=== PATIENT | female | born 1935 | race Caucasian/White ===

== ENCOUNTER 2017-04-20 20:45 | Observation (INO) | payer OTHER ==
[~2017-04-20] VITALS: Ht 157.5 cm; Wt 56.0 kg
[~2017-04-20 20:45] MED LIST: ASPI81TA28 PO; BACL1TAB PO; CALC-20 PO; CITA20TA4 PO; CITA20TA9 PO; CLON1TAB3 PO; DILT180C PO; LEVO125T4 PO; LISI5TAB PO; LVNIS30 SQ; MULTTAB58 PO; SIMV20TA5 PO; TRAZ50TA35 PO
[2017-04-20] MEDS ORDERED: SODIUM CHLORIDE 0.9% 1000ML 1,000 ML IV STA (21:29)
--- NOTE | 2017-04-20 21:29 | EMERGENCY ROOM VISIT NOTE ---
History Report prepared by Giuseppeibvicky: Makayla Lawson Under the Supervision of: Dr. Waylon Dominguez D.O. First contact with patient: 21:16 Chief Complaint: FALL Stated Complaint: FELL History of Present Illness The patient is a 81 year old female who presents to the Emergency Room with complaints of an episode of a fall that occurred just prior to arrival. The patient is unsure of what happened but knows that she feel to the floor. The patient denies hitting her head or loosing consciousness but did not remember what side she fell onto. She denies tripping over anything. The patient went to [facility] and they sent her to the ED. The patient uses a cane to walk and she lives alone. Pt denies headache, change in vision, fevers, cough, chest pain, shortness of breath, nausea, vomiting, diarrhea, pain with urination, and melena. Patient has no other complaints at this time. She does wear to 3 L nasal cannula chronically. Source of History: patient Onset: jsut prior to arrival Timing: other (episode) Associated Symptoms: No LOC Note: Pt denies headache, change in vision, fevers, cough, chest pain, shortness of breath, nausea, vomiting, diarrhea, pain with urination, and melena. Review of Systems See HPI for pertinent positives & negatives. A total of 10 systems reviewed and were otherwise negative. Past Medical & Surgical Medical Problems: (1) COPD (chronic obstructive pulmonary disease) (2) Neck pain, chronic (3) Torticollis Surgical Problems: (1) S/P Botox injection Family History no pertinent family history stated Social History Smoking Status: Former Smoker Marital Status: Housing Status: lives alone Occupation Status: retired Current/Historical Medications Scheduled Aspirin (Aspirin Ec), 81 MG PO DAILY Atorvastatin (Lipitor), 10 MG PO DAILY Baclofen (Lioresal), 10 MG PO HS Citalopram Hydrobromide (Citalopram Hydrobromide), 1 TAB PO DAILY Citalopram Hydrobromide (Celexa), 20 MG PO DAILY Clonazepam (Klonopin), 1 MG PO HS Diltiazem Hcl Coated Beads (Diltiazem Hcl Er), 1 CAP PO DAILY Fluticasone Furoate-Vilanterol (Breo Ellipta), 1 PUFF INH DAILY Furosemide (Lasix), 40 MG PO DAILY Levothyroxine Sodium (Levothyroxine Sodium), 1 TAB PO DAILY Lisinopril (Prinivil), 5 MG PO DAILY Trazodone Hcl (Trazodone), 25 MG PO DAILY Allergies Coded Allergies: Iodine (Verified Allergy, Mild, 07/08/15) Physical Exam Vital Signs Date Time Temp Pulse Resp B/P (MAP) Pulse Ox O2 Delivery O2 Flow Rate FiO2 04/20/17 23:58 81 28 134/52 94 Nasal Cannula 3.5 04/20/17 22:52 77 22 109/56 97 Nasal Cannula 3.5 04/20/17 22:34 79 04/20/17 21:52 96 Nasal Cannula 3.5 04/20/17 21:03 36.5 95 28 115/56 89 Nasal Cannula Physical Exam GENERAL: Sitting, chronically ill appearing, no acute distress, on nasal canula HEAD: normal cephalic, atraumatic EYE EXAM: normal conjunctiva, PERRL and EOM's grossly intact OROPHARYNX: no exudate, no erythema, lips, buccal mucosa, and tongue normal and mucous membranes are dry NOSE: no septal hematoma EARS: TMs clear b/l NECK: supple, no nuchal rigidity, no adenopathy, non-tender CHEST: stable to compression anteriorly and posteriorly LUNGS: clear to auscultation. Normal chest wall mechanics HEART: systolic ejection murmur, S1 normal and S2 normal ABDOMEN: abdomen soft, non-tender, normo-active bowel sounds, no masses, no rebound or guarding. PELVIS: stable to compression anteriorly and posteriorly BACK: Back is symmetrical on inspection and there is no deformity, no midline tenderness, no CVA tenderness. SKIN: tear on right elbow, large bruise/hematoma to right anterior surface of the humerus UPPER EXTREMITIES: full active and passive range of motion of all joints without tenderness to palpation with exception of right humerus which has diffuse bruising LOWER EXTREMITIES: full active and passive range of motion of all joints without tenderness to palpation NEURO EXAM: Normal sensorium, cranial nerves II-XII grossly intact, normal speech, no gross weakness of legs. GCS: 15. Medical Decision & Procedures ER Provider Diagnostic Interpretation: Radiology results as stated below per my review and the radiologist's interpretation: RIGHT HUMERUS 2 VIEWS FINDINGS: AP and lateral views of the right humerus are obtained. No prior studies are available for comparison at the time of dictation. The skeletal structures are osteopenic there is an impacted fracture of the left humeral neck which extends through the humeral head. Mild overlying soft tissue edema is noted. The distal humerus is intact. The shoulder and elbow joints are grossly maintained. The imaged right lung parenchyma appears clear. IMPRESSION: There is a nondistracted impacted fracture of the right humeral head and neck. Electronically signed by: Juliano Walls M.D. CT SCAN OF THE BRAIN WITHOUT IV CONTRAST FINDINGS: Brain parenchyma: There are age-related involutional changes noting moderate patchy subcortical and periventricular microangiopathic change. There is no hemorrhage, mass effect, or evidence of acute territorial ischemia by CT criteria. Amaya-white matter is preserved. No extra-axial fluid collection is seen. Ventricles, sulci, cisterns: Prominent secondary to involutional change. Intracranial vasculature: There is atherosclerotic calcification of the cavernous carotid and vertebral arteries. Calvarium: The skeletal structures are osteopenic. No depressed calvarial fractures seen. Sinuses and mastoids: A retention cyst is noted in the right maxillary antrum. The remaining The visualized paranasal sinuses are clear. The mastoid air cells are well pneumatized. Orbits: The bony orbits are grossly intact. There are bilateral ocular lens implants. IMPRESSION: Senescent changes as above with no hemorrhage, mass effect, or evidence of acute territorial ischemia by CT criteria. Electronically signed by: Juliano Walls M.D. SINGLE VIEW CHEST FINDINGS: An AP, portable, upright chest radiograph is compared to study dated 07/10/2015. The examination is degraded by portable technique and patient rotation. The heart is mildly enlarged and there is atherosclerotic calcification of the thoracic aorta. The pulmonary vasculature is noncongested. Chronic interstitial thickening similar to previous. No airspace consolidation, large pleural effusion, or pneumothorax is seen. The skeletal structures are osteopenic. There is an impacted fracture of the right humeral neck. IMPRESSION: 1. Cardiomegaly with no acute cardiopulmonary abnormality. 2. There is an impacted fracture of the right humeral neck. Electronically signed by: Juliano Walls M.D. CT SCAN OF THE CERVICAL SPINE FINDINGS: Skeletal structures: The skeletal structures are osteopenic. There is no evidence of fracture or subluxation involving the cervical spine. Vertebral body height is maintained. There is minimal anterolisthesis at C3-C4 and C4-C5. Alignment is otherwise preserved. Anterior osteophytes are seen throughout. There is hyperkyphosis of the cervical spine. The odontoid process and lateral masses are intact. The atlantoaxial articulation is preserved noting advanced productive degenerative change. The spinous processes appear intact. There is moderate multilevel cervical spondylosis. Uncovertebral and facet arthropathy contribute to neural foraminal narrowing at several levels. Intervertebral discs: Mild to moderate degenerative disc space narrowing is seen at C4-C5, C5-C6, and C6-C7. Central canal: Grossly patent. Soft tissues: The prevertebral and paraspinous soft tissues are within normal limits. Thyroid gland is markedly atrophic. Calvarium: The visualized calvarium at the skull base appears intact. Brain parenchyma: Partially visualized brain parenchyma the skull base is within normal limits noting age-related involutional change. Sinuses and mastoids: The visualized paranasal sinuses are clear. The mastoid air cells are well pneumatized. Lung apices: Emphysematous change and scarring is noted at the lung apices. IMPRESSION: 1. There is no evidence of fracture or subluxation involving the cervical spine. 2. Osteopenia, spondylotic change, and cervical hyperkyphosis as above. Electronically signed by: Juliano Walls M.D. Laboratory Results 04/20/17 21:58 Red Blood Count 3.33, Mean Corpuscular Volume 98.8, Mean Corpuscular Hemoglobin 30.9, Mean Corpuscular Hemoglobin Concent 31.3, Mean Platelet Volume 10.1, Neutrophils (%) (Auto) 88.6, Lymphocytes (%) (Auto) 5.4, Monocytes (%) (Auto) 5.5, Eosinophils (%) (Auto) 0.0, Basophils (%) (Auto) 0.1, Neutrophils # (Auto) 19.03, Lymphocytes # (Auto) 1.16, Monocytes # (Auto) 1.19, Eosinophils # (Auto) 0.01, Basophils # (Auto) 0.03 04/20/17 22:30 Test 04/20/17 21:54 04/20/17 21:58 04/20/17 22:30 04/20/17 22:40 Bedside Glucose 131 mg/dl (70-90) White Blood Count 21.50 K/uL (4.8-10.8) Red Blood Count 3.33 M/uL (4.2-5.4) Hemoglobin 10.3 g/dL (12.0-16.0) Hematocrit 32.9 % (37-47) Mean Corpuscular Volume 98.8 fL (80-100) Mean Corpuscular Hemoglobin 30.9 pg (25-34) Mean Corpuscular Hemoglobin Concent 31.3 g/dl (32-36) Platelet Count 439 K/uL (130-400) Mean Platelet Volume 10.1 fL (7.4-10.4) Neutrophils (%) (Auto) 88.6 % Lymphocytes (%) (Auto) 5.4 % Monocytes (%) (Auto) 5.5 % Eosinophils (%) (Auto) 0.0 % Basophils (%) (Auto) 0.1 % Neutrophils # (Auto) 19.03 K/uL (1.4-6.5) Lymphocytes # (Auto) 1.16 K/uL (1.2-3.4) Monocytes # (Auto) 1.19 K/uL (0.11-0.59) Eosinophils # (Auto) 0.01 K/uL (0-0.5) Basophils # (Auto) 0.03 K/uL (0-0.2) RDW Standard Deviation 48.5 fL (36.4-46.3) RDW Coefficient of Variation 13.5 % (11.5-14.5) Immature Granulocyte % (Auto) 0.4 % Immature Granulocyte # (Auto) 0.08 K/uL (0.00-0.02) Activated Partial Thromboplast Time 25.7 SECONDS (21.0-31.0) Partial Thromboplastin Ratio 1.0 Anion Gap 4.0 mmol/L (3-11) Est Creatinine Clear Calc Drug Dose 26.4 ml/min Estimated GFR () 44.2 Estimated GFR (Non- 38.2 BUN/Creatinine Ratio 18.4 (10-20) Calcium Level 8.5 mg/dl (8.5-10.1) Total Bilirubin 0.4 mg/dl (0.2-1) Direct Bilirubin 0.1 mg/dl (0-0.2) Aspartate Amino Transf (AST/SGOT) 21 U/L (15-37) Alanine Aminotransferase (ALT/SGPT) 18 U/L (12-78) Alkaline Phosphatase 79 U/L (45-117) Troponin I 0.022 ng/ml (0-0.045) Total Protein 7.2 gm/dl (6.4-8.2) Albumin 3.6 gm/dl (3.4-5.0) Urine Color YELLOW Urine Appearance CLEAR (CLEAR) Urine pH 5.0 (4.5-7.5) Urine Specific Jackson 1.016 (1.000-1.030) Urine Protein NEG (NEG) Urine Glucose (UA) NEG (NEG) Urine Ketones NEG (NEG) Urine Occult Blood NEG (NEG) Urine Nitrite NEG (NEG) Urine Bilirubin NEG (NEG) Urine Urobilinogen NEG (NEG) Urine Leukocyte Esterase MODERATE (NEG) Urine WBC (Auto) 5-10 /hpf (0-5) Urine RBC (Auto) 0-4 /hpf (0-4) Urine Hyaline Casts (Auto) 5-10 /lpf (0-5) Urine Epithelial Cells (Auto) >30 /lpf (0-5) Urine Bacteria (Auto) 4+ (NEG) Urine Renal Epithelial Cells 0-5 /lpf (0-5) Laboratory results per my review. Medications Administered Medications (Trade) Dose Ordered Sig/Nishant Route Start Time Stop Time Status Last Admin Dose Admin Sodium Chloride 1,000 ml @ 999 mls/hr Q1H1M STAT IV 04/20/17 21:29 04/20/17 22:29 DC 04/20/17 22:15 999 MLS/HR Methylprednisolone Sodium Succinate (Solu-Medrol IV) 125 mg NOW STAT IV 04/20/17 23:22 04/20/17 23:24 DC 04/20/17 23:30 125 MG ECG Indication: other (fall) Rhythm: sinus rhythm Findings: PVC, other (poor baseline) Comparison ECG Date: 07/11/15 Change: difficult to compare appears to have no acute changes ED Course ED COURSE: Vital signs were reviewed and showed hypertensive The patients medical record was reviewed The above diagnostic studies were performed and reviewed. ED treatments and interventions as stated above. 2120: The patient was evaluated in room A12A. A complete history and physical examination was performed. 0:I rechecked on the patient she has no allergies to IV contrast. I reviewed previous CT scan in 2014 and she has taken solu-medrol 2322: Solu-Medrol IV 125 mg IV 7: The patient just got back from her scans, she has no complaints. 244: I reviewed the patient's case with Dr. Maryanne ROD. He will evaluate the patient for further management. 2452: Upon reevaluation, the patient is resting.I discussed my findings with the patient and she understands and agrees with the treatment plan. Based on the patients age, coexisting illnesses, exam and lab findings the decision to treat as an inpatient was made. The patient remained stable while under my care. The patient will be evaluated for further management. Medical Decision Differential diagnoses include major intracranial, cervical, spinal, thoracic, abdominal, pelvic and neurologic injury. Fracture, contusion, sprain, strain, laceration, abrasions included as well. Patient is an 81-year-old female who presents the ER following a fall at home which she cannot describe. Upon presentation she is found to be severely hypoxic on her portable O2. She was placed on 4 L nasal cannula and has been having no trouble since then. X-ray show a right proximal febrile head fracture. EKG showed poor baseline but was unremarkable. She is a leukocytosis of 24,000 any urine which was straight cathed but contaminated. Question whether this is truly UTI versus leukocytosis from the fracture. CT PE was performed because of the earlier hypoxia. I reviewed the images and do not see any PEs. Official report was pending. She has been feeling very weak and family notes that she lives home alone and would be more help if she were to go home. I do not feels reasonable to discharge her at this time. She was given a dose of Rocephin. Pain was controlled while in the ER. She is admitted to internal medicine for further workup of her UTI/leukocytosis and right humeral head fracture which is likely nonoperable. Medication Reconcilliation Current Medication List: was personally reviewed by me Blood Pressure Screening Patient's blood pressure: Elevated blood pressure Blood pressure disposition: Elevated BP felt to be situational Consults Time Called: 2439 Consulting Physician: Dr. Maryanne ROD Returned Call: [phone] I reviewed the patient's case with Dr. Khan. He will evaluate the patient for further management. Impression Primary Impression: Fall Additional Impressions: Humeral head fracture UTI (urinary tract infection) Weakness Scribe Attestation The scribe's documentation has been prepared under my direction and personally reviewed by me in its entirety. I confirm that the note above accurately reflects all work, treatment, procedures, and medical decision making performed by me. Departure Information Dispostion Being Evaluated By Hospitalist Referrals Davian Brooke M.D. (PCP) Forms HOME CARE DOCUMENTATION FORM, IMPORTANT VISIT INFORMATION Patient Instructions My [facility] Health Problem Qualifiers Primary Impression: Fall Encounter type: initial encounter Qualified Codes: W19.XXXA - Unspecified fall, initial encounter Additional Impressions: Humeral head fracture Encounter type: initial encounter Fracture type: closed Laterality: right Qualified Codes: S42.291A - Other displaced fracture of upper end of right humerus, initial encounter for closed fracture UTI (urinary tract infection) Urinary tract infection type: acute cystitis Hematuria presence: with hematuria Qualified Codes: N30.01 - Acute cystitis with hematuria
--- NOTE | 2017-04-20 22:04 | DIAGNOSTIC IMAGING REPORT ---
RIGHT HUMERUS 2 VIEWS CLINICAL HISTORY: Right arm injury. FINDINGS: AP and lateral views of the right humerus are obtained. No prior studies are available for comparison at the time of dictation. The skeletal structures are osteopenic there is an impacted fracture of the left humeral neck which extends through the humeral head. Mild overlying soft tissue edema is noted. The distal humerus is intact. The shoulder and elbow joints are grossly maintained. The imaged right lung parenchyma appears clear. IMPRESSION: There is a nondistracted impacted fracture of the right humeral head and neck. Electronically signed by: Juliano Walls M.D. 04/20/2017 10:02 PM Dictated Date/Time: 04/20/2017 10:01 PM
--- NOTE | 2017-04-20 22:05 | DIAGNOSTIC IMAGING REPORT ---
SINGLE VIEW CHEST CLINICAL HISTORY: Change in mental status. Weakness. FINDINGS: An AP, portable, upright chest radiograph is compared to study dated 07/10/2015. The examination is degraded by portable technique and patient rotation. The heart is mildly enlarged and there is atherosclerotic calcification of the thoracic aorta. The pulmonary vasculature is noncongested. Chronic interstitial thickening similar to previous. No airspace consolidation, large pleural effusion, or pneumothorax is seen. The skeletal structures are osteopenic. There is an impacted fracture of the right humeral neck. IMPRESSION: 1. Cardiomegaly with no acute cardiopulmonary abnormality. 2. There is an impacted fracture of the right humeral neck. Electronically signed by: Juliano Walls M.D. 04/20/2017 10:03 PM Dictated Date/Time: 04/20/2017 10:02 PM
[2017-04-20 22:11] LABS: BASO % 0.1 %; BASO ABS # 0.03 K/uL (0-0.2); COMPLETE YES; HEMATOCRIT 32.9 % (37-47); IG% 0.4 %; LYMPH % 5.4 %; LYMPH ABS # 1.16 K/uL (1.2-3.4); MEAN CELL VOLUME 98.8 fL (80-100); MEAN CORPUSCULAR HEMOGLOBIN 30.9 pg (25-34); MEAN CORPUSCULAR HGB CONC 31.3 g/dl (32-36); MEAN PLATELET VOLUME 10.1 fL (7.4-10.4); MONO % 5.5 %; NEUT % 88.6 %; PLATELET COUNT 439 K/uL (130-400); RED BLOOD COUNT 3.33 M/uL (4.2-5.4)
--- NOTE | 2017-04-20 22:26 | DIAGNOSTIC IMAGING REPORT ---
CT SCAN OF THE BRAIN WITHOUT IV CONTRAST CLINICAL HISTORY: Fall. COMPARISON STUDY: No priors. TECHNIQUE: Unenhanced axial CT scan of the brain is performed from the vertex to the skull base. The examination is degraded by suboptimal positioning within the CT gantry. CT DOSE: Reported separately under the concurrently performed CT scan of the cervical spine. FINDINGS: Brain parenchyma: There are age-related involutional changes noting moderate patchy subcortical and periventricular microangiopathic change. There is no hemorrhage, mass effect, or evidence of acute territorial ischemia by CT criteria. Amaya-white matter is preserved. No extra-axial fluid collection is seen. Ventricles, sulci, cisterns: Prominent secondary to involutional change. Intracranial vasculature: There is atherosclerotic calcification of the cavernous carotid and vertebral arteries. Calvarium: The skeletal structures are osteopenic. No depressed calvarial fractures seen. Sinuses and mastoids: A retention cyst is noted in the right maxillary antrum. The remaining The visualized paranasal sinuses are clear. The mastoid air cells are well pneumatized. Orbits: The bony orbits are grossly intact. There are bilateral ocular lens implants. IMPRESSION: Senescent changes as above with no hemorrhage, mass effect, or evidence of acute territorial ischemia by CT criteria. Electronically signed by: Juliano Walls M.D. 04/20/2017 10:24 PM Dictated Date/Time: 04/20/2017 10:22 PM
[2017-04-20] MEDS ORDERED: FRS/40 PO (22:33)
[2017-04-20] MEDS ORDERED: ATOR10TA88 PO (22:33)
[2017-04-20] MEDS ORDERED: FLUT1INH INH (22:33)
--- NOTE | 2017-04-20 22:33 | DIAGNOSTIC IMAGING REPORT ---
CT SCAN OF THE CERVICAL SPINE CLINICAL HISTORY: Fall. COMPARISON STUDY: MRI of the cervical spine dated 10/03/2006. TECHNIQUE: CT scan of the cervical spine is performed from the skull base to the upper thoracic spine. Images are reviewed in the axial, sagittal, and coronal planes. IV contrast was not administered for this examination. A dose lowering technique was utilized adhering to the principles of ALARA. The examination is significantly degraded by suboptimal positioning due to cervical hyperkyphosis. CT DOSE: 2393.56 mGy.cm FINDINGS: Skeletal structures: The skeletal structures are osteopenic. There is no evidence of fracture or subluxation involving the cervical spine. Vertebral body height is maintained. There is minimal anterolisthesis at C3-C4 and C4-C5. Alignment is otherwise preserved. Anterior osteophytes are seen throughout. There is hyperkyphosis of the cervical spine. The odontoid process and lateral masses are intact. The atlantoaxial articulation is preserved noting advanced productive degenerative change. The spinous processes appear intact. There is moderate multilevel cervical spondylosis. Uncovertebral and facet arthropathy contribute to neural foraminal narrowing at several levels. Intervertebral discs: Mild to moderate degenerative disc space narrowing is seen at C4-C5, C5-C6, and C6-C7. Central canal: Grossly patent. Soft tissues: The prevertebral and paraspinous soft tissues are within normal limits. Thyroid gland is markedly atrophic. Calvarium: The visualized calvarium at the skull base appears intact. Brain parenchyma: Partially visualized brain parenchyma the skull base is within normal limits noting age-related involutional change. Sinuses and mastoids: The visualized paranasal sinuses are clear. The mastoid air cells are well pneumatized. Lung apices: Emphysematous change and scarring is noted at the lung apices. IMPRESSION: 1. There is no evidence of fracture or subluxation involving the cervical spine. 2. Osteopenia, spondylotic change, and cervical hyperkyphosis as above. Electronically signed by: Juliano Walls M.D. 04/20/2017 10:32 PM Dictated Date/Time: 04/20/2017 10:21 PM
[2017-04-20 23:06] LABS: BUN/CREATININE RATIO 18.4 (10-20); CALCIUM 8.5 mg/dl (8.5-10.1); CREATININE 1.3 mg/dl (0.60-1.20); POTASSIUM 4.3 mmol/L (3.5-5.1)
[2017-04-20 23:07] LABS: URINE APPEARANCE CLEAR (CLEAR); URINE BILIRUBIN NEG (NEG); URINE COLOR YELLOW; URINE EPITHELIAL CELL AUTO >30 /lpf (0-5); URINE NITRITE NEG (NEG); URINE SPECIFIC GRAVITY 1.016 (1.000-1.030); UROBILINOGEN NEG (NEG); ZZURINE CULT IF INDIC CATH YES
[2017-04-20 23:12] LABS: MANUAL MICROSCOPIC REQUIRED? NO; REVIEW REQ? YES
[2017-04-20] MEDS ORDERED: METHYLPREDNISOLONE 125 MG VIAL IV STA (23:22)
[2017-04-20] MEDS ORDERED: OPTIRAY 320 IV PRN (23:30)
[2017-04-21] VITALS (10 sets, daily range): BP systolic 110–146; BP diastolic 54–80; PULSE 74–87; TEMP 36.5–37.1; O2SAT 85–96; Ht 157.5 cm; Wt 56.0 kg
[2017-04-21] MEDS ORDERED: CEFTRIAXONE SOD INJ 1 GM ADDVIAL IV STA (00:39)
[2017-04-21] MEDS ORDERED: TRAMADOL HCL 50 MG TAB PO PRN (01:30)
[2017-04-21] MEDS ORDERED: ACETAMINOPHEN 325 MG TAB PO PRN (01:30)
[2017-04-21] MEDS ORDERED: POLYETHYLENE (MIRALAX) 17 GM PACK PO PRN (01:30)
[2017-04-21] MEDS ORDERED: ALUMINUM/MAGNESIUM/SIMETH (MAALOX MAX) 30 ML UDC PO PRN (01:30)
[2017-04-21] MEDS ORDERED: ONDANSETRON INJ 2 MG/ML 2 ML VIAL IV PRN (01:30)
[2017-04-21] MEDS ORDERED: MAGNESIUM HYDROXIDE SUSP 30 ML UDC PO PRN (01:30)
[2017-04-21] MEDS ORDERED: SODIUM CHLORIDE 0.9% 1000ML 1,000 ML IV SCH (01:45)
--- NOTE | 2017-04-21 02:08 | History and Physical ---
History & Physical Date & Time of Service: Apr 21, 2017 at 01:20 Chief Complaint: FELL Primary Care Physician: Davian Brooke M.D. History of Present Illness Source: patient, family 81 y/o F Hx advanced COPD, CAD, HTN, HPL, hypothyroid, anemia. Pt suffered a mechanical fall leading to a R humeral fracture. She was transported to the ER where it was noted that her 02 saturation was as low as mid 50s. This improved with nebulizer treatments and 02. She had not in fact complained of SOB and her daughter states that her oxygen saturation can drop with any activity and sometimes may stay low until she remains sedentary with her oxygen for a period. She denies CP, a cough, N/V or dysuria. Due to her low saturation she was sent for a CTA in the ER which did not reveal any acute abnormalities. Initial labs are notable for leukocytosis and mild ELIAS. Her UA is +. She is having difficulty with mobility as she relies on a cane and is R handed. Past Medical/Surgical History 1) COPD - dependent on 4L 02 2) Spasmodic torticollis - chronic neck pain - treated with Botox 3) CAD - [place] 20 yrs prior leading to angioplasty 4) Hypothyroidism 5) HTN 6) HPL 7) Depression/anxiety 8) Chronic anemia - baseline Hb 10-11 Surgical history Angioplasty, Cholecystectomy, Lumpectomy, L hip repair, repair of L radial fracture Family History Noncontributory due to pt age Social History Pt maintains a degree of independence and can ambulate with a cane Smoking Status: Former Smoker Marital Status: Occupational Status: retired Multi-Drug Resistant Organisms History of MDRO: No Allergies Coded Allergies: Iodine (Verified Allergy, Mild, 07/08/15) Home Medications Scheduled Aspirin (Aspirin Ec), 81 MG PO DAILY Atorvastatin (Lipitor), 10 MG PO DAILY Baclofen (Lioresal), 10 MG PO HS Citalopram Hydrobromide (Citalopram Hydrobromide), 1 TAB PO DAILY Citalopram Hydrobromide (Celexa), 20 MG PO DAILY Clonazepam (Klonopin), 1 MG PO HS Diltiazem Hcl Coated Beads (Diltiazem Hcl Er), 1 CAP PO DAILY Fluticasone Furoate-Vilanterol (Breo Ellipta), 1 PUFF INH DAILY Furosemide (Lasix), 40 MG PO DAILY Levothyroxine Sodium (Levothyroxine Sodium), 1 TAB PO DAILY Lisinopril (Prinivil), 5 MG PO DAILY Trazodone Hcl (Trazodone), 25 MG PO DAILY Review of Systems Constitutional: No fever, No chills, No sweats Eyes: No worsening of vision ENT: No hearing loss Respiratory: + shortness of breath (chronic), No cough, No sputum, No wheezing Cardiovascular: No chest pain, No orthopnea, No PND Abdomen: No pain, No nausea, No vomiting Musculoskeletal: + joint pain (PAin at fracture site) Neurologic: + weakness, No memory loss, No paralysis Psychiatric: No depression symptoms Endocrine: No fatigue Hematologic / Lymphatic: No abnormal bleeding/bruising Integumentary: No rash Allergic / Immunologic: No environmental allergies Physical Exam Vital Signs Date Time Temp Pulse Resp B/P (MAP) Pulse Ox O2 Delivery O2 Flow Rate FiO2 04/20/17 23:58 81 28 134/52 94 Nasal Cannula 3.5 04/20/17 22:52 77 22 109/56 97 Nasal Cannula 3.5 04/20/17 22:34 79 04/20/17 21:52 96 Nasal Cannula 3.5 04/20/17 21:03 36.5 95 28 115/56 89 Nasal Cannula General Appearance: WD/WN, no apparent distress, + pertinent finding (Pleasant - pale-appearing elderly F - no distress) Head: normocephalic Eyes: normal inspection ENT: normal ENT inspection, pharynx normal Neck: supple, no JVD Respiratory/Chest: chest non-tender, + pertinent finding (Poor b/l air movement - no audible wheezing/crackles) Cardiovascular: regular rate, rhythm, no edema, no gallop, no JVD, normal peripheral pulses, + systolic murmur Abdomen/GI: normal bowel sounds, non tender, soft Back: normal inspection, no CVA tenderness Extremities/Musculoskelatal: + pertinent finding (Pain to palpation of R arm - no visible inflamation or dislocation) 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, no motor/sensory deficits, alert, normal mood/affect, normal reflexes, oriented x 3 Skin: normal color, warm/dry, no rash Diagnostics Laboratory Results Results Past 24 Hours Test 04/20/17 21:54 04/20/17 21:58 04/20/17 22:30 04/20/17 22:40 Range/Units Bedside Glucose 131 70-90 mg/dl White Blood Count 21.50 4.8-10.8 K/uL Red Blood Count 3.33 4.2-5.4 M/uL Hemoglobin 10.3 12.0-16.0 g/dL Hematocrit 32.9 37-47 % Mean Corpuscular Volume 98.8 80-100 fL Mean Corpuscular Hemoglobin 30.9 25-34 pg Mean Corpuscular Hemoglobin Concent 31.3 32-36 g/dl Platelet Count 439 130-400 K/uL Mean Platelet Volume 10.1 7.4-10.4 fL Neutrophils (%) (Auto) 88.6 % Lymphocytes (%) (Auto) 5.4 % Monocytes (%) (Auto) 5.5 % Eosinophils (%) (Auto) 0.0 % Basophils (%) (Auto) 0.1 % Neutrophils # (Auto) 19.03 1.4-6.5 K/uL Lymphocytes # (Auto) 1.16 1.2-3.4 K/uL Monocytes # (Auto) 1.19 0.11-0.59 K/uL Eosinophils # (Auto) 0.01 0-0.5 K/uL Basophils # (Auto) 0.03 0-0.2 K/uL RDW Standard Deviation 48.5 36.4-46.3 fL RDW Coefficient of Variation 13.5 11.5-14.5 % Immature Granulocyte % (Auto) 0.4 % Immature Granulocyte # (Auto) 0.08 0.00-0.02 K/uL Activated Partial Thromboplast Time 25.7 21.0-31.0 SECONDS Partial Thromboplastin Ratio 1.0 Sodium Level 140 136-145 mmol/L Potassium Level 4.3 3.5-5.1 mmol/L Chloride Level 98 98-107 mmol/L Carbon Dioxide Level 38 21-32 mmol/L Anion Gap 4.0 3-11 mmol/L Blood Urea Nitrogen 24 7-18 mg/dl Creatinine 1.30 0.60-1.20 mg/dl Est Creatinine Clear Calc Drug Dose 26.4 ml/min Estimated GFR () 44.2 Estimated GFR (Non- 38.2 BUN/Creatinine Ratio 18.4 -20 Random Glucose 124 70-99 mg/dl Calcium Level 8.5 8.5-10.1 mg/dl Total Bilirubin 0.4 0.2-1 mg/dl Direct Bilirubin 0.1 0-0.2 mg/dl Aspartate Amino Transf (AST/SGOT) 21 15-37 U/L Alanine Aminotransferase (ALT/SGPT) 18 12-78 U/L Alkaline Phosphatase 79 45-117 U/L Troponin I 0.022 0-0.045 ng/ml Total Protein 7.2 6.4-8.2 gm/dl Albumin 3.6 3.4-5.0 gm/dl Urine Color YELLOW Urine Appearance CLEAR CLEAR Urine pH 5.0 4.5-7.5 Urine Specific Sayre 1.016 1.000-1.030 Urine Protein NEG NEG Urine Glucose (UA) NEG NEG Urine Ketones NEG NEG Urine Occult Blood NEG NEG Urine Nitrite NEG NEG Urine Bilirubin NEG NEG Urine Urobilinogen NEG NEG Urine Leukocyte Esterase MODERATE NEG Urine WBC (Auto) 5-10 0-5 /hpf Urine RBC (Auto) 0-4 0-4 /hpf Urine Hyaline Casts (Auto) 5-10 0-5 /lpf Urine Epithelial Cells (Auto) >30 0-5 /lpf Urine Bacteria (Auto) 4+ NEG Urine Renal Epithelial Cells 0-5 0-5 /lpf Microbiology Results 04/20/17 Urine Culture, Received Pending Diagnostic Radiology CTA chest No PE/dissection Emphysema chronic thoracolumbar compression fractures - acute humeral head fracture EKG Sinus , PVCs - no acute ischemic changes Impression Assessment and Plan 81 y/o F Hx advanced COPD, CAD, HTN, HPL, hypothyroid, anemia. Pt suffered a mechanical fall leading to a R humeral fracture. She was transported to the ER where it was noted that her 02 saturation was as low as mid 50s. This improved with nebulizer treatments and 02. She had not in fact complained of SOB and her daughter states that her oxygen saturation can drop with any activity and sometimes may stay low until she remains sedentary with her oxygen for a period. She denies CP, a cough, N/V or dysuria. Due to her low saturation she was sent for a CTA in the ER which did not reveal any acute abnormalities. Initial labs are notable for leukocytosis and mild ELIAS. Her UA is +. She is having difficulty with mobility as she relies on a cane and is R handed. 1) Humeral fracture - this is not likely to require any intervention. She will be evaluated by PT, OT and orthopedics AM. She may need transfer to an acute rehab facility if she cannot function independently. 2) COPD - low saturation - pt is at baseline with 4L 02 - we will monitor her saturation - she denies any current respiratory discomfort - we will continue her scheduled inhalers 3) UTI - Placed on Ceftriaxone pending culture results 4) CAD - no evidence of ACS - cont ASA, statin 5) ELIAS - Lasix and Lisinopril held pending repeat BMP - provided with IVF 6) HTN - cont Diltiazem - restart Lisinopril if creat corrects 7) Hypothyroidism - cont Synthroid 8) Anemia - stable - trend Hb It is noted on review of records that the pt is very sensitive to narcotics and has needed Narcan following administration previously - we have placed her on Tramadol at present Full code - SCDs Total time for this admit including review of labs, meds, imaging, EKG - discussion with pt, daughter and ER attending - 38 min Level of Care Med/Surg Resuscitation Status FULL RESUSCITATION VTE Prophylaxis Given or contraindicated: SCD's
[2017-04-21] MEDS ORDERED: IV FLUIDS COMPLETED PRN (02:15)
[2017-04-21] MEDS ORDERED: LEVOTHYROXINE 125 MCG TAB PO SCH (06:00)
[2017-04-21 06:19] LABS: HEMATOCRIT 30.1 % (37-47); MEAN CELL VOLUME 98.7 fL (80-100); MEAN CORPUSCULAR HEMOGLOBIN 30.5 pg (25-34); MEAN CORPUSCULAR HGB CONC 30.9 g/dl (32-36); MEAN PLATELET VOLUME 9.9 fL (7.4-10.4); PLATELET COUNT 367 K/uL (130-400); RED BLOOD COUNT 3.05 M/uL (4.2-5.4); WHITE BLOOD COUNT 13.12 K/uL (4.8-10.8)
[2017-04-21 06:46] LABS: BUN/CREATININE RATIO 19.9 (10-20); CALCIUM 8.7 mg/dl (8.5-10.1); CREATININE 1.1 mg/dl (0.60-1.20); POTASSIUM 4.6 mmol/L (3.5-5.1)
--- NOTE | 2017-04-21 07:08 | DIAGNOSTIC IMAGING REPORT ---
CT ANGIOGRAPHY OF THE CHEST, PULMONARY EMBOLUS PROTOCOL CLINICAL HISTORY: Shortness of breath and hypoxia. COMPARISON STUDY: Chest CT July 11, 2015 and chest radiograph April 20, 2017. TECHNIQUE: The patient was premedicated for an IV dye allergy. Following IV administration of 92 mL of Optiray-320, helical axial images of the chest were obtained utilizing the pulmonary embolus protocol. Maximal intensity projections and sagittal and coronal reformats were viewed on an independent 3D workstation. IV contrast was administered without complication. A dose lowering technique was utilized adhering to the principles of ALARA. CT DOSE: 461.20 mGy.cm FINDINGS: No pulmonary emboli are identified. There is no evidence of thoracic aortic dissection. The heart is mildly enlarged. There is no pericardial effusion. There are no enlarged thoracic lymph nodes. Lungs are suboptimally assessed due to respiratory motion. Note is made of moderate emphysema. There is mild bronchial wall thickening and mild mucoid impaction within segmental bronchi of the lower lobes. There is no consolidation to suggest pneumonia. Linear opacities reflect atelectasis. No pneumothorax or pleural effusion is present. There is an acute impacted right humeral neck fracture. Old thoracolumbar spine fractures are noted. A 9 mm hyperdense lesion arising from the lower pole of the left kidney is partially imaged on this exam. A 2.4 cm apparent uncinate process water attenuation pancreatic lesion is partially imaged. There is no pancreatic ductal dilatation. There is borderline biliary ductal dilatation. IMPRESSION: 1. No pulmonary emboli identified. 2. No acute intrathoracic findings. 3. Acute impacted right humeral neck fracture. 4. Mild cardiomegaly. 5. Moderate emphysema. 6. Partially imaged apparent 2.4 cm uncinate process lesion within the pancreas. This likely reflects a cystic lesion such as an IPMN. Less likely, this could reflect a portion of the duodenum. A follow-up nonemergent pancreatic protocol CT could be obtained. 7. 9 mm partially visualized lesion arising from the lower pole of the left kidney which may reflect a hyperdense cyst. Electronically signed by: Adiel Rosas M.D. 04/21/2017 7:06 AM Dictated Date/Time: 04/21/2017 6:54 AM
[2017-04-21] MEDS ORDERED: ATORVASTATIN 10 MG TAB PO SCH (09:00)
[2017-04-21] MEDS ORDERED: FUROSEMIDE 40 MG TAB PO SCH (09:00)
[2017-04-21] MEDS ORDERED: DILTIAZEM HCL 180 MG CAPCR PO SCH (09:00)
[2017-04-21] MEDS ORDERED: LISINOPRIL 5 MG TAB PO SCH (09:00)
[2017-04-21] MEDS ORDERED: ASPIRIN 81 MG ECTAB PO SCH (09:00)
[2017-04-21] MEDS ORDERED: CITALOPRAM 20 MG TAB PO SCH ×2 (09:00)
--- NOTE | 2017-04-21 09:21 | Consultant Recommendations ---
Tilt Tray Driver Recommendations Date of Service Apr 21, 2017. Tilt Tray Driver Recommendations Sling /shoulder immobilizer right upper extremity at all times except may remove to shower and also do range of motion exercises for right elbow, wrist, and hand but must maintain right elbow at her side at all times. No weightbearing right upper extremity with cane or walker. Frequent ice to shoulder as needed for pain/discomfort. Follow-up in office with Dr Keating ~ 1 week for re-evaluation. Call [phone] for appt.
--- NOTE | 2017-04-21 09:57 | ORTHOPEDIC CONSULTATION REPORT ---
DATE OF CONSULTATION: 04/21/2017 HISTORY OF PRESENT ILLNESS: The patient is an 81-year-old female who presented to the Emergency Department after suffering a fall with complaints primarily of right shoulder pain. X-rays revealed a right proximal humerus fracture. At the time of the ER visit, the patient was found to have low O2 sats. She does use O2 chronically for COPD. She also had a chest CT, cervical spine CT and head CT to rule out other pathology. The studies were all negative. Due to her low O2 sats, the decision was made to admit the patient to the hospital. Orthopedics consult was asked for regarding her right shoulder fracture. OBJECTIVE: Currently, she is sitting bedside in her chair. She appears fairly comfortable. She has a shoulder immobilizer in place. Denies any other injuries as a result of fall or any head, neck, or back pain. Her fingers were mobile and neurovascularly intact. Her x-rays were reviewed and show an impacted, minimally displaced right proximal humerus fracture. ASSESSMENT: 81-year-old female with impacted, minimally displaced right proximal humerus fracture. PLAN: Treatment for this fracture is conservative in nature with a sling/shoulder immobilizer. The patient has been instructed to maintain her elbow at her side, but she can remove the sling periodically for elbow, wrist and hand motion. Again, we did not want her to attempt to lift the elbow away from the side. She states she lives alone at home and uses a walker in her right hand which she is not going to be able to do for a while. She states she has family very close to her and they are trying to figure out if they can get her some assistance. If not, the patient may require a short stay in a nursing facility. Otherwise, she should follow up with Dr. Keating in our office in approximately 1 week for x-ray and reevaluation.
[2017-04-21] MEDS ORDERED: ULT50X PO (13:03)
[2017-04-21] MEDS ORDERED: CPR250 PO (13:06)
--- NOTE | 2017-04-21 13:12 | Discharge Instructions ---
Discharge Instructions Date of Service Apr 21, 2017. Admission Reason for Admission: Humeral Head Fracture Discharge Discharge Diagnosis / Problem: humeral fracture Discharge Goals Goal(s): Diagnostic testing, Therapeutic intervention Activity Recommendations Activity Level: Up Ad Cecilia . Additional Information Patient informed of condition: Yes Advance Directives: Yes DNR: No Level of Care: Acute Rehab Communicable Disease: Yes Prognosis: Stable Oxygen at (LPM): 3-4 liters Flanagan Catheter: No Instructions / Follow-Up Instructions / Follow-Up Full code - SCDs Current Hospital Diet Patient's current hospital diet: AHA Diet (Heart Healthy) Discharge Diet Recommended Diet: Regular Diet Pending Studies Studies pending at discharge: yes List of pending studies: urine culture Medical Emergencies . Who to Call and When: Medical Emergencies: If at any time you feel your situation is an emergency, please call 911 immediately. . Non-Emergent Contact Non-Emergency issues call your: Primary Care Provider, Surgeon (orthopedics) Call Non-Emergent contact if: temperature is above 101, your pain is unusual for you . . "Provider Documentation" section prepared by Anton Finney. . Cocoa Powder Mixer Operator Recommendations Cocoa Powder Mixer Operator Recommendations: Sling /shoulder immobilizer right upper extremity at all times except may remove to shower and also do range of motion exercises for right elbow, wrist, and hand but must maintain right elbow at her side at all times. No weightbearing right upper extremity with cane or walker. Frequent ice to shoulder as needed for pain/discomfort. Follow-up in office with Dr Keating ~ 1 week for re-evaluation. Call [phone] for appt. Core Measure Problem Core Measures: None
--- NOTE | 2017-04-21 16:20 | Discharge Summary ---
Discharge Summary Date of Service Apr 21, 2017. Discharge Summary Admission Date: Apr 21, 2017 at 01:23 Discharge Date: Apr 21, 2017 Discharge Disposition: Rehab Principal Diagnosis: right humeral fracture, COPD, oxygen dependent at baseline Consultations: Dr Keating will have follow up in one week Medication Reconciliation New Medications: Ciprofloxacin (Ciprofloxacin HCl) 250 Mg Tab 250 MG PO BID, #10 DOSE Tramadol HCl (Tramadol HCl) 50 Mg Tab 50 MG PO Q4H PRN for Pain, #30 TAB Continued Medications: Aspirin (Aspirin Ec) 81 Mg Tab 81 MG PO DAILY Atorvastatin (Lipitor) 10 Mg Tab 10 MG PO DAILY, TAB Baclofen (Lioresal) 10 Mg Tab 10 MG PO HS, TAB Citalopram Hydrobromide (Citalopram Hydrobromide) 20 Mg Tab 1 TAB PO DAILY for 90 Days, #90 TAB 3 Refills Citalopram Hydrobromide (Celexa) 20 Mg Tab 20 MG PO DAILY, TAB Clonazepam (Klonopin) 1 Mg Tab 1 MG PO HS, TAB Diltiazem Hcl Coated Beads (Diltiazem Hcl Er) 180 Mg Cap 1 CAP PO DAILY for 90 Days, #90 CAP 3 Refills Fluticasone Furoate-Vilanterol (Breo Ellipta) 1 Inh Inh 1 PUFF INH DAILY Levothyroxine Sodium (Levothyroxine Sodium) 125 Mcg Tab 1 TAB PO DAILY for 90 Days, #90 TAB 3 Refills Lisinopril (Prinivil) 5 Mg Tab 5 MG PO DAILY, TAB Trazodone Hcl (Trazodone) 50 Mg Tab 25 MG PO DAILY, TAB Discontinued Medications: Furosemide (Lasix) 40 Mg Tab 40 MG PO DAILY, TAB Discharge Exam Review of Systems: Constitutional: No fever, No chills Respiratory: No cough, No sputum, No wheezing Neurologic: No memory loss, No paralysis, No weakness Physical Exam: General Appearance: WD/WN, + mild distress Neck: supple, no JVD Respiratory/Chest: + respiratory distress, + decreased breath sounds, + accessory muscle use, + wheezing Cardiovascular: regular rate, rhythm, no murmur Abdomen / GI: normal bowel sounds, non tender, soft Skin: normal color, warm/dry Hospital Course 81 y/o F with mechanical fall and R hunmeral fracture, acute on chronic hypoxic respiratory failure secondary to advanced COPD, Humeral fracture - PT, OT and orthopedics recommended immobilizer and follow up COPD -CT negative for PE, baseline with 4L 02 - has some exertional dyspnea, continue her scheduled inhalers UTI -POA, Ceftriaxone pending culture results at time of discharge will have on cipro 250 mg bid CAD/ HTN-stable ASA, diltiazem, statin ELIAS - Lasix held , restart lisinopril and follow volume status Hypothyroidism - clinically euthyroid on Synthroid Dr Anglin has noted on review of records that the pt is very sensitive to narcotics and has needed Narcan following administration previously Full code - SCDs Total Time Spent: Greater than 30 minutes This includes examination of the patient, discharge planning, medication reconciliation, and communication with other providers. Discharge Instructions Please refer to the electronic Patient Visit Report (Discharge Instructions) for additional information.
[2017-04-21] MEDS ORDERED: CLONAZEPAM 1 MG TAB PO SCH (21:00)
[2017-04-21] MEDS ORDERED: TRAZODONE HCL 50 MG TAB PO SCH (21:00)
[2017-04-21] MEDS ORDERED: BACLOFEN 10 MG TAB PO SCH (21:00)
[2017-04-22] MEDS ORDERED: CEFTRIAXONE SOD INJ 1 GM in DEXTROSE 5% ADD-VANTAGE 50ML 50 ML IV SCH (01:00)
[2017-05-06] MEDS ORDERED: CLON1TAB3 PO (11:09)
[2017-05-06] MEDS ORDERED: OXYC-609 PO (11:09)
[2017-05-06] MEDS ORDERED: PLMINS INH (11:09)
[2017-05-06] MEDS ORDERED: FRRG PO (11:09)
[2017-05-06] MEDS ORDERED: PRED10TA PO (11:09)
== END 2017-04-21 17:35 ==
LOC: C.EDB 20:46 → C.MSN 04-21 01:23 → ENRESERV 04-21 01:40
PROVIDERS: ADMIT Internal Medicine; ATTEND Internal Medicine
DX: S42.291A Other displaced fracture of upper end of right humerus, initial encounter for closed fracture (principal); W19.XXXA Unspecified fall, initial encounter; N39.0 Urinary tract infection, site not specified; J96.21 Acute and chronic respiratory failure with hypoxia; J44.9 Chronic obstructive pulmonary disease, unspecified; I25.10 Atherosclerotic heart disease of native coronary artery without angina pectoris; I25.2 Old myocardial infarction; I10 Essential (primary) hypertension; E78.5 Hyperlipidemia, unspecified; N17.9 Acute kidney failure, unspecified; E03.9 Hypothyroidism, unspecified; G24.3 Spasmodic torticollis; D64.9 Anemia, unspecified; F41.9 Anxiety disorder, unspecified; F32.9 Major depressive disorder, single episode, unspecified; Z99.81 Dependence on supplemental oxygen; Z87.891 Personal history of nicotine dependence; Z79.82 Long term (current) use of aspirin; Z79.899 Other long term (current) drug therapy

== ENCOUNTER 2017-04-24 15:52 | Inpatient (IN) | payer OTHER ==
[~2017-04-24] VITALS: Ht 157.5 cm; Wt 58.5 kg
[~2017-04-24 15:52] MED LIST changes: +ATOR10TA88 PO; -CALC-20 PO; +CPR250 PO; +FLUT1INH INH; -LVNIS30 SQ; -MULTTAB58 PO; -SIMV20TA5 PO; +ULT50X PO
[2017-04-24] MEDS ORDERED: OXYC-609 PO (16:21)
[2017-04-24] MEDS ORDERED: ACET-1256 PO (16:21)
[2017-04-24] MEDS ORDERED: CLC100X PO (16:21)
--- NOTE | 2017-04-24 16:48 | DIAGNOSTIC IMAGING REPORT ---
SINGLE VIEW CHEST CLINICAL HISTORY: Dyspnea. FINDINGS: 2 AP, portable, semierect chest radiographs are compared to chest x-ray and chest CT dated 04/20/2017. The examination is degraded by portable technique and patient rotation. The patient's head largely obscures the right apex. The heart is enlarged and there is atherosclerotic calcification of the thoracic aorta. The pulmonary vasculature is noncongested. Emphysema and chronic interstitial thickening are similar to previous. No airspace consolidation, large pleural effusion, or pneumothorax is seen. The skeletal structures are osteopenic. Impacted fracture is again seen involving the right humeral neck. IMPRESSION: Cardiomegaly and emphysema with no acute cardiopulmonary abnormality. Electronically signed by: Juliano Walls M.D. 04/24/2017 4:47 PM Dictated Date/Time: 04/24/2017 4:45 PM
[2017-04-24 16:58] LABS: ALT/SGPT 21 U/L (12-78); AST/SGOT 23 U/L (15-37); BLOOD UREA NITROGEN 55 mg/dl (7-18); BUN/CREATININE RATIO 23.8 (10-20); CALCIUM 8.9 mg/dl (8.5-10.1); CARBON DIOXIDE 34 mmol/L (21-32); CHLORIDE 100 mmol/L (98-107); GLUCOSE 110 mg/dl (70-99); POTASSIUM 4.5 mmol/L (3.5-5.1); SODIUM 137 mmol/L (136-145)
[2017-04-24 17:01] LABS: ALB/GLOB RATIO 0.9 (0.9-2); ALKALINE PHOSPHATASE 64 U/L (45-117)
[2017-04-24 17:12] LABS: BASO % 0.1 %; BASO ABS # 0.02 K/uL (0-0.2); COMPLETE YES; EOS % 0.4 %; IG% 0.3 %; LYMPH % 6.3 %; LYMPH ABS # 0.85 K/uL (1.2-3.4); MEAN CELL VOLUME 98.7 fL (80-100); MEAN CORPUSCULAR HEMOGLOBIN 30.6 pg (25-34); MEAN PLATELET VOLUME 10.1 fL (7.4-10.4); MONO % 7.9 %; PLATELET COUNT 407 K/uL (130-400); RED BLOOD COUNT 3.04 M/uL (4.2-5.4); WHITE BLOOD COUNT 13.54 K/uL (4.8-10.8)
[2017-04-24 17:18] LABS: INR 0.9 (0.9-1.1); PARTIAL THROMBOPLASTIN RATIO 0.9; PROTHROMBIN TIME (PATIENT) 9.9 SECONDS (9.0-12.0)
[2017-04-24] MEDS ORDERED: METHYLPREDNISOLONE IV 60 MG in SYRINGE 0 ML IV STA (17:32)
[2017-04-24] MEDS ORDERED: ALBUT/IPRATROP 3MG/0.5MG NEB 3 ML VIAL INH STA (17:32)
[2017-04-24] MEDS ORDERED: METHYLPREDNISOLONE 125 MG VIAL ONE (17:55)
[2017-04-24] MEDS ORDERED: MAGNESIUM HYDROXIDE SUSP 30 ML UDC PO PRN (19:00)
[2017-04-24] MEDS ORDERED: ONDANSETRON INJ 2 MG/ML 2 ML VIAL IV PRN (19:00)
[2017-04-24] MEDS ORDERED: POLYETHYLENE (MIRALAX) 17 GM PACK PO PRN (19:00)
[2017-04-24] MEDS ORDERED: ALUMINUM/MAGNESIUM/SIMETH (MAALOX MAX) 30 ML UDC PO PRN (19:00)
[2017-04-24] MEDS ORDERED: NITROGLYCERIN 0.4 MG SL PER TAB CHARGE SL PRN (19:00)
--- NOTE | 2017-04-24 19:05 | EMERGENCY ROOM VISIT NOTE ---
ED Visit Note First contact with patient: 16:38 Pt seen and examined at bedside. Pt holding sats on NRB, but states breathing only mildly improved. Discussed with her and family ddx of SOB, awaiting V/Q, also discussed worsening renal function. Vs stable here. All questions answered at bedside. I agree with and have discussed the PA's plan at this time.
[2017-04-24 20:30] VITALS: BP 122/52; PULSE 80; TEMP 36.7; O2SAT 97; Ht 157.5 cm; Wt 58.5 kg
[2017-04-24 21:19] LABS: URINE APPEARANCE CLEAR (CLEAR); URINE BILIRUBIN NEG (NEG); URINE COLOR YELLOW; URINE NITRITE NEG (NEG); URINE SPECIFIC GRAVITY 1.022 (1.000-1.030); UROBILINOGEN NEG (NEG); ZZURINE CULT IF INDIC CATH NO
[2017-04-24 21:21] LABS: MANUAL MICROSCOPIC REQUIRED? NO; REVIEW REQ? NO
[2017-04-24] MEDS: CIPROFLOXACIN 250 MG TAB PO SCH (22:10)
[2017-04-24] MEDS: BACLOFEN 10 MG TAB PO SCH (22:10)
[2017-04-24] MEDS: HEPARIN SOD 5000 UNIT/0.5 ML CARP SQ SCH (22:11)
[2017-04-24] MEDS: DOCUSATE SODIUM 100 MG CAP PO SCH (22:11)
[2017-04-24] MEDS: CLONAZEPAM 1 MG TAB PO SCH (22:11)
[2017-04-24 22:26] VITALS: PULSE 84; O2SAT 92
--- NOTE | 2017-04-24 22:30 | DIAGNOSTIC IMAGING REPORT ---
LUNG IMAGING VQ CLINICAL HISTORY: 81 years-old Female presenting with Dyspnea, requiring more o2. TECHNIQUE: Immediately following the inhalation of 31.9 mCi of technetium 99 M DTPA for the ventilation scan and the intravenous administration of 6 mCi of technetium 99 M MAA for the perfusion scan, anterior, oblique, lateral, and posterior views of the chest were obtained. Modified PIOPED II criteria were utilized for assessment. COMPARISON: CTA from 04/20/2017. FINDINGS: Heterogeneous ventilation consistent with known emphysema. This limits evaluation. Heterogeneity of perfusion also noted, most prominently in the lung apices. No convincing evidence of mismatched defects are identified on this examination. IMPRESSION: Nondiagnostic. The presence of emphysema significantly limits the diagnostic utility of this examination. Electronically signed by: Danish Redding M.D. 04/24/2017 10:29 PM Dictated Date/Time: 04/24/2017 10:25 PM
[2017-04-24 22:34] LABS: ALLEN TEST POS (POS); ARTERIAL BLOOD GAS BASE EXCESS 5.6 mEq/L (-9-1.8); ARTERIAL BLOOD GAS HCO3 34 mmol/L (19-24); ARTERIAL BLOOD GAS PO2 41 mm/Hg (80-95); ARTERIAL BLOOD GAS pH 7.27 (7.35-7.45); O2 ADMINISTRATION 6L
--- NOTE | 2017-04-24 22:41 | History and Physical ---
History & Physical Date of Service Apr 24, 2017. History & Physical admit #[id number]
[2017-04-24 23:14] VITALS: BP 107/53; PULSE 78; TEMP 36.8; O2SAT 92
[2017-04-24 23:19] LABS: ISTAT ALLEN TEST Pass; ISTAT ARTERIAL BLOOD GAS HCO3 35 meq/L (19-24); ISTAT ARTERIAL BLOOD GAS PCO2 75 mmHg (35-46); ISTAT ARTERIAL BLOOD GAS PO2 104 mmHg (80-95); ISTAT ARTERIAL BLOOD GAS pH 7.27 (7.35-7.45); ISTAT CARBON DIOXIDE 37 mEq/l (24-31); ISTAT SITE L Radial
[2017-04-25] VITALS (9 sets, daily range): BP systolic 112–127; BP diastolic 54–68; PULSE 50–106; TEMP 36.4–37.1; O2SAT 93–99
--- NOTE | 2017-04-25 00:08 | HISTORY & PHYSICAL EXAMINATION ---
DATE OF ADMISSION: 04/24/2017 CHIEF COMPLAINT: Shortness of breath. HISTORY OF PRESENT ILLNESS: History is exceedingly limited as the patient is somewhat delirious. The family was not present at [facility] and it seems like mostly she was found to be hypoxic, so she is not really able to give much of a history. She is able to communicate. She does not remember being at [facility] earlier today. Whenever asking about what happened, she mostly relates the HPI about her fall and arm fracture. She was at [facility], rehabing from the fallen arm fracture and apparently earlier today was found to be fairly hypoxic in the order of about 70-75% on her baseline oxygen and she was transferred here for further evaluation, stabilization and management. Here, she was also found to have acute renal failure. She denies any chest pain. She does seem to vaguely admit to shortness of breath, maybe that is feeling better than before. Denies fevers, chills, or sweats. Denies any abdominal pain, nausea, vomiting, diarrhea, but does not really remember well. REVIEW OF SYSTEMS: Basically entirely negative but also exceedingly unreliable. PAST MEDICAL HISTORY: Because of the patient's state, mostly having to be gleaned from prior charts, showed COPD, dependent on 4 liters of O2, coronary artery disease with MD about 20 years ago, hypothyroidism, hypertension, hyperlipidemia, depression, anxiety, chronic anemia with baseline hemoglobin of about 10-11, prior spasmodic torticollis treated with Botox. PAST SURGICAL HISTORY: Includes heart catheterization with angioplasty, cholecystectomy, lumpectomy, left hip repair and repair of left radial fracture. SOCIAL HISTORY: She has been at [facility] after her arm fracture. She is a former smoker. She apparently generally does live independent. ALLERGIES: INCLUDE IODINE. FAMILY HISTORY: None of note. MEDICATIONS: Cipro 250 b.i.d., tramadol 50 mg q. 4 hours p.r.n. pain, aspirin 81 mg daily, Lipitor 10 mg daily, baclofen 10 mg at bedtime, Celexa 20 mg daily, Klonopin 1 mg at bedtime, diltiazem 180 1 cap daily, Breo 1 puff daily, Synthroid 125 mcg daily, lisinopril 5 mg daily, trazodone 25 mg daily, I believe at bedtime and she recently had her Lasix held because of the slightly elevated creatinine at discharge. During her last hospital course, she had a mechanical fall and right humeral fracture as well as a degree of acute on chronic respiratory failure secondary to her advanced COPD. Orthopedics had recommended immobilizer and followup as well as ongoing PT and OT for the humeral fracture. For the COPD, she was having a degree of exertional dyspnea. She was treated with inhalers, had a CT of the chest that was negative for PE. She had a urinary tract infection that is being treated with the Cipro and with her ELIAS, with her creatinine being up around 1.3 with a baseline of probably about 0.8, her Lasix was temporarily held, her lisinopril was restarted and then whenever appropriate, her Lasix was to be resumed. PHYSICAL EXAMINATION: VITAL SIGNS: Her initial vitals showed a temp 37.2, pulse 66, respiratory rate 24, blood pressure 101/34, 100% on a nonrebreather, but she was 74% on her nasal cannula. GENERAL: She is awake, alert. She tries to interact, is pleasant and appropriate with conversation but definitely seems confused. She does remember being at [facility], it is not clear if she even quite knows where she is. She does appear to be in a moderate degree of respiratory distress. HEENT: Normocephalic, atraumatic. Mucous membranes are moist. CARDIOVASCULAR: Distant without rubs, murmurs, or gallops. LUNGS: Show bibasilar rales. Somewhat diminished bibasilar, surprisingly relatively good air entry to the mid and upper lung hernandez. No rhonchi, no wheezes. Good effort. ABDOMEN: Soft, nondistended, nontender, no masses or organomegaly. EXTREMITIES: Without cyanosis or clubbing. She has about 1+ bilateral edema, left worse than right. The patient has a hard time remembering if this is around her baseline. Her daughter thinks it probably is. No erythema. No cords. SKIN: Shows no rashes, no pallor or icterus. NEUROLOGIC: Shows cranial nerves II-XII to be grossly intact. Gross motor and sensory are intact. MENTAL STATE: Shows her to be confused and delirious type pattern with poor recent and remote recall, but normal mood and affect. MUSCULOSKELETAL: Yields no gross lesions. Chest x-ray reviewed by myself as well as radiology shows cardiomegaly and emphysema without any acute cardiopulmonary abnormality, maybe a hint towards CHF, but really probably not. LABS AND DIAGNOSTICS: Her EKG shows sinus rhythm without much of any significant change from the prior and no concerning ischemic changes. CBC shows a white count of 13.54, hemoglobin 9.3, platelets 407. Complete metabolic panel with sodium 137, potassium 4.5, chloride 100, CO2 34, BUN 55, creatinine 2.3, calcium 8.9, glucose 110. Lactate of 0.7, total bilirubin 0.5 with an AST of 23, ALT 21, alk phos 64, troponin of less than 0.03, total protein 7, albumin 3.3. PT of 9.9 and PTT of 24.5. ASSESSMENT AND PLAN: 1. Acute hypoxic respiratory failure superimposed on chronic hypoxic respiratory failure. It is a little bit difficult to discern the etiology. When removed from actually looking at her, the fact that she recently was here and had a degree of acute renal insufficiency that led to withholding her Lasix coming back suddenly hypoxic with questionably worse edema and the renal failure, certainly a poor forward flow, congestive heart failure state seems to be the most likely. She does have faint basilar rales but certainly does not examine as severe with congestive heart failure as one would expect for the severity of her hypoxia. It is quite possible that her chronic respiratory failure is making her look much sicker with a mild degree of congestive heart failure than she normally would or simply that her poor air entry from her chronic congestive heart failure is masking the severity of her congestive heart failure symptoms, although one would expect her chest x-ray to still look worse than it does. At this point in time however, acute on chronic congestive heart failure is certainly the working diagnosis, see below. Other differential diagnoses would include pulmonary embolism. Because of her renal failure, V/Q scan has been ordered by the ER and will be done at 8:00 tonight. More of a chronic obstructive pulmonary disease type mechanism and for that, I have ordered a blood gas, although she is not wheezing and seems to be moving air better than I would think. In this respect, I discussed with the patient and her family the working diagnosis, but also the need to continue to reevaluate and revise and they expressed understanding and appreciation of this approach and we will follow with serial exams. I have already discussed the case with nighttime coverage and will be seeing the patient several times before the end of the night myself as well. 2. Acute on chronic congestive heart failure. This appears to be the most likely mechanism, it is unclear what her baseline congestive heart failure is other than that she takes Lasix and appears to have a congestive heart failure history. She does not show EKG changes concerning for ischemia. She does not have an elevated troponin. We will check an echocardiogram and follow from there. Because of her low end blood pressures, it is currently not safe to really utilize a loop diuretic. We will try to manage congestive heart failure with BiPAP. If that is not helping, if we need to augment with diuretics, we will need to utilize a Lasix drip and follow. However, at this point in time I am reticent to do that, given that BiPAP will likely manage her respiratory failure and get her more stable without risking harm, whereas at this point in time while there is a degree of diagnostic uncertainty over diuresis, may worsen her renal failure if with hindsight it was not congestive heart failure related. 3. Severe chronic respiratory failure with chronic obstructive pulmonary disease. Continue treatment at this point in time with DuoNeb q.i.d. and q. 2 hours p.r.n. shortness of breath or wheeze. Because she is not wheezing, I do not see the need to continue steroids as initiated in the ER because it does not really appear clear that it is a chronic obstructive pulmonary disease exacerbation. At this point in time, I do not see the benefit in covering a different antibiotic coverage, although she is already on Cipro for her urinary tract infection which would likely cover lung pathogens well. Certainly whenever she is discharged, one would consider having her on an anticholinergic as part of her maintenance inhaler regimen. 4. Recent urinary tract infection, finish up her Cipro. 5. Acute renal failure. This appears most likely related to her respiratory failure and certainly a congestive heart failure exacerbation would explain both. Awaiting a urinalysis, awaiting improvement or lack thereof with treatment for her congestive heart failure. Certainly if it fails to improve, we will need to work up further including renal ultrasound, urine electrolytes and possibly nephrology consult. 6. Hypothyroidism. Continue her Synthroid. 7. Deep venous thrombosis prophylaxis. Heparin subQ. 8. Disposition. [facility] as well as with ongoing serial exams and close followup.
[2017-04-25 01:04] LABS: ARTERIAL BLOOD GAS BASE EXCESS 6.5 mEq/L (-9-1.8); ARTERIAL BLOOD GAS HCO3 33 mmol/L (19-24); ARTERIAL BLOOD GAS PO2 62 mm/Hg (80-95); ARTERIAL BLOOD GAS pH 7.35 (7.35-7.45)
[2017-04-25 01:05] LABS: ALLEN TEST POS (POS); O2 ADMINISTRATION 6L
--- NOTE | 2017-04-25 02:26 | EMERGENCY ROOM VISIT NOTE ---
History First contact with patient: 16:38 Chief Complaint: SHORTNESS OF BREATH Stated Complaint: ACUTE RENAL FAILURE, HYPOXIA Nursing Triage Summary: Patient arrived to [facility] via ALS from [facility]. Patient fell on Friday and was seen here in the ED. After being admitted to the hospital for pain control and a right humeral head fracture, the patient was discharged to [facility] for physical therapy. Per EMS "The patient finished therapy today and developed shortness of breath. She is always on 3L of oxygen via nasal cannula. Staff found her to be 74% on that 3L. We placed her on a non-rebreather at 10L and she was 98% on that." Patient denies any new pain. +1 nonpitting edema noted to patient's BLE. This is increased per family. Patient has a history of COPD. History of Present Illness The patient is a 81 year old female who presents to the Emergency Room via ALS with complaints of "shortness of breath". The patient comes to us today from [facility]. She is the receiving rehabilitation following a fracture of her arm. The patient notes that the nephew days ago she developed shortness of breath, and at home requires oxygen, however today well [facility] she was found to become hypoxic even with oxygen supplementation. This new shortness of breath prompted ambulance here to the hospital. The exact value was noted to be 71-74% on 3 L of oxygen. The patient denies any chest pain. She does have a history of COPD. Review of Systems A complete 10-point Review of Systems was discussed with the patient, with pertinent positives and negatives listed in the History of Present Illness. All remaining Review of Systems questions can be considered negative unless otherwise specified. Past Medical/Surgical History Medical Problems: (1) Acute renal failure (2) COPD (chronic obstructive pulmonary disease) (3) Hypoxia (4) Neck pain, chronic (5) Torticollis Surgical Problems: (1) S/P Botox injection Family History No pertinent. Social History Smoking Status: Former Smoker Marital Status: Housing Status: lives alone Occupation Status: retired Current/Historical Medications Scheduled Aspirin (Aspirin Ec), 81 MG PO DAILY Atorvastatin (Lipitor), 10 MG PO DAILY Baclofen (Lioresal), 10 MG PO HS Ciprofloxacin (Ciprofloxacin HCl), 250 MG PO BID Citalopram Hydrobromide (Celexa), 20 MG PO DAILY Clonazepam (Klonopin), 1 MG PO HS Diltiazem Hcl Coated Beads (Diltiazem Hcl Er), 1 CAP PO DAILY Docusate Sodium (Docusate Sodium), 100 MG PO BID Fluticasone Furoate-Vilanterol (Breo Ellipta), 1 PUFF INH DAILY Levothyroxine Sodium (Levothyroxine Sodium), 1 TAB PO DAILY Lisinopril (Prinivil), 5 MG PO DAILY Trazodone Hcl (Trazodone), 25 MG PO DAILY Scheduled PRN Acetaminophen (Tylenol), 500 MG PO Q4 PRN for Pain Oxycodone HCl (Oxycodone HCl), 5 MG PO Q4 PRN for Pain Tramadol HCl (Tramadol HCl), 50 MG PO Q4H PRN for Pain Physical Exam Vital Signs Date Time Temp Pulse Resp B/P (MAP) Pulse Ox O2 Delivery O2 Flow Rate FiO2 04/24/17 18:06 70 18 103/42 97 Nebulizer 8.0 04/24/17 16:21 71 04/24/17 15:55 100 Non-Rebreather 10.0 04/24/17 15:55 74 Nasal Cannula 3.0 04/24/17 15:55 100 Non-Rebreather 10.0 04/24/17 15:55 37.2 66 24 101/34 74 Nasal Cannula 3.0 Pain Rating (0-10): 2.0 Physical Exam VITAL SIGNS - Vital signs and nursing notes were reviewed. Stable. GENERAL -31-year-old female appearing her stated age who is in no acute distress but does have on a nonrebreather and does appear to be leaning forward , and tired. Communicates well with provider and answers questions appropriately. SKIN - Without rashes. No petechial rashes. HEAD - NC/AT. EYES - PERRL with EOMI bilaterally. Sclera anicteric. EARS - No deformities of external structures noted on gross examination bilaterally. NOSE - Midline and without cyanosis. No epistaxis or purulent drainage noted. MOUTH/OROPHARYNX - Without perioral cyanosis. Buccal mucosa pink and moist and without leukoplakia. Airways patent. LUNGS - Chest wall symmetric without accessory muscle use, intercostals retractions, or central cyanosis. Normal vesicular breath sounds CTA B/L. No wheezes, rales, or rhonchi appreciated. CARDIAC - RRR with S1/S2. No murmur, rubs, or gallops appreciated. NEUROLOGIC - Cranial nerves II through XII grossly intact. Medical Decision & Procedures ER Provider Diagnostic Interpretation: SINGLE VIEW CHEST CLINICAL HISTORY: Dyspnea. FINDINGS: 2 AP, portable, semierect chest radiographs are compared to chest x-ray and chest CT dated 04/20/2017. The examination is degraded by portable technique and patient rotation. The patient's head largely obscures the right apex. The heart is enlarged and there is atherosclerotic calcification of the thoracic aorta. The pulmonary vasculature is noncongested. Emphysema and chronic interstitial thickening are similar to previous. No airspace consolidation, large pleural effusion, or pneumothorax is seen. The skeletal structures are osteopenic. Impacted fracture is again seen involving the right humeral neck. IMPRESSION: Cardiomegaly and emphysema with no acute cardiopulmonary abnormality. Electronically signed by: Juliano Walls M.D. 04/24/2017 4:47 PM Dictated Date/Time: 04/24/2017 4:45 PM Laboratory Results 04/24/17 16:17 Red Blood Count 3.04, Mean Corpuscular Volume 98.7, Mean Corpuscular Hemoglobin 30.6, Mean Corpuscular Hemoglobin Concent 31.0, Mean Platelet Volume 10.1, Neutrophils (%) (Auto) 85.0, Lymphocytes (%) (Auto) 6.3, Monocytes (%) (Auto) 7.9, Eosinophils (%) (Auto) 0.4, Basophils (%) (Auto) 0.1, Neutrophils # (Auto) 11.50, Lymphocytes # (Auto) 0.85, Monocytes # (Auto) 1.07, Eosinophils # (Auto) 0.06, Basophils # (Auto) 0.02 04/24/17 16:24 Test 04/24/17 16:17 04/24/17 16:24 04/24/17 16:28 04/24/17 17:37 White Blood Count 13.54 K/uL (4.8-10.8) Red Blood Count 3.04 M/uL (4.2-5.4) Hemoglobin 9.3 g/dL (12.0-16.0) Hematocrit 30.0 % (37-47) Mean Corpuscular Volume 98.7 fL (80-100) Mean Corpuscular Hemoglobin 30.6 pg (25-34) Mean Corpuscular Hemoglobin Concent 31.0 g/dl (32-36) Platelet Count 407 K/uL (130-400) Mean Platelet Volume 10.1 fL (7.4-10.4) Neutrophils (%) (Auto) 85.0 % Lymphocytes (%) (Auto) 6.3 % Monocytes (%) (Auto) 7.9 % Eosinophils (%) (Auto) 0.4 % Basophils (%) (Auto) 0.1 % Neutrophils # (Auto) 11.50 K/uL (1.4-6.5) Lymphocytes # (Auto) 0.85 K/uL (1.2-3.4) Monocytes # (Auto) 1.07 K/uL (0.11-0.59) Eosinophils # (Auto) 0.06 K/uL (0-0.5) Basophils # (Auto) 0.02 K/uL (0-0.2) RDW Standard Deviation 50.0 fL (36.4-46.3) RDW Coefficient of Variation 14.0 % (11.5-14.5) Immature Granulocyte % (Auto) 0.3 % Immature Granulocyte # (Auto) 0.04 K/uL (0.00-0.02) Prothrombin Time 9.9 SECONDS (9.0-12.0) Prothromb Time International Ratio 0.9 (0.9-1.1) Activated Partial Thromboplast Time 24.5 SECONDS (21.0-31.0) Partial Thromboplastin Ratio 0.9 Anion Gap 3.0 mmol/L (3-11) Estimated GFR () 22.2 Estimated GFR (Non- 19.2 BUN/Creatinine Ratio 23.8 (10-20) Calcium Level 8.9 mg/dl (8.5-10.1) Total Bilirubin 0.5 mg/dl (0.2-1) Aspartate Amino Transf (AST/SGOT) 23 U/L (15-37) Alanine Aminotransferase (ALT/SGPT) 21 U/L (12-78) Alkaline Phosphatase 64 U/L (45-117) Total Protein 7.0 gm/dl (6.4-8.2) Albumin 3.3 gm/dl (3.4-5.0) Globulin 3.7 gm/dl (2.5-4.0) Albumin/Globulin Ratio 0.9 (0.9-2) Bedside Troponin I < 0.030 ng/ml (0-0.045) Lactic Acid Level 0.7 mmol/L (0.4-2.0) Medications Administered Medications (Trade) Dose Ordered Sig/Nishant Route Start Time Stop Time Status Last Admin Dose Admin Albuterol/ Ipratropium (Duoneb) 3 ml NOW STAT INH 04/24/17 17:32 04/24/17 17:34 DC 04/24/17 18:02 3 ML Methylprednisolone Sodium Succinate (Solu-Medrol IV) 125 mg STK-MED ONCE .ROUTE 04/24/17 17:55 04/24/17 17:56 DC 04/24/17 18:03 60 MG Medical Decision Patient was seen and evaluated as above. After obtaining a thorough history and physical examination IV access was initiated, and the above workup was performed. Patient presents to us today with worsening dyspnea at her rehabilitation facility. Bedside EKG reveals normal sinus rhythm. No evidence of ectopy or ischemic change. No evidence of active ST [facility]. There is leukocytosis of 13.54. Hemoglobin is low at 9.3. Coags unremarkable. Carbon dioxide 34, BUN high at 55, creatinine high at 2.3. Troponin negative. Lactic acid negative. Chest x-ray no significant change compared to previous. Urine trace leukocyte, and some epithelial cells. Decided to obtain a VQ scan as the patient has an elevated creatinine which has nearly doubled compared to previous , I do not want to harm the kidneys further. VQ scan is pending. Patient recently had a chest CTA which revealed no pulmonary emboli. The VQ scan I do believe should be initiated to help preserve the kidneys from the CTA, but to see if there is any new pulmonary emboli potentially causing the patient's shortness of breath that she recently had a fracture. I do believe that further evaluation and management in the inpatient setting is warranted. The patient is doing well on the nonrebreather does not appear to be working as hard with this. Please refer to further documentation regarding her stay. She was given a DuoNeb, as well as steroids for her breathing. In evaluation treatment this patient following differential diagnoses were entertained: OK, PE, pneumonia, respiratory failure, acute kidney injury, among others. Case was discussed with the attending physician who also personally evaluated the patient. Impression Primary Impression: Acute renal failure Additional Impression: Hypoxia Departure Information Dispostion Admitted as an inpatient Condition FAIR Referrals Davian Brooke M.D. (PCP) Forms HOME CARE DOCUMENTATION FORM, IMPORTANT VISIT INFORMATION Patient Instructions [facility] Problem Qualifiers
[2017-04-25] MEDS: LEVOTHYROXINE 125 MCG TAB PO SCH (06:12)
[2017-04-25] MEDS: HEPARIN SOD 5000 UNIT/0.5 ML CARP SQ SCH ×3 (06:13→22:07)
[2017-04-25] MEDS: ALBUT/IPRATROP 3MG/0.5MG NEB 3 ML VIAL INH SCH ×4 (07:02→19:13)
[2017-04-25 07:25] LABS: HEMATOCRIT 26.7 % (37-47); IG% 0.4 %; LYMPH % 6.2 %; LYMPH ABS # 0.48 K/uL (1.2-3.4); MEAN CELL VOLUME 97.4 fL (80-100); MEAN CORPUSCULAR HEMOGLOBIN 30.3 pg (25-34); MEAN CORPUSCULAR HGB CONC 31.1 g/dl (32-36); MEAN PLATELET VOLUME 10.1 fL (7.4-10.4); MONO % 1.2 %; NEUT % 92.2 %; PLATELET COUNT 400 K/uL (130-400); RED BLOOD COUNT 2.74 M/uL (4.2-5.4); WHITE BLOOD COUNT 7.74 K/uL (4.8-10.8)
[2017-04-25 07:47] LABS: BUN/CREATININE RATIO 30.4 (10-20); CALCIUM 9.1 mg/dl (8.5-10.1); CREATININE 1.6 mg/dl (0.60-1.20); POTASSIUM 4.9 mmol/L (3.5-5.1)
[2017-04-25 08:10] LABS: COMPLETE YES
[2017-04-25] MEDS: ASPIRIN 81 MG ECTAB PO SCH (08:22)
[2017-04-25] MEDS: ATORVASTATIN 10 MG TAB PO SCH (08:22)
[2017-04-25] MEDS: CITALOPRAM 20 MG TAB PO SCH (08:22)
[2017-04-25] MEDS: CIPROFLOXACIN 250 MG TAB PO SCH ×2 (08:22→20:03)
[2017-04-25] MEDS: DOCUSATE SODIUM 100 MG CAP PO SCH ×2 (08:28→21:00)
[2017-04-25] MEDS ORDERED: TRAZODONE HCL 50 MG TAB PO SCH (09:00)
--- NOTE | 2017-04-25 09:08 | Clinical Documentation Query ---
QUERY 1 OF [address] RUBY, In your clinical opinion is this patient being managed for: ( ) Chronic kidney disease, stage 3 ( ) Chronic kidney disease, stage 2-3 ( ) Not Agree ( ) Other explanation of clinical findings (Please Explain) ( ) Unable to determine (Please Define) ( ) Need to Discuss The medical record reflects the following clinical findings, treatment, and risk factors. Clinical Indicators:Review of limited GFR history showed recent range of 19.2-46.7 however pt has had ELIAS. Historical range of 57.3-86.6 over in Jul and Aug 2015 Treatment: monitor PRP's Risk Factors: age, CAD, COPD, HTN QUERY 2 OF 3 In your clinical opinion is this patient being managed for: ( ) Acute diastolic CHF ( ) Acute systolic CHF ( ) Acute combined systolic and diastolic CHF ( ) Not Agree ( ) Other explanation of clinical findings (Please Explain) ( ) Unable to determine (Please Define) ( ) Need to Discuss The medical record reflects the following clinical findings, treatment, and risk factors. Clinical Indicators: 81 yo female presenting with dyspnea. H/P indicates acute on chronic congestive heart failure likely mechanism of dyspnea. Noted to have bibasilar rales Treatment: BIPAP, tele monitoring, I/O, daily wts, ECHO results pending. Risk Factors: age, CAD, Hx UT, HTN, COPD QUERY 3 OF 3 In your clinical opinion is this patient being managed for: ( ) Metabolic encephalopathy in the setting of acute renal failure ( ) Not Agree ( ) Other explanation of clinical findings (Please Explain) ( ) Unable to determine (Please Define) ( ) Need to Discuss The medical record reflects the following clinical findings, treatment, and risk factors. Clinical Indicators: H/P describes pt as being somewhat delirious and confused. BUN 55, Cr 2.3, initially O2 sat 74% on 3L. ABG's 7.27/74/41/34 Treatment: BIPAP, PRP monitoring, ABG's Risk Factors: hypoxia, acute renal failure Please clarify and document your clinical opinion in the progress notes and discharge summary. Terms such as "probable", "suspected", "likely", "questionable", "possible", or "still to be ruled out" are acceptable. IF IN AGREEMENT, YOU MUST DOCUMENT ABOVE DIAGNOSTIC STATEMENT IN DAILY PROGRESS NOTES AND DISCHARGE SUMMARY. This document is not part of the patient's record. Thank You, Leelee Ponce, RN [phone]
--- NOTE | 2017-04-25 11:11 | Progress Note ---
Progress Note Date of Service Apr 25, 2017. Progress Note Revisited multiple times last night 04/24. each time appearing more comfortable. rales somewhat more prominent on follow up exams, still no wheeze. mentation appearing to improve. ABG was difficult to obtain was not yet back when i last saw her. VQ was as expected. d/w night coverage again anticipate improvement on bipap
--- NOTE | 2017-04-25 16:40 | ECHOCARDIOGRAM REPORT ---
*NOTICE TO RECEIVING CONSTITUTION PARTY AGENCY This information is strictly Confidential and protected under [place] law. [place] law prohibits you from making any further disclosure of this information unless further disclosure is expressly permitted by the written consent of the person to whom it pertains or is authorized by law. A general authorization for the release of medical or other information is not sufficient for this purpose. Hospital accepts no responsibility if the information is made available to any other person, INCLUDING THE PATIENT. Interpretation Summary * Name: GENEVIEVE CALIX Study Date: 04/25/2017 07:36 AM BP: 114/62 mmHg * Patient Location: C.2T\S\S238\S\2 HR: 86 * : 1935 (M/d/yyyy) Gender: Female Height: 62 in * Age: 81 yrs Ethnicity: [place] Weight: 122 lb * Ordering Physician: Waylon Serrano * Referring Physician: Self, Referred * Performed By: Hannah Mac RCS * * Reason For Study: CHF * BSA: 1.5 m2 * -- Conclusions -- * 1. Normal LV size and wall thickness. * 2. Hyperdynamic LV. LVEF >70%. No regional wall motion abnormalities. * 3. Normal RV size and function. * 4. No significant valvular pathology. * 5. No prior studies for comparison. Procedure Details * Left Ventricle The left ventricle is grossly normal size. There is normal left ventricular wall thickness. Ejection Fraction = >70 %. No regional wall motion abnormalities noted. * Right Ventricle The right ventricle is grossly normal size. The right ventricular systolic function is normal as assessed by tricuspid annular plane systolic excursion (TAPSE) (normal >1.5 cm). * Atria The left atrial size is normal. Right atrial size is normal. No ASD detected; PFO is not assessed. * Mitral Valve There is mild mitral annular calcification. The mitral valve leaflets appear thickened, but open well. There is no mitral valve stenosis. There is trace mitral regurgitation. * Tricuspid Valve Significant tricuspid regurgitation is absent. * Aortic Valve Aortic valve sclerosis mild, without significant aortic valvular stenosis. No hemodynamically significant valvular aortic stenosis. There is no significant aortic regurgitation. * Pulmonic Valve The pulmonic valve is not well visualized. * Great Vessels The aortic root and proximal ascending aorta are normal sized. * Pericardium/Pleural There is no pericardial effusion. * Great Vessels Normal inferior vena cava size and collapsability with sniff indicates a normal right atrial pressure of 3 mmHg * * MMode 2D Measurements and Calculations * IVSd 0.82 cm * * LVIDd 4.3 cm * LVIDs 2.3 cm * LVPWd 0.80 cm * * IVS/LVPW 1.0 * FS 46.3 % * EDV(Teich) 81.9 ml * ESV(Teich) 18.0 ml * EF(Teich) 78.0 % * * EDV(cubed) 78.1 ml * ESV(cubed) 12.1 ml * EF(cubed) 84.5 % * * LV mass(C)d 106.3 grams * LV mass(C)dI 68.6 grams/m\S\2 * * SV(Teich) 63.9 ml * SI(Teich) 41.2 ml/m\S\2 * SV(cubed) 66.0 ml * SI(cubed) 42.6 ml/m\S\2 * * Ao root diam 2.9 cm * Ao root area 6.4 cm\S\2 * * LVOT diam 2.0 cm * LVOT area 3.3 cm\S\2 * * LVAd ap4 26.3 cm\S\2 * LVLd ap4 8.2 cm * EDV(MOD-sp4) 72.0 ml * EDV(sp4-el) 71.6 ml * LVAs ap4 10.8 cm\S\2 * LVLs ap4 5.6 cm * ESV(MOD-sp4) 20.6 ml * ESV(sp4-el) 17.5 ml * EF(MOD-sp4) 71.4 % * EF(sp4-el) 75.6 % * * LVAd ap2 27.0 cm\S\2 * LVLd ap2 7.5 cm * EDV(MOD-sp2) 82.1 ml * EDV(sp2-el) 82.0 ml * LVAs ap2 9.2 cm\S\2 * LVLs ap2 6.0 cm * ESV(MOD-sp2) 13.5 ml * ESV(sp2-el) 12.1 ml * EF(MOD-sp2) 83.6 % * EF(sp2-el) 85.2 % * * LVLd %diff -8.40 % * EDV(MOD-bp) 78.5 ml * LVLs %diff 5.1 % * ESV(MOD-bp) 17.1 ml * EF(MOD-bp) 78.3 % * * SV(MOD-sp4) 51.4 ml * SI(MOD-sp4) 33.2 ml/m\S\2 * * SV(MOD-sp2) 68.6 ml * SI(MOD-sp2) 44.3 ml/m\S\2 * * SV(MOD-bp) 61.4 ml * SI(MOD-bp) 39.7 ml/m\S\2 * * SV(sp4-el) 54.2 ml * SI(sp4-el) 35.0 ml/m\S\2 * * SV(sp2-el) 69.9 ml * SI(sp2-el) 45.1 ml/m\S\2 * * * Doppler Measurements and Calculations * Ao V2 max 155.4 cm/sec * Ao max PG 9.7 mmHg * Ao max PG (full) 3.8 mmHg * PAKO(V,A) 2.5 cm\S\2 * PAKO(V,D) 2.5 cm\S\2 * * LV V1 max PG 5.9 mmHg * * LV V1 max 121.1 cm/sec * * *
[2017-04-25] MEDS: TRAMADOL HCL 50 MG TAB PO PRN (20:03)
[2017-04-25] MEDS: BACLOFEN 10 MG TAB PO SCH (22:00)
[2017-04-25] MEDS: TRAZODONE HCL 50 MG TAB PO SCH (22:00)
[2017-04-25] MEDS: CLONAZEPAM 1 MG TAB PO SCH (22:02)
[2017-04-26] VITALS (11 sets, daily range): BP systolic 111–129; BP diastolic 62–70; PULSE 56–120; TEMP 36.4–36.9; O2SAT 93–100
--- NOTE | 2017-04-26 04:01 | Hospitalist Progress Note ---
Hospitalist Progress Note Date of Service Apr 25, 2017. Subjective Pt evaluation today including: conversation w/ patient decreased shortness of breath Objective Vital Signs Date Time Temp Pulse Resp B/P (MAP) Pulse Ox O2 Delivery O2 Flow Rate FiO2 04/25/17 08:00 Nasal Cannula 6.0 04/25/17 07:37 36.9 93 20 123/68 (86) 99 Nasal Cannula 5.0 04/25/17 07:02 84 14 99 Nasal Cannula 5.0 04/25/17 04:00 BiPAP 6.0 04/25/17 03:20 36.4 86 26 114/62 (79) 93 BiPAP 6.0 04/24/17 23:59 BiPAP 6.0 04/24/17 23:14 36.8 78 22 107/53 (71) 92 BiPAP 6.0 04/24/17 22:26 84 92 6.0 04/24/17 20:30 36.7 80 24 122/52 97 Non-Rebreather 8.0 04/24/17 19:22 73 22 95/32 99 Non-Rebreather 8.0 04/24/17 18:06 70 18 103/42 97 Nebulizer 8.0 04/24/17 16:21 71 04/24/17 15:55 100 Non-Rebreather 10.0 04/24/17 15:55 74 Nasal Cannula 3.0 04/24/17 15:55 100 Non-Rebreather 10.0 04/24/17 15:55 37.2 66 24 101/34 74 Nasal Cannula 3.0 Physical Exam General Appearance: no apparent distress ENT: hearing grossly normal Neck: trachea midline Respiratory/Chest: lungs clear Cardiovascular: regular rate, rhythm Abdomen: normal bowel sounds Extremities: non-tender Laboratory Results Last 24 Hours Test 04/24/17 16:17 04/24/17 16:24 04/24/17 16:28 04/24/17 17:37 White Blood Count 13.54 K/uL Red Blood Count 3.04 M/uL Hemoglobin 9.3 g/dL Hematocrit 30.0 % Mean Corpuscular Volume 98.7 fL Mean Corpuscular Hemoglobin 30.6 pg Mean Corpuscular Hemoglobin Concent 31.0 g/dl Platelet Count 407 K/uL Mean Platelet Volume 10.1 fL Neutrophils (%) (Auto) 85.0 % Lymphocytes (%) (Auto) 6.3 % Monocytes (%) (Auto) 7.9 % Eosinophils (%) (Auto) 0.4 % Basophils (%) (Auto) 0.1 % Neutrophils # (Auto) 11.50 K/uL Lymphocytes # (Auto) 0.85 K/uL Monocytes # (Auto) 1.07 K/uL Eosinophils # (Auto) 0.06 K/uL Basophils # (Auto) 0.02 K/uL RDW Standard Deviation 50.0 fL RDW Coefficient of Variation 14.0 % Immature Granulocyte % (Auto) 0.3 % Immature Granulocyte # (Auto) 0.04 K/uL Prothrombin Time 9.9 SECONDS Prothromb Time International Ratio 0.9 Activated Partial Thromboplast Time 24.5 SECONDS Partial Thromboplastin Ratio 0.9 Sodium Level 137 mmol/L Potassium Level 4.5 mmol/L Chloride Level 100 mmol/L Carbon Dioxide Level 34 mmol/L Anion Gap 3.0 mmol/L Blood Urea Nitrogen 55 mg/dl Creatinine 2.30 mg/dl Estimated GFR () 22.2 Estimated GFR (Non- 19.2 BUN/Creatinine Ratio 23.8 Random Glucose 110 mg/dl Calcium Level 8.9 mg/dl Total Bilirubin 0.5 mg/dl Aspartate Amino Transf (AST/SGOT) 23 U/L Alanine Aminotransferase (ALT/SGPT) 21 U/L Alkaline Phosphatase 64 U/L Total Protein 7.0 gm/dl Albumin 3.3 gm/dl Globulin 3.7 gm/dl Albumin/Globulin Ratio 0.9 Bedside Troponin I < 0.030 ng/ml Lactic Acid Level 0.7 mmol/L Test 04/24/17 21:00 04/24/17 22:17 04/24/17 23:07 04/25/17 00:34 Urine Color YELLOW Urine Appearance CLEAR Urine pH 5.0 Urine Specific [place] 1.022 Urine Protein NEG Urine Glucose (UA) NEG Urine Ketones NEG Urine Occult Blood NEG Urine Nitrite NEG Urine Bilirubin NEG Urine Urobilinogen NEG Urine Leukocyte Esterase TRACE Urine WBC (Auto) 1-5 /hpf Urine RBC (Auto) 0-4 /hpf Urine Hyaline Casts (Auto) 5-10 /lpf Urine Epithelial Cells (Auto) 10-20 /lpf Urine Bacteria (Auto) NEG Arterial Blood pH 7.27 7.35 Arterial Blood Partial Pressure CO2 74 mmHg 61 mmHg Arterial Blood Partial Pressure O2 41 mm/Hg 62 mm/Hg Arterial Blood HCO3 34 mmol/L 33 mmol/L Arterial Blood Oxygen Saturation 72.0 % 88.0 % Arterial Blood Base Excess 5.6 mEq/L 6.5 mEq/L Arterial Blood Gas Delivery 6L 6L Yuri Test POS Pass POS Blood Gas Sample Site L Radial Bedside Blood Gas pH (LAB) 7.27 Bedside Blood Gas pCO2 (LAB) 75 mmHg Bedside Blood Gas pO2 (LAB) 104 mmHg Bedside Blood Gas HCO3 (LAB) 35 meq/L Bedside Blood Gas Total CO2 37 mEq/l Bedside Blood Gas Base Excess (LAB) 7.0 meq/L Bedside Blood Gas O2 Saturation 97.0 % Test 04/25/17 06:48 White Blood Count 7.74 K/uL Red Blood Count 2.74 M/uL Hemoglobin 8.3 g/dL Hematocrit 26.7 % Mean Corpuscular Volume 97.4 fL Mean Corpuscular Hemoglobin 30.3 pg Mean Corpuscular Hemoglobin Concent 31.1 g/dl Platelet Count 400 K/uL Mean Platelet Volume 10.1 fL Neutrophils (%) (Auto) 92.2 % Lymphocytes (%) (Auto) 6.2 % Monocytes (%) (Auto) 1.2 % Eosinophils (%) (Auto) 0.0 % Basophils (%) (Auto) 0.0 % Neutrophils # (Auto) 7.14 K/uL Lymphocytes # (Auto) 0.48 K/uL Monocytes # (Auto) 0.09 K/uL Eosinophils # (Auto) 0.00 K/uL Basophils # (Auto) 0.00 K/uL RDW Standard Deviation 49.5 fL RDW Coefficient of Variation 14.0 % Immature Granulocyte % (Auto) 0.4 % Immature Granulocyte # (Auto) 0.03 K/uL Red Blood Cell Morphology Unremarkable Sodium Level 141 mmol/L Potassium Level 4.9 mmol/L Chloride Level 102 mmol/L Carbon Dioxide Level 36 mmol/L Anion Gap 3.0 mmol/L Blood Urea Nitrogen 49 mg/dl Creatinine 1.60 mg/dl Est Creatinine Clear Calc Drug Dose 21.4 ml/min Estimated GFR () 34.4 Estimated GFR (Non- 29.7 BUN/Creatinine Ratio 30.4 Random Glucose 146 mg/dl Calcium Level 9.1 mg/dl Assessment and Plan 1. Acute hypoxic respiratory failure superimposed on chronic hypoxic respiratory failure. Improved clinically. 2. CHF adjusting medications may need loop diuretics 3. Severe chronic respiratory failure with chronic obstructive pulmonary disease. Continue treatment at this point in time with DuoNeb q.i.d. and q. 2 hours p.r.n. shortness of breath or wheeze. 4. Recent urinary tract infection, finish up her Cipro. 5. Acute renal failure. This appears most likely related to her respiratory failure and certainly a congestive heart failure exacerbation would explain both. Awaiting a urinalysis, awaiting improvement or lack thereof with treatment for her congestive heart failure. Certainly if it fails to improve, we will need to work up further including renal ultrasound, urine electrolytes and possibly nephrology consult. 6. Hypothyroidism. Continue her Synthroid. 7. Deep venous thrombosis prophylaxis. Heparin subQ. Continued [facility] stay due to: multiple IV medications needed
[2017-04-26] MEDS: HEPARIN SOD 5000 UNIT/0.5 ML CARP SQ SCH ×3 (06:19→22:10)
[2017-04-26] MEDS: LEVOTHYROXINE 125 MCG TAB PO SCH (06:20)
[2017-04-26 07:00] LABS: HEMATOCRIT 26.1 % (37-47); MEAN CORPUSCULAR HEMOGLOBIN 30.5 pg (25-34); MEAN CORPUSCULAR HGB CONC 31.4 g/dl (32-36); MEAN PLATELET VOLUME 9.9 fL (7.4-10.4); PLATELET COUNT 397 K/uL (130-400); RED BLOOD COUNT 2.69 M/uL (4.2-5.4); WHITE BLOOD COUNT 12.65 K/uL (4.8-10.8)
[2017-04-26] MEDS: ALBUT/IPRATROP 3MG/0.5MG NEB 3 ML VIAL INH SCH ×4 (07:16→19:41)
[2017-04-26 07:41] LABS: BUN/CREATININE RATIO 34.7 (10-20); CALCIUM 8.5 mg/dl (8.5-10.1); CREATININE 1.1 mg/dl (0.60-1.20); POTASSIUM 4.5 mmol/L (3.5-5.1)
[2017-04-26] MEDS: CIPROFLOXACIN 250 MG TAB PO SCH (08:05)
[2017-04-26] MEDS: CITALOPRAM 20 MG TAB PO SCH (08:05)
[2017-04-26] MEDS: ATORVASTATIN 10 MG TAB PO SCH (08:05)
[2017-04-26] MEDS: ASPIRIN 81 MG ECTAB PO SCH (08:05)
[2017-04-26] MEDS: DOCUSATE SODIUM 100 MG CAP PO SCH ×2 (08:06→20:25)
[2017-04-26] MEDS: TRAMADOL HCL 50 MG TAB PO PRN (17:13)
[2017-04-26] MEDS: CLONAZEPAM 1 MG TAB PO SCH (20:25)
[2017-04-26] MEDS: TRAZODONE HCL 50 MG TAB PO SCH (20:26)
[2017-04-26] MEDS: BACLOFEN 10 MG TAB PO SCH (20:26)
[2017-04-27] VITALS (9 sets, daily range): BP systolic 112–136; BP diastolic 60–75; PULSE 53–94; TEMP 36.4–36.8; O2SAT 93–100
--- NOTE | 2017-04-27 00:20 | Hospitalist Progress Note ---
Hospitalist Progress Note Date of Service Apr 26, 2017. Subjective Pt evaluation today including: conversation w/ patient Patient feeling better Objective Vital Signs Date Time Temp Pulse Resp B/P (MAP) Pulse Ox O2 Delivery O2 Flow Rate FiO2 04/26/17 00:01 36.9 90 20 118/66 (83) 97 Nasal Cannula 4.0 04/26/17 00:01 Nasal Cannula 3.0 04/25/17 20:48 Nasal Cannula 3.0 04/25/17 19:51 36.8 106 20 127/54 (78) 94 Nasal Cannula 2.0 04/25/17 19:13 50 16 97 Nasal Cannula 3.0 04/25/17 16:01 Nasal Cannula 3.0 04/25/17 15:37 93 16 98 Nasal Cannula 3.0 04/25/17 15:21 37.1 94 20 122/67 (85) 97 Nasal Cannula 3.0 04/25/17 12:00 Nasal Cannula 6.0 04/25/17 11:53 36.9 81 19 112/66 (81) 96 Nasal Cannula 3.0 04/25/17 11:28 82 16 94 Nasal Cannula 3.0 04/25/17 08:00 Nasal Cannula 6.0 04/25/17 07:37 36.9 93 20 123/68 (86) 99 Nasal Cannula 5.0 04/25/17 07:02 84 14 99 Nasal Cannula 5.0 Laboratory Results Last 24 Hours Test 04/25/17 06:48 White Blood Count 7.74 K/uL Red Blood Count 2.74 M/uL Hemoglobin 8.3 g/dL Hematocrit 26.7 % Mean Corpuscular Volume 97.4 fL Mean Corpuscular Hemoglobin 30.3 pg Mean Corpuscular Hemoglobin Concent 31.1 g/dl Platelet Count 400 K/uL Mean Platelet Volume 10.1 fL Neutrophils (%) (Auto) 92.2 % Lymphocytes (%) (Auto) 6.2 % Monocytes (%) (Auto) 1.2 % Eosinophils (%) (Auto) 0.0 % Basophils (%) (Auto) 0.0 % Neutrophils # (Auto) 7.14 K/uL Lymphocytes # (Auto) 0.48 K/uL Monocytes # (Auto) 0.09 K/uL Eosinophils # (Auto) 0.00 K/uL Basophils # (Auto) 0.00 K/uL RDW Standard Deviation 49.5 fL RDW Coefficient of Variation 14.0 % Immature Granulocyte % (Auto) 0.4 % Immature Granulocyte # (Auto) 0.03 K/uL Red Blood Cell Morphology Unremarkable Sodium Level 141 mmol/L Potassium Level 4.9 mmol/L Chloride Level 102 mmol/L Carbon Dioxide Level 36 mmol/L Anion Gap 3.0 mmol/L Blood Urea Nitrogen 49 mg/dl Creatinine 1.60 mg/dl Est Creatinine Clear Calc Drug Dose 21.4 ml/min Estimated GFR () 34.4 Estimated GFR (Non- 29.7 BUN/Creatinine Ratio 30.4 Random Glucose 146 mg/dl Calcium Level 9.1 mg/dl Assessment and Plan 1. Acute hypoxic respiratory failure superimposed on chronic hypoxic respiratory failure. Improved clinically. 2. CHF adjusting medications may need loop diuretics 3. Severe chronic respiratory failure with chronic obstructive pulmonary disease. Continue treatment at this point in time with DuoNeb q.i.d. and q. 2 hours p.r.n. shortness of breath or wheeze. 4. Recent urinary tract infection, finish up her Cipro. 5. Acute renal failure. This appears most likely related to her respiratory failure and certainly a congestive heart failure exacerbation would explain both. Awaiting a urinalysis, awaiting improvement or lack thereof with treatment for her congestive heart failure. Certainly if it fails to improve, we will need to work up further including renal ultrasound, urine electrolytes and possibly nephrology consult. 6. Hypothyroidism. Continue her Synthroid. 7. Deep venous thrombosis prophylaxis. Heparin subQ. Discharge planning: senior living facility
[2017-04-27] MEDS: LEVOTHYROXINE 125 MCG TAB PO SCH (06:02)
[2017-04-27] MEDS: HEPARIN SOD 5000 UNIT/0.5 ML CARP SQ SCH ×3 (06:02→20:28)
[2017-04-27 06:32] LABS: BASO % 0.1 %; BASO ABS # 0.01 K/uL (0-0.2); EOS % 3.8 %; HEMATOCRIT 28.5 % (37-47); IG% 0.5 %; LYMPH % 15.3 %; LYMPH ABS # 1.82 K/uL (1.2-3.4); MEAN CORPUSCULAR HEMOGLOBIN 29.5 pg (25-34); MEAN CORPUSCULAR HGB CONC 29.5 g/dl (32-36); MEAN PLATELET VOLUME 9.8 fL (7.4-10.4); MONO % 12.3 %; PLATELET COUNT 441 K/uL (130-400); RED BLOOD COUNT 2.85 M/uL (4.2-5.4); WHITE BLOOD COUNT 11.91 K/uL (4.8-10.8)
[2017-04-27] MEDS: ALBUT/IPRATROP 3MG/0.5MG NEB 3 ML VIAL INH SCH ×4 (06:56→19:21)
[2017-04-27 07:02] LABS: COMPLETE YES
[2017-04-27 07:11] LABS: CALCIUM 8.5 mg/dl (8.5-10.1); CREATININE 0.88 mg/dl (0.60-1.20); POTASSIUM 4.7 mmol/L (3.5-5.1)
[2017-04-27] MEDS: CITALOPRAM 20 MG TAB PO SCH (08:18)
[2017-04-27] MEDS: ASPIRIN 81 MG ECTAB PO SCH (08:19)
[2017-04-27] MEDS: DOCUSATE SODIUM 100 MG CAP PO SCH ×2 (08:19→20:30)
[2017-04-27] MEDS: ATORVASTATIN 10 MG TAB PO SCH (08:19)
--- NOTE | 2017-04-27 20:03 | Hospitalist Progress Note ---
Hospitalist Progress Note Date of Service Apr 27, 2017. Subjective Pt evaluation today including: conversation w/ patient patient with no complaints Objective Vital Signs Date Time Temp Pulse Resp B/P (MAP) Pulse Ox O2 Delivery O2 Flow Rate FiO2 04/26/17 23:25 36.4 83 16 123/69 (87) 100 Nasal Cannula 3.0 04/26/17 20:00 Nasal Cannula 3.0 04/26/17 19:43 84 16 93 Nasal Cannula 3.0 04/26/17 19:23 36.6 18 126/68 (87) 96 Nasal Cannula 3.0 04/26/17 16:40 Nasal Cannula 3.0 04/26/17 15:52 36.8 88 22 115/70 (85) 97 Nasal Cannula 3.0 04/26/17 15:24 100 16 99 Nasal Cannula 3.0 04/26/17 12:04 36.4 83 18 111/63 (79) 99 Nasal Cannula 3.0 04/26/17 12:00 Nasal Cannula 3.0 04/26/17 11:19 98 16 99 Nasal Cannula 3.0 04/26/17 08:00 Nasal Cannula 3.0 04/26/17 07:56 36.7 120 17 129/65 (86) 95 Nasal Cannula 3.0 04/26/17 07:16 72 16 97 Nasal Cannula 3.0 04/26/17 04:00 Nasal Cannula 3.0 04/26/17 02:46 36.5 56 22 115/62 (79) 100 Nasal Cannula 3.0 Physical Exam General Appearance: no apparent distress ENT: hearing grossly normal Neck: trachea midline Respiratory/Chest: lungs clear, normal breath sounds Cardiovascular: regular rate, rhythm Abdomen: normal bowel sounds Extremities: non-tender Laboratory Results Last 24 Hours Test 04/26/17 06:19 White Blood Count 12.65 K/uL Red Blood Count 2.69 M/uL Hemoglobin 8.2 g/dL Hematocrit 26.1 % Mean Corpuscular Volume 97.0 fL Mean Corpuscular Hemoglobin 30.5 pg Mean Corpuscular Hemoglobin Concent 31.4 g/dl RDW Standard Deviation 50.6 fL RDW Coefficient of Variation 14.4 % Platelet Count 397 K/uL Mean Platelet Volume 9.9 fL Sodium Level 144 mmol/L Potassium Level 4.5 mmol/L Chloride Level 105 mmol/L Carbon Dioxide Level 37 mmol/L Anion Gap 2.0 mmol/L Blood Urea Nitrogen 38 mg/dl Creatinine 1.10 mg/dl Est Creatinine Clear Calc Drug Dose 31.2 ml/min Estimated GFR () 54.1 Estimated GFR (Non- 46.7 BUN/Creatinine Ratio 34.7 Random Glucose 86 mg/dl Calcium Level 8.5 mg/dl Assessment and Plan 1. Acute hypoxic respiratory failure superimposed on chronic hypoxic respiratory failure. Improved clinically. 2. CHF adjusting medications may need loop diuretics 3. Severe chronic respiratory failure with chronic obstructive pulmonary disease. Continue treatment at this point in time with DuoNeb q.i.d. and q. 2 hours p.r.n. shortness of breath or wheeze. 4. Recent urinary tract infection, finish up her Cipro. 5. Acute renal failure. Resolved 6. Hypothyroidism. Continue her Synthroid. 7. Deep venous thrombosis prophylaxis. Heparin subQ.
[2017-04-27] MEDS: CLONAZEPAM 1 MG TAB PO SCH (20:30)
[2017-04-27] MEDS: BACLOFEN 10 MG TAB PO SCH (20:30)
[2017-04-27] MEDS: TRAZODONE HCL 50 MG TAB PO SCH (20:31)
[2017-04-27] MEDS: OXYCODONE HCL IR 5 MG TAB (IMMEDIATE RELEASE) PO PRN (20:43)
[2017-04-28] VITALS (15 sets, daily range): BP systolic 110–133; BP diastolic 52–69; PULSE 63–100; TEMP 36.7–37.1; O2SAT 91–96
[2017-04-28] MEDS: TRAMADOL HCL 50 MG TAB PO PRN (00:40)
[2017-04-28] MEDS: OXYCODONE HCL IR 5 MG TAB (IMMEDIATE RELEASE) PO PRN (00:40)
[2017-04-28] MEDS: LEVOTHYROXINE 125 MCG TAB PO SCH (06:11)
[2017-04-28] MEDS: HEPARIN SOD 5000 UNIT/0.5 ML CARP SQ SCH ×3 (06:12→22:13)
[2017-04-28] MEDS: ALBUT/IPRATROP 3MG/0.5MG NEB 3 ML VIAL INH SCH ×4 (07:31→20:13)
[2017-04-28] MEDS: CITALOPRAM 20 MG TAB PO SCH (08:53)
[2017-04-28] MEDS: DOCUSATE SODIUM 100 MG CAP PO SCH ×2 (09:06→21:00)
[2017-04-28] MEDS: ASPIRIN 81 MG ECTAB PO SCH (09:07)
[2017-04-28] MEDS: ATORVASTATIN 10 MG TAB PO SCH (09:07)
--- NOTE | 2017-04-28 20:45 | Progress Note ---
Subjective Date of Service: Apr 28, 2017. Subjective Pt evaluation today including: conversation w/ patient, conversation w/ family , physical exam, chart review, lab review, review of studies, review of inpatient medication list Review of Systems Constitutional: No see HPI, No fever, No chills, No sweats, No weight loss, No weakness, No fatigue, No problem reported Eyes: No see HPI, No worsening of vision, No eye pain, No redness, No discharge , No diplopia, No problem reported ENT: No see HPI, No hearing loss, No unusual epistaxis, No nasal symptoms, No sore throat, No tinnitus, No dental problems, No trouble swallowing, No problem reported Respiratory: + shortness of breath, No see HPI, No cough, No sputum, No wheezing, No dyspnea on exertion, No dyspnea at rest, No hemoptysis, No problem reported Cardiac: No see HPI, No chest pain, No orthopnea, No PND, No edema, No claudication, No palpitations, No problem reported Abdomen: No see HPI, No pain, No nausea, No vomiting, No diarrhea, No constipation, No GI bleeding, No problem reported Musculoskeletal: No see HPI, No joint pain, No muscle pain, No swelling, No calf pain, No problem reported Female : No see HPI, No dysuria, No urinary frequency, No hematuria, No incontinence, No abnormal vaginal bleeding, No vaginal discharge, No problem reported Neurologic: No see HPI, No memory loss, No paralysis, No weakness, No numbness/ tingling, No vertigo, No balance problems, No problem reported Psychiatric: No see HPI, No depression symptoms, No anhedonism, No anxiety, No insomnia, No substance abuse, No problem reported Heme: No see HPI, No abnormal bleeding/bruising, No clotting problems, No swollen lymph nodes, No night sweats, No problem reported Endo: No see HPI, No fatigue, No excessive thirst, No excessive urination, No problem reported Skin: No see HPI, No rash, No itch, No new/changing skin lesions, No color change, No bleeding, No problem reported Objective Vital Signs Date Time Temp Pulse Resp B/P (MAP) Pulse Ox O2 Delivery O2 Flow Rate FiO2 04/28/17 20:14 84 14 94 Nasal Cannula 3.0 04/28/17 19:10 36.8 85 23 112/59 (76) 95 Nasal Cannula 3.0 04/28/17 16:00 96 Nasal Cannula 3.0 04/28/17 15:42 36.8 96 18 133/52 (79) 93 Nasal Cannula 3.0 04/28/17 15:23 87 14 93 Nasal Cannula 3.0 04/28/17 12:23 36.8 63 19 113/69 (84) 96 Nasal Cannula 3.0 04/28/17 12:00 95 Nasal Cannula 3.0 04/28/17 11:16 76 14 94 Nasal Cannula 3.0 04/28/17 08:00 92 Nasal Cannula 3.0 04/28/17 07:49 37.0 85 18 127/64 (85) 91 Nasal Cannula 3.0 04/28/17 07:31 100 14 91 Nasal Cannula 3.0 04/28/17 04:15 36.8 85 18 110/68 (82) 95 Nasal Cannula 04/28/17 04:00 Nasal Cannula 3.0 04/28/17 00:11 36.7 85 16 128/57 (80) 94 Nasal Cannula 3.0 04/28/17 00:01 Nasal Cannula 3.0 Physical Exam General Appearance: WD/WN, + mild distress Eyes: normal inspection, PERRL ENT: normal ENT inspection, hearing grossly normal Neck: supple Respiratory/Chest: chest non-tender, + respiratory distress, + decreased breath sounds, + crackles Cardiovascular: regular rate, rhythm, no edema, no gallop, no JVD, no murmur Abdomen: normal bowel sounds, non tender, soft, no organomegaly Extremities: normal range of motion, non-tender, normal inspection, no pedal edema Neurologic/Psychiatric: solutions market consultant II-XII nml as tested, no motor/sensory deficits, alert, normal mood/affect, oriented x 3 Skin: normal color, warm/dry, no rash Assessment and Plan Acute hypoxic / hypercapnic respiratory failure , unclear etiology but likely COPD exacerbation unlikely PE, negative CTA on 04/20 patient is retainer , keep O2 sat 91-93 % not more chronic Diastolic CHF , not in exacerbation, EF 70% on 04/25 chronic respiratory failure with COPD exacerbation, Continue bronchodilators Recent urinary tract infection, finish up her Cipro. Acute renal failure. multifactorial, contrast and diuresis Hypothyroidism. Continue her Synthroid. Finding on CTA 04/20 2.4 cm uncinate process lesion within the pancreas. 9 mm partially visualized lesion lower pole of the left kidney which may reflect a hyperdense cyst. if renal function is good, will consider MRI with contrast to evaluate these lesions Deep venous thrombosis prophylaxis. Heparin subQ. Continued [facility] stay due to: multiple IV medications needed [facility]charge planning[facility]
[2017-04-28] MEDS: BACLOFEN 10 MG TAB PO SCH (22:11)
[2017-04-28] MEDS: TRAZODONE HCL 50 MG TAB PO SCH (22:11)
[2017-04-28] MEDS: CLONAZEPAM 1 MG TAB PO SCH (22:14)
[2017-04-29] VITALS (8 sets, daily range): BP systolic 114–144; BP diastolic 68–74; PULSE 81–109; TEMP 36.5–36.9; O2SAT 91–100
[2017-04-29] MEDS: LEVOTHYROXINE 125 MCG TAB PO SCH ×2 (06:18→22:54)
[2017-04-29] MEDS: HEPARIN SOD 5000 UNIT/0.5 ML CARP SQ SCH ×3 (06:18→22:55)
[2017-04-29 06:37] LABS: BASO % 0.1 %; BASO ABS # 0.02 K/uL (0-0.2); EOS % 3.2 %; HEMATOCRIT 29.4 % (37-47); IG% 0.9 %; LYMPH % 14.7 %; LYMPH ABS # 2.23 K/uL (1.2-3.4); MEAN CELL VOLUME 99.3 fL (80-100); MEAN CORPUSCULAR HEMOGLOBIN 30.1 pg (25-34); MEAN CORPUSCULAR HGB CONC 30.3 g/dl (32-36); MEAN PLATELET VOLUME 9.8 fL (7.4-10.4); MONO % 10.1 %; PLATELET COUNT 552 K/uL (130-400); RED BLOOD COUNT 2.96 M/uL (4.2-5.4); WHITE BLOOD COUNT 15.18 K/uL (4.8-10.8)
[2017-04-29 07:04] LABS: BUN/CREATININE RATIO 17.5 (10-20); CALCIUM 9.1 mg/dl (8.5-10.1); MAGNESIUM 2.1 mg/dl (1.8-2.4); POTASSIUM 4.4 mmol/L (3.5-5.1)
[2017-04-29 07:07] LABS: ALB/GLOB RATIO 0.8 (0.9-2); PHOSPHORUS 3.1 mg/dl (2.5-4.9)
[2017-04-29] MEDS: ALBUT/IPRATROP 3MG/0.5MG NEB 3 ML VIAL INH SCH ×4 (07:18→19:00)
[2017-04-29 07:22] LABS: COMPLETE YES
[2017-04-29] MEDS: ATORVASTATIN 10 MG TAB PO SCH (07:53)
[2017-04-29] MEDS: ASPIRIN 81 MG ECTAB PO SCH (07:53)
[2017-04-29] MEDS: DOCUSATE SODIUM 100 MG CAP PO SCH ×2 (07:53→22:54)
[2017-04-29] MEDS: CITALOPRAM 20 MG TAB PO SCH ×2 (07:54→22:54)
--- NOTE | 2017-04-29 08:37 | DIAGNOSTIC IMAGING REPORT ---
RIGHT SHOULDER MIN 2 VIEWS ROUTINE CLINICAL HISTORY: 81 years-old Female presenting with recheck fx alignment Right. TECHNIQUE: Frontal and transscapular Y views of the right shoulder were obtained. COMPARISON: None. FINDINGS: Fracture of the surgical neck of the right humerus with anteromedial displacement of the distal fracture fragment and valgus angulation. Underlying osteopenia may be present. The humeral head remains congruent with the glenoid. Visualized portion of the thorax demonstrates atherosclerosis of aortic arch. IMPRESSION: Fracture of the surgical neck of the right humerus with anteromedial displacement and valgus angulation of the distal fracture fragment. Humeral head remains congruent with the glenoid. Electronically signed by: Danish Redding M.D. 04/29/2017 8:36 AM Dictated Date/Time: 04/29/2017 8:34 AM
[2017-04-29] MEDS: ACETAMINOPHEN 325 MG TAB PO PRN ×2 (11:01→20:22)
[2017-04-29] MEDS ORDERED: LORAZEPAM 2 MG/ML 1 ML VIAL IV STA (11:13)
--- NOTE | 2017-04-29 13:33 | DIAGNOSTIC IMAGING REPORT ---
CHEST ONE VIEW PORTABLE CLINICAL HISTORY: Shortness of breath. Hypoxia. COMPARISON STUDY: Chest CT April 20, 2017 and chest radiograph April 24, 2017. FINDINGS: There is no pneumothorax. A small left pleural effusion has increased since prior exam. Left basilar opacity has increased. There is no evidence of pulmonary edema. Cardiomediastinal silhouette is stable. A right humeral neck fracture is again noted. IMPRESSION: 1. Small left pleural effusion which has slightly increased in size since prior exam. Mild increase in associated left basilar opacity which could reflect atelectasis or consolidation. 2. No radiographic evidence of pulmonary edema. Electronically signed by: Adiel Rosas M.D. 04/29/2017 1:31 PM Dictated Date/Time: 04/29/2017 1:19 PM
--- NOTE | 2017-04-29 13:54 | DIAGNOSTIC IMAGING REPORT ---
CT OF THE RIGHT SHOULDER WITHOUT CONTRAST CLINICAL HISTORY: R/O Splitting of Humeral Head. COMPARISON STUDY: Right shoulder radiographs performed earlier today. FINDINGS: Alignment of the right acromioclavicular and glenohumeral joints is anatomic. There is a markedly displaced, markedly comminuted right humeral neck and head fracture which is impacted. The humeral shaft is displaced 2.6 cm medially with respect to the humeral head. Numerous bone fragments are noted with minimal callus formation. A few tiny intra-articular bone fragments may be present. No additional fractures are identified on this examination. No split fracture is identified. IMPRESSION: 1. Markedly displaced, markedly comminuted impacted right humeral neck and head fracture. No humeral head split fracture. Minimal callus formation with numerous associated bone fragments. A few possible tiny intra-articular bone fragments. 2. Anatomic alignment of the right acromioclavicular and glenohumeral joints. Electronically signed by: Adiel Rosas M.D. 04/29/2017 1:53 PM Dictated Date/Time: 04/29/2017 1:37 PM
--- NOTE | 2017-04-29 14:03 | DIAGNOSTIC IMAGING REPORT ---
RIGHT VENOUS DOPPLER UPR EXT UNIL CLINICAL HISTORY: 81 years-old Female presenting with r/o DVT Right. TECHNIQUE: Real-time grayscale and color and spectral Doppler ultrasound imaging of the veins of the right upper extremity was performed. Compression and augmentation were also utilized. COMPARISON: None. FINDINGS: Right: Subclavian vein: Patent. Internal jugular vein: Patent. Axillary vein: Patent. Brachial vein: Patent. Cephalic vein: Patent. Basilic vein: Patent. Radial vein: Patent. Ulnar vein: Patent. Other: Thickening of subcutaneous tissue consistent with swelling. IMPRESSION: No evidence of deep venous thrombosis. Electronically signed by: Danish Redding M.D. 04/29/2017 2:02 PM Dictated Date/Time: 04/29/2017 2:00 PM
--- NOTE | 2017-04-29 18:01 | Progress Note ---
Subjective Date of Service: Apr 29, 2017. Subjective Pt evaluation today including: conversation w/ patient, conversation w/ family , physical exam, chart review, lab review, review of studies, review of inpatient medication list Review of Systems Constitutional: No see HPI, No fever, No chills, No sweats, No weight loss, No weakness, No fatigue, No problem reported Eyes: No see HPI, No worsening of vision, No eye pain, No redness, No discharge , No diplopia, No problem reported ENT: No see HPI, No hearing loss, No unusual epistaxis, No nasal symptoms, No sore throat, No tinnitus, No dental problems, No trouble swallowing, No problem reported Respiratory: + shortness of breath, + dyspnea on exertion, + dyspnea at rest, No see HPI, No cough, No sputum, No wheezing, No hemoptysis, No problem reported Cardiac: No see HPI, No chest pain, No orthopnea, No PND, No edema, No claudication, No palpitations, No problem reported Abdomen: No see HPI, No pain, No nausea, No vomiting, No diarrhea, No constipation, No GI bleeding, No problem reported Musculoskeletal: No see HPI, No joint pain, No muscle pain, No swelling, No calf pain, No problem reported Neurologic: No see HPI, No memory loss, No paralysis, No weakness, No numbness/ tingling, No vertigo, No balance problems, No problem reported Psychiatric: No see HPI, No depression symptoms, No anhedonism, No anxiety, No insomnia, No substance abuse, No problem reported Heme: No see HPI, No abnormal bleeding/bruising, No clotting problems, No swollen lymph nodes, No night sweats, No problem reported Endo: No see HPI, No fatigue, No excessive thirst, No excessive urination, No problem reported Skin: No see HPI, No rash, No itch, No new/changing skin lesions, No color change, No bleeding, No problem reported Objective Vital Signs Date Time Temp Pulse Resp B/P (MAP) Pulse Ox O2 Delivery O2 Flow Rate FiO2 04/29/17 16:02 36.9 109 18 144/74 (97) 93 Oxymask 3.5 04/29/17 16:00 Nasal Cannula 3.0 04/29/17 15:19 86 15 94 Nasal Cannula 3.0 04/29/17 12:00 Nasal Cannula 3.0 04/29/17 11:20 86 15 92 Nasal Cannula 3.0 04/29/17 10:55 36.7 89 18 115/71 (86) 91 3.0 04/29/17 08:00 Nasal Cannula 3.0 04/29/17 07:18 81 16 97 Nasal Cannula 3.0 04/29/17 04:21 36.8 88 18 114/68 (83) 94 Nasal Cannula 4.0 04/29/17 04:00 Nasal Cannula 4.0 04/29/17 00:00 Nasal Cannula 4.0 04/28/17 23:48 37.1 94 18 124/69 (87) 96 Nasal Cannula 4.0 04/28/17 20:48 96 Nasal Cannula 3.0 04/28/17 20:14 84 14 94 Nasal Cannula 3.0 04/28/17 19:10 36.8 85 23 112/59 (76) 95 Nasal Cannula 3.0 Physical Exam General Appearance: WD/WN, + mild distress Eyes: normal inspection, EOMI ENT: normal ENT inspection, hearing grossly normal, TMs normal Neck: supple Respiratory/Chest: chest non-tender, + decreased breath sounds, + crackles, + rales, + rhonchi Cardiovascular: regular rate, rhythm, no edema, no gallop, no JVD, no murmur Abdomen: normal bowel sounds, non tender, soft, no pulsatile mass Extremities: normal range of motion, non-tender, normal inspection, no pedal edema Neurologic/Psychiatric: fisher troll line II-XII nml as tested, no motor/sensory deficits, alert, normal mood/affect, oriented x 3 Skin: normal color, warm/dry, no rash Laboratory Results Last 24 Hours Test 04/28/17 20:37 04/29/17 06:02 D-Dimer 2940 ug/L FEU White Blood Count 15.18 K/uL Red Blood Count 2.96 M/uL Hemoglobin 8.9 g/dL Hematocrit 29.4 % Mean Corpuscular Volume 99.3 fL Mean Corpuscular Hemoglobin 30.1 pg Mean Corpuscular Hemoglobin Concent 30.3 g/dl Platelet Count 552 K/uL Mean Platelet Volume 9.8 fL Neutrophils (%) (Auto) 71.0 % Lymphocytes (%) (Auto) 14.7 % Monocytes (%) (Auto) 10.1 % Eosinophils (%) (Auto) 3.2 % Basophils (%) (Auto) 0.1 % Neutrophils # (Auto) 10.79 K/uL Lymphocytes # (Auto) 2.23 K/uL Monocytes # (Auto) 1.53 K/uL Eosinophils # (Auto) 0.48 K/uL Basophils # (Auto) 0.02 K/uL RDW Standard Deviation 51.8 fL RDW Coefficient of Variation 14.4 % Immature Granulocyte % (Auto) 0.9 % Immature Granulocyte # (Auto) 0.13 K/uL Red Blood Cell Morphology Unremarkable Sodium Level 141 mmol/L Potassium Level 4.4 mmol/L Chloride Level 101 mmol/L Carbon Dioxide Level 40 mmol/L Anion Gap 0.0 mmol/L Blood Urea Nitrogen 17 mg/dl Creatinine 1.00 mg/dl Est Creatinine Clear Calc Drug Dose 34.3 ml/min Estimated GFR () 60.8 Estimated GFR (Non- 52.4 BUN/Creatinine Ratio 17.5 Random Glucose 81 mg/dl Calcium Level 9.1 mg/dl Phosphorus Level 3.1 mg/dl Magnesium Level 2.1 mg/dl Total Bilirubin 0.6 mg/dl Aspartate Amino Transf (AST/SGOT) 15 U/L Alanine Aminotransferase (ALT/SGPT) 15 U/L Alkaline Phosphatase 63 U/L Total Protein 6.3 gm/dl Albumin 2.7 gm/dl Globulin 3.6 gm/dl Albumin/Globulin Ratio 0.8 Assessment and Plan Acute hypoxic / hypercapnic respiratory failure , unclear etiology but likely COPD exacerbation unlikely PE, negative CTA on 04/20 patient is retainer , keep O2 sat 91-93 % not more 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 Acute renal failure. multifactorial, contrast and diuresis, currently resolved Hypothyroidism. Continue her Synthroid. Finding on CTA 04/20 2.4 cm uncinate process lesion within the pancreas. 9 mm partially visualized lesion lower pole of the left kidney which may reflect a hyperdense cyst. 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 Heparin subQ. Continued [facility] stay due to: multiple IV medications needed Discharge planning: group home facility
--- NOTE | 2017-04-29 18:27 | Orthopedic Consultation ---
Orthopedic Consultation Date of Consultation: Apr 29, 2017. Attending Physician: Ivan Gonzales MD Reason for Consultation: Right proximal humerus fracture History of Present Illness 81 yo female who had sustained an impacted Right proximal humerus fracture on the . She was discharged to [facility] behavioral health services. She subsequently developed respiratory failure and hypoxemia. Chest x-ray demonstrated the proximal humerus fracture and a new shoulder x-rays obtained. This shows increased displacement. She complains of pain right shoulder. She denies neurologic symptoms. Social History Smoking Status: Former Smoker Marital Status: Housing Status: lives alone Occupation Status: retired Allergies Coded Allergies: Iodinated Diagnostic Agents (Verified Allergy, Unknown, RASH, 04/25/17) Home Medications Scheduled Aspirin (Aspirin Ec), 81 MG PO DAILY Atorvastatin (Lipitor), 10 MG PO DAILY Baclofen (Lioresal), 10 MG PO HS Ciprofloxacin (Ciprofloxacin HCl), 250 MG PO BID Citalopram Hydrobromide (Celexa), 20 MG PO DAILY Clonazepam (Klonopin), 1 MG PO HS Diltiazem Hcl Coated Beads (Diltiazem Hcl Er), 1 CAP PO DAILY Docusate Sodium (Docusate Sodium), 100 MG PO BID Fluticasone Furoate-Vilanterol (Breo Ellipta), 1 PUFF INH DAILY Levothyroxine Sodium (Levothyroxine Sodium), 1 TAB PO DAILY Lisinopril (Prinivil), 5 MG PO DAILY Trazodone Hcl (Trazodone), 25 MG PO DAILY Scheduled PRN Acetaminophen (Tylenol), 500 MG PO Q4 PRN for Pain Oxycodone HCl (Oxycodone HCl), 5 MG PO Q4 PRN for Pain Tramadol HCl (Tramadol HCl), 50 MG PO Q4H PRN for Pain Current Inpatient Medications Current Inpatient Medications Medications (Trade) Dose Ordered Sig/Nishant Route Start Time Stop Time Status Last Admin Dose Admin Heparin Sodium (Porcine) (Heparin Sq 5000 Unit/0.5ml) 5,000 unit Q8 SQ 04/24/17 22:00 05/24/17 21:59 04/29/17 14:21 5,000 UNIT Acetaminophen (Tylenol Tab) 650 mg Q4H PRN PO 04/24/17 19:00 05/24/17 18:59 04/29/17 11:01 650 MG Al Hydrox/Mg Hydrox/Simethicone (Maalox Max Susp) 15 ml Q4H PRN PO 04/24/17 19:00 05/24/17 18:59 Magnesium Hydroxide (Milk Of Magnesia Susp) 30 ml Q12H PRN PO 04/24/17 19:00 05/24/17 18:59 Ondansetron HCl (Zofran Inj) 4 mg Q6H PRN IV 04/24/17 19:00 05/24/17 18:59 Nitroglycerin (Nitrostat Tab) 0.4 mg UD PRN SL 04/24/17 19:00 05/24/17 18:59 Polyethylene (Miralax Powder Packet) 17 gm DAILY PRN PO 04/24/17 19:00 05/24/17 18:59 Aspirin (Ecotrin Tab) 81 mg DAILY PO 04/25/17 09:00 05/25/17 08:59 04/29/17 07:53 81 MG Atorvastatin Calcium (Lipitor Tab) 10 mg DAILY PO 04/25/17 09:00 05/25/17 08:59 04/29/17 07:53 10 MG Baclofen (Lioresal Tab) 10 mg HS PO 04/24/17 21:00 05/24/17 20:59 04/28/17 22:11 10 MG Citalopram Hydrobromide (celeXA TAB) 20 mg DAILY PO 04/25/17 09:00 05/25/17 08:59 04/29/17 07:54 20 MG Clonazepam (Klonopin Tab) 1 mg HS PO 04/24/17 21:00 05/24/17 20:59 04/28/17 22:14 1 MG Docusate Sodium (coLACE CAP) 100 mg BID PO 04/24/17 21:00 05/24/17 20:59 04/29/17 07:53 100 MG Levothyroxine Sodium (Synthroid Tab) 125 mcg DAILYBB PO 04/25/17 06:00 05/25/17 06:59 04/29/17 06:18 125 MCG Oxycodone HCl (Roxicodone Immediate Rel Tab) 5 mg Q4H PRN PO 04/24/17 20:15 05/08/17 20:14 04/28/17 00:40 5 MG Tramadol HCl (Ultram Tab) 50 mg Q4H PRN PO 04/24/17 19:00 05/24/17 18:59 04/28/17 00:40 50 MG Miscellaneous Information (Order Awaiting Action) 1 ea QS N/A 04/25/17 00:00 05/25/17 00:00 Albuterol/ Ipratropium (Duoneb) 3 ml QIDR INH 04/25/17 08:00 05/25/17 07:59 04/29/17 15:19 3 ML Trazodone HCl (Desyrel Tab) 25 mg HS PO 04/25/17 21:00 05/25/17 08:59 04/28/17 22:11 25 MG Physical Exam Date Time Temp Pulse Resp B/P (MAP) Pulse Ox O2 Delivery O2 Flow Rate FiO2 04/29/17 16:02 36.9 109 18 144/74 (97) 93 Oxymask 3.5 04/29/17 16:00 Nasal Cannula 3.0 04/29/17 15:19 86 15 94 Nasal Cannula 3.0 04/29/17 12:00 Nasal Cannula 3.0 04/29/17 11:20 86 15 92 Nasal Cannula 3.0 04/29/17 10:55 36.7 89 18 115/71 (86) 91 3.0 04/29/17 08:00 Nasal Cannula 3.0 04/29/17 07:18 81 16 97 Nasal Cannula 3.0 04/29/17 04:21 36.8 88 18 114/68 (83) 94 Nasal Cannula 4.0 04/29/17 04:00 Nasal Cannula 4.0 04/29/17 00:00 Nasal Cannula 4.0 04/28/17 23:48 37.1 94 18 124/69 (87) 96 Nasal Cannula 4.0 04/28/17 20:48 96 Nasal Cannula 3.0 04/28/17 20:14 84 14 94 Nasal Cannula 3.0 04/28/17 19:10 36.8 85 23 112/59 (76) 95 Nasal Cannula 3.0 General Appearance: WD/WN Head: normocephalic Eyes: normal inspection Respiratory/Chest: + pertinent finding (on nasal cannula O2) Cardiovascular: no edema Extremities/Musculoskelatal: + pertinent finding (right upper extremity demonstrates swelling and ecchymoses. Tender to palpation over the proximal humerus. Skin is intact. Distally neurologically intact.) Laboratory Results Last 24 Hours Test 04/28/17 20:37 04/29/17 06:02 D-Dimer 2940 ug/L FEU White Blood Count 15.18 K/uL Red Blood Count 2.96 M/uL Hemoglobin 8.9 g/dL Hematocrit 29.4 % Mean Corpuscular Volume 99.3 fL Mean Corpuscular Hemoglobin 30.1 pg Mean Corpuscular Hemoglobin Concent 30.3 g/dl Platelet Count 552 K/uL Mean Platelet Volume 9.8 fL Neutrophils (%) (Auto) 71.0 % Lymphocytes (%) (Auto) 14.7 % Monocytes (%) (Auto) 10.1 % Eosinophils (%) (Auto) 3.2 % Basophils (%) (Auto) 0.1 % Neutrophils # (Auto) 10.79 K/uL Lymphocytes # (Auto) 2.23 K/uL Monocytes # (Auto) 1.53 K/uL Eosinophils # (Auto) 0.48 K/uL Basophils # (Auto) 0.02 K/uL RDW Standard Deviation 51.8 fL RDW Coefficient of Variation 14.4 % Immature Granulocyte % (Auto) 0.9 % Immature Granulocyte # (Auto) 0.13 K/uL Red Blood Cell Morphology Unremarkable Sodium Level 141 mmol/L Potassium Level 4.4 mmol/L Chloride Level 101 mmol/L Carbon Dioxide Level 40 mmol/L Anion Gap 0.0 mmol/L Blood Urea Nitrogen 17 mg/dl Creatinine 1.00 mg/dl Est Creatinine Clear Calc Drug Dose 34.3 ml/min Estimated GFR () 60.8 Estimated GFR (Non- 52.4 BUN/Creatinine Ratio 17.5 Random Glucose 81 mg/dl Calcium Level 9.1 mg/dl Phosphorus Level 3.1 mg/dl Magnesium Level 2.1 mg/dl Total Bilirubin 0.6 mg/dl Aspartate Amino Transf (AST/SGOT) 15 U/L Alanine Aminotransferase (ALT/SGPT) 15 U/L Alkaline Phosphatase 63 U/L Total Protein 6.3 gm/dl Albumin 2.7 gm/dl Globulin 3.6 gm/dl Albumin/Globulin Ratio 0.8 Assessment & Plan Displaced right proximal humerus fracture New x-rays the shoulder demonstrates significant increase in displacement of the proximal humerus fracture. Her initial x-rays and straighten them simply impacted the humeral head is displaced off of the diaphysis. We obtained a CT scan which demonstrates significant comminution of the lateral cortex and humeral head and minimal bone within the residual humeral head and this essentially a cortical shell. I don't think she would do well with plate fixation as I think the screws would pull out of the bone of the humeral head. My recommendation would be a reverse total shoulder arthroplasty. Risks benefits alternatives to this procedure discussed with patient and her daughter and they wish to proceed. I'll tentatively plan for surgery on the right shoulder on morning pending medical clearance in satisfactory condition of her lungs.
[2017-04-29] MEDS: CLONAZEPAM 1 MG TAB PO SCH (22:54)
[2017-04-29] MEDS: BACLOFEN 10 MG TAB PO SCH (22:54)
[2017-04-29] MEDS: TRAZODONE HCL 50 MG TAB PO SCH (22:56)
[2017-04-30] VITALS (10 sets, daily range): BP systolic 104–148; BP diastolic 51–82; PULSE 72–99; TEMP 36.7–37.4; O2SAT 93–99
[2017-04-30] MEDS: HEPARIN SOD 5000 UNIT/0.5 ML CARP SQ SCH ×3 (04:48→20:42)
[2017-04-30 07:05] LABS: BASO % 0.1 %; BASO ABS # 0.02 K/uL (0-0.2); EOS % 2.6 %; HEMATOCRIT 28.5 % (37-47); IG% 1.4 %; LYMPH % 12.1 %; LYMPH ABS # 1.86 K/uL (1.2-3.4); MEAN CELL VOLUME 97.3 fL (80-100); MEAN CORPUSCULAR HEMOGLOBIN 30.4 pg (25-34); MEAN CORPUSCULAR HGB CONC 31.2 g/dl (32-36); MEAN PLATELET VOLUME 9.7 fL (7.4-10.4); NEUT % 74.8 %; PLATELET COUNT 518 K/uL (130-400); RED BLOOD COUNT 2.93 M/uL (4.2-5.4); WHITE BLOOD COUNT 15.34 K/uL (4.8-10.8)
[2017-04-30] MEDS: ALBUT/IPRATROP 3MG/0.5MG NEB 3 ML VIAL INH SCH ×4 (07:09→19:38)
[2017-04-30 07:34] LABS: BUN/CREATININE RATIO 15.6 (10-20); CALCIUM 8.7 mg/dl (8.5-10.1); CREATININE 0.97 mg/dl (0.60-1.20); MAGNESIUM 2.1 mg/dl (1.8-2.4); POTASSIUM 4.2 mmol/L (3.5-5.1)
[2017-04-30 07:37] LABS: ALB/GLOB RATIO 0.7 (0.9-2); PHOSPHORUS 2.8 mg/dl (2.5-4.9)
[2017-04-30 07:40] LABS: COMPLETE YES; HYPERSEGMENTED POLYS 1+; VACUOLIZATION 1+
[2017-04-30] MEDS: ASPIRIN 81 MG ECTAB PO SCH (07:58)
[2017-04-30] MEDS: ATORVASTATIN 10 MG TAB PO SCH (07:58)
[2017-04-30] MEDS: TRAMADOL HCL 50 MG TAB PO PRN (08:01)
[2017-04-30] MEDS: DOCUSATE SODIUM 100 MG CAP PO SCH ×2 (08:01→20:43)
--- NOTE | 2017-04-30 14:40 | Progress Note ---
Subjective Date of Service: Apr 30, 2017. Subjective Pt evaluation today including: conversation w/ patient, physical exam, chart review, lab review, review of studies, review of inpatient medication list Review of Systems Constitutional: No see HPI, No fever, No chills, No sweats, No weight loss, No weakness, No fatigue, No problem reported Eyes: No see HPI, No worsening of vision, No eye pain, No redness, No discharge , No diplopia, No problem reported ENT: No see HPI, No hearing loss, No unusual epistaxis, No nasal symptoms, No sore throat, No tinnitus, No dental problems, No trouble swallowing, No problem reported Respiratory: + shortness of breath, + dyspnea on exertion, + dyspnea at rest, No see HPI, No cough, No sputum, No wheezing, No hemoptysis, No problem reported Cardiac: No see HPI, No chest pain, No orthopnea, No PND, No edema, No claudication, No palpitations, No problem reported Abdomen: No see HPI, No pain, No nausea, No vomiting, No diarrhea, No constipation, No GI bleeding, No problem reported Musculoskeletal: No see HPI, No joint pain, No muscle pain, No swelling, No calf pain, No problem reported Female : No see HPI, No dysuria, No urinary frequency, No hematuria, No incontinence, No abnormal vaginal bleeding, No vaginal discharge, No problem reported Neurologic: No see HPI, No memory loss, No paralysis, No weakness, No numbness/ tingling, No vertigo, No balance problems, No problem reported Psychiatric: No see HPI, No depression symptoms, No anhedonism, No anxiety, No insomnia, No substance abuse, No problem reported Heme: No see HPI, No abnormal bleeding/bruising, No clotting problems, No swollen lymph nodes, No night sweats, No problem reported Endo: No see HPI, No fatigue, No excessive thirst, No excessive urination, No problem reported Skin: No see HPI, No rash, No itch, No new/changing skin lesions, No color change, No bleeding, No problem reported Objective Vital Signs Date Time Temp Pulse Resp B/P (MAP) Pulse Ox O2 Delivery O2 Flow Rate FiO2 04/30/17 12:00 Nasal Cannula 3.0 04/30/17 11:05 72 16 98 Nasal Cannula 3.0 04/30/17 10:53 36.7 82 16 104/57 (73) 96 Nasal Cannula 3.0 04/30/17 08:00 Nasal Cannula 3.0 04/30/17 07:13 36.9 85 22 148/76 (100) 96 Nasal Cannula 4.0 04/30/17 07:10 85 16 99 Nasal Cannula 4.0 04/30/17 04:34 37.0 99 18 125/82 (96) 99 Nasal Cannula 4.0 04/30/17 04:00 Nasal Cannula 3.0 04/30/17 00:08 36.9 90 16 113/70 (84) 99 Nasal Cannula 4.0 04/30/17 00:00 Nasal Cannula 3.0 04/29/17 20:00 Nasal Cannula 3.0 04/29/17 19:38 36.5 93 20 119/68 (85) 96 Nasal Cannula 3.0 04/29/17 19:01 92 16 100 Nasal Cannula 3.5 04/29/17 16:02 36.9 109 18 144/74 (97) 93 Oxymask 3.5 04/29/17 16:00 Nasal Cannula 3.0 04/29/17 15:19 86 15 94 Nasal Cannula 3.0 Physical Exam General Appearance: WD/WN, no apparent distress Eyes: normal inspection, EOMI ENT: normal ENT inspection, hearing grossly normal Neck: supple Respiratory/Chest: chest non-tender, + decreased breath sounds, + crackles Cardiovascular: regular rate, rhythm, no edema, no gallop, no JVD, no murmur Abdomen: normal bowel sounds, non tender, soft, no organomegaly Extremities: normal range of motion, non-tender, normal inspection, no pedal edema Neurologic/Psychiatric: plate mounter II-XII nml as tested, no motor/sensory deficits, alert, normal mood/affect, oriented x 3 Skin: normal color, warm/dry, no rash Laboratory Results Last 24 Hours Test 04/30/17 06:31 White Blood Count 15.34 K/uL Red Blood Count 2.93 M/uL Hemoglobin 8.9 g/dL Hematocrit 28.5 % Mean Corpuscular Volume 97.3 fL Mean Corpuscular Hemoglobin 30.4 pg Mean Corpuscular Hemoglobin Concent 31.2 g/dl Platelet Count 518 K/uL Mean Platelet Volume 9.7 fL Neutrophils (%) (Auto) 74.8 % Lymphocytes (%) (Auto) 12.1 % Monocytes (%) (Auto) 9.0 % Eosinophils (%) (Auto) 2.6 % Basophils (%) (Auto) 0.1 % Neutrophils # (Auto) 11.46 K/uL Lymphocytes # (Auto) 1.86 K/uL Monocytes # (Auto) 1.38 K/uL Eosinophils # (Auto) 0.40 K/uL Basophils # (Auto) 0.02 K/uL RDW Standard Deviation 50.3 fL RDW Coefficient of Variation 14.2 % Immature Granulocyte % (Auto) 1.4 % Immature Granulocyte # (Auto) 0.22 K/uL Hypersegmented Polys 1+ Toxic Vacuolation 1+ Red Blood Cell Morphology Unremarkable Sodium Level 140 mmol/L Potassium Level 4.2 mmol/L Chloride Level 101 mmol/L Carbon Dioxide Level 37 mmol/L Anion Gap 2.0 mmol/L Blood Urea Nitrogen 15 mg/dl Creatinine 0.97 mg/dl Est Creatinine Clear Calc Drug Dose 35.4 ml/min Estimated GFR () 63.0 Estimated GFR (Non- 54.4 BUN/Creatinine Ratio 15.6 Random Glucose 79 mg/dl Calcium Level 8.7 mg/dl Phosphorus Level 2.8 mg/dl Magnesium Level 2.1 mg/dl Total Bilirubin 0.6 mg/dl Aspartate Amino Transf (AST/SGOT) 19 U/L Alanine Aminotransferase (ALT/SGPT) 17 U/L Alkaline Phosphatase 67 U/L Total Protein 6.0 gm/dl Albumin 2.5 gm/dl Globulin 3.5 gm/dl Albumin/Globulin Ratio 0.7 Assessment and Plan Acute hypoxic / hypercapnic respiratory failure , unclear etiology but likely COPD exacerbation unlikely PE, negative CTA on 04/20 patient is retainer , keep O2 sat 91-93 % not more 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 Flanagan Right humerus commuted fracture, orthopedic would like to take care for total shoulder arthroplasty tomorrow, will need pulmonary clearance Recent urinary tract infection, status post Cipro. Acute renal failure. multifactorial, contrast and diuresis, currently resolved Hypothyroidism. Continue her Synthroid. Finding on CTA 04/20 2.4 cm uncinate process lesion within the pancreas. 9 mm partially visualized lesion lower pole of the left kidney which may reflect a hyperdense cyst. 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 Heparin subQ. Continued [facility] stay due to: multiple IV medications needed Discharge planning: group home facility
[2017-04-30] MEDS: METHYLPREDNISOLONE IV 40 MG in SYRINGE 0 ML IV SCH ×2 (15:42→20:44)
--- NOTE | 2017-04-30 15:55 | Orthopedic Progress Note ---
Orthopedic Progress Note Date of Service Apr 30, 2017. Subjective Additional Notes: Pt sitting up in bed. Awake, alert. Comfortable at present. Objective Forearm with swelling. Shoulder with some swelling. Moving fingers well. Date Time Temp Pulse Resp B/P (MAP) Pulse Ox O2 Delivery O2 Flow Rate FiO2 04/30/17 15:12 82 16 93 Nasal Cannula 3.0 04/30/17 12:00 Nasal Cannula 3.0 04/30/17 11:05 72 16 98 Nasal Cannula 3.0 04/30/17 10:53 36.7 82 16 104/57 (73) 96 Nasal Cannula 3.0 04/30/17 08:00 Nasal Cannula 3.0 04/30/17 07:13 36.9 85 22 148/76 (100) 96 Nasal Cannula 4.0 04/30/17 07:10 85 16 99 Nasal Cannula 4.0 04/30/17 04:34 37.0 99 18 125/82 (96) 99 Nasal Cannula 4.0 04/30/17 04:00 Nasal Cannula 3.0 04/30/17 00:08 36.9 90 16 113/70 (84) 99 Nasal Cannula 4.0 04/30/17 00:00 Nasal Cannula 3.0 04/29/17 20:00 Nasal Cannula 3.0 04/29/17 19:38 36.5 93 20 119/68 (85) 96 Nasal Cannula 3.0 04/29/17 19:01 92 16 100 Nasal Cannula 3.5 04/29/17 16:02 36.9 109 18 144/74 (97) 93 Oxymask 3.5 04/29/17 16:00 Nasal Cannula 3.0 Laboratory Results 24 Hours: Test 04/30/17 06:31 White Blood Count 15.34 K/uL Red Blood Count 2.93 M/uL Hemoglobin 8.9 g/dL Hematocrit 28.5 % Mean Corpuscular Volume 97.3 fL Mean Corpuscular Hemoglobin 30.4 pg Mean Corpuscular Hemoglobin Concent 31.2 g/dl Platelet Count 518 K/uL Mean Platelet Volume 9.7 fL Neutrophils (%) (Auto) 74.8 % Lymphocytes (%) (Auto) 12.1 % Monocytes (%) (Auto) 9.0 % Eosinophils (%) (Auto) 2.6 % Basophils (%) (Auto) 0.1 % Neutrophils # (Auto) 11.46 K/uL Lymphocytes # (Auto) 1.86 K/uL Monocytes # (Auto) 1.38 K/uL Eosinophils # (Auto) 0.40 K/uL Basophils # (Auto) 0.02 K/uL Assessment & Plan Assessment: Right Proximal Humerus Fx Plan: Planning for Reverse TSA with Dr Owen. Slated for tomorrow morning. Pulmonology Consult placed. To OR pending their input.
[2017-04-30 16:25] LABS: ARTERIAL BLOOD GAS BASE EXCESS 10.5 mEq/L (-9-1.8); ARTERIAL BLOOD GAS HCO3 37 mmol/L (19-24); ARTERIAL BLOOD GAS PO2 74 mm/Hg (80-95); ARTERIAL BLOOD GAS pH 7.37 (7.35-7.45)
[2017-04-30 16:27] LABS: ALLEN TEST POS (POS)
[2017-04-30 16:31] LABS: O2 ADMINISTRATION 3L
--- NOTE | 2017-04-30 17:30 | Anesthesiology Progress Note ---
Anesthesia Progress Note Date of Service Apr 30, 2017. Progress Notes This is an 81 y/o w female s/p fall w/resultant fx to right humerus neck ,now presenting for a right reverse TSA when medically optimized.PMHx is sig. 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 s/ p TX,s/p PTCS w/stent at [facility] according to son.Also, GERD,Hypothyroidism,ARF on admission(now resolved),anemia (H/H 8.9/28.5) and CKD.Discussed anesthesia w/pt and son,all questions answered, informed consent obtained. ASA 4
--- NOTE | 2017-04-30 17:34 | Pulmonary Consultation ---
History General Date of Service: Apr 30, 2017. Stated Complaint: Acute Renal Failure, Hypoxia HPI The patient is a 81 year old female who presents to [facility] with complaints of Acute Renal Failure, Hypoxia. The patient's primary care provider is Davian Brooke M.D.. Ms. Price is a 81-year-old female with past medical history of COPD (FEV1 unknown dependent on 4 L O2 nasal cannula) who was admitted on 04/24/2017 after she was noted to be profoundly hypoxic to an SaO2 of 70-75% at [facility]. She is status post a recent mechanical fall with status post right shoulder fracture and undergoing rehabilitation therapy. She was transferred to the ER for further evaluation. Patient denies any fever, chills , chest pain or cough. She denies any orthopnea but states that her exercise tolerance is limited due to dyspnea. She does not see a adult care provider as an outpatient and cannot recall having a full PFT examination. She is currently using Breo Ellipta 1 puff daily from a respiratory standpoint. Her initial vitals in the ER showed hematocrit 37.2, pulse is 66 respiratory rate of 24 blood pressure of 101/34, 100% on nonrebreather saturating 74% on nasal cannula. CBC showed white blood count of 13.54, hemoglobin 9.3, platelets of 407. CMP showed a sodium 137, potassium 4.5 chloride of 100, CO2 34, BUN 55 and creatinine 2.3. Lactate was 0.7, albumin 3.3 ,troponin less than 0.03, and d-dimer 2940. ABG 7.27/74/41/34/72% 6L from admission. She had a VQ scan done to rule out a pulmonary embolism but due to emphysematous changes and was nondiagnostic. Repeat ABG on 04/25/2017 7.35/61/62/33/88% on 6L. She was admitted for acute on chronic hypoxic respiratory failure, acute renal failure and UTI. Her medications include Tylenol 650 mg by mouth every 4 hours when necessary, DuoNeb every 4 hours, and is aspirin 81 mg daily, atorvastatin 10 mg by mouth daily, baclofen 10 mg by mouth at bedtime, Pulmicort inhaler twice a day, Celexa 20 mg by mouth daily, clonazepam 1 mg by mouth at bedtime, Darvocet 100 mg by mouth twice a day, heparin subcutaneous 5000 units every 8 hours, Synthroid 125 g by mouth daily, milk of magnesia 30 mg every 12 hours when necessary, tramadol 50 mg every 4 when necessary, trazodone 25 mg by mouth at bedtime, oxycodone immediate release every 4 hours when necessary. Vital signs the last 24 hours showed MAXIMUM TEMPERATURE of 37, blood pressure 104/57 to 148/76, pulse 72-99, respiratory rate 16-20 saturating 93-99% on 3-4 L nasal cannula. She is currently 3.6 L negative balance since admission. Laboratory data significant for white blood cell count of 15, hemoglobin 8.9, platelet count of 518, and CO2 37. BUN today is 15 and creatinine 0.97. Albumin is 2. Patient has been evaluated by orthopedic surgery for possible reverse total shoulder arthroplasty. Pulmonary consulted assess perioperative respiratory risk and management. Historian: patient, other (chart review) Complaint Status: improved Review of Systems Constitutional: reports: as stated in HPI Eyes: reports: as stated in HPI ENT: reports: as stated in HPI Cardiovascular: reports: as stated in HPI Respiratory: reports: as stated in HPI Gastrointestinal: reports: as stated in HPI Genitourinary - Female: reports: as stated in HPI Musculoskeletal: reports: as stated in HPI Integumentary: reports: as stated in HPI Neurologic: reports: as stated in HPI Psychiatric: reports: as stated in HPI Endocrine: as stated in HPI Hematologic / Lymphatic: as stated in HPI Allergic / Immunologic: as stated in HPI All Other Symptoms All Other Systems: Reviewed and Negative Past Medical History Past Medical History: COPD (FEV1 unknown dependent on 4 L nasal cannula) Coronary artery disease Myocardial infarction Hypothyroidism Hypertension Hyperlipidemia Depression Anxiety Chronic anemia (baseline hemoglobin between 10-11) Spasmodic torticollis Past Surgical History: Lumpectomy Left hip arthroplasty Left radial fracture repair Heart catheterization with angioplasty Cholecystectomy Family History Noncontributory Social History Currently lives at home but since recent admission and now is at [facility]. She is a former smoker. Denies any alcohol or illicit drug use. Living independently prior to fall. Hx Tobacco Use In Past Year?: No Smoking Status: Former Smoker Marital status: Occupational Status: retired History of MDRO History of MDRO: No Allergies Coded Allergies: Iodinated Diagnostic Agents (Verified Allergy, Unknown, RASH, 05/01/17) Current Medications Reported Home Medications Medications Dose Route/Sig Max Daily Dose Days Date Category Oxycodone HCl 5 Mg Tab 5 Mg PO Q4 PRN 04/24/17 Reported Tylenol (Acetaminophen) 500 Mg Tab 500 Mg PO Q4 PRN 04/24/17 Reported Docusate Sodium 100 Mg Cap 100 Mg PO BID 04/24/17 Reported Ciprofloxacin HCl (Ciprofloxacin) 250 Mg Tab 250 Mg PO BID 04/21/17 Rx Tramadol HCl 50 Mg Tab 50 Mg PO Q4H PRN 04/21/17 Rx Breo Ellipta (Fluticasone Furoate-Vilanterol) 1 Inh Inh 1 Puff INH DAILY 04/20/17 Reported Lipitor (Atorvastatin Calcium) 10 Mg Tab 10 Mg PO DAILY 04/20/17 Reported Trazodone (Trazodone HCl) 50 Mg Tab 25 Mg PO DAILY 07/08/15 Reported Lioresal (Baclofen) 10 Mg Tab 10 Mg PO HS 07/08/15 Reported Klonopin (Clonazepam) 1 Mg Tab 1 Mg PO HS 07/08/15 Reported Aspirin Ec (Aspirin) 81 Mg Tab 81 Mg PO DAILY 07/08/15 Reported Prinivil (Lisinopril) 5 Mg Tab 5 Mg PO DAILY 07/08/15 Reported Diltiazem Hcl Er (Diltiazem Hcl Coated Beads) 180 Mg Cap 1 Cap PO DAILY 90 07/08/15 Reported Celexa (Citalopram Hydrobromide) 20 Mg Tab 20 Mg PO DAILY 07/08/15 Reported Levothyroxine Sodium 125 Mcg Tab 1 Tab PO DAILY 90 07/08/15 Reported Physical Physical Exam Vital Signs: Date Time Temp Pulse Resp B/P (MAP) Pulse Ox O2 Delivery O2 Flow Rate FiO2 04/30/17 15:12 82 16 93 Nasal Cannula 3.0 04/30/17 15:08 36.8 91 22 118/69 (85) 93 Nasal Cannula 3.0 04/30/17 12:00 Nasal Cannula 3.0 04/30/17 11:05 72 16 98 Nasal Cannula 3.0 04/30/17 10:53 36.7 82 16 104/57 (73) 96 Nasal Cannula 3.0 04/30/17 08:00 Nasal Cannula 3.0 04/30/17 07:13 36.9 85 22 148/76 (100) 96 Nasal Cannula 4.0 04/30/17 07:10 85 16 99 Nasal Cannula 4.0 04/30/17 04:34 37.0 99 18 125/82 (96) 99 Nasal Cannula 4.0 04/30/17 04:00 Nasal Cannula 3.0 04/30/17 00:08 36.9 90 16 113/70 (84) 99 Nasal Cannula 4.0 04/30/17 00:00 Nasal Cannula 3.0 04/29/17 20:00 Nasal Cannula 3.0 04/29/17 19:38 36.5 93 20 119/68 (85) 96 Nasal Cannula 3.0 04/29/17 19:01 92 16 100 Nasal Cannula 3.5 General Appearance: WD/WN, NO APPARENT DISTRESS, uncomfortable Head: NORMOCEPHALIC, ATRAUMATIC Eyes: PERRLA, NO DISCHARGE, EOMI, SCLERAE NORMAL, CONJUNCTIVAE NORMAL, FUNDUSCOPIC EXAM NORMAL ENT: NORMAL NASAL EXAM Neck: NORMAL RANGE OF MOTION, NO TENDERNESS, TRACHEA MIDLINE, NO STRIDOR, SUPPLE, NO THYROMEGALY Respiratory: other (diminished breath sounds bilaterally, no wheezing, no crackles) Cardiovasular: REGULAR RATE/RHYTHM, NORMAL S1S2 Abdomen: NON TENDER, NORMAL BOWEL SOUNDS Back: NORMAL INSPECTION Upper Extremities: abnormal exam (right upper extremity shows erythema with ecchymoses and limited range of motion) Lower Extremities: edema Edema: RUE (3+) Pulses: dorsalis pedis (R) (1+), dorsalis pedis (L) (2+) Neuro: ALERT, ORIENTED x 3, NORMAL SENSATION, NORMAL SPEECH Psychiatric: NO SUICIDAL IDEATION, CONTRACTS FOR SAFETY, flat affect Diagnostics Labs Results Past 24 Hours Test 04/30/17 06:31 04/30/17 15:44 Range/Units White Blood Count 15.34 4.8-10.8 K/uL Red Blood Count 2.93 4.2-5.4 M/uL Hemoglobin 8.9 12.0-16.0 g/dL Hematocrit 28.5 37-47 % Mean Corpuscular Volume 97.3 80-100 fL Mean Corpuscular Hemoglobin 30.4 25-34 pg Mean Corpuscular Hemoglobin Concent 31.2 32-36 g/dl Platelet Count 518 130-400 K/uL Mean Platelet Volume 9.7 7.4-10.4 fL Neutrophils (%) (Auto) 74.8 % Lymphocytes (%) (Auto) 12.1 % Monocytes (%) (Auto) 9.0 % Eosinophils (%) (Auto) 2.6 % Basophils (%) (Auto) 0.1 % Neutrophils # (Auto) 11.46 1.4-6.5 K/uL Lymphocytes # (Auto) 1.86 1.2-3.4 K/uL Monocytes # (Auto) 1.38 0.11-0.59 K/uL Eosinophils # (Auto) 0.40 0-0.5 K/uL Basophils # (Auto) 0.02 0-0.2 K/uL RDW Standard Deviation 50.3 36.4-46.3 fL RDW Coefficient of Variation 14.2 11.5-14.5 % Immature Granulocyte % (Auto) 1.4 % Immature Granulocyte # (Auto) 0.22 0.00-0.02 K/uL Hypersegmented Polys 1+ Toxic Vacuolation 1+ Red Blood Cell Morphology Unremarkable Sodium Level 140 136-145 mmol/L Potassium Level 4.2 3.5-5.1 mmol/L Chloride Level 101 98-107 mmol/L Carbon Dioxide Level 37 21-32 mmol/L Anion Gap 2.0 3-11 mmol/L Blood Urea Nitrogen 15 7-18 mg/dl Creatinine 0.97 0.60-1.20 mg/dl Est Creatinine Clear Calc Drug Dose 35.4 ml/min Estimated GFR () 63.0 Estimated GFR (Non- 54.4 BUN/Creatinine Ratio 15.6 10-20 Random Glucose 79 70-99 mg/dl Calcium Level 8.7 8.5-10.1 mg/dl Phosphorus Level 2.8 2.5-4.9 mg/dl Magnesium Level 2.1 1.8-2.4 mg/dl Total Bilirubin 0.6 0.2-1 mg/dl Aspartate Amino Transf (AST/SGOT) 19 15-37 U/L Alanine Aminotransferase (ALT/SGPT) 17 12-78 U/L Alkaline Phosphatase 67 45-117 U/L Total Protein 6.0 6.4-8.2 gm/dl Albumin 2.5 3.4-5.0 gm/dl Globulin 3.5 2.5-4.0 gm/dl Albumin/Globulin Ratio 0.7 0.9-2 Diagnostic Rad[address] Right shoulder CT 04/29/2017 IMPRESSION: 1. Markedly displaced, markedly comminuted impacted right humeral neck and head fracture. No humeral head split fracture. Minimal callus formation with numerous associated bone fragments. A few possible tiny intra-articular bone fragments. 2. Anatomic alignment of the right acromioclavicular and glenohumeral joints. Chest x-ray 04/29/2017 FINDINGS: There is no pneumothorax. A small left pleural effusion has increased since prior exam. Left basilar opacity has increased. There is no evidence of pulmonary edema. Cardiomediastinal silhouette is stable. A right humeral neck fracture is again noted. IMPRESSION: 1. Small left pleural effusion which has slightly increased in size since prior exam. Mild increase in associated left basilar opacity which could reflect atelectasis or consolidation. 2. No radiographic evidence of pulmonary edema. Chest x-ray 04/24/2017 FINDINGS: 2 AP, portable, semierect chest radiographs are compared to chest x-ray and chest CT dated 04/20/2017. The examination is degraded by portable technique and patient rotation. The patient's head largely obscures the right apex. The heart is enlarged and there is atherosclerotic calcification of the thoracic aorta. The pulmonary vasculature is noncongested. Emphysema and chronic interstitial thickening are similar to previous. No airspace consolidation, large pleural effusion, or pneumothorax is seen. The skeletal structures are osteopenic. Impacted fracture is again seen involving the right humeral neck. IMPRESSION: Cardiomegaly and emphysema with no acute cardiopulmonary abnormality. TTE 04/25/2017 -- Conclusions -- * 1. Normal LV size and wall thickness. * 2. Hyperdynamic LV. LVEF >70%. No regional wall motion abnormalities. * 3. Normal RV size and function. * 4. No significant valvular pathology. * 5. No prior studies for comparison. EKG EKG from 04/24/2017 normal sinus rhythm at 81 bpm Impression Assessment and Plan Acute on chronic hypoxic hypercapnic respiratory insufficiency COPD on LTOT Chronic anemia Right humeral fracture Patient has acute on chronic respiratory insufficiency. Most likely secondary to COPD (FEV1 unknown). She is oxygen dependent and appears to have poor functional status, despite good EF of 70% and normal RV function. Patient appears to be back at baseline with O2 sats ranging between 93-99% on 4 L nasal cannula. Orthopedic Surgery has scheduled for right femoral fracture. She does not appear to be in a COPD exacerbation. I would consider her to be at least an ASA class IV. She is a moderate risk for a low-risk procedure. I have ordered an ABG to assess her baseline level of hypoxia and hypercarbia which is much improved since admission. PH is 7.37 she's longer acidotic, PCO2 65, PO2 74 bicarbonate 34 and saturating 92% on 3 L nasal cannula. Continue with oxygen supplementation to maintain SaO2 btw 88-92% I would continue IV corticosteroids in the perioperative period Continue with inhaled corticosteroids and bronchodilators Try to keep in negative balance in balance Continue with incentive spirometry Post extubation she will be a good candidate for placement on BiPAP in the perioperative period I appreciate the consult. Please call me if you've any further questions or concerns.
[2017-04-30] MEDS: BUDESONIDE 0.5 MG/2 ML VIAL (PULMICORT) INH SCH (19:38)
[2017-04-30] MEDS: BACLOFEN 10 MG TAB PO SCH (20:42)
[2017-04-30] MEDS: TRAZODONE HCL 50 MG TAB PO SCH (20:43)
[2017-04-30] MEDS: CLONAZEPAM 1 MG TAB PO SCH (20:44)
[2017-05-01] VITALS (17 sets, daily range): BP systolic 110–148; BP diastolic 53–75; PULSE 60–86; TEMP 36.3–37.1; O2SAT 94–100
[2017-05-01] MEDS: LEVOTHYROXINE 125 MCG TAB PO SCH (05:33)
[2017-05-01] MEDS: METHYLPREDNISOLONE IV 40 MG in SYRINGE 0 ML IV SCH ×2 (05:34→13:40)
[2017-05-01] MEDS: HEPARIN SOD 5000 UNIT/0.5 ML CARP SQ SCH ×2 (05:34→13:43)
[2017-05-01] MEDS ORDERED: CEFAZOLIN SOD 1000MG/55 ML D5W IV ONE (06:00)
[2017-05-01] MEDS ORDERED: ROPIVACAINE 0.5% 5 MG/ML 30 ML VIAL ONE (06:25)
[2017-05-01] MEDS ORDERED: CLONIDINE HCL 100 MCG/ML SYRINGE ONE (06:26)
[2017-05-01] MEDS ORDERED: BUPIVACAINE 0.25% 30 ML VIAL ONE (06:26)
[2017-05-01] MEDS ORDERED: EpINEphrine INJ 1MG/ML AMP 1 MG/ML AMP ONE (06:26)
[2017-05-01] MEDS ORDERED: THROMBIN FOR SOLN 20000 UNIT KIT ONE (06:52)
[2017-05-01] MEDS ORDERED: POVIDONE-IODINE OP SOLN 30 ML BTL ONE (06:53)
[2017-05-01] MEDS ORDERED: BACITRACIN 50000 UNIT VIAL ONE (06:53)
[2017-05-01] MEDS ORDERED: VANCOMYCIN HCL 1000MG/20ML VIAL ONE (06:53)
[2017-05-01 07:01] LABS: BASO % 0.1 %; BASO ABS # 0.01 K/uL (0-0.2); HEMATOCRIT 26.7 % (37-47); IG% 1.2 %; LYMPH ABS # 0.86 K/uL (1.2-3.4); MEAN CELL VOLUME 98.9 fL (80-100); MEAN CORPUSCULAR HEMOGLOBIN 32.2 pg (25-34); MEAN CORPUSCULAR HGB CONC 32.6 g/dl (32-36); MEAN PLATELET VOLUME 9.6 fL (7.4-10.4); MONO % 1.6 %; NEUT % 91.1 %; PLATELET COUNT 505 K/uL (130-400); WHITE BLOOD COUNT 14.27 K/uL (4.8-10.8)
[2017-05-01] MEDS ORDERED: LIDOCAINE HCL 2% 2 ML VIAL (20MG/ML) ONE (07:04)
[2017-05-01] MEDS ORDERED: DEXAMETHASONE SOD INJ 4 MG/ML VIAL ONE (07:04)
[2017-05-01] MEDS ORDERED: MIDAZOLAM HCL 1 MG/ML 2ML VIAL ONE (07:04)
[2017-05-01] MEDS ORDERED: SUCCINYLCHOLINE CHLORIDE 20 MG/ML 10 ML VIAL IV ONE (07:04)
[2017-05-01] MEDS ORDERED: PHENYLEPHRINE HCL INJ 10 MG/ML VIAL ONE (07:04)
[2017-05-01] MEDS ORDERED: ROCURONIUM BROMIDE 10 MG/ML 5 ML VIAL IV ONE (07:04)
[2017-05-01] MEDS ORDERED: NEOSTIGMINE METHYLSULFATE 5 MG/5 ML SYR ONE (07:04)
[2017-05-01] MEDS ORDERED: PROPOFOL IV EMULSION 10 MG/ML 20 ML VIAL IV ONE (07:04)
[2017-05-01] MEDS ORDERED: GLYCOPYRROLATE INJ 0.2 MG/ML VIAL ONE (07:04)
[2017-05-01] MEDS ORDERED: EpHEDrine SULFATE INJ 50 MG/ML AMP ONE (07:04)
[2017-05-01] MEDS ORDERED: ONDANSETRON INJ 2 MG/ML 2 ML VIAL ONE (07:04)
[2017-05-01] MEDS ORDERED: FENTANYL CITRATE INJ 50 MCG/1 ML 2 ML VIAL ONE ×3 (07:04→10:09)
[2017-05-01 07:08] LABS: PROTHROMBIN TIME (PATIENT) 10.7 SECONDS (9.0-12.0)
[2017-05-01] MEDS: ALBUT/IPRATROP 3MG/0.5MG NEB 3 ML VIAL INH SCH ×4 (07:09→19:13)
[2017-05-01] MEDS: BUDESONIDE 0.5 MG/2 ML VIAL (PULMICORT) INH SCH ×2 (07:09→19:13)
[2017-05-01] MEDS ORDERED: ALBUT/IPRATROP 3MG/0.5MG NEB 3 ML VIAL INH STA (07:26)
[2017-05-01 07:32] LABS: ALB/GLOB RATIO 0.7 (0.9-2); BUN/CREATININE RATIO 22.1 (10-20); CALCIUM 8.8 mg/dl (8.5-10.1); CREATININE 0.99 mg/dl (0.60-1.20); MAGNESIUM 2.3 mg/dl (1.8-2.4); PHOSPHORUS 3.5 mg/dl (2.5-4.9); POTASSIUM 5.2 mmol/L (3.5-5.1)
[2017-05-01 07:36] LABS: COMPLETE YES; HYPERSEGMENTED POLYS 1+
[2017-05-01] MEDS ORDERED: ONDANSETRON INJ 2 MG/ML 2 ML VIAL IV PRN (08:00)
[2017-05-01] MEDS ORDERED: NALOXONE HCL 0.4 MG/1 ML VIAL/CARP IV PRN (08:00)
[2017-05-01] MEDS ORDERED: FENTANYL CITRATE INJ 50 MCG/1 ML 2 ML VIAL IV PRN (08:00)
[2017-05-01] MEDS ORDERED: FLUMAZENIL 0.1 MG/1 ML 10 ML VIAL IV PRN (08:00)
[2017-05-01] MEDS ORDERED: MEPERIDINE HCL 25 MG/ML CARP IV PRN (08:00)
[2017-05-01] MEDS ORDERED: LABETALOL HCL IV 5 MG/ML 20ML IV PRN (08:00)
[2017-05-01] MEDS ORDERED: ATROPINE SULFATE 0.1 MG/ML 5ML SYR IV PRN (08:00)
[2017-05-01] MEDS ORDERED: HYDROmorphone INJ 2 MG/ML SYR/VIAL IV PRN (08:00)
[2017-05-01] MEDS ORDERED: EpHEDrine SULFATE INJ 50 MG/ML AMP IV PRN (08:00)
[2017-05-01] MEDS ORDERED: PHENYLEPHRINE 100MCG/ML 5ML SYR IV PRN (08:00)
--- NOTE | 2017-05-01 08:03 | History & Physical Bridge Note ---
H&P Re-Evaluation Bridge Note: I have examined the patient, reviewed the History & Physical and in the interval since the performance of the History & Physical I have noted the following changes of clinical significance: No changes noted
[2017-05-01] MEDS ORDERED: ROPIVACAINE 5MG/ML 30 ML 150 MG, BUPIVACAINE/EPINEPHR 0.5% MPF 30 ML, KETOROLAC TROMETH... INFIL SCH ×7 (08:30)
[2017-05-01] MEDS: DOCUSATE SODIUM 100 MG CAP PO SCH (09:00)
[2017-05-01] MEDS ORDERED: LARYING-O-JET KIT (LTA) ONE ×2 (09:55)
[2017-05-01] MEDS ORDERED: MoRPHine SULFATE 2 MG/ML CARP IV PRN (10:45)
[2017-05-01] MEDS ORDERED: MAGNESIUM HYDROXIDE SUSP 30 ML UDC PO PRN (10:45)
[2017-05-01] MEDS ORDERED: ALUMINUM/MAGNESIUM SUSP 30 ML UDC PO PRN (10:45)
--- NOTE | 2017-05-01 10:56 | [facility] Operative Report ---
Operative Report Operative Date May 01, 2017. Pre-Operative Diagnosis Displaced right proximal humerus fracture Post-Operative Diagnosis Same as preoperative diagnosis, excess long head biceps tendon tear Procedure(s) Performed Right Total Shoulder Arthroplasty Reverse, Bicep Tenodesis Surgeon Dr. Danish Owen Manager Project Management Surgeon(s) Roger Chowdhury PA-C Estimated Blood Loss 100 mL Findings As above Specimens Permanent specimens A: Right humeral head Drains one Hemovac Anesthesia Gen. Complication(s) None Disposition Recovery Room / PACU Indications 81-year-old female who had previously sustained a impacted proximal humerus fracture. Subsequent follow-up x-rays and showed significant displacement to the proximal humerus fragment. CT scan demonstrated that it was severely comminuted with a minimal shell of bone around humeral head and not amenable to fracture fixation. As this is her dominant arm she wished proceed with a right reverse total shoulder arthroplasty. Description of Procedure Risks, benefits and alternatives to surgery including, but not limited to, infection DVT, pain, stiffness, need for revision surgery, failure to relieve all symptoms, damage to blood vessels, damage to nerves, risk of anesthesia were discussed with the patient and they wished to proceed. The patient was identified. Laterality was confirmed and marked. The patient received a preoperative antibiotic as well as an interscalene block. They were transferred to the operating room and placed in the supine position and induced into general endotracheal anesthesia per the anesthesia staff. The patient was then safely transferred to a slight beachchair position. The patient was secured in the Tenet positioner. All pressure points were well padded. The shoulder was prepped and draped in the usual sterile manner with ChloraPrep. The arm was secured in the Spider fernandez. I made a longitudinal incision just lateral to the coracoid, sharply incising through the skin and utilizing Bovie electrocautery to achieve hemostasis. I identified the cephalic vein and mobilized it laterally with the deltoid. I mobilize the pectoralis and mobilize this medially releasing a small portion of the upper border of the pec tendon to improve visualization. I then identified and mobilized the conjoined tendon. I identified the long head of the biceps tendon. [The long head of the biceps tendon had significant tendinosis and tearing proximally. I performed an in situ biceps tenodesis with interrupted #2 FiberWire suture.] I then released the subscapularis. I tagged the subscapularis with interrupted #2 ultra braid suture. There was minimal bone attached the subscapularis. There was also minimal bone attached to the supraspinatus and infraspinatus. She had evidence of prior rotator cuff tearing. The fractured humeral head was removed. I also then tagged the supraspinatus and infraspinatus with interrupted #2 ultra braid suture. I then sequentially reamed and sequentially broached up to a size 11. I then placed the trial humeral stem into the shoulder. I placed retractors around the glenoid and then excised the residual biceps tendon stump and glenoid labrum. I elevated the soft tissues and the inferior aspect of the glenoid to improve exposure and released tissues circumferentially. I then positioned and drilled for the central post for the glenoid plate. The glenoid plate was bone grafted with bone taken from the humeral head. I impacted the definitive glenoid plate into position and then placed a total of 4 compression screws that were then locked into position with locking caps. I then placed the size [38] glenosphere onto the plate and secured it with a locking screw. Given the amount of bone loss and lack of bone in the metaphyseal region we had minimal rotational stability with a standard anatomic stem. I therefore elected to cement in a cemented fracture stem. I prepared the canal in the usual manner and placed a distal cement restrictor. I then cemented a 10.5 mm fracture stem using the version guide. Once the cement had set we trialed. There was good fit with a plus [0) humeral tray and a plus [0] humeral liner. The definitive components used were [employer] Equinox: Humeral cemented fracture stem: 10.5 Standard glenoid plate Glenosphere: [38] Humeral tray:+ [0] Humeral polyethylene liner: + [0] I thoroughly irrigated the wound. Deep tissues were anesthetized with an orthomix solution. I then locked my definitive humeral tray into position with a torque limiting screw. I then impacted the definitive humeral polyethylene liner into position. I then reduced the shoulder. There was good range of motion and good stability after the reduction. I then tied the sutures into the rotator cuff into the fins of the fracture stem to reduce the rotator cuff down to the prosthesis. Repeated this process for the subscapularis and then place an interrupted #2 ultra braid suture to repair the rotator interval. The wound was again thoroughly irrigated and a Betadine soak was performed. A deep drain was placed. The deltopectoral interval was closed with interrupted # 1 Ethibond suture. The subcutaneous tissue was closed with interrupted 2-0 Vicryl suture. The skin was closed with trevon. A sterile dressing was applied. A sling was placed. All needle and sponge counts were correct at the end of the procedure. The patient was transferred to the PACU in stable condition without apparent complication. The PA-C was necessary for assistance with procedure for assistance in positioning, prepping, draping, retraction and closure. I attest to the content of the Intraoperative Record and any orders documented therein. Any exceptions are noted below.
--- NOTE | 2017-05-01 12:58 | Anesthesiology Progress Note ---
Anesthesia Post Op Note Date & Time May 01, 2017 at 12:55 Vital Signs Pain Intensity: 3 Vital Signs Past 12 Hours Date Time Temp Pulse Resp B/P (MAP) Pulse Ox O2 Delivery O2 Flow Rate FiO2 05/01/17 12:35 36.4 85 22 120/51 93 Nasal Cannula 4 05/01/17 12:25 85 36 137/55 98 Oxymask 6 Arterial Line 05/01/17 12:15 87 28 152/71 93 Oxymask 6 05/01/17 12:05 93 25 134/65 99 Oxymask 10 Arterial Line 05/01/17 11:55 91 30 138/60 98 Oxymask 10 165/73 05/01/17 11:46 36.6 88 23 138/85 95 Oxymask 10 153/77 05/01/17 07:27 79 16 97 Nasal Cannula 3.0 05/01/17 04:41 37.1 60 16 110/55 (73) 100 05/01/17 04:22 Nasal Cannula 3.0 Notes Mental Status: alert / awake / arousable, participated in evaluation Pt Amnestic to Procedure: Yes Nausea / Vomiting: adequately controlled Pain: adequately controlled Airway Patency, RR, SpO2: stable & adequate BP & HR: stable & adequate Hydration State: stable & adequate Anesthetic Complications: no major complications apparent The patient did well considering her pulmonary status. She was given a Duoneb preoperatively and transfused one unit PRBC upon arrival to the OR. She did not have a regional block due to concern about possible diaphragm paralysis. She tolerate the procedure well and was extubated in the OR to oxygen by face mask. She had BiPap on standby in the PACU, but did not require it. She was weened to nasal cannula and will go back to telemetry. I spoke to Dr. Patel who is following the patient on the floor.
[2017-05-01] MEDS: CITALOPRAM 20 MG TAB PO SCH (13:40)
[2017-05-01] MEDS: ATORVASTATIN 10 MG TAB PO SCH (13:40)
[2017-05-01] MEDS: D5W AND 1/2NSS + 20MEQ KCL 1,000 ML IV SCH (13:40)
[2017-05-01] MEDS: ASPIRIN 81 MG ECTAB PO SCH (13:40)
[2017-05-01] MEDS: FERROUS GLUCONATE 324 MG TAB PO SCH ×2 (14:18→17:19)
[2017-05-01] MEDS: CEFAZOLIN IV 1,000 MG in DEXTROSE 5% 50ML 50 ML IV SCH (17:19)
[2017-05-01] MEDS: ACETAMINOPHEN 500 MG TAB PO SCH (17:19)
--- NOTE | 2017-05-01 19:32 | Progress Note ---
Subjective Date of Service: May 01, 2017. Subjective Pt evaluation today including: conversation w/ patient, conversation w/ family , physical exam, chart review, lab review, conversation w/ reporting process consultant, review of inpatient medication list Review of Systems Constitutional: No see HPI, No fever, No chills, No sweats, No weight loss, No weakness, No fatigue, No problem reported Eyes: No see HPI, No worsening of vision, No eye pain, No redness, No discharge , No diplopia, No problem reported ENT: No see HPI, No hearing loss, No unusual epistaxis, No nasal symptoms, No sore throat, No tinnitus, No dental problems, No trouble swallowing, No problem reported Respiratory: No see HPI, No cough, No sputum, No wheezing, No shortness of breath, No dyspnea on exertion, No dyspnea at rest, No hemoptysis, No problem reported Cardiac: No see HPI, No chest pain, No orthopnea, No PND, No edema, No claudication, No palpitations, No problem reported Abdomen: No see HPI, No pain, No nausea, No vomiting, No diarrhea, No constipation, No GI bleeding, No problem reported Musculoskeletal: No see HPI, No joint pain, No muscle pain, No swelling, No calf pain, No problem reported Neurologic: No see HPI, No memory loss, No paralysis, No weakness, No numbness/ tingling, No vertigo, No balance problems, No problem reported Heme: No see HPI, No abnormal bleeding/bruising, No clotting problems, No swollen lymph nodes, No night sweats, No problem reported Endo: No see HPI, No fatigue, No excessive thirst, No excessive urination, No problem reported Skin: No see HPI, No rash, No itch, No new/changing skin lesions, No color change, No bleeding, No problem reported Objective Vital Signs Date Time Temp Pulse Resp B/P (MAP) Pulse Ox O2 Delivery O2 Flow Rate FiO2 05/01/17 19:13 85 20 100 Mask 6.0 05/01/17 18:58 36.3 80 16 119/62 (81) 94 BiPAP 05/01/17 16:00 36.5 72 20 112/68 (83) 98 BiPAP 60 05/01/17 16:00 98 Oxymask 6.0 05/01/17 15:26 76 100 60 05/01/17 15:25 76 20 100 BiPAP/CPAP 60 05/01/17 15:04 84 100 60 05/01/17 15:00 72 16 127/59 (81) 96 BiPAP 05/01/17 14:00 36.5 73 16 113/68 (83) 96 Oxymask 5.0 05/01/17 13:45 36.5 67 16 115/53 (73) 96 Oxymask 5.0 05/01/17 13:30 36.5 63 16 115/55 (75) 96 Oxymask 5.0 05/01/17 13:15 36.5 18 134/74 (94) 96 Oxymask 6.0 05/01/17 13:00 36.3 81 18 148/70 (96) 95 Oxymask 6.0 05/01/17 12:35 36.4 85 22 120/51 93 Nasal Cannula 4 05/01/17 12:25 85 36 137/55 98 Oxymask 6 Arterial Line 05/01/17 12:15 87 28 152/71 93 Oxymask 6 05/01/17 12:05 93 25 134/65 99 Oxymask 10 Arterial Line 05/01/17 12:00 98 Oxymask 6.0 05/01/17 11:55 91 30 138/60 98 Oxymask 10 165/73 05/01/17 11:46 36.6 88 23 138/85 95 Oxymask 10 153/77 05/01/17 07:27 79 16 97 Nasal Cannula 3.0 05/01/17 04:41 37.1 60 16 110/55 (73) 100 05/01/17 04:22 Nasal Cannula 3.0 05/01/17 00:36 36.7 86 16 123/75 (91) 100 Nasal Cannula 3.0 05/01/17 00:35 Nasal Cannula 3.0 04/30/17 20:00 Nasal Cannula 3.0 04/30/17 19:38 85 16 93 Nasal Cannula 3.0 04/30/17 19:35 37.4 92 22 107/51 (69) 94 Nasal Cannula 3.0 Physical Exam General Appearance: WD/WN, no apparent distress Eyes: normal inspection, EOMI ENT: normal ENT inspection, hearing grossly normal Neck: supple Respiratory/Chest: chest non-tender, no accessory muscle use, + decreased breath sounds Cardiovascular: regular rate, rhythm, no edema, no gallop, no JVD, no murmur Abdomen: normal bowel sounds, non tender, soft, no organomegaly Extremities: + pertinent finding (right shoulder is in splint) Neurologic/Psychiatric: biotechnologist II-XII nml as tested, no motor/sensory deficits, alert, normal mood/affect, oriented x 3 Skin: normal color, warm/dry, no rash Laboratory Results Last 24 Hours Test 05/01/17 06:37 White Blood Count 14.27 K/uL Red Blood Count 2.70 M/uL Hemoglobin 8.7 g/dL Hematocrit 26.7 % Mean Corpuscular Volume 98.9 fL Mean Corpuscular Hemoglobin 32.2 pg Mean Corpuscular Hemoglobin Concent 32.6 g/dl Platelet Count 505 K/uL Mean Platelet Volume 9.6 fL Neutrophils (%) (Auto) 91.1 % Lymphocytes (%) (Auto) 6.0 % Monocytes (%) (Auto) 1.6 % Eosinophils (%) (Auto) 0.0 % Basophils (%) (Auto) 0.1 % Neutrophils # (Auto) 13.00 K/uL Lymphocytes # (Auto) 0.86 K/uL Monocytes # (Auto) 0.23 K/uL Eosinophils # (Auto) 0.00 K/uL Basophils # (Auto) 0.01 K/uL RDW Standard Deviation 51.9 fL RDW Coefficient of Variation 14.5 % Immature Granulocyte % (Auto) 1.2 % Immature Granulocyte # (Auto) 0.17 K/uL Hypersegmented Polys 1+ Prothrombin Time 10.7 SECONDS Prothromb Time International Ratio 1.0 Sodium Level 141 mmol/L Potassium Level 5.2 mmol/L Chloride Level 101 mmol/L Carbon Dioxide Level 37 mmol/L Anion Gap 3.0 mmol/L Blood Urea Nitrogen 22 mg/dl Creatinine 0.99 mg/dl Est Creatinine Clear Calc Drug Dose 34.7 ml/min Estimated GFR () 61.5 Estimated GFR (Non- 53.1 BUN/Creatinine Ratio 22.1 Random Glucose 129 mg/dl Calcium Level 8.8 mg/dl Phosphorus Level 3.5 mg/dl Magnesium Level 2.3 mg/dl Total Bilirubin 0.4 mg/dl Aspartate Amino Transf (AST/SGOT) 18 U/L Alanine Aminotransferase (ALT/SGPT) 16 U/L Alkaline Phosphatase 67 U/L Total Protein 6.0 gm/dl Albumin 2.5 gm/dl Globulin 3.5 gm/dl Albumin/Globulin Ratio 0.7 Assessment and Plan Acute hypoxic / hypercapnic respiratory failure , unclear etiology but likely COPD exacerbation unlikely PE, negative CTA on 04/20 patient is retainer , keep O2 sat 91-93 % not more Consult reeling machine operator appreciated Continue bronchodilators and steroids. Right humerus commuted fracture, status post Right Total Shoulder Arthroplasty Reverse, Bicep Tenodesis that went successful chronic Diastolic CHF , not in exacerbation, EF 70% on 04/25, normal right ventricle size decreasing the probability of pulmonary hypertension chronic respiratory failure with COPD exacerbation, Continue bronchodilators, will add steroids inh and iv until seen by Dr. Flanagan Recent urinary tract infection, status post Cipro. Acute renal failure. multifactorial, contrast and diuresis, currently resolved Hypothyroidism. Continue her Synthroid. Finding on CTA 04/20 2.4 cm uncinate process lesion within the pancreas. 9 mm partially visualized lesion lower pole of the left kidney which may reflect a hyperdense cyst. 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 Heparin subQ. Continued [facility] stay due to: multiple IV medications needed Discharge planning: residential facility
[2017-05-01] MEDS ORDERED: LORAZEPAM 2 MG/ML 1 ML VIAL IV SCH (22:00)
[2017-05-02] VITALS (19 sets, daily range): BP systolic 102–133; BP diastolic 47–67; PULSE 69–111; TEMP 36.5–37.1; O2SAT 85–99
[2017-05-02] MEDS: CLONAZEPAM 1 MG TAB PO SCH ×2 (00:59→22:09)
[2017-05-02] MEDS: METHYLPREDNISOLONE IV 40 MG in SYRINGE 0 ML IV SCH ×4 (01:03→22:09)
[2017-05-02] MEDS: CEFAZOLIN IV 1,000 MG in DEXTROSE 5% 50ML 50 ML IV SCH (01:03)
[2017-05-02] MEDS: D5W AND 1/2NSS + 20MEQ KCL 1,000 ML IV SCH ×2 (01:03→12:41)
[2017-05-02] MEDS: TRAZODONE HCL 50 MG TAB PO SCH ×2 (01:04→22:30)
[2017-05-02] MEDS: BACLOFEN 10 MG TAB PO SCH ×2 (01:04→22:09)
[2017-05-02] MEDS: ACETAMINOPHEN 500 MG TAB PO SCH ×3 (01:05→19:01)
[2017-05-02] MEDS: HEPARIN SOD 5000 UNIT/0.5 ML CARP SQ SCH ×4 (01:06→22:13)
[2017-05-02] MEDS: DOCUSATE SODIUM 100 MG CAP PO SCH ×3 (01:08→22:30)
[2017-05-02] MEDS ORDERED: GADAVIST IV PRN (01:45)
[2017-05-02] MEDS: OXYCODONE HCL IR 5 MG TAB (IMMEDIATE RELEASE) PO PRN ×2 (02:34→09:05)
[2017-05-02 06:06] LABS: BASO % 0.1 %; BASO ABS # 0.01 K/uL (0-0.2); EOS % 0.1 %; HEMATOCRIT 27.8 % (37-47); IG% 0.7 %; LYMPH % 4.1 %; LYMPH ABS # 0.79 K/uL (1.2-3.4); MEAN CELL VOLUME 97.9 fL (80-100); MEAN CORPUSCULAR HEMOGLOBIN 31.3 pg (25-34); MEAN PLATELET VOLUME 9.5 fL (7.4-10.4); MONO % 4.1 %; NEUT % 90.9 %; PLATELET COUNT 431 K/uL (130-400); RED BLOOD COUNT 2.84 M/uL (4.2-5.4); WHITE BLOOD COUNT 19.23 K/uL (4.8-10.8)
[2017-05-02] MEDS: LEVOTHYROXINE 125 MCG TAB PO SCH (06:31)
[2017-05-02 06:44] LABS: BUN/CREATININE RATIO 23.2 (10-20); CALCIUM 7.8 mg/dl (8.5-10.1); CREATININE 1.3 mg/dl (0.60-1.20); MAGNESIUM 2.1 mg/dl (1.8-2.4); POTASSIUM 5.5 mmol/L (3.5-5.1)
[2017-05-02 06:47] LABS: ALB/GLOB RATIO 0.7 (0.9-2)
[2017-05-02] MEDS: ALBUT/IPRATROP 3MG/0.5MG NEB 3 ML VIAL INH SCH ×4 (06:56→19:45)
--- NOTE | 2017-05-02 07:05 | DIAGNOSTIC IMAGING REPORT ---
MRI ABDOMEN COMBO CLINICAL HISTORY: uncinate process lesion /pancreas. L kidney lesion TECHNIQUE: Imaging was performed prior to and following IV contrast injection. COMPARISON STUDY: Chest CT dated 04/20/2017 FINDINGS: The study is significantly limited from a technical standpoint. The patient was imaged in the axial and coronal planes, before and after the administration of 5.5 cc of intravenous Gadavist. There are bilateral renal cysts. No solid renal masses are visualized. The 9 mm lower pole left renal lesion, is felt to represent a proteinaceous cyst. No suspicious hepatic or splenic masses are visualized. There is no evidence of abdominal aortic dilatation. There is no significant biliary ductal dilatation. There is a 3 cm cystic lesion within the pancreatic head/uncinate process. There is no ductal dilatation within the body or tail the pancreas. No enhancement of this cystic lesion is visualized. This likely represents a large side branch IPMN. IMPRESSION: 1. Moderately limited study from a technical standpoint 2. The previously described 9 mm lower pole left renal lesion is felt to represent a proteinaceous cyst. Additional renal cysts are visualized 3. The pancreatic head mass, represents a 3 cm cystic lesion without definitive enhancement. This likely represents a side branch IPMN. 6-12 month follow-up is recommended. Electronically signed by: Ron Barba M.D. 05/02/2017 7:04 AM Dictated Date/Time: 05/02/2017 6:51 AM
--- NOTE | 2017-05-02 07:17 | Orthopedic Progress Note ---
Orthopedic Progress Note Date of Service May 02, 2017. Subjective Post OP Day: 1 Reports: feeling well, pain controlled w PO medications, Denies: complaints, chest pain, SOB, nausea / vomiting, light headedness, calf pain Objective calves soft nontender, N/V intact, capillary refill less than 2 sec., dressing C /D/I, A&O x3, toes mobile, hemovac drainage (65/17cc) Date Time Temp Pulse Resp B/P (MAP) Pulse Ox O2 Delivery O2 Flow Rate FiO2 05/02/17 06:58 76 20 97 Nasal Cannula 4.0 05/02/17 04:40 37.1 82 16 105/48 (67) 99 05/02/17 04:00 99 Oxymask 5.0 05/02/17 02:34 99 Oxymask 5.0 05/02/17 02:15 85 Nasal Cannula 4.0 05/02/17 01:00 96 Nasal Cannula 4.0 05/02/17 01:00 36.9 105 20 113/62 (79) 96 Nasal Cannula 4.0 05/01/17 20:00 97 Nasal Cannula 4.0 05/01/17 19:13 85 20 100 Mask 6.0 05/01/17 18:58 36.3 80 16 119/62 (81) 94 BiPAP 05/01/17 16:00 36.5 72 20 112/68 (83) 98 BiPAP 60 05/01/17 16:00 98 Oxymask 6.0 05/01/17 15:26 76 100 60 05/01/17 15:25 76 20 100 BiPAP/CPAP 60 05/01/17 15:04 84 100 60 05/01/17 15:00 72 16 127/59 (81) 96 BiPAP 05/01/17 14:00 36.5 73 16 113/68 (83) 96 Oxymask 5.0 05/01/17 13:45 36.5 67 16 115/53 (73) 96 Oxymask 5.0 05/01/17 13:30 36.5 63 16 115/55 (75) 96 Oxymask 5.0 05/01/17 13:15 36.5 18 134/74 (94) 96 Oxymask 6.0 05/01/17 13:00 36.3 81 18 148/70 (96) 95 Oxymask 6.0 05/01/17 12:35 36.4 85 22 120/51 93 Nasal Cannula 4 05/01/17 12:25 85 36 137/55 98 Oxymask 6 Arterial Line 05/01/17 12:15 87 28 152/71 93 Oxymask 6 05/01/17 12:05 93 25 134/65 99 Oxymask 10 Arterial Line 05/01/17 12:00 98 Oxymask 6.0 05/01/17 11:55 91 30 138/60 98 Oxymask 10 165/73 05/01/17 11:46 36.6 88 23 138/85 95 Oxymask 10 153/77 05/01/17 07:27 79 16 97 Nasal Cannula 3.0 Laboratory Results 24 Hours: Test 05/02/17 05:43 White Blood Count 19.23 K/uL Red Blood Count 2.84 M/uL Hemoglobin 8.9 g/dL Hematocrit 27.8 % Mean Corpuscular Volume 97.9 fL Mean Corpuscular Hemoglobin 31.3 pg Mean Corpuscular Hemoglobin Concent 32.0 g/dl Platelet Count 431 K/uL Mean Platelet Volume 9.5 fL Neutrophils (%) (Auto) 90.9 % Lymphocytes (%) (Auto) 4.1 % Monocytes (%) (Auto) 4.1 % Eosinophils (%) (Auto) 0.1 % Basophils (%) (Auto) 0.1 % Neutrophils # (Auto) 17.50 K/uL Lymphocytes # (Auto) 0.79 K/uL Monocytes # (Auto) 0.78 K/uL Eosinophils # (Auto) 0.01 K/uL Basophils # (Auto) 0.01 K/uL Assessment & Plan Assessment: POD#1 S/P Right Reverse TSA Plan: Discharge - uncertain PT/OT - keep arm in the sling, only moving wrist and elbow Per Medicine: Finding on CTA 04/20 2.4 cm uncinate process lesion within the pancreas. 9 mm partially visualized lesion lower pole of the left kidney which may reflect a hyperdense cyst. MRI ordered to evaluate theses. Inhouse Planning Pain Management: Oxy IR DVT Prophylaxis: TEDs, SCDs, ASA, Heparin Drip Discharge Planning Discharge Planning: uncertain
[2017-05-02 08:09] LABS: COMPLETE YES
--- NOTE | 2017-05-02 08:46 | Anesthesiology Progress Note ---
Anesthesia Post Op Note Date & Time May 02, 2017 at 08:46 Vital Signs Vital Signs Past 12 Hours Date Time Temp Pulse Resp B/P (MAP) Pulse Ox O2 Delivery O2 Flow Rate FiO2 05/02/17 07:33 36.5 69 19 104/62 (76) 98 Mask 4.0 05/02/17 06:58 76 20 97 Nasal Cannula 4.0 05/02/17 04:40 37.1 82 16 105/48 (67) 99 05/02/17 04:00 99 Oxymask 5.0 05/02/17 02:34 99 Oxymask 5.0 05/02/17 02:15 85 Nasal Cannula 4.0 05/02/17 01:00 96 Nasal Cannula 4.0 05/02/17 01:00 36.9 105 20 113/62 (79) 96 Nasal Cannula 4.0 Notes Mental Status: alert / awake / arousable, participated in evaluation Pt Amnestic to Procedure: Yes Nausea / Vomiting: adequately controlled Pain: adequately controlled Airway Patency, RR, SpO2: stable & adequate BP & HR: stable & adequate Hydration State: stable & adequate Anesthetic Complications: no major complications apparent
[2017-05-02] MEDS: BUDESONIDE 0.5 MG/2 ML VIAL (PULMICORT) INH SCH ×2 (09:06→19:46)
[2017-05-02] MEDS: ATORVASTATIN 10 MG TAB PO SCH (09:33)
[2017-05-02] MEDS: MULTIVITAMIN TAB PO SCH (09:33)
[2017-05-02] MEDS: ASPIRIN 81 MG ECTAB PO SCH (09:33)
[2017-05-02] MEDS: CITALOPRAM 20 MG TAB PO SCH (09:34)
[2017-05-02] MEDS: PANTOprazole SOD 40 MG TAB PO SCH (09:34)
[2017-05-02] MEDS: FERROUS GLUCONATE 324 MG TAB PO SCH ×3 (09:40→19:00)
--- NOTE | 2017-05-02 11:37 | Consultant Recommendations ---
Petroleum Products Sales Representative Recommendations Date of Service May 02, 2017. Petroleum Products Sales Representative Recommendations ACTIVITY RECOMMENDATIONS: SELF CARE INSTRUCTIONS AFTER TOTAL SHOULDER ARTHROPLASTY REVERSE A. You may do daily exercises as taught in physical therapy while in hospital. No lifting with the operative arm. B. You are to wear your sling/immobilizer at all times EXCEPT when performing your daily exercises and for hygiene purposes. C. You may perform dry, daily dressing changes. Please keep your incision covered. You may shower 48 hours after surgery. Do not apply soap or any ointment/ lotions directly over incision. Do not soak incision in bath tub/swimming pool. D. You may use ice as needed to operative shoulder. SPECIAL CARE INSTRUCTIONS: VERY IMPORTANT TO READ AND REVIEW A. There are a few signs you need to watch for after you are home. Call [facility] at [phone] if you experience any of the followin. Increased severe shoulder pain. Some pain is expected especially when you exercise. 2. Increased swelling in you shoulder or arm; pain or swelling in either upper extremity. 3. Any fluid drainage from the incision. 4. Shortness of breath or chest pain. B. Please call [facility] at [phone] if you have any questions or concerns about your operation or recovery. C. Call your physician if: 1. Temperature is greater than 101 degrees (F). 2. Pain is not relieved by prescribed pain medications. 3. Increase drainage or redness from incision. 4. Unanswered questions or concerns. FOLLOW UP VISIT: Please call [facility] at [phone] to schedule a follow up appointment with Dr. Owen or his PA in 12-14 days from your surgery date.
--- NOTE | 2017-05-02 16:43 | DIAGNOSTIC IMAGING REPORT ---
CHEST ONE VIEW PORTABLE HISTORY: 81 years-old Female sob desaturation COMPARISON: Portable chest radiograph 04/29/2017 TECHNIQUE: Portable upright AP view of the chest FINDINGS: Cardiac silhouette is mildly enlarged. There is atherosclerosis of the aorta. There is no pneumothorax. Small left pleural effusion persists with probable bibasilar atelectasis. There is mild pulmonary vascular congestion. Bones are mildly demineralized. Right shoulder reverse arthroplasty has been conducted in the interval with right axillary skin trevon seen. IMPRESSION: 1. Persistent small left pleural effusion with probable bibasilar atelectasis. 2. Mild pulmonary vascular congestion. 3. Reverse right shoulder arthroplasty noted. The above report was generated using voice recognition software. It may contain grammatical, syntax or spelling errors. Electronically signed by: Stu Chang M.D. 05/02/2017 4:42 PM Dictated Date/Time: 05/02/2017 4:38 PM
[2017-05-02] MEDS ORDERED: SODIUM CHLORIDE 0.9% 1000ML 1,000 ML IV SCH (19:00)
--- NOTE | 2017-05-02 19:05 | Progress Note ---
Subjective Date of Service: May 02, 2017. Subjective Pt evaluation today including: conversation w/ patient, conversation w/ family , physical exam, chart review, lab review Review of Systems Constitutional: No see HPI, No fever, No chills, No sweats, No weight loss, No weakness, No fatigue, No problem reported Eyes: No see HPI, No worsening of vision, No eye pain, No redness, No discharge , No diplopia, No problem reported ENT: No see HPI, No hearing loss, No unusual epistaxis, No nasal symptoms, No sore throat, No tinnitus, No dental problems, No trouble swallowing, No problem reported Respiratory: + shortness of breath, + dyspnea on exertion, + dyspnea at rest, No see HPI, No cough, No sputum, No wheezing, No hemoptysis, No problem reported Cardiac: No see HPI, No chest pain, No orthopnea, No PND, No edema, No claudication, No palpitations, No problem reported Abdomen: No see HPI, No pain, No nausea, No vomiting, No diarrhea, No constipation, No GI bleeding, No problem reported Musculoskeletal: No see HPI, No joint pain, No muscle pain, No swelling, No calf pain, No problem reported Female : No see HPI, No dysuria, No urinary frequency, No hematuria, No incontinence, No abnormal vaginal bleeding, No vaginal discharge, No problem reported Neurologic: No see HPI, No memory loss, No paralysis, No weakness, No numbness/ tingling, No vertigo, No balance problems, No problem reported Psychiatric: No see HPI, No depression symptoms, No anhedonism, No anxiety, No insomnia, No substance abuse, No problem reported Heme: No see HPI, No abnormal bleeding/bruising, No clotting problems, No swollen lymph nodes, No night sweats, No problem reported Endo: No see HPI, No fatigue, No excessive thirst, No excessive urination, No problem reported Skin: No see HPI, No rash, No itch, No new/changing skin lesions, No color change, No bleeding, No problem reported Objective Vital Signs Date Time Temp Pulse Resp B/P (MAP) Pulse Ox O2 Delivery O2 Flow Rate FiO2 05/02/17 16:10 96 Nasal Cannula 4.0 05/02/17 15:49 36.6 90 20 125/67 (86) 96 Nasal Cannula 4.0 05/02/17 15:41 78 18 91 Nasal Cannula 4.0 05/02/17 12:30 96 Nasal Cannula 4.0 05/02/17 12:07 36.7 74 20 102/63 (76) 97 Nasal Cannula 4.0 05/02/17 11:09 77 18 99 Nasal Cannula 4.0 05/02/17 08:00 98 Nasal Cannula 4.0 05/02/17 07:33 36.5 69 19 104/62 (76) 98 Mask 4.0 05/02/17 06:58 76 20 97 Nasal Cannula 4.0 05/02/17 04:40 37.1 82 16 105/48 (67) 99 05/02/17 04:00 99 Oxymask 5.0 05/02/17 02:34 99 Oxymask 5.0 05/02/17 02:15 85 Nasal Cannula 4.0 05/02/17 01:00 96 Nasal Cannula 4.0 05/02/17 01:00 36.9 105 20 113/62 (79) 96 Nasal Cannula 4.0 05/01/17 20:00 97 Nasal Cannula 4.0 05/01/17 19:13 85 20 100 Mask 6.0 Physical Exam General Appearance: WD/WN, + mild distress Eyes: normal inspection, EOMI ENT: normal ENT inspection, hearing grossly normal Neck: supple Respiratory/Chest: chest non-tender, + decreased breath sounds, + crackles Cardiovascular: regular rate, rhythm, no edema, no gallop, no JVD, no murmur Abdomen: normal bowel sounds, non tender, soft, no organomegaly Extremities: normal range of motion, non-tender, normal inspection, no pedal edema Neurologic/Psychiatric: candy butcher II-XII nml as tested, no motor/sensory deficits, alert, normal mood/affect, oriented x 3 Skin: normal color, warm/dry, no rash Laboratory Results Last 24 Hours Test 05/02/17 05:43 White Blood Count 19.23 K/uL Red Blood Count 2.84 M/uL Hemoglobin 8.9 g/dL Hematocrit 27.8 % Mean Corpuscular Volume 97.9 fL Mean Corpuscular Hemoglobin 31.3 pg Mean Corpuscular Hemoglobin Concent 32.0 g/dl Platelet Count 431 K/uL Mean Platelet Volume 9.5 fL Neutrophils (%) (Auto) 90.9 % Lymphocytes (%) (Auto) 4.1 % Monocytes (%) (Auto) 4.1 % Eosinophils (%) (Auto) 0.1 % Basophils (%) (Auto) 0.1 % Neutrophils # (Auto) 17.50 K/uL Lymphocytes # (Auto) 0.79 K/uL Monocytes # (Auto) 0.78 K/uL Eosinophils # (Auto) 0.01 K/uL Basophils # (Auto) 0.01 K/uL RDW Standard Deviation 52.2 fL RDW Coefficient of Variation 14.6 % Immature Granulocyte % (Auto) 0.7 % Immature Granulocyte # (Auto) 0.14 K/uL Red Blood Cell Morphology Unremarkable Sodium Level 139 mmol/L Potassium Level 5.5 mmol/L Chloride Level 103 mmol/L Carbon Dioxide Level 34 mmol/L Anion Gap 2.0 mmol/L Blood Urea Nitrogen 30 mg/dl Creatinine 1.30 mg/dl Est Creatinine Clear Calc Drug Dose 26.4 ml/min Estimated GFR () 44.2 Estimated GFR (Non- 38.2 BUN/Creatinine Ratio 23.2 Random Glucose 152 mg/dl Calcium Level 7.8 mg/dl Magnesium Level 2.1 mg/dl Total Bilirubin 0.3 mg/dl Aspartate Amino Transf (AST/SGOT) 29 U/L Alanine Aminotransferase (ALT/SGPT) 19 U/L Alkaline Phosphatase 63 U/L Total Protein 5.4 gm/dl Albumin 2.3 gm/dl Globulin 3.1 gm/dl Albumin/Globulin Ratio 0.7 Assessment and Plan Acute hypoxic / hypercapnic respiratory failure , unclear etiology but likely COPD exacerbation unlikely PE, negative CTA on 04/20 patient is retainer , keep O2 sat 91-93 % not more Consult personal banking assistant appreciated Continue bronchodilators and steroids. Right humerus commuted fracture, status post Right Total Shoulder Arthroplasty Reverse, Bicep Tenodesis that went successful chronic Diastolic CHF , not in exacerbation, EF 70% on 04/25, normal right ventricle size decreasing the probability of pulmonary hypertension chronic respiratory failure with COPD exacerbation, Continue bronchodilators, will add steroids inh and iv until seen by Dr. Flanagan Recent urinary tract infection, status post Cipro. Acute renal failure. multifactorial, contrast and diuresis, currently resolved Hypothyroidism. Continue her Synthroid. Finding on CTA 04/20 2.4 cm uncinate process lesion within the pancreas. 9 mm partially visualized lesion lower pole of the left kidney which may reflect a hyperdense cyst. MRI with contrast showed previously mentioned lesions most likely cysts, recommended follow-up within 6-12 months Acute kidney injury on chronic kidney disease Most likely secondary to dehydration postoperatively Creatinine jumped from 1.9-1.3. Continue gentle hydration Switch IV fluids to normal saline without potassium because potassium was borderline elevated Deep venous thrombosis prophylaxis. Heparin subQ. Continued [facility] stay due to: multiple IV medications needed Discharge planning: snf facility
[2017-05-03] VITALS (15 sets, daily range): BP systolic 127–176; BP diastolic 67–91; PULSE 78–111; TEMP 36.8–37.1; O2SAT 90–98
[2017-05-03] MEDS: ACETAMINOPHEN 500 MG TAB PO SCH ×3 (01:11→16:57)
[2017-05-03] MEDS: OXYCODONE HCL IR 5 MG TAB (IMMEDIATE RELEASE) PO PRN ×2 (01:11→20:44)
[2017-05-03] MEDS: LEVOTHYROXINE 125 MCG TAB PO SCH (05:51)
[2017-05-03] MEDS: METHYLPREDNISOLONE IV 40 MG in SYRINGE 0 ML IV SCH (05:51)
[2017-05-03] MEDS: HEPARIN SOD 5000 UNIT/0.5 ML CARP SQ SCH ×3 (05:54→20:27)
[2017-05-03 06:22] LABS: HEMATOCRIT 27.5 % (37-47); MEAN CELL VOLUME 98.6 fL (80-100); MEAN CORPUSCULAR HEMOGLOBIN 31.2 pg (25-34); MEAN CORPUSCULAR HGB CONC 31.6 g/dl (32-36); MEAN PLATELET VOLUME 9.8 fL (7.4-10.4); PLATELET COUNT 477 K/uL (130-400); RED BLOOD COUNT 2.79 M/uL (4.2-5.4)
[2017-05-03 06:49] LABS: BUN/CREATININE RATIO 27.5 (10-20); CALCIUM 7.7 mg/dl (8.5-10.1); CREATININE 1.1 mg/dl (0.60-1.20); POTASSIUM 5.7 mmol/L (3.5-5.1)
[2017-05-03] MEDS: ALBUT/IPRATROP 3MG/0.5MG NEB 3 ML VIAL INH SCH ×4 (07:19→18:52)
[2017-05-03] MEDS: BUDESONIDE 0.5 MG/2 ML VIAL (PULMICORT) INH SCH ×2 (07:19→18:53)
[2017-05-03] MEDS: PANTOprazole SOD 40 MG TAB PO SCH (08:14)
[2017-05-03] MEDS: CITALOPRAM 20 MG TAB PO SCH (08:14)
[2017-05-03] MEDS: FERROUS GLUCONATE 324 MG TAB PO SCH ×3 (08:15→16:57)
[2017-05-03] MEDS: MULTIVITAMIN TAB PO SCH (08:15)
[2017-05-03] MEDS: ASPIRIN 81 MG ECTAB PO SCH (08:15)
[2017-05-03] MEDS: ATORVASTATIN 10 MG TAB PO SCH (08:15)
--- NOTE | 2017-05-03 08:15 | Orthopedic Progress Note ---
Orthopedic Progress Note Date of Service May 03, 2017. Subjective Post OP Day: 2 Reports: feeling well, Denies: chest pain, SOB, nausea / vomiting, light headedness, calf pain Objective calves soft nontender, N/V intact, capillary refill less than 2 sec., incision C /D/I (SILVERLON) MODERATE ECCHYMOSIS AND EDEMA RUE. NO SKIN TEARS BUT SKIN QUALITY IS POOR. Date Time Temp Pulse Resp B/P (MAP) Pulse Ox O2 Delivery O2 Flow Rate FiO2 05/03/17 07:19 88 18 98 Nasal Cannula 4.0 05/03/17 04:00 37.1 90 20 127/68 (87) 98 Mask 3.0 05/03/17 04:00 98 Oxymask 3.0 05/02/17 23:59 96 Nasal Cannula 4.0 05/02/17 23:35 37.1 81 22 112/63 (79) 96 Nasal Cannula 4.0 Humidified Oxygen 05/02/17 20:00 92 Nasal Cannula 4.0 05/02/17 19:46 103 26 90 Nasal Cannula 4.0 05/02/17 19:30 37.0 111 22 133/47 (75) 90 Nasal Cannula 4.0 Humidified Oxygen 05/02/17 16:10 96 Nasal Cannula 4.0 05/02/17 15:49 36.6 90 20 125/67 (86) 96 Nasal Cannula 4.0 05/02/17 15:41 78 18 91 Nasal Cannula 4.0 05/02/17 12:30 96 Nasal Cannula 4.0 05/02/17 12:07 36.7 74 20 102/63 (76) 97 Nasal Cannula 4.0 05/02/17 11:09 77 18 99 Nasal Cannula 4.0 Laboratory Results 24 Hours: Test 05/03/17 05:43 Hematocrit 27.5 % Hemoglobin 8.7 g/dL Assessment & Plan Assessment: POD#1 S/P Right Reverse TSA Plan: Discharge - uncertain PT/OT - keep arm in the sling, only moving wrist and elbow Per Medicine: Finding on CTA 04/20 2.4 cm uncinate process lesion within the pancreas. 9 mm partially visualized lesion lower pole of the left kidney which may reflect a hyperdense cyst. MRI ordered to evaluate theses. Inhouse Planning Pain Management: Oxy IR DVT Prophylaxis: TEDs, SCDs, ASA, Heparin Drip Discharge Planning Discharge Planning: uncertain
[2017-05-03] MEDS: DOCUSATE SODIUM 100 MG CAP PO SCH ×2 (08:16→20:45)
[2017-05-03] MEDS ORDERED: SODIUM POLYST. SULF SUSP 15G/60ML PO STA (08:29)
[2017-05-03] MEDS ORDERED: ALBUTEROL 0.083% NEBU SOLN 3 ML VIAL INH STA (08:29)
--- NOTE | 2017-05-03 14:19 | Progress Note ---
Subjective Date of Service: May 03, 2017. Subjective Pt evaluation today including: conversation w/ patient, physical exam, chart review, review of studies, review of inpatient medication list Review of Systems Constitutional: No see HPI, No fever, No chills, No sweats, No weight loss, No weakness, No fatigue, No problem reported Eyes: No see HPI, No worsening of vision, No eye pain, No redness, No discharge , No diplopia, No problem reported ENT: No see HPI, No hearing loss, No unusual epistaxis, No nasal symptoms, No sore throat, No tinnitus, No dental problems, No trouble swallowing, No problem reported Respiratory: No see HPI, No cough, No sputum, No wheezing, No shortness of breath, No dyspnea on exertion, No dyspnea at rest, No hemoptysis, No problem reported Cardiac: No see HPI, No chest pain, No orthopnea, No PND, No edema, No claudication, No palpitations, No problem reported Abdomen: No see HPI, No pain, No nausea, No vomiting, No diarrhea, No constipation, No GI bleeding, No problem reported Musculoskeletal: No see HPI, No joint pain, No muscle pain, No swelling, No calf pain, No problem reported Neurologic: No see HPI, No memory loss, No paralysis, No weakness, No numbness/ tingling, No vertigo, No balance problems, No problem reported Psychiatric: No see HPI, No depression symptoms, No anhedonism, No anxiety, No insomnia, No substance abuse, No problem reported Heme: No see HPI, No abnormal bleeding/bruising, No clotting problems, No swollen lymph nodes, No night sweats, No problem reported Endo: No see HPI, No fatigue, No excessive thirst, No excessive urination, No problem reported Skin: No see HPI, No rash, No itch, No new/changing skin lesions, No color change, No bleeding, No problem reported Objective Vital Signs Date Time Temp Pulse Resp B/P (MAP) Pulse Ox O2 Delivery O2 Flow Rate FiO2 05/03/17 12:55 36.8 87 20 131/67 (88) 98 Nasal Cannula 3.0 05/03/17 12:00 98 Nasal Cannula 4.0 05/03/17 11:14 85 18 98 Nasal Cannula 3.0 05/03/17 08:47 36.9 93 22 131/73 (92) 98 Nasal Cannula 3.0 05/03/17 08:00 98 Nasal Cannula 4.0 05/03/17 07:19 88 18 98 Nasal Cannula 4.0 05/03/17 04:00 37.1 90 20 127/68 (87) 98 Mask 3.0 05/03/17 04:00 98 Oxymask 3.0 05/02/17 23:59 96 Nasal Cannula 4.0 05/02/17 23:35 37.1 81 22 112/63 (79) 96 Nasal Cannula 4.0 Humidified Oxygen 05/02/17 20:00 92 Nasal Cannula 4.0 05/02/17 19:46 103 26 90 Nasal Cannula 4.0 05/02/17 19:30 37.0 111 22 133/47 (75) 90 Nasal Cannula 4.0 Humidified Oxygen 05/02/17 16:10 96 Nasal Cannula 4.0 05/02/17 15:49 36.6 90 20 125/67 (86) 96 Nasal Cannula 4.0 05/02/17 15:41 78 18 91 Nasal Cannula 4.0 Physical Exam General Appearance: WD/WN, no apparent distress Eyes: normal inspection, EOMI ENT: normal ENT inspection, hearing grossly normal Neck: supple Respiratory/Chest: chest non-tender, no respiratory distress, no accessory muscle use, + decreased breath sounds, + crackles Cardiovascular: regular rate, rhythm, no edema, no gallop, no JVD, no murmur Abdomen: normal bowel sounds, non tender, soft, no organomegaly, no pulsatile mass Extremities: normal range of motion, non-tender 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, no motor/sensory deficits, alert, normal mood/affect, oriented x 3 Skin: normal color, warm/dry, no rash Laboratory Results Last 24 Hours Test 05/03/17 05:43 White Blood Count 20.10 K/uL Red Blood Count 2.79 M/uL Hemoglobin 8.7 g/dL Hematocrit 27.5 % Mean Corpuscular Volume 98.6 fL Mean Corpuscular Hemoglobin 31.2 pg Mean Corpuscular Hemoglobin Concent 31.6 g/dl RDW Standard Deviation 53.8 fL RDW Coefficient of Variation 15.0 % Platelet Count 477 K/uL Mean Platelet Volume 9.8 fL Sodium Level 140 mmol/L Potassium Level 5.7 mmol/L Chloride Level 105 mmol/L Carbon Dioxide Level 32 mmol/L Anion Gap 3.0 mmol/L Blood Urea Nitrogen 30 mg/dl Creatinine 1.10 mg/dl Est Creatinine Clear Calc Drug Dose 33.9 ml/min Estimated GFR () 54.1 Estimated GFR (Non- 46.7 BUN/Creatinine Ratio 27.5 Random Glucose 107 mg/dl Calcium Level 7.7 mg/dl Magnesium Level 2.0 mg/dl Assessment and Plan Acute hypoxic / hypercapnic respiratory failure , unclear etiology but likely COPD exacerbation unlikely PE, negative CTA on 04/20 patient is retainer , keep O2 sat 91-93 % not more 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 Right humerus commuted fracture, status post Right Total Shoulder Arthroplasty Reverse, Bicep Tenodesis that went successful chronic Diastolic CHF , not in exacerbation, EF 70% on 04/25, normal right ventricle size decreasing the probability of pulmonary hypertension chronic respiratory failure with COPD exacerbation, Continue bronchodilators, will add steroids inh and iv until seen by Dr. Flanagan Recent urinary tract infection, status post Cipro. Acute renal failure. multifactorial, contrast and diuresis, currently resolved Hypothyroidism. Continue her Synthroid. Finding on CTA 04/20 2.4 cm uncinate process lesion within the pancreas. 9 mm partially visualized lesion lower pole of the left kidney which may reflect a hyperdense cyst. MRI with contrast showed previously mentioned lesions most likely cysts, recommended follow-up within 6-12 months Acute kidney injury on chronic kidney disease Most likely secondary to dehydration postoperatively Creatinine jumped from 1.9-1.3. Continue gentle hydration Hyperkalemia with potassium of 5.7, likely from potassium-containing enough that the surgery status post 1 dose of Kayexalate and 1 solution of albuterol inhaler Deep venous thrombosis prophylaxis. Heparin subQ. Continued [facility] stay due to: multiple IV medications needed Discharge planning: snf facility
[2017-05-03 15:00] LABS: BUN/CREATININE RATIO 20.9 (10-20); CALCIUM 8.2 mg/dl (8.5-10.1); CREATININE 1.3 mg/dl (0.60-1.20); POTASSIUM 4.9 mmol/L (3.5-5.1)
[2017-05-03] MEDS: CLONAZEPAM 1 MG TAB PO SCH (20:23)
[2017-05-03] MEDS: TRAZODONE HCL 50 MG TAB PO SCH (20:24)
[2017-05-03] MEDS: BACLOFEN 10 MG TAB PO SCH (20:28)
[2017-05-04] VITALS (12 sets, daily range): BP systolic 125–172; BP diastolic 66–80; PULSE 74–108; TEMP 36.4–37; O2SAT 90–95
[2017-05-04] MEDS: ACETAMINOPHEN 500 MG TAB PO SCH ×3 (01:07→17:04)
[2017-05-04] MEDS: LEVOTHYROXINE 125 MCG TAB PO SCH (06:25)
[2017-05-04] MEDS: OXYCODONE HCL IR 5 MG TAB (IMMEDIATE RELEASE) PO PRN ×3 (06:26→23:22)
[2017-05-04] MEDS: HEPARIN SOD 5000 UNIT/0.5 ML CARP SQ SCH ×3 (06:28→21:26)
[2017-05-04] MEDS: ALBUT/IPRATROP 3MG/0.5MG NEB 3 ML VIAL INH SCH ×4 (07:09→20:19)
[2017-05-04] MEDS: BUDESONIDE 0.5 MG/2 ML VIAL (PULMICORT) INH SCH ×2 (07:10→20:19)
[2017-05-04 07:33] LABS: BUN/CREATININE RATIO 24.8 (10-20); CALCIUM 7.7 mg/dl (8.5-10.1); CREATININE 0.98 mg/dl (0.60-1.20); MAGNESIUM 2.3 mg/dl (1.8-2.4); POTASSIUM 4.5 mmol/L (3.5-5.1)
[2017-05-04] MEDS: CITALOPRAM 20 MG TAB PO SCH (08:45)
[2017-05-04] MEDS: FERROUS GLUCONATE 324 MG TAB PO SCH ×3 (08:45→17:04)
[2017-05-04] MEDS: ASPIRIN 81 MG ECTAB PO SCH (08:46)
[2017-05-04] MEDS: PANTOprazole SOD 40 MG TAB PO SCH (08:46)
[2017-05-04] MEDS: MULTIVITAMIN TAB PO SCH (08:46)
[2017-05-04] MEDS: ATORVASTATIN 10 MG TAB PO SCH (08:46)
[2017-05-04] MEDS: DOCUSATE SODIUM 100 MG CAP PO SCH ×2 (08:46→21:00)
[2017-05-04 08:57] LABS: HEMATOCRIT 25.8 % (37-47); MEAN PLATELET VOLUME 9.6 fL (7.4-10.4); PLATELET COUNT 459 K/uL (130-400); RED BLOOD COUNT 2.58 M/uL (4.2-5.4); WHITE BLOOD COUNT 19.28 K/uL (4.8-10.8)
--- NOTE | 2017-05-04 09:06 | Orthopedic Progress Note ---
Orthopedic Progress Note Date of Service May 04, 2017. Subjective Post OP Day: 3 Reports: feeling well, Denies: chest pain, SOB, nausea / vomiting, light headedness, calf pain Objective calves soft nontender, N/V intact, capillary refill less than 2 sec., incision C /D/I, A&O x3 SILVERLON DRESSING SATURATED AND DRAINING ONTO GOWN. REMOVED DRESSING. INCISION IS CDI. WILL APPLY NEW SILVERLON. MODERATE EDEMA AND ECCHYMOSIS TO THE RUE. SLING INTACT Date Time Temp Pulse Resp B/P (MAP) Pulse Ox O2 Delivery O2 Flow Rate FiO2 05/04/17 07:36 36.5 74 22 127/66 (86) 90 Nasal Cannula 5.0 05/04/17 07:09 75 20 92 Nasal Cannula 5.0 05/04/17 05:06 36.4 101 18 125/78 (94) 93 Nasal Cannula 5.0 05/04/17 04:00 95 Nasal Cannula 3.0 05/03/17 23:59 95 Nasal Cannula 3.0 05/03/17 23:50 36.8 96 18 129/75 (93) 94 Nasal Cannula 5.0 05/03/17 20:00 94 Nasal Cannula 3.0 05/03/17 19:12 36.8 107 22 159/91 (113) 95 Nasal Cannula 5.0 05/03/17 18:52 97 18 94 Nasal Cannula 5.0 05/03/17 16:04 36.8 111 20 176/74 (108) 90 Mask 11.0 05/03/17 16:00 98 Nasal Cannula 4.0 05/03/17 14:37 78 18 93 Nasal Cannula 4.0 05/03/17 12:55 36.8 87 20 131/67 (88) 98 Nasal Cannula 3.0 05/03/17 12:00 98 Nasal Cannula 4.0 05/03/17 11:14 85 18 98 Nasal Cannula 3.0 Laboratory Results 24 Hours: Test 05/04/17 05:48 White Blood Count 19.28 K/uL Red Blood Count 2.58 M/uL Hemoglobin 8.0 g/dL Hematocrit 25.8 % Mean Corpuscular Volume 100.0 fL Mean Corpuscular Hemoglobin 31.0 pg Mean Corpuscular Hemoglobin Concent 31.0 g/dl Platelet Count 459 K/uL Mean Platelet Volume 9.6 fL Assessment & Plan Assessment: POD#3 S/P Right Reverse TSA Plan: Discharge - uncertain PT/OT - keep arm in the sling, only moving wrist and elbow Per Medicine: Finding on CTA 04/20 2.4 cm uncinate process lesion within the pancreas. 9 mm partially visualized lesion lower pole of the left kidney which may reflect a hyperdense cyst. MRI ordered to evaluate theses. ORTHOPEDICALLY STABLE WILL APPLY NEW DRESSING TODAY FOLLOW UP IN 10-14 DAYS FOR STAPLE REMOVAL KEEP SLING INTACT. MAY DO WRIST, ELBOW ROM. Inhouse Planning Pain Management: Oxy IR DVT Prophylaxis: TEDs, SCDs, ASA, Heparin Drip Discharge Planning Discharge Planning: uncertain
--- NOTE | 2017-05-04 09:06 | Consultant Recommendations ---
[employer] Recommendations Date of Service May 04, 2017. [employer] Recommendations ACTIVITY RECOMMENDATIONS: SELF CARE INSTRUCTIONS AFTER TOTAL SHOULDER ARTHROPLASTY REVERSE A. You may do daily exercises as taught in physical therapy while in hospital. No lifting with the operative arm. B. You are to wear your sling/immobilizer at all times EXCEPT when performing your daily exercises and for hygiene purposes. C. You may perform dry, daily dressing changes. Please keep your incision covered. You may shower 48 hours after surgery. Do not apply soap or any ointment/ lotions directly over incision. Do not soak incision in bath tub/swimming pool. D. You may use ice as needed to operative shoulder. SPECIAL CARE INSTRUCTIONS: VERY IMPORTANT TO READ AND REVIEW A. There are a few signs you need to watch for after you are home. Call [facility] at [phone] if you experience any of the followin. Increased severe shoulder pain. Some pain is expected especially when you exercise. 2. Increased swelling in you shoulder or arm; pain or swelling in either upper extremity. 3. Any fluid drainage from the incision. 4. Shortness of breath or chest pain. B. Please call [facility] at [phone] if you have any questions or concerns about your operation or recovery. C. Call your physician if: 1. Temperature is greater than 101 degrees (F). 2. Pain is not relieved by prescribed pain medications. 3. Increase drainage or redness from incision. 4. Unanswered questions or concerns. FOLLOW UP VISIT: Please call [facility] at [phone] to schedule a follow up appointment with Dr. Owen or his PA in 12-14 days from your surgery date.
[2017-05-04] MEDS ORDERED: NURSING VERBAL MED ORDER ONE ×2 (09:15)
[2017-05-04 09:19] LABS: BASO % 0.1 %; BASO ABS # 0.01 K/uL (0-0.2); COMPLETE YES; EOS % 0.1 %; IG% 1.2 %; LYMPH % 7.4 %; LYMPH ABS # 1.42 K/uL (1.2-3.4); MONO % 8.6 %; NEUT % 82.6 %; OVALOCYTES 1+
--- NOTE | 2017-05-04 17:19 | Progress Note ---
Subjective Date of Service: May 04, 2017. Subjective Pt evaluation today including: conversation w/ patient, conversation w/ family , physical exam, chart review, lab review, review of inpatient medication list Review of Systems Constitutional: No see HPI, No fever, No chills, No sweats, No weight loss, No weakness, No fatigue, No problem reported Eyes: No see HPI, No worsening of vision, No eye pain, No redness, No discharge , No diplopia, No problem reported ENT: No see HPI, No hearing loss, No unusual epistaxis, No nasal symptoms, No sore throat, No tinnitus, No dental problems, No trouble swallowing, No problem reported Respiratory: + shortness of breath, + dyspnea on exertion, + dyspnea at rest, No see HPI, No cough, No sputum, No wheezing, No hemoptysis, No problem reported Cardiac: No see HPI, No chest pain, No orthopnea, No PND, No edema, No claudication, No palpitations, No problem reported Abdomen: No see HPI, No pain, No nausea, No vomiting, No diarrhea, No constipation, No GI bleeding, No problem reported Musculoskeletal: No see HPI, No joint pain, No muscle pain, No swelling, No calf pain, No problem reported Female : No see HPI, No dysuria, No urinary frequency, No hematuria, No incontinence, No abnormal vaginal bleeding, No vaginal discharge, No problem reported Neurologic: No see HPI, No memory loss, No paralysis, No weakness, No numbness/ tingling, No vertigo, No balance problems, No problem reported Psychiatric: No see HPI, No depression symptoms, No anhedonism, No anxiety, No insomnia, No substance abuse, No problem reported Heme: No see HPI, No abnormal bleeding/bruising, No clotting problems, No swollen lymph nodes, No night sweats, No problem reported Endo: No see HPI, No fatigue, No excessive thirst, No excessive urination, No problem reported Skin: No see HPI, No rash, No itch, No new/changing skin lesions, No color change, No bleeding, No problem reported Objective Vital Signs Date Time Temp Pulse Resp B/P (MAP) Pulse Ox O2 Delivery O2 Flow Rate FiO2 05/04/17 16:13 36.8 95 20 156/68 (97) 94 Mask 5.0 05/04/17 16:00 Oxymask 4.0 05/04/17 14:35 92 18 91 Nasal Cannula 5.0 05/04/17 12:00 95 Nasal Cannula 3.0 05/04/17 12:00 Nasal Cannula 3.0 05/04/17 11:49 36.4 75 26 155/76 (102) 90 Room Air 5.0 05/04/17 11:12 86 18 92 Nasal Cannula 3.0 05/04/17 08:00 Nasal Cannula 5.0 05/04/17 07:36 36.5 74 22 127/66 (86) 90 Nasal Cannula 5.0 05/04/17 07:09 75 20 92 Nasal Cannula 5.0 05/04/17 05:06 36.4 101 18 125/78 (94) 93 Nasal Cannula 5.0 05/04/17 04:00 95 Nasal Cannula 3.0 05/03/17 23:59 95 Nasal Cannula 3.0 05/03/17 23:50 36.8 96 18 129/75 (93) 94 Nasal Cannula 5.0 05/03/17 20:00 94 Nasal Cannula 3.0 05/03/17 19:12 36.8 107 22 159/91 (113) 95 Nasal Cannula 5.0 05/03/17 18:52 97 18 94 Nasal Cannula 5.0 Physical Exam General Appearance: WD/WN, no apparent distress Eyes: normal inspection, EOMI ENT: normal ENT inspection, hearing grossly normal Neck: supple Respiratory/Chest: chest non-tender, lungs clear, normal breath sounds, no respiratory distress Cardiovascular: regular rate, rhythm, no edema, no gallop, no JVD, no murmur Abdomen: normal bowel sounds, non tender, soft, no organomegaly Extremities: normal range of motion, non-tender, normal inspection, no pedal edema 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, no motor/sensory deficits, alert, normal mood/affect, oriented x 3 Skin: normal color, warm/dry, no rash Laboratory Results Last 24 Hours Test 05/04/17 05:48 White Blood Count 19.28 K/uL Red Blood Count 2.58 M/uL Hemoglobin 8.0 g/dL Hematocrit 25.8 % Mean Corpuscular Volume 100.0 fL Mean Corpuscular Hemoglobin 31.0 pg Mean Corpuscular Hemoglobin Concent 31.0 g/dl Platelet Count 459 K/uL Mean Platelet Volume 9.6 fL Neutrophils (%) (Auto) 82.6 % Lymphocytes (%) (Auto) 7.4 % Monocytes (%) (Auto) 8.6 % Eosinophils (%) (Auto) 0.1 % Basophils (%) (Auto) 0.1 % Neutrophils # (Auto) 15.95 K/uL Lymphocytes # (Auto) 1.42 K/uL Monocytes # (Auto) 1.65 K/uL Eosinophils # (Auto) 0.02 K/uL Basophils # (Auto) 0.01 K/uL RDW Standard Deviation 56.5 fL RDW Coefficient of Variation 15.6 % Immature Granulocyte % (Auto) 1.2 % Immature Granulocyte # (Auto) 0.23 K/uL Nucleated RBC Absolute Count (auto) 0.00 K/uL Nucleated Red Blood Cells % 0.0 % Ovalocytes 1+ Sodium Level 143 mmol/L Potassium Level 4.5 mmol/L Chloride Level 107 mmol/L Carbon Dioxide Level 34 mmol/L Anion Gap 2.0 mmol/L Blood Urea Nitrogen 24 mg/dl Creatinine 0.98 mg/dl Est Creatinine Clear Calc Drug Dose 38.1 ml/min Estimated GFR () 62.3 Estimated GFR (Non- 53.7 BUN/Creatinine Ratio 24.8 Random Glucose 87 mg/dl Calcium Level 7.7 mg/dl Magnesium Level 2.3 mg/dl Assessment and Plan 81 years old female who had a fall and fractured right shoulder presented with shortness of breath and acute on chronic respiratory failure with hypoxia. 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 Currently tapering down prednisone oral Right humerus commuted fracture, status post Right Total Shoulder Arthroplasty Reverse, Bicep Tenodesis that went successful chronic Diastolic CHF , not in exacerbation, EF 70% on 04/25, normal right ventricle size decreasing the probability of pulmonary hypertension chronic respiratory failure with COPD exacerbation, Continue bronchodilators, will add steroids inh and iv until seen by Dr. Flanagan Recent urinary tract infection, status post Cipro. Acute renal failure. multifactorial, contrast and diuresis, currently resolved Hypothyroidism. Continue her Synthroid. Finding on CTA 04/20 2.4 cm uncinate process lesion within the pancreas. 9 mm partially visualized lesion lower pole of the left kidney which may reflect a hyperdense cyst. MRI with contrast showed previously mentioned lesions most likely cysts, recommended follow-up within 6-12 months Acute kidney injury on chronic kidney disease Most likely secondary to dehydration postoperatively Creatinine jumped from 1.9-1.3. Continue gentle hydration Hyperkalemia with potassium of 5.7, likely from potassium-containing enough that the surgery status post 1 dose of Kayexalate and 1 solution of albuterol inhaler Deep venous thrombosis prophylaxis. Heparin subQ. Patient is currently full code Continued [facility] stay due to: multiple IV medications needed Discharge planning: shelter facility
[2017-05-04] MEDS: CLONAZEPAM 1 MG TAB PO SCH (21:25)
[2017-05-04] MEDS: TRAZODONE HCL 50 MG TAB PO SCH (21:25)
[2017-05-04] MEDS: BACLOFEN 10 MG TAB PO SCH (21:26)
[2017-05-05] VITALS (9 sets, daily range): BP systolic 111–150; BP diastolic 71–80; PULSE 88–109; TEMP 36.6–37; O2SAT 88–96
[2017-05-05] MEDS: ACETAMINOPHEN 500 MG TAB PO SCH ×3 (01:49→18:00)
[2017-05-05] MEDS: LEVOTHYROXINE 125 MCG TAB PO SCH (05:22)
[2017-05-05] MEDS: HEPARIN SOD 5000 UNIT/0.5 ML CARP SQ SCH ×3 (05:25→22:05)
[2017-05-05 06:59] LABS: BASO % 0.1 %; BASO ABS # 0.02 K/uL (0-0.2); EOS % 0.6 %; HEMATOCRIT 27.8 % (37-47); LYMPH % 12.8 %; LYMPH ABS # 2.55 K/uL (1.2-3.4); MEAN CELL VOLUME 98.2 fL (80-100); MEAN CORPUSCULAR HEMOGLOBIN 31.4 pg (25-34); MEAN PLATELET VOLUME 9.5 fL (7.4-10.4); NEUT % 76.5 %; PLATELET COUNT 522 K/uL (130-400); RED BLOOD COUNT 2.83 M/uL (4.2-5.4); WHITE BLOOD COUNT 19.97 K/uL (4.8-10.8)
[2017-05-05] MEDS: ALBUT/IPRATROP 3MG/0.5MG NEB 3 ML VIAL INH SCH ×4 (07:07→19:24)
[2017-05-05] MEDS: BUDESONIDE 0.5 MG/2 ML VIAL (PULMICORT) INH SCH ×2 (07:08→19:25)
[2017-05-05 07:33] LABS: BUN/CREATININE RATIO 22.2 (10-20); CALCIUM 8.1 mg/dl (8.5-10.1); CREATININE 0.98 mg/dl (0.60-1.20); MAGNESIUM 2.3 mg/dl (1.8-2.4)
[2017-05-05 07:36] LABS: ALB/GLOB RATIO 0.7 (0.9-2)
[2017-05-05] MEDS: CITALOPRAM 20 MG TAB PO SCH (08:03)
[2017-05-05] MEDS: FERROUS GLUCONATE 324 MG TAB PO SCH ×3 (08:03→16:58)
[2017-05-05 08:04] LABS: COMPLETE YES
[2017-05-05] MEDS: ATORVASTATIN 10 MG TAB PO SCH (08:05)
[2017-05-05] MEDS: MULTIVITAMIN TAB PO SCH (08:05)
[2017-05-05] MEDS: DOCUSATE SODIUM 100 MG CAP PO SCH ×2 (08:05→22:02)
[2017-05-05] MEDS: ASPIRIN 81 MG ECTAB PO SCH (08:05)
[2017-05-05] MEDS: PANTOprazole SOD 40 MG TAB PO SCH (08:06)
[2017-05-05] MEDS: LORAZEPAM 2 MG/ML 1 ML VIAL IV PRN ×2 (12:18→20:42)
--- NOTE | 2017-05-05 15:18 | Progress Note ---
Subjective Date of Service: May 05, 2017. Subjective Pt evaluation today including: conversation w/ patient, conversation w/ family , physical exam, chart review, lab review, review of studies, review of inpatient medication list Pt resting comfortably in bed Reports anxiety of staying in hospital No worsening pain Review of Systems Constitutional: No fever, No sweats, No weight loss Eyes: No worsening of vision, No eye pain, No redness, No discharge Respiratory: + dyspnea on exertion, No cough, No sputum, No wheezing, No shortness of breath Cardiac: No chest pain, No orthopnea, No PND, No edema Abdomen: No pain, No nausea, No vomiting, No diarrhea, No constipation Musculoskeletal: No joint pain, No muscle pain, No swelling, No calf pain Female : No dysuria, No urinary frequency, No hematuria, No incontinence Neurologic: No memory loss, No paralysis, No weakness, No vertigo Psychiatric: + anxiety, No depression symptoms, No anhedonism, No insomnia Endo: No fatigue, No excessive thirst Skin: No rash, No itch Objective Vital Signs Date Time Temp Pulse Resp B/P (MAP) Pulse Ox O2 Delivery O2 Flow Rate FiO2 05/05/17 14:41 99 20 91 Nasal Cannula 3.0 05/05/17 12:13 37.0 98 24 111/80 (90) 94 Nasal Cannula 3.0 05/05/17 12:00 Nasal Cannula 4.0 05/05/17 11:27 92 20 96 Nasal Cannula 4.0 05/05/17 08:05 36.6 90 24 147/78 (101) 89 Nasal Cannula 5.0 05/05/17 08:00 Nasal Cannula 6.0 05/05/17 07:07 88 20 88 Nasal Cannula 5.0 05/05/17 04:00 Nasal Cannula 5.0 05/05/17 03:49 36.6 91 18 119/71 (87) 94 Nasal Cannula 5.0 05/05/17 00:01 Nasal Cannula 5.0 05/04/17 23:58 37.0 98 18 129/71 (90) 92 Nasal Cannula 5.0 05/04/17 20:00 Oxymask 05/04/17 19:36 36.9 108 22 172/80 (110) 91 Mask 5.0 05/04/17 19:20 102 20 91 Nasal Cannula 6.0 05/04/17 16:13 36.8 95 20 156/68 (97) 94 Mask 5.0 05/04/17 16:00 Oxymask 4.0 Physical Exam General Appearance: WD/WN, + mild distress Neck: supple, no adenopathy Respiratory/Chest: chest non-tender, lungs clear, no accessory muscle use, + decreased breath sounds Cardiovascular: no edema, no gallop, no JVD, no murmur, + tachycardia Abdomen: normal bowel sounds, non tender, soft, no organomegaly Extremities: normal range of motion, non-tender, normal inspection, no pedal edema Neurologic/Psychiatric: no motor/sensory deficits, alert, oriented x 3, + depressed affect Laboratory Results Last 24 Hours Test 05/05/17 06:35 White Blood Count 19.97 K/uL Red Blood Count 2.83 M/uL Hemoglobin 8.9 g/dL Hematocrit 27.8 % Mean Corpuscular Volume 98.2 fL Mean Corpuscular Hemoglobin 31.4 pg Mean Corpuscular Hemoglobin Concent 32.0 g/dl Platelet Count 522 K/uL Mean Platelet Volume 9.5 fL Neutrophils (%) (Auto) 76.5 % Lymphocytes (%) (Auto) 12.8 % Monocytes (%) (Auto) 8.0 % Eosinophils (%) (Auto) 0.6 % Basophils (%) (Auto) 0.1 % Neutrophils # (Auto) 15.30 K/uL Lymphocytes # (Auto) 2.55 K/uL Monocytes # (Auto) 1.60 K/uL Eosinophils # (Auto) 0.11 K/uL Basophils # (Auto) 0.02 K/uL RDW Standard Deviation 54.8 fL RDW Coefficient of Variation 15.3 % Immature Granulocyte % (Auto) 2.0 % Immature Granulocyte # (Auto) 0.39 K/uL Nucleated RBC Absolute Count (auto) 0.02 K/uL Nucleated Red Blood Cells % 0.1 % Red Blood Cell Morphology Unremarkable Sodium Level 142 mmol/L Potassium Level 4.0 mmol/L Chloride Level 106 mmol/L Carbon Dioxide Level 36 mmol/L Anion Gap 0.0 mmol/L Blood Urea Nitrogen 22 mg/dl Creatinine 0.98 mg/dl Est Creatinine Clear Calc Drug Dose 35.0 ml/min Estimated GFR () 62.3 Estimated GFR (Non- 53.7 BUN/Creatinine Ratio 22.2 Random Glucose 76 mg/dl Calcium Level 8.1 mg/dl Magnesium Level 2.3 mg/dl Total Bilirubin 0.5 mg/dl Aspartate Amino Transf (AST/SGOT) 23 U/L Alanine Aminotransferase (ALT/SGPT) 17 U/L Alkaline Phosphatase 76 U/L Total Protein 5.4 gm/dl Albumin 2.3 gm/dl Globulin 3.1 gm/dl Albumin/Globulin Ratio 0.7 Assessment and Plan 81 years old female who had a fall and fractured right shoulder presented with shortness of breath and acute on chronic respiratory failure with hypoxia. 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 Currently tapering down prednisone oral Uncontrolled anxiety Start on ativan 0.5 mg q 4hr PRN Right humerus commuted fracture, status post Right Total Shoulder Arthroplasty Reverse, Bicep Tenodesis that went successful Awaiting rehab at this time chronic Diastolic CHF , not in exacerbation, EF 70% on 04/25, normal right ventricle size decreasing the probability of pulmonary hypertension chronic respiratory failure with COPD exacerbation, Continue bronchodilators, will add steroids inh and iv until seen by Dr. Flanagan Recent urinary tract infection, status post Cipro. Acute renal failure. multifactorial, contrast and diuresis, currently resolved Hypothyroidism. Continue her Synthroid. Finding on CTA 04/20 2.4 cm uncinate process lesion within the pancreas. 9 mm partially visualized lesion lower pole of the left kidney which may reflect a hyperdense cyst. MRI with contrast showed previously mentioned lesions most likely cysts, recommended follow-up within 6-12 months Acute kidney injury on chronic kidney disease Most likely secondary to dehydration postoperatively Creatinine jumped from 1.9-1.3. Continue gentle hydration Hyperkalemia with potassium of 5.7, likely from potassium-containing enough that the surgery status post 1 dose of Kayexalate and 1 solution of albuterol inhaler Deep venous thrombosis prophylaxis. Heparin subQ. Patient is currently full code Continued [facility] stay due to: multiple IV medications needed Discharge planning: long-term facility
[2017-05-05] MEDS: TRAZODONE HCL 50 MG TAB PO SCH (22:03)
[2017-05-05] MEDS: CLONAZEPAM 1 MG TAB PO SCH (22:03)
[2017-05-05] MEDS: BACLOFEN 10 MG TAB PO SCH (22:03)
[2017-05-06] VITALS (9 sets, daily range): BP systolic 117–148; BP diastolic 64–79; PULSE 81–95; TEMP 36.6–36.9; O2SAT 92–97
[2017-05-06] MEDS: ACETAMINOPHEN 500 MG TAB PO SCH ×2 (02:00→10:43)
[2017-05-06] MEDS: OXYCODONE HCL IR 5 MG TAB (IMMEDIATE RELEASE) PO PRN (03:56)
[2017-05-06] MEDS: LEVOTHYROXINE 125 MCG TAB PO SCH (05:40)
[2017-05-06] MEDS: HEPARIN SOD 5000 UNIT/0.5 ML CARP SQ SCH (05:41)
[2017-05-06] MEDS: LORAZEPAM 2 MG/ML 1 ML VIAL IV PRN (06:06)
[2017-05-06 07:06] LABS: HEMATOCRIT 29.2 % (37-47); MEAN CORPUSCULAR HEMOGLOBIN 30.1 pg (25-34); MEAN CORPUSCULAR HGB CONC 30.1 g/dl (32-36); MEAN PLATELET VOLUME 9.9 fL (7.4-10.4); PLATELET COUNT 602 K/uL (130-400); RED BLOOD COUNT 2.92 M/uL (4.2-5.4); WHITE BLOOD COUNT 20.46 K/uL (4.8-10.8)
[2017-05-06] MEDS: BUDESONIDE 0.5 MG/2 ML VIAL (PULMICORT) INH SCH (07:17)
[2017-05-06] MEDS: ALBUT/IPRATROP 3MG/0.5MG NEB 3 ML VIAL INH SCH ×3 (07:19→15:27)
[2017-05-06] MEDS: DOCUSATE SODIUM 100 MG CAP PO SCH (08:02)
[2017-05-06] MEDS: ATORVASTATIN 10 MG TAB PO SCH (08:02)
[2017-05-06] MEDS: PANTOprazole SOD 40 MG TAB PO SCH (08:02)
[2017-05-06] MEDS: CITALOPRAM 20 MG TAB PO SCH (08:02)
[2017-05-06] MEDS: FERROUS GLUCONATE 324 MG TAB PO SCH ×2 (08:03→10:44)
[2017-05-06] MEDS: MULTIVITAMIN TAB PO SCH (08:03)
[2017-05-06] MEDS: ASPIRIN 81 MG ECTAB PO SCH (08:03)
[2017-05-06 08:18] LABS: BUN/CREATININE RATIO 21.1 (10-20); CALCIUM 8.4 mg/dl (8.5-10.1); CREATININE 0.83 mg/dl (0.60-1.20); POTASSIUM 3.8 mmol/L (3.5-5.1)
[2017-05-06] MEDS ORDERED: OXYC-609 PO (11:09)
[2017-05-06] MEDS ORDERED: CLON1TAB3 PO (11:09)
[2017-05-06] MEDS ORDERED: PLMINS INH (11:09)
[2017-05-06] MEDS ORDERED: FRRG PO (11:09)
[2017-05-06] MEDS ORDERED: PRED10TA PO (11:09)
--- NOTE | 2017-05-06 11:13 | Discharge Instructions ---
Discharge Instructions Date of Service May 06, 2017. Admission Reason for Admission: Acute Renal Failure, Hypoxia Discharge Discharge Diagnosis / Problem: Fall, humerus fracture, hypoxia Discharge Goals Goal(s): Decrease discomfort, Improve function, Increase independence, Improve disease control, Learn about illness, Diagnostic testing Activity Recommendations Activity Limitations: resume your previous activity Exercise/Sports Limitations: as tolerated . Instructions / Follow-Up Instructions / Follow-Up Patient to be discharged to [facility] Prescriptions provided for oxycodone, klonopin, please take as directed Please continue to finish off steroid taper, please take prednisone 10 mg tablet once a day for 3 more days Please utilize pulmicort with nebulizer as directed Please follow up with Dr Owen in 1-2 weeks for staple removal and follow up humerus fracture repair Current Hospital Diet Patient's current hospital diet: Regular Diet Discharge Diet Recommended Diet: Regular Diet Procedures Procedures Performed: Right Total Shoulder Arthroplasty Reverse, Bicep Tenodesis Pending Studies Studies pending at discharge: no Medical Emergencies . Who to Call and When: Medical Emergencies: If at any time you feel your situation is an emergency, please call 911 immediately. . Non-Emergent Contact Non-Emergency issues call your: Primary Care Provider Call Non-Emergent contact if: you have a fever, your pain is worsening . . "Provider Documentation" section prepared by Yong Redmond. . Solar Pool Heating Installer Recommendations Solar Pool Heating Installer Recommendations: ACTIVITY RECOMMENDATIONS: SELF CARE INSTRUCTIONS AFTER TOTAL SHOULDER ARTHROPLASTY REVERSE A. You may do daily exercises as taught in physical therapy while in hospital. No lifting with the operative arm. B. You are to wear your sling/immobilizer at all times EXCEPT when performing your daily exercises and for hygiene purposes. C. You may perform dry, daily dressing changes. Please keep your incision covered. You may shower 48 hours after surgery. Do not apply soap or any ointment/ lotions directly over incision. Do not soak incision in bath tub/swimming pool. D. You may use ice as needed to operative shoulder. SPECIAL CARE INSTRUCTIONS: VERY IMPORTANT TO READ AND REVIEW A. There are a few signs you need to watch for after you are home. Call [facility] at [phone] if you experience any of the followin. Increased severe shoulder pain. Some pain is expected especially when you exercise. 2. Increased swelling in you shoulder or arm; pain or swelling in either upper extremity. 3. Any fluid drainage from the incision. 4. Shortness of breath or chest pain. B. Please call [facility] at [phone] if you have any questions or concerns about your operation or recovery. C. Call your physician if: 1. Temperature is greater than 101 degrees (F). 2. Pain is not relieved by prescribed pain medications. 3. Increase drainage or redness from incision. 4. Unanswered questions or concerns. FOLLOW UP VISIT: Please call [facility] at [phone] to schedule a follow up appointment with Dr. Owen or his PA in 12-14 days from your surgery date. VTE Core Measure Inpt VTE Proph given/why not?: Unfractionated heparin SQ
--- NOTE | 2017-05-06 14:46 | Discharge Summary ---
Discharge Summary Date of Service May 06, 2017. Discharge Summary Admission Date: Apr 24, 2017 at 18:54 Discharge Date: May 06, 2017 Discharge Disposition: Rehab Principal Diagnosis: Fall, humerus fracture, hypoxia Consultations: Pulmonary Orthopedic surgery Medication Reconciliation New Medications: Prednisone Tab (Prednisone) 10 Mg Tab 10 MG PO DAILY for 3 Days, #3 TAB Budesonide (Inhalation) (Pulmicort Respules 0.5MG/2ML) 0.5 Mg/2 Ml Maria Isabel 0.5 MG INH BID, #60 UNITS Ferrous Gluconate (Ferrous Gluconate) 324 Mg Tab 324 MG PO TIDM, #90 TAB Continued Medications: Acetaminophen (Tylenol) 500 Mg Tab 500 MG PO Q4 PRN for Pain, TAB Aspirin (Aspirin Ec) 81 Mg Tab 81 MG PO DAILY Atorvastatin (Lipitor) 10 Mg Tab 10 MG PO DAILY, TAB Baclofen (Lioresal) 10 Mg Tab 10 MG PO HS, TAB Citalopram Hydrobromide (Celexa) 20 Mg Tab 20 MG PO DAILY, TAB Clonazepam (Klonopin) 1 Mg Tab 1 MG PO HS, #30 TAB (This prescription has been renewed) Diltiazem Hcl Coated Beads (Diltiazem Hcl Er) 180 Mg Cap 1 CAP PO DAILY for 90 Days, #90 CAP 3 Refills Docusate Sodium (Docusate Sodium) 100 Mg Cap 100 MG PO BID Fluticasone Furoate-Vilanterol (Breo Ellipta) 1 Inh Inh 1 PUFF INH DAILY Levothyroxine Sodium (Levothyroxine Sodium) 125 Mcg Tab 1 TAB PO DAILY for 90 Days, #90 TAB 3 Refills Lisinopril (Prinivil) 5 Mg Tab 5 MG PO DAILY, TAB Oxycodone HCl (Oxycodone HCl) 5 Mg Tab 5 MG PO Q4 PRN for Pain, #30 TABS (This prescription has been renewed) Trazodone Hcl (Trazodone) 50 Mg Tab 25 MG PO DAILY, TAB Discontinued Medications: Ciprofloxacin (Ciprofloxacin HCl) 250 Mg Tab 250 MG PO BID, #10 DOSE Tramadol HCl (Tramadol HCl) 50 Mg Tab 50 MG PO Q4H PRN for Pain, #30 TAB Discharge Exam Review of Systems: Constitutional: No fever, No chills, No sweats, No weakness Eyes: No worsening of vision, No eye pain, No redness, No discharge Respiratory: No cough, No sputum, No wheezing, No shortness of breath Cardiovascular: No chest pain, No orthopnea, No PND, No edema Abdomen: No pain, No nausea, No vomiting, No diarrhea Musculoskeletal: + joint pain, No muscle pain, No swelling, No calf pain Genitourinary - Female: No dysuria, No urinary frequency, No urinary urgency , No urinary incontinence Neurologic: No memory loss, No paralysis, No weakness, No numbness/tingling Psychiatric: No depression symptoms, No anhedonism, No anxiety, No insomnia Endocrine: No fatigue, No excessive thirst, No excessive urination Integumentary: No rash, No itch Physical Exam: General Appearance: WD/WN, no apparent distress Eyes: normal inspection, PERRL, EOMI, sclerae normal Neck: supple, no adenopathy, thyroid normal, no JVD Respiratory/Chest: chest non-tender, lungs clear, normal breath sounds, no respiratory distress Cardiovascular: regular rate, rhythm, no edema, no gallop, no JVD Abdomen / GI: normal bowel sounds, non tender, soft, no organomegaly Extremities: normal inspection, no calf tenderness, normal capillary refill , no pedal edema Neurologic/Psychiatric: no motor/sensory deficits, alert, normal mood/affect , oriented x 3 Skin: normal color, warm/dry, no rash Lymphatic: no adenopathy Hospital Course 81 years old female who had a fall and fractured right shoulder presented with shortness of breath and acute on chronic respiratory failure with hypoxia. 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, rec perioperative steroids Continue bronchodilators and steroids, complete pred taper on DC, 10 mg PO x 3 more days Cont pulmicort on DC as well Uncontrolled anxiety Start on ativan 0.5 mg q 4hr PRN Right humerus commuted fracture, status post Right Total Shoulder Arthroplasty Reverse, Bicep Tenodesis that went successful Script for oxycodone on DC F/U with orthopedics in 1-2 weeks for trevon removal chronic Diastolic CHF , not in exacerbation, EF 70% on 04/25, normal right ventricle size decreasing the probability of pulmonary hypertension chronic respiratory failure with COPD exacerbation, continue bronchodilators, at baseline O2 Recent urinary tract infection, status post Cipro. Acute kidney injury on chronic kidney disease, resolved Most likely secondary to dehydration postoperatively Continue gentle hydration Hypothyroidism. Continue her Synthroid. Deep venous thrombosis prophylaxis. Heparin subQ. Patient is currently full code Total Time Spent: Greater than 30 minutes This includes examination of the patient, discharge planning, medication reconciliation, and communication with other providers. Discharge Instructions Please refer to the electronic Patient Visit Report (Discharge Instructions) for additional information. Additional Copies To Davian Brooke M.D.
[2017-05-06] MEDS ORDERED: LORAZEPAM 0.5 MG TAB ONE (16:04)
[2017-05-06] MEDS ORDERED: NURSING VERBAL MED ORDER ONE (16:15)
[2017-05-06] MEDS ORDERED: LORAZEPAM 0.5 MG TAB PO ONE (16:15)
== END 2017-05-06 17:09 | DRG 981 ==
LOC: EDBD 15:52 → C.EDC 15:57 → C.2T 18:54 → ENRESERV 19:14
PROVIDERS: ADMIT Family Medicine; ATTEND Hospitalist
PROC: 0RRJ0JZ Replacement of Right Shoulder Joint with Synthetic Substitute, Open Approach (ICD-10-PCS; principal; 2017-05-01 07:45)
DX: I13.0 Hypertensive heart and chronic kidney disease with heart failure and stage 1 through stage 4 chronic kidney disease, or unspecified chronic kidney disease (principal); J96.21 Acute and chronic respiratory failure with hypoxia; N39.0 Urinary tract infection, site not specified; S42.301A Unspecified fracture of shaft of humerus, right arm, initial encounter for closed fracture; J44.9 Chronic obstructive pulmonary disease, unspecified; I25.10 Atherosclerotic heart disease of native coronary artery without angina pectoris; E03.9 Hypothyroidism, unspecified; E78.5 Hyperlipidemia, unspecified; F32.9 Major depressive disorder, single episode, unspecified; F41.9 Anxiety disorder, unspecified; D64.9 Anemia, unspecified; I50.9 Heart failure, unspecified; W19.XXXA Unspecified fall, initial encounter; I25.2 Old myocardial infarction; Z90.49 Acquired absence of other specified parts of digestive tract; Z79.899 Other long term (current) drug therapy; Z79.82 Long term (current) use of aspirin; Z87.891 Personal history of nicotine dependence; Z99.81 Dependence on supplemental oxygen

== ENCOUNTER → 2017-08-05 | Outpatient (CLI) | payer OTHER ==
[~2017-08-05] MED LIST changes: +ACET-1256 PO; +ATOR10TA82 PO; -ATOR10TA88 PO; -CITA20TA4 PO; +CLC100X PO; -CPR250 PO; +FRRG PO; -LEVO125T4 PO; +LEVO125T5 PO; +OXYC-609 PO; +PLMINS INH; -ULT50X PO
[2017-08-05 08:46] LABS: HEMATOCRIT 30.9 % (37-47); MEAN CELL VOLUME 103.3 fL (80-100); MEAN CORPUSCULAR HEMOGLOBIN 31.4 pg (25-34); MEAN CORPUSCULAR HGB CONC 30.4 g/dl (32-36); MEAN PLATELET VOLUME 9.8 fL (7.4-10.4); PLATELET COUNT 452 K/uL (130-400); RED BLOOD COUNT 2.99 M/uL (4.2-5.4)
[2017-08-05 08:53] LABS: BLOOD UREA NITROGEN 18 mg/dl (7-18); BUN/CREATININE RATIO 15.7 (10-20); CALCIUM 8.7 mg/dl (8.5-10.1); CARBON DIOXIDE 38 mmol/L (21-32); CHLORIDE 99 mmol/L (98-107); CREATININE 1.15 mg/dl (0.60-1.20); GLUCOSE 75 mg/dl (70-99); POTASSIUM 4.6 mmol/L (3.5-5.1); SODIUM 137 mmol/L (136-145)
== END | disposition home or self-care (01) ==
LOC: C.LABWYN 08:16
PROVIDERS: ATTEND Internal Medicine
DX: J44.9 Chronic obstructive pulmonary disease, unspecified (principal); E03.9 Hypothyroidism, unspecified; I10 Essential (primary) hypertension; I25.2 Old myocardial infarction; I50.9 Heart failure, unspecified; F32.9 Major depressive disorder, single episode, unspecified; D64.9 Anemia, unspecified; G24.3 Spasmodic torticollis; R26.9 Unspecified abnormalities of gait and mobility; M62.81 Muscle weakness (generalized)

== ENCOUNTER 2017-09-13 13:29 | Inpatient (IN) | payer OTHER ==
[~2017-09-13] VITALS: Ht 157.5 cm; Wt 54.5 kg
[2017-09-13] MEDS ORDERED: LEVAQUIN 750MG / 150ML D5W IV STA (13:32)
[2017-09-13] MEDS ORDERED: METHYLPREDNISOLONE 125 MG VIAL IV STA ×2 (13:32→13:39)
[2017-09-13] MEDS ORDERED: VANCOMYCIN 1GM/270ML NSS IV STA (13:32)
[2017-09-13] MEDS ORDERED: CEFEPIME IV 2,000 MG in DEXTROSE 5% 100ML 100 ML IV STA (13:34)
[2017-09-13] MEDS ORDERED: MAGNESIUM SULFATE 1GM / D5W 1 GM BAG IV STA (13:39)
--- NOTE | 2017-09-13 13:40 | EMERGENCY ROOM VISIT NOTE ---
History Report prepared by Cami: Olesya Arriola Under the Supervision of: Dr. Riley Blum M.D. 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 The patient currently resides at [facility]. The patient notes that she has a cough, congestion, and shortness of breath for a couple of days. The patient does not normally wears at home oxygen. Per EMS, the patient was at 62% oxygen saturation upon arrival. The patient was placed on CPAP. Per EMS, the patient has not received Solu-Medrol. HPI is limited secondary to respiratory distress. 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 Review of Systems ROS is limited secondary to respiratory distress. Past Medical & Surgical Medical Problems: (1) Acute renal failure (2) COPD (chronic obstructive pulmonary disease) (3) Hypoxia (4) Neck pain, chronic (5) SOB (shortness of breath) (6) Torticollis Surgical Problems: (1) S/P Botox injection Family History No pertinent family history Social History Smoking Status: Former Smoker Smokeless Tobacco Use: No Alcohol Use: none Drug Use: none Marital Status: Housing Status: assisted living Occupation Status: retired Current/Historical Medications Scheduled Aspirin (Aspirin Ec), 81 MG PO DAILY Atorvastatin (Lipitor), 10 MG PO DAILY Bisacodyl (Bisac-Evac), [address] UD Budesonide (Inhalation) (Pulmicort Respules 0.5MG/2ML), 0.5 MG INH BID Citalopram Hydrobromide (Celexa), 20 MG PO BID Diltiazem Hcl Coated Beads (Diltiazem Hcl Er), 1 CAP PO DAILY Docusate Sodium (Docusate Sodium), 100 MG PO BID Ferrous Sulfate (Ferrous Sulfate), 1 TAB PO DAILY Fluticasone Furoate-Vilanterol (Breo Ellipta), 1 PUFF INH DAILY Furosemide (Lasix), 1 TAB PO DAILY Levothyroxine Sodium (Levothyroxine Sodium), 1 TAB PO DAILY Lisinopril (Prinivil), 5 MG PO DAILY Magnesium Hydroxide (Milk Of Magnesia), 30 ML PO UD Potassium Chloride (Micro-K Ext Rel), 10 MEQ PO DAILY Prednisone (Prednisone), 10 MG PO DAILY Trazodone Hcl (Trazodone), 25 MG PO DAILY [[id number]], 1 TAB PO TID Scheduled PRN Acetaminophen Tab (Tylenol), 650 MG PO Q4H PRN for Pain Clonazepam (Klonopin), 1 MG PO BID PRN for Anxiety Dextromethorphan-Guaifenesin (Mucinex Dm), 1 TAB PO Q12 PRN for CONGESTION Loperamide Hcl (Imodium), 2 MG PO Q4H PRN for Diarrhea Oxycodone HCl (Oxycodone HCl), 5 MG PO Q4 PRN for Pain Senna/Docusate Sod (Senokot S), 1 TAB PO HS PRN for Constipation Allergies Coded Allergies: Iodinated Diagnostic Agents (Verified Allergy, Unknown, RASH, 09/13/17) Physical Exam Vital Signs Date Time Temp Pulse Resp B/P (MAP) Pulse Ox O2 Delivery O2 Flow Rate FiO2 09/13/17 13:55 94 BiPAP 40 09/13/17 13:55 38.2 90 34 129/54 96 CPAP 60 09/13/17 13:55 96 CPAP 60 09/13/17 13:45 93 31 95 BiPAP/CPAP 40 09/13/17 13:45 93 94 09/13/17 13:37 98 Physical Exam GENERAL: Patient is in acute distress. HEAD: Normocephalic atraumatic EYES: Ocular movements intact pupils equal and react to light OROPHARYNX mucous membranes are moist no exudates present no erythema or edema present NECK: Supple no nuchal rigidity CHEST: Good equal expansion LUNGS: Retractions on exam. Bilateral wheezing. On CPAP CARDIAC: HR is 30 bpm ABDOMEN: Soft nontender no guarding BACK: No CVA tenderness EXTREMITIES: No pain upon palpation normal muscle strength in all groups no clubbing cyanosis or edema NEURO: Patient is following commands and answering questions appropriately. Alert and oriented x3 Cranial Nerves 2-12 grossly intact Medical Decision & Procedures ER Provider Diagnostic Interpretation: Radiology results as stated below per my review and radiologist interpretation: CHEST ONE VIEW PORTABLE CLINICAL HISTORY: Sepsis dyspnea COMPARISON STUDY: 05/02/2017 FINDINGS: Improved aeration left base compared to the prior study. Minimal residual left retrocardiac atelectasis. Lungs otherwise are clear. Total right shoulder arthroplasty is noted. IMPRESSION: Minimal residual left retrocardiac atelectasis. Otherwise no acute process. The above report was generated using voice recognition software. It may contain grammatical, syntax or spelling errors. Electronically signed by: Jamari Lentz M.D. 09/13/2017 1:51 PM Dictated Date/Time: 09/13/2017 1:50 PM Laboratory Results Test 09/13/17 13:40 09/13/17 13:47 09/13/17 13:51 09/13/17 13:55 Prothrombin Time 9.8 SECONDS (9.0-12.0) Prothromb Time International Ratio 0.9 (0.9-1.1) Activated Partial Thromboplast Time 27.1 SECONDS (21.0-31.0) Partial Thromboplastin Ratio 1.0 Total Creatine Kinase 36 U/L (26-192) Creatine Kinase MB 1.0 ng/ml (0.5-3.6) Creatine Kinase MB Ratio 2.8 (0-3.0) Globulin 4.1 gm/dl (2.5-4.0) Albumin/Globulin Ratio 0.8 (0.9-2) Bedside Lactic Acid Venous 0.60 mmol/L (0.90-1.70) Bedside Hemoglobin 12.2 g/dl (12.0-16.0) Bedside Hematocrit 36 % (37-47) Bedside Sodium 135 mEq/L (135-144) Bedside Potassium 5.2 mEq/L (3.3-5.0) Bedside Chloride 96 mEq/L (101-112) Bedside Total CO2 34 mEq/l (24-31) Bedside Blood Urea Nitrogen 26 mg/dl (7-18) Bedside Creatinine 1.5 mg/dl (0.6-1.3) Bedside Glucose (other) 179 mg/dl (70-99) Bedside Ionized Calcium (Luciano) 1.17 mmol/l (1.12-1.32) Influenza Type A Antigen Neg for Influ A (NEG) Influenza Type B Antigen Neg for Influ B (NEG) Labs reviewed by ED physician. Medications Administered Medications (Trade) Dose Ordered Sig/Nishant Route Start Time Stop Time Status Last Admin Dose Admin Albuterol/ Ipratropium (Duoneb) 12 ml ONE ONCE INH 09/13/17 13:45 09/13/17 13:46 DC 09/13/17 13:45 12 ML Vancomycin HCl (Vancomycin 1gm/ 270ml Nss) 1 gm ONE STAT IV 09/13/17 13:32 09/13/17 13:35 DC 09/13/17 14:31 1 GM Levofloxacin (Levaquin / D5W) 750 mg ONE STAT IV 09/13/17 13:32 09/13/17 13:35 DC 09/13/17 14:31 750 MG Cefepime HCl 2000 mg/Dextrose 122 ml @ 200 mls/hr NOW STAT IV 09/13/17 13:34 09/13/17 14:10 DC 09/13/17 14:13 200 MLS/HR Methylprednisolone Sodium Succinate (Solu-Medrol IV) 125 mg NOW STAT IV 09/13/17 13:39 09/13/17 13:41 DC 09/13/17 13:39 125 MG Magnesium Sulfate (Magnesium Sulfate) 1 gm NOW STAT IV 09/13/17 13:39 09/13/17 13:41 DC 09/13/17 13:51 1 GM Sodium Chloride 1,000 ml @ 999 mls/hr Q1H1M STAT IV 09/13/17 13:53 09/13/17 14:53 DC 09/13/17 13:53 999 MLS/HR ECG Indication: SOB/dyspnea Rate (beats per minute): 97 Rhythm: sinus rhythm Findings: PAC, no acute ischemic change, other (Premature super ventricular complexes ) ED Course 1332: Past medical records reviewed. The patient was evaluated in room B1. A complete history and physical examination was performed. 1332: Ordered Solu-Medrol 60 mg IV, Levaquin 750 mg IV, and Vancomycin HCl 1 gm IV 1334: Ordered Cefepime HCl 122 ml @ 200 mls /hr IV 1339: Ordered Magnesium Sulfate 1 gm IV and Solu-Medrol 125 mg IV 1345: Ordered DuoNeb 12 ml INH 1353: Ordered Sodium Chloride 1,000 ml @ 999 mls/hr 1400: I spoke with vice president compliance. We discussed the patients case. The patient will be further evaluated. 1406: I spoke with Dr. Higuera, hospitalist. We discussed the patients case. The patient will be evaluated by the [facility] for further management. 1414: I reassessed the patient at this time. She is feeling better and resting comfortably. I discussed the results and treatment plan with the patient. I answered all pertaining questions that she had. She expressed understanding and verbalized agreement. The patient will be further evaluated. Medical Decision Prior records/ancillary studies reviewed. Triage Nursing notes reviewed. Additional history obtained from EMS. The patient's history was concerning for respiratory difficulties. Differential diagnosis: Etiologies such as infections, reactive airway disease, pneumonia, pneumothorax , COPD, CHF, cardiac ischemia, pulmonary embolism, musculoskeletal, gastrointestinal, as well as others were entertained. This is an 81-year-old female who presents emergency department complaining of hypoxia. The patient is in acute distress and was immediate placed on BiPAP upon arrival to the emergency department. Because the patient was breathing so heavily an ABG was obtained. The patient was given an hour-long breathing treatment given Solu-Medrol as well as magnesium. She was pancultured and started on antibiotics. She was frequently reassessed. I did discuss her case with the vice president compliance as well as the hospitalist service who agreed to admit the patient. Patient was in agreement with the treatment plan. Medication Reconcilliation Current Medication List: was personally reviewed by me Blood Pressure Screening Patient's blood pressure: Normal blood pressure Consults Time Called: 1406 Consulting Physician: Dr. Higuera, hospitalist I spoke with Dr. Higuera, hospitalist. We discussed the patients case. The patient will be evaluated by the [facility] for further management. Impression Primary Impression: Respiratory failure Additional Impressions: Hypoxia COPD exacerbation Critical Care I have personally spent greater than 30 minutes of critical care time in the direct management of this patient. This includes bedside care, interpretation of diagnostic studies, and testing, discussion with consultants, patient, and family members, and other required patient management activities. This 30 minutes is in excess of all separately billable procedures. Scribe Attestation The scribe's documentation has been prepared under my direction and personally reviewed by me in its entirety. I confirm that the note above accurately reflects all work, treatment, procedures, and medical decision making performed by me. Departure Information Dispostion Being Evaluated By Hospitalist Referrals [facility] DANNY FATIMA (PCP) Problem Qualifiers Primary Impression: Respiratory failure Chronicity: acute Respiratory failure complication: hypoxia Qualified Codes : J96.01 - Acute respiratory failure with hypoxia
[2017-09-13 13:45] VITALS: PULSE 93; O2SAT 94; O2SAT 95
[2017-09-13] MEDS ORDERED: ALBUT/IPRATROP 3MG/0.5MG NEB 3 ML VIAL INH ONE (13:45)
--- NOTE | 2017-09-13 13:52 | DIAGNOSTIC IMAGING REPORT ---
CHEST ONE VIEW PORTABLE CLINICAL HISTORY: Sepsis dyspnea COMPARISON STUDY: 05/02/2017 FINDINGS: Improved aeration left base compared to the prior study. Minimal residual left retrocardiac atelectasis. Lungs otherwise are clear. Total right shoulder arthroplasty is noted. IMPRESSION: Minimal residual left retrocardiac atelectasis. Otherwise no acute process. The above report was generated using voice recognition software. It may contain grammatical, syntax or spelling errors. Electronically signed by: Jamari Lentz M.D. 09/13/2017 1:51 PM Dictated Date/Time: 09/13/2017 1:50 PM
[2017-09-13] MEDS ORDERED: SODIUM CHLORIDE 0.9% 1000ML 1,000 ML IV STA (13:53)
[2017-09-13 14:04] LABS: BASO % 0.1 %; BASO ABS # 0.02 K/uL (0-0.2); HEMATOCRIT 37.1 % (37-47); HEMOGLOBIN 11.3 g/dL (12.0-16.0); LYMPH % 1.8 %; LYMPH ABS # 0.37 K/uL (1.2-3.4); MEAN CELL VOLUME 105.1 fL (80-100); MEAN CORPUSCULAR HGB CONC 30.5 g/dl (32-36); MEAN PLATELET VOLUME 9.3 fL (7.4-10.4); MONO % 3.3 %; MONO ABS # 0.67 K/uL (0.11-0.59); NEUT % 94.3 %; NEUT ABS # 19.38 K/uL (1.4-6.5); PLATELET COUNT 416 K/uL (130-400); RED CELL DISTRIBUTION WIDTH CV 14.9 % (11.5-14.5); WHITE BLOOD COUNT 20.54 K/uL (4.8-10.8)
[2017-09-13 14:09] LABS: ISTAT CREATININE 1.5 mg/dl (0.6-1.3); ISTAT IONIZED CALCIUM 1.17 mmol/l (1.12-1.32); ISTAT POTASSIUM 5.2 mEq/L (3.3-5.0)
[2017-09-13 14:11] LABS: ALBUMIN 3.2 gm/dl (3.4-5.0); CALCIUM 8.6 mg/dl (8.5-10.1); CREATININE 1.44 mg/dl (0.60-1.20); POTASSIUM 5.1 mmol/L (3.5-5.1)
[2017-09-13 14:13] LABS: INR 0.9 (0.9-1.1); PTT PATIENT 27.1 SECONDS (21.0-31.0)
[2017-09-13 14:16] LABS: TOTAL PROTEIN 7.3 gm/dl (6.4-8.2)
[2017-09-13] MEDS ORDERED: AMOX TR K CLV PO (14:32)
[2017-09-13] MEDS ORDERED: CLON1TAB3 PO (14:37)
[2017-09-13] MEDS ORDERED: FERR325T5 PO (14:39)
[2017-09-13] MEDS ORDERED: FURO20TA PO (14:42)
[2017-09-13] MEDS ORDERED: DEXT30TA7 PO (14:44)
[2017-09-13] MEDS ORDERED: POTA10CA28 PO (14:50)
[2017-09-13] MEDS ORDERED: ACET325T96 PO (14:50)
[2017-09-13] MEDS ORDERED: PRED10TA PO (14:50)
[2017-09-13] MEDS ORDERED: SENN-65 PO (14:50)
[2017-09-13] MEDS ORDERED: IMD/2 PO (14:50)
[2017-09-13] MEDS ORDERED: MOML PO (14:50)
[2017-09-13] MEDS ORDERED: BISA10SU7 PR (14:50)
[2017-09-13 14:54] LABS: INFLUENZA B ANTIGEN Neg for Influ B (NEG)
[2017-09-13] MEDS ORDERED: D5NSS + 20MEQ KCL 1,000 ML IV SCH (16:20)
[2017-09-13] MEDS ORDERED: ONDANSETRON INJ 2 MG/ML 2 ML VIAL IV PRN (16:30)
[2017-09-13] MEDS ORDERED: ICU PROTOCOL FOR HYPERGLYCEMIA PRN (16:30)
[2017-09-13] MEDS ORDERED: MAGNESIUM HYDROXIDE SUSP 30 ML UDC PO SCH (16:30)
[2017-09-13] MEDS ORDERED: DOCUSATE SODIUM/SENNA 50/8.6MG TAB PO PRN (16:30)
[2017-09-13] MEDS ORDERED: LOPERAMIDE HCL 2 MG CAP PO PRN (16:30)
[2017-09-13] MEDS ORDERED: OXYCODONE HCL IR 5 MG TAB (IMMEDIATE RELEASE) PO PRN (16:30)
[2017-09-13] MEDS ORDERED: ACETAMINOPHEN 325 MG TAB PO PRN ×2 (16:30)
[2017-09-13] MEDS ORDERED: MAGNESIUM HYDROXIDE SUSP 30 ML UDC PO PRN (16:30)
[2017-09-13] MEDS ORDERED: BISACODYL 10 MG SUPP PR SCH (16:30)
[2017-09-13 16:36] VITALS: BP 135/49; PULSE 78; TEMP 36.6; O2SAT 95; BMI 21.9
[2017-09-13 16:40] VITALS: PULSE 87; O2SAT 95
--- NOTE | 2017-09-13 16:40 | History and Physical ---
History & Physical Date & Time of Service: Sep 13, 2017 at 16:24 Chief Complaint: Respiratory Primary Care Physician: Rolando Amaral History of Present Illness Source: patient, family 81 y/o F c/o SOB. Pt has had worsening SOB for the last 3 days. She is on 4L O2 continuous and this was not helping her. She was started on mucinex and either augmentin or amoxicillin by her PCP on , but she had continued to have worsening SOB since that time. The antibiotic caused her nausea but no emesis or diarrhea. Due to this, her PO intake has been less. No chest pain. Pt denies fever, abd pain, LE pain or swelling. EMT was called to [facility] for SOB. She was found to have an O2 sat of 62 % on NC. She was brought to the ED on CPAP and switched to BIPAP on arrival. She is feeling overall improved but very fatigued and still with mild SOB. Pt has a form that states she is DNI, however on arrival to the ED, it has been reported to me that she told the ED physician that she would allow for intubation if this was needed. I did discuss this with pt to clarify, however she states she is now unsure if she would want intubation. She does want chest compressions. I informed pt that she could think about intubation and discuss with her family regarding this decision, however for now she would be marked as agreeable to intubation. She is to let staff know if she changes her mind at any time. Family is present and agrees to this. Past Medical/Surgical History Medical Problems: (1) COPD (chronic obstructive pulmonary disease) Status: Chronic (2) Neck pain, chronic Status: Chronic (3) Torticollis Status: Chronic Surgical Problems: (1) S/P Botox injection Status: Resolved COPD on 4L O2 continuous HTN CHF Torticollis, takes baclofen, trazodone, and klonopin for this, had botox injection on Friday09/10/17 Hypothyroid Iron deficiency Denies [place], however family states she had an angioplasty years ago Family History Family history was reviewed; no changes noted. Social History Smoking Status: Former Smoker (quit 10 years ago) Smokeless Tobacco Use: No Alcohol Use: none Drug Use: none Marital Status: Occupational Status: retired Multi-Drug Resistant Organisms History of MDRO: No Allergies Coded Allergies: Iodinated Diagnostic Agents (Verified Allergy, Unknown, RASH, 09/13/17) Home Medications Scheduled Aspirin (Aspirin Ec), 81 MG PO DAILY Atorvastatin (Lipitor), 10 MG PO DAILY Bisacodyl (Bisac-Evac), 10 SUPP IA UD Budesonide (Inhalation) (Pulmicort Respules 0.5MG/2ML), 0.5 MG INH BID Citalopram Hydrobromide (Celexa), 20 MG PO BID Diltiazem Hcl Coated Beads (Diltiazem Hcl Er), 1 CAP PO DAILY Docusate Sodium (Docusate Sodium), 100 MG PO BID Ferrous Sulfate (Ferrous Sulfate), 1 TAB PO DAILY Fluticasone Furoate-Vilanterol (Breo Ellipta), 1 PUFF INH DAILY Furosemide (Lasix), 1 TAB PO DAILY Levothyroxine Sodium (Levothyroxine Sodium), 1 TAB PO DAILY Lisinopril (Prinivil), 5 MG PO DAILY Magnesium Hydroxide (Milk Of Magnesia), 30 ML PO UD Potassium Chloride (Micro-K Ext Rel), 10 MEQ PO DAILY Prednisone (Prednisone), 10 MG PO DAILY Trazodone Hcl (Trazodone), 25 MG PO DAILY [Amox,Tr-K,[id number]], 1 TAB PO TID Scheduled PRN Acetaminophen Tab (Tylenol), 650 MG PO Q4H PRN for Pain Clonazepam (Klonopin), 1 MG PO BID PRN for Anxiety Dextromethorphan-Guaifenesin (Mucinex Dm), 1 TAB PO Q12 PRN for CONGESTION Loperamide Hcl (Imodium), 2 MG PO Q4H PRN for Diarrhea Oxycodone HCl (Oxycodone HCl), 5 MG PO Q4 PRN for Pain Senna/Docusate Sod (Senokot S), 1 TAB PO HS PRN for Constipation Review of Systems Pertinent positives and negatives reviewed in HPI--all others negative Physical Exam Vital Signs Date Time Temp Pulse Resp B/P (MAP) Pulse Ox O2 Delivery O2 Flow Rate FiO2 09/13/17 16:01 76 85/41 92 09/13/17 15:45 75 94/41 92 BiPAP 40 09/13/17 15:30 74 89/42 93 BiPAP 40 09/13/17 15:17 78 98/44 95 BiPAP 40 09/13/17 15:00 73 99/46 95 BiPAP 40 09/13/17 14:48 78 29 105/47 94 BiPAP 40 09/13/17 14:36 94 BiPAP 40 09/13/17 14:09 82 27 105/48 94 BiPAP 40 09/13/17 13:55 94 BiPAP 40 09/13/17 13:55 38.2 90 34 129/54 96 CPAP 60 09/13/17 13:55 96 CPAP 60 09/13/17 13:45 93 31 95 BiPAP/CPAP 40 09/13/17 13:45 93 94 09/13/17 13:37 98 General Appearance: + moderate distress (still with SOB), + thin Head: normocephalic, atraumatic Eyes: normal inspection, EOMI, sclerae normal Respiratory/Chest: + respiratory distress, + decreased breath sounds, + pertinent finding (neg for wheezing) Cardiovascular: regular rate, rhythm, no edema, normal peripheral pulses Abdomen/GI: non tender, soft Extremities/Musculoskelatal: no calf tenderness, no pedal edema Neurologic/Psych: alert, oriented x 3, + depressed affect Skin: normal color, warm/dry Diagnostics Laboratory Results Results Past 24 Hours Test 09/13/17 13:40 09/13/17 13:47 09/13/17 13:51 09/13/17 13:55 Range/Units White Blood Count 20.54 4.8-10.8 K/uL Red Blood Count 3.53 4.2-5.4 M/uL Hemoglobin 11.3 12.0-16.0 g/dL Hematocrit 37.1 37-47 % Mean Corpuscular Volume 105.1 80-100 fL Mean Corpuscular Hemoglobin 32.0 25-34 pg Mean Corpuscular Hemoglobin Concent 30.5 32-36 g/dl Platelet Count 416 130-400 K/uL Mean Platelet Volume 9.3 7.4-10.4 fL Neutrophils (%) (Auto) 94.3 % Lymphocytes (%) (Auto) 1.8 % Monocytes (%) (Auto) 3.3 % Eosinophils (%) (Auto) 0.0 % Basophils (%) (Auto) 0.1 % Neutrophils # (Auto) 19.38 1.4-6.5 K/uL Lymphocytes # (Auto) 0.37 1.2-3.4 K/uL Monocytes # (Auto) 0.67 0.11-0.59 K/uL Eosinophils # (Auto) 0.00 0-0.5 K/uL Basophils # (Auto) 0.02 0-0.2 K/uL RDW Standard Deviation 57.0 36.4-46.3 fL RDW Coefficient of Variation 14.9 11.5-14.5 % Immature Granulocyte % (Auto) 0.5 % Immature Granulocyte # (Auto) 0.10 0.00-0.02 K/uL Prothrombin Time 9.8 9.0-12.0 SECONDS Prothromb Time International Ratio 0.9 0.9-1.1 Activated Partial Thromboplast Time 27.1 21.0-31.0 SECONDS Partial Thromboplastin Ratio 1.0 Sodium Level 136 136-145 mmol/L Potassium Level 5.1 3.5-5.1 mmol/L Chloride Level 97 98-107 mmol/L Carbon Dioxide Level 34 21-32 mmol/L Anion Gap 5.0 12.0 16-25 mmol/L Blood Urea Nitrogen 27 7-18 mg/dl Creatinine 1.44 0.60-1.20 mg/dl Est Creatinine Clear Calc Drug Dose 23.8 ml/min Estimated GFR () 39.1 Estimated GFR (Non- 33.7 BUN/Creatinine Ratio 18.4 10-20 Random Glucose 172 70-99 mg/dl Calcium Level 8.6 8.5-10.1 mg/dl Total Bilirubin 0.4 0.2-1 mg/dl Aspartate Amino Transf (AST/SGOT) 17 15-37 U/L Alanine Aminotransferase (ALT/SGPT) 18 12-78 U/L Alkaline Phosphatase 75 45-117 U/L Total Creatine Kinase 36 26-192 U/L Creatine Kinase MB 1.0 0.5-3.6 ng/ml Creatine Kinase MB Ratio 2.8 0-3.0 Troponin I 0.041 0-0.045 ng/ml Total Protein 7.3 6.4-8.2 gm/dl Albumin 3.2 3.4-5.0 gm/dl Globulin 4.1 2.5-4.0 gm/dl Albumin/Globulin Ratio 0.8 0.9-2 Bedside Lactic Acid Venous 0.60 0.90-1.70 mmol/L Bedside Hemoglobin 12.2 12.0-16.0 g/dl Bedside Hematocrit 36 37-47 % Bedside Sodium 135 135-144 mEq/L Bedside Potassium 5.2 3.3-5.0 mEq/L Bedside Chloride 96 101-112 mEq/L Bedside Total CO2 34 24-31 mEq/l Bedside Blood Urea Nitrogen 26 7-18 mg/dl Bedside Creatinine 1.5 0.6-1.3 mg/dl Bedside Glucose (other) 179 70-99 mg/dl Bedside Ionized Calcium (Luciano) 1.17 1.12-1.32 mmol/l Influenza Type A Antigen Neg for Influ A NEG Influenza Type B Antigen Neg for Influ B NEG Test 09/13/17 13:56 09/13/17 14:25 Range/Units Bedside Blood Gas pH (LAB) 7.28 7.35-7.45 Bedside Blood Gas pCO2 (LAB) 77 35-46 mmHg Bedside Blood Gas pO2 (LAB) 95 80-95 mmHg Bedside Blood Gas HCO3 (LAB) 36 19-24 meq/L Bedside Blood Gas Total CO2 38 24-31 mEq/l Bedside Blood Gas Base Excess (LAB) 9.0 -9-1.8 meq/L Bedside Blood Gas O2 Saturation 96.0 90-95 % Urine Color YELLOW Urine Appearance CLEAR CLEAR Urine pH 5.0 4.5-7.5 Urine Specific [place] 1.016 1.000-1.030 Urine Protein TRACE NEG Urine Glucose (UA) NEG NEG Urine Ketones NEG NEG Urine Occult Blood NEG NEG Urine Nitrite NEG NEG Urine Bilirubin NEG NEG Urine Urobilinogen NEG NEG Urine Leukocyte Esterase NEG NEG Urine WBC (Auto) 1-5 0-5 /hpf Urine RBC (Auto) 0-4 0-4 /hpf Urine Hyaline Casts (Auto) 1-5 0-5 /lpf Urine Epithelial Cells (Auto) 10-20 0-5 /lpf Urine Bacteria (Auto) NEG NEG Urine Pathogenic Casts 1-5 GRANULAR CASTS 0 /lpf Urine Mucus PRESENT NONE PRSENT Microbiology Results 09/13/17 Blood Culture, Received Pending 09/13/17 Blood Culture, Received Pending Diagnostic Radiology CXR neg Impression Assessment and Plan 81 y/o F who was admitted to the ICU on 09/13 for COPD exacerba COPD exacerbation with acute on chronic respiratory failure and hypoxia: improving on BIPAP, however pt does appear fatigued Admission to ICU for closer monitoring CXR neg Xopenex, steroids 80mg TID Flu neg Will leave abx to the discretion of ICU physician IVF while on BIPAP Lactic acid WNL If no further improvement, t/c CT, however renal function will not allow for contrast and seems unlikely pt would tolerate lying flat at this time Pt has a form that states she is DNI, however on arrival to the ED, it has been reported to me that she told the ED physician that she would allow for intubation if this was needed. I did discuss this with pt to clarify, however she states she is now unsure if she would want intubation. She does want chest compressions. I informed pt that she could think about intubation and discuss with her family regarding this decision, however for now she would be marked as agreeable to intubation. She is to let staff know if she changes her mind at any time. Family is present and agrees to this. CHF: no acute exacerbation continue home meds Monitor while on IVF ARF: cr was 1.15 last month Monitor on IVF Likely related to recent poor PO intake HyperK: mild, monitor HTN: continue home meds Spasmodic torticollis: baclofen, klonopin, trazodone as at home Botox injection for this on 09/10/17 Hypothyroid: continue home meds Other: code status as above NPO while on BIPAP Heparin for DVT proph Level of Care Critical Care Resuscitation Status FULL RESUSCITATION VTE Prophylaxis VTE Risk Assessment Done? Y/N: Yes Risk Level: Low
[2017-09-13] MEDS: SODIUM CHLORIDE 0.9% 1000ML 1,000 ML IV SCH (18:00)
--- NOTE | 2017-09-13 18:56 | Critical Care Consultation ---
Critical Care Consultation Date of Consultation: Sep 13, 2017. Attending Physician: Safia Higuera DO Reason for Consultation: Respiratory failure History of Present Illness This is an 81 year old female with end-stage COPD, on 4 liters O2 and chronic Prednisone therapy, never intubated, came to ED c/o shortness of breath, having O2 sats in the 60s, appearing "blue". In ED she was placed on BIPAP with some improvement, but still dyspneic. For few days she has had a cough with mild greenish sputum production. Denies fever or chills. She was being treated with Mucinex and an antibiotics as outpatient She had a DNR order issued in the past, but at the present time it is rescinded , she is ok with aggressive care if needed. Past Medical/Surgical History COPD HTN Hypothyroidism Family History No pertinent family history Social History Smoking Status: Former Smoker (quit 10 years ago) Smokeless Tobacco Use: No Alcohol Use: none Drug Use: none Marital Status: Housing Status: assisted living Occupation Status: retired Allergies Coded Allergies: Iodinated Diagnostic Agents (Verified Allergy, Unknown, RASH, 09/13/17) Home Medications Scheduled Aspirin (Aspirin Ec), 81 MG PO DAILY Atorvastatin (Lipitor), 10 MG PO DAILY Bisacodyl (Bisac-Evac), 10 SUPP CO UD Budesonide (Inhalation) (Pulmicort Respules 0.5MG/2ML), 0.5 MG INH BID Citalopram Hydrobromide (Celexa), 20 MG PO BID Diltiazem Hcl Coated Beads (Diltiazem Hcl Er), 1 CAP PO DAILY Docusate Sodium (Docusate Sodium), 100 MG PO BID Ferrous Sulfate (Ferrous Sulfate), 1 TAB PO DAILY Fluticasone Furoate-Vilanterol (Breo Ellipta), 1 PUFF INH DAILY Furosemide (Lasix), 1 TAB PO DAILY Levothyroxine Sodium (Levothyroxine Sodium), 1 TAB PO DAILY Lisinopril (Prinivil), 5 MG PO DAILY Magnesium Hydroxide (Milk Of Magnesia), 30 ML PO UD Potassium Chloride (Micro-K Ext Rel), 10 MEQ PO DAILY Prednisone (Prednisone), 10 MG PO DAILY Trazodone Hcl (Trazodone), 25 MG PO DAILY [Amox,Tr-K,[id number]], 1 TAB PO TID Scheduled PRN Acetaminophen Tab (Tylenol), 650 MG PO Q4H PRN for Pain Clonazepam (Klonopin), 1 MG PO BID PRN for Anxiety Dextromethorphan-Guaifenesin (Mucinex Dm), 1 TAB PO Q12 PRN for CONGESTION Loperamide Hcl (Imodium), 2 MG PO Q4H PRN for Diarrhea Oxycodone HCl (Oxycodone HCl), 5 MG PO Q4 PRN for Pain Senna/Docusate Sod (Senokot S), 1 TAB PO HS PRN for Constipation Current Inpatient Medications Current Inpatient Medications Medications (Trade) Dose Ordered Sig/Nishant Route Start Time Stop Time Status Last Admin Dose Admin Potassium Chloride/Dextrose/ Sod Cl 1,000 ml @ 100 mls/hr Q10H IV 09/13/17 16:20 10/13/17 16:19 Acetaminophen (Tylenol Tab) 650 mg Q4H PRN PO 09/13/17 16:30 10/13/17 16:29 Magnesium Hydroxide (Milk Of Magnesia Susp) 30 ml Q12H PRN PO 09/13/17 16:30 10/13/17 16:29 UNV Ondansetron HCl (Zofran Inj) 4 mg Q6H PRN IV 09/13/17 16:30 10/13/17 16:29 Miscellaneous Information (Icu Protocol For Hyperglycemia) 1 ea PRN PRN N/A 09/13/17 16:30 09/15/17 16:29 UNV Levalbuterol (Xopenex 1.25MG/ 3ML Neb) 1.25 mg Q6R INH 09/13/17 21:00 10/13/17 20:59 UNV Methylprednisolone Sodium Succinate 80 mg/Syringe 1.28 ml @ 1.5 mls/min TID IV 09/13/17 21:00 10/13/17 20:59 Acetaminophen (Tylenol Tab) 650 mg Q4H PRN PO 09/13/17 16:30 10/13/17 16:29 UNV Aspirin (Ecotrin Tab) 81 mg DAILY PO 09/14/17 09:00 10/14/17 08:59 Atorvastatin Calcium (Lipitor Tab) 10 mg DAILY PO 09/14/17 09:00 10/14/17 08:59 Bisacodyl (Dulcolax Supp) 10 mg UD CO 09/13/17 16:30 10/13/17 16:29 UNV Budesonide (Pulmicort Respules 0.5MG/ 2ML Neb Soln) 0.5 mg BID INH 09/13/17 21:00 10/13/17 20:59 UNV Citalopram Hydrobromide (celeXA TAB) 20 mg BID PO 09/13/17 21:00 10/13/17 20:59 Clonazepam (Klonopin Tab) 1 mg BID PRN PO 09/13/17 16:30 10/13/17 16:29 Diltiazem HCl (Cardizem Cd Cap) 180 mg DAILY PO 09/14/17 09:00 10/14/17 08:59 Docusate Sodium (coLACE CAP) 100 mg BID PO 09/13/17 21:00 10/13/17 20:59 Ferrous Sulfate (Feosol Tab) 325 mg DAILY PO 09/14/17 09:00 10/14/17 08:59 Furosemide (Lasix Tab) 20 mg DAILY PO 09/14/17 09:00 10/14/17 08:59 Levothyroxine Sodium (Synthroid Tab) 125 mcg DAILYBB PO 09/14/17 06:00 10/14/17 05:59 Lisinopril (Zestril Tab) 5 mg DAILY PO 09/14/17 09:00 10/14/17 08:59 UNV Loperamide HCl (Imodium Cap) 2 mg Q4H PRN PO 09/13/17 16:30 10/13/17 16:29 UNV Magnesium Hydroxide (Milk Of Magnesia Susp) 30 ml UD PO 09/13/17 16:30 10/13/17 16:29 UNV Oxycodone HCl (Roxicodone Immediate Rel 5MG Home Pack) 5 homepack Q4 PRN PO 09/13/17 16:30 09/27/17 16:29 UNV Potassium Chloride (Klor-Con M10) 10 meq DAILY PO 09/14/17 09:00 10/14/17 08:59 Senna/Docusate Sodium (Senokot S Tab) 1 tab HS PRN PO 09/13/17 16:30 10/13/17 16:29 Trazodone HCl (Desyrel Tab) 25 mg DAILY PO 09/14/17 09:00 10/14/17 08:59 Non-Formulary Medication (Dextromethorphan-Guaifenesin (Mucinex Dm)) 1 tab Q12 PRN PO 09/13/17 16:30 10/13/17 16:29 UNV Non-Formulary Medication (Fluticasone Furoate-Vilanterol (Breo Ellipta)) 1 puff DAILY INH 09/14/17 09:00 10/14/17 08:59 UNV Non-Formulary Medication ([Amox,Tr-K,[id number]] ) 1 tab TID PO 09/13/17 21:00 10/13/17 20:59 UNV Heparin Sodium (Porcine) (Heparin Sq 5000 Unit/0.5ml) 5,000 unit Q8 SQ 09/13/17 22:00 10/13/17 21:59 UNV Review of Systems Per HPI, all other systems reviewed and negative Physical Exam Date Time Temp Pulse Resp B/P (MAP) Pulse Ox O2 Delivery O2 Flow Rate FiO2 09/13/17 16:40 87 95 100 09/13/17 16:36 36.6 78 29 135/49 95 BiPAP 40 09/13/17 16:01 76 85/41 92 09/13/17 16:00 BiPAP 40 09/13/17 15:45 75 94/41 92 BiPAP 40 09/13/17 15:30 74 89/42 93 BiPAP 40 09/13/17 15:17 78 98/44 95 BiPAP 40 09/13/17 15:00 73 99/46 95 BiPAP 40 09/13/17 14:48 78 29 105/47 94 BiPAP 40 09/13/17 14:36 94 BiPAP 40 09/13/17 14:09 82 27 105/48 94 BiPAP 40 09/13/17 13:55 94 BiPAP 40 09/13/17 13:55 38.2 90 34 129/54 96 CPAP 60 09/13/17 13:55 96 CPAP 60 09/13/17 13:45 93 31 95 BiPAP/CPAP 40 09/13/17 13:45 93 94 09/13/17 13:37 98 General: Elderly female, thin and frail, mild respiratory distress, wearing NIV full face mask HEENT: NC/AT CVS: S1S2 reg Lungs, clear to auscultation, diminished breath sounds b/l, prolonged expiratory phase Abd: Soft, non-distended Ext:no edema IMAGING ACCOUNT MANAGER: Mildly lethargic, no focal deficit Laboratory Results Last 24 Hours Test 09/13/17 13:40 09/13/17 13:47 09/13/17 13:51 09/13/17 13:55 White Blood Count 20.54 K/uL Red Blood Count 3.53 M/uL Hemoglobin 11.3 g/dL Hematocrit 37.1 % Mean Corpuscular Volume 105.1 fL Mean Corpuscular Hemoglobin 32.0 pg Mean Corpuscular Hemoglobin Concent 30.5 g/dl Platelet Count 416 K/uL Mean Platelet Volume 9.3 fL Neutrophils (%) (Auto) 94.3 % Lymphocytes (%) (Auto) 1.8 % Monocytes (%) (Auto) 3.3 % Eosinophils (%) (Auto) 0.0 % Basophils (%) (Auto) 0.1 % Neutrophils # (Auto) 19.38 K/uL Lymphocytes # (Auto) 0.37 K/uL Monocytes # (Auto) 0.67 K/uL Eosinophils # (Auto) 0.00 K/uL Basophils # (Auto) 0.02 K/uL RDW Standard Deviation 57.0 fL RDW Coefficient of Variation 14.9 % Immature Granulocyte % (Auto) 0.5 % Immature Granulocyte # (Auto) 0.10 K/uL Prothrombin Time 9.8 SECONDS Prothromb Time International Ratio 0.9 Activated Partial Thromboplast Time 27.1 SECONDS Partial Thromboplastin Ratio 1.0 Sodium Level 136 mmol/L Potassium Level 5.1 mmol/L Chloride Level 97 mmol/L Carbon Dioxide Level 34 mmol/L Anion Gap 5.0 mmol/L 12.0 mmol/L Blood Urea Nitrogen 27 mg/dl Creatinine 1.44 mg/dl Est Creatinine Clear Calc Drug Dose 23.8 ml/min Estimated GFR () 39.1 Estimated GFR (Non- 33.7 BUN/Creatinine Ratio 18.4 Random Glucose 172 mg/dl Calcium Level 8.6 mg/dl Total Bilirubin 0.4 mg/dl Aspartate Amino Transf (AST/SGOT) 17 U/L Alanine Aminotransferase (ALT/SGPT) 18 U/L Alkaline Phosphatase 75 U/L Total Creatine Kinase 36 U/L Creatine Kinase MB 1.0 ng/ml Creatine Kinase MB Ratio 2.8 Troponin I 0.041 ng/ml Total Protein 7.3 gm/dl Albumin 3.2 gm/dl Globulin 4.1 gm/dl Albumin/Globulin Ratio 0.8 Bedside Lactic Acid Venous 0.60 mmol/L Bedside Hemoglobin 12.2 g/dl Bedside Hematocrit 36 % Bedside Sodium 135 mEq/L Bedside Potassium 5.2 mEq/L Bedside Chloride 96 mEq/L Bedside Total CO2 34 mEq/l Bedside Blood Urea Nitrogen 26 mg/dl Bedside Creatinine 1.5 mg/dl Bedside Glucose (other) 179 mg/dl Bedside Ionized Calcium (Luciano) 1.17 mmol/l Influenza Type A Antigen Neg for Influ A Influenza Type B Antigen Neg for Influ B Test 09/13/17 13:56 09/13/17 14:25 Bedside Blood Gas pH (LAB) 7.28 Bedside Blood Gas pCO2 (LAB) 77 mmHg Bedside Blood Gas pO2 (LAB) 95 mmHg Bedside Blood Gas HCO3 (LAB) 36 meq/L Bedside Blood Gas Total CO2 38 mEq/l Bedside Blood Gas Base Excess (LAB) 9.0 meq/L Bedside Blood Gas O2 Saturation 96.0 % Urine Color YELLOW Urine Appearance CLEAR Urine pH 5.0 Urine Specific [place] 1.016 Urine Protein TRACE Urine Glucose (UA) NEG Urine Ketones NEG Urine Occult Blood NEG Urine Nitrite NEG Urine Bilirubin NEG Urine Urobilinogen NEG Urine Leukocyte Esterase NEG Urine WBC (Auto) 1-5 /hpf Urine RBC (Auto) 0-4 /hpf Urine Hyaline Casts (Auto) 1-5 /lpf Urine Epithelial Cells (Auto) 10-20 /lpf Urine Bacteria (Auto) NEG Urine Pathogenic Casts 1-5 GRANULAR CASTS /lpf Urine Mucus PRESENT Diagnostic Results CXR today: IMPRESSION: Minimal residual left retrocardiac atelectasis. Otherwise no acute process. Assessment & Plan Acute on chronic respiratory failure with hypercapnia COPD exacerbation HTN Hypothyroidism Plan:Started on iv steroids. Solumedrol 40 mg tid should be enough Round the clock Duoneb Empiric Abx, broad spectrum. On Vanco, Zosyn and Levaquin (also for dual antipseudomonal coverage) Keep patient on BIPAP. Repeat ABG tonight May need to be discharged on nocturnal bi-level NIV Appears dehydrated, hold diuretics, gentle hydration DVT prophylaxis: Heparin SC, SCDs Critical care time spent with the patient, family, reviewing the chart, discussing with consultants/ED greater than 30 minutes
[2017-09-13 20:03] VITALS: O2SAT 97
[2017-09-13] MEDS: ALBUT/IPRATROP 3MG/0.5MG NEB 3 ML VIAL INH SCH ×2 (20:28→23:58)
[2017-09-13] MEDS: BUDESONIDE 0.5 MG/2 ML VIAL (PULMICORT) INH SCH (20:28)
[2017-09-13 20:30] VITALS: PULSE 66; O2SAT 95; O2SAT 97
[2017-09-13] MEDS ORDERED: [UNRECOGNIZED DRUG - MIXTURE] PO SCH (21:00)
[2017-09-13] MEDS ORDERED: METHYLPREDNISOLONE IV 80 MG in SYRINGE 0 ML IV SCH (21:00)
[2017-09-13] MEDS ORDERED: LEVALBUTEROL 1.25MG/3ML NEB INH SCH (21:00)
[2017-09-13] MEDS: METHYLPREDNISOLONE IV 40 MG in SYRINGE 0 ML IV SCH (21:23)
[2017-09-13] MEDS: DOCUSATE SODIUM 100 MG CAP PO SCH (21:23)
[2017-09-13] MEDS: CITALOPRAM 20 MG TAB PO SCH (21:23)
[2017-09-13] MEDS: HEPARIN SOD 5000 UNIT/0.5 ML CARP SQ SCH (21:25)
[2017-09-13] MEDS ORDERED: PIPERACILL/TAZOBAC IV 3.375 GM in DEXTROSE 5% 100ML IV ONE (22:00)
[2017-09-13] MEDS ORDERED: PIPERACILL/TAZOBAC IV 3.375 GM in DEXTROSE 5% 100ML 100 ML IV SCH (22:00)
[2017-09-13 23:59] VITALS: PULSE 75; O2SAT 96
[2017-09-14] VITALS (17 sets, daily range): BP systolic 89–120; BP diastolic 39–56; PULSE 74–102; TEMP 37.5; O2SAT 90–99
[2017-09-14] MEDS: PIPERACILL/TAZOBAC IV 3.375 GM in DEXTROSE 5% 100ML IV SCH ×3 (04:00→21:02)
[2017-09-14] MEDS: LEVOTHYROXINE 125 MCG TAB PO SCH (06:04)
[2017-09-14] MEDS: HEPARIN SOD 5000 UNIT/0.5 ML CARP SQ SCH ×3 (06:05→21:25)
[2017-09-14] MEDS: ALBUT/IPRATROP 3MG/0.5MG NEB 3 ML VIAL INH SCH ×4 (07:22→20:00)
[2017-09-14] MEDS: BUDESONIDE 0.5 MG/2 ML VIAL (PULMICORT) INH SCH ×2 (07:23→20:00)
--- NOTE | 2017-09-14 07:50 | DIAGNOSTIC IMAGING REPORT ---
CHEST ONE VIEW PORTABLE HISTORY: Respiratory failure, bronchitis COMPARISON: Chest 09/13/2017. FINDINGS: No pneumothorax. Small left pleural effusion and left basilar densities are again noted. The heart is normal in size. No evidence for pulmonary edema. Right shoulder prosthesis. A few linear density at the right lung base. IMPRESSION: No change in the small left pleural effusion and left basilar airspace opacities. Electronically signed by: Pipe Hung M.D. 09/14/2017 7:49 AM Dictated Date/Time: 09/14/2017 7:48 AM
[2017-09-14] MEDS: DILTIAZEM HCL 180 MG CAPCR PO SCH (08:44)
[2017-09-14] MEDS: ASPIRIN 81 MG ECTAB PO SCH (08:50)
[2017-09-14] MEDS: CITALOPRAM 20 MG TAB PO SCH ×2 (08:50→21:24)
[2017-09-14] MEDS: METHYLPREDNISOLONE IV 40 MG in SYRINGE 0 ML IV SCH ×3 (08:50→21:23)
[2017-09-14] MEDS: DOCUSATE SODIUM 100 MG CAP PO SCH ×2 (08:50→21:24)
[2017-09-14] MEDS: ATORVASTATIN 10 MG TAB PO SCH (08:50)
[2017-09-14] MEDS: FERROUS SULFATE 325 MG TAB PO SCH (08:50)
[2017-09-14] MEDS: TRAZODONE HCL 50 MG TAB PO SCH (08:51)
[2017-09-14] MEDS ORDERED: FUROSEMIDE 20 MG TAB PO SCH (09:00)
[2017-09-14] MEDS ORDERED: NON-FORMULARY MEDICATION (Fluticasone Furoate-Vilanterol (Breo Ellipta) 1 PUFF) INH SCH (09:00)
[2017-09-14] MEDS ORDERED: LISINOPRIL 5 MG TAB PO SCH (09:00)
[2017-09-14] MEDS ORDERED: POTASSIUM CHLORIDE 10 MEQ TABCR PO SCH (09:00)
[2017-09-14] MEDS ORDERED: PIPERACILL/TAZOBAC CONSULT ACTIVE PRN (09:15)
[2017-09-14 09:16] LABS: BASO % 0.1 %; BASO ABS # 0.01 K/uL (0-0.2); HEMATOCRIT 31.3 % (37-47); HEMOGLOBIN 9.6 g/dL (12.0-16.0); IG# 0.07 K/uL (0.00-0.02); LYMPH % 3.2 %; MEAN CELL VOLUME 103.6 fL (80-100); MEAN CORPUSCULAR HEMOGLOBIN 31.8 pg (25-34); MEAN CORPUSCULAR HGB CONC 30.7 g/dl (32-36); MEAN PLATELET VOLUME 9.1 fL (7.4-10.4); MONO % 2.7 %; MONO ABS # 0.41 K/uL (0.11-0.59); NEUT % 93.5 %; NEUT ABS # 14.48 K/uL (1.4-6.5); PLATELET COUNT 333 K/uL (130-400); RED CELL DISTRIBUTION WIDTH CV 14.7 % (11.5-14.5); RED CELL DISTRIBUTION WIDTH SD 55.4 fL (36.4-46.3); WHITE BLOOD COUNT 15.47 K/uL (4.8-10.8)
[2017-09-14 09:50] LABS: ALBUMIN 2.5 gm/dl (3.4-5.0); CALCIUM 8.1 mg/dl (8.5-10.1); CREATININE 1.64 mg/dl (0.60-1.20); POTASSIUM 5.1 mmol/L (3.5-5.1)
[2017-09-14] MEDS ORDERED: LEVOFLOXACIN / D5W 500 MG in PREMIXED IN D5W 100 ML IV SCH (10:00)
[2017-09-14 10:04] LABS: PHOSPHORUS 3.2 mg/dl (2.5-4.9); TOTAL PROTEIN 5.9 gm/dl (6.4-8.2)
[2017-09-14] MEDS: SODIUM CHLORIDE 0.9% 1000ML 1,000 ML IV SCH (12:20)
[2017-09-14] MEDS ORDERED: LEVOFLOXACIN CONSULT ACTIVE PRN (14:15)
--- NOTE | 2017-09-14 16:54 | Critical Care Progress Note ---
Critical Care Progress Note Date of Service Sep 14, 2017. Attending Dr. Dhillon Subjective Weaned off BIPAP this AM. Doing better. 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 Solumedrol 40 mg tid should be enough Round the clock Duoneb Empiric Abx, broad spectrum. On Vanco, Zosyn and Levaquin (also for dual antipseudomonal coverage) Tolerating nasal cannula (using 4 liters at home) Appears dehydrated still, hold diuretics, gentle hydration DVT prophylaxis: Heparin SC, SCDs Critical care time spent with the patient, family, reviewing the chart, discussing with consultants/ED greater than 30 minutes Data Medications: Current Inpatient Medications Medications (Trade) Dose Ordered Sig/Nishant Route Start Time Stop Time Status Last Admin Dose Admin Acetaminophen (Tylenol Tab) 650 mg Q4H PRN PO 09/13/17 16:30 10/13/17 16:29 Magnesium Hydroxide (Milk Of Magnesia Susp) 30 ml Q12H PRN PO 09/13/17 16:30 10/13/17 16:29 Ondansetron HCl (Zofran Inj) 4 mg Q6H PRN IV 09/13/17 16:30 10/13/17 16:29 Miscellaneous Information (Icu Protocol For Hyperglycemia) 1 ea PRN PRN N/A 09/13/17 16:30 09/15/17 16:29 Aspirin (Ecotrin Tab) 81 mg DAILY PO 09/14/17 09:00 10/14/17 08:59 09/14/17 08:50 81 MG Atorvastatin Calcium (Lipitor Tab) 10 mg DAILY PO 09/14/17 09:00 10/14/17 08:59 09/14/17 08:50 10 MG Bisacodyl (Dulcolax Supp) 10 mg UD MT 09/13/17 16:30 10/13/17 16:29 Budesonide (Pulmicort Respules 0.5MG/ 2ML Neb Soln) 0.5 mg BIDR INH 09/13/17 20:00 10/13/17 19:59 09/13/17 20:28 0.5 MG Citalopram Hydrobromide (celeXA TAB) 20 mg BID PO 09/13/17 21:00 10/13/17 20:59 09/14/17 08:50 20 MG Clonazepam (Klonopin Tab) 1 mg BID PRN PO 09/13/17 16:30 10/13/17 16:29 Diltiazem HCl (Cardizem Cd Cap) 180 mg DAILY PO 09/14/17 09:00 10/14/17 08:59 Docusate Sodium (coLACE CAP) 100 mg BID PO 09/13/17 21:00 10/13/17 20:59 09/14/17 08:50 100 MG Ferrous Sulfate (Feosol Tab) 325 mg DAILY PO 09/14/17 09:00 10/14/17 08:59 09/14/17 08:50 325 MG Levothyroxine Sodium (Synthroid Tab) 125 mcg DAILYBB PO 09/14/17 06:00 10/14/17 05:59 09/14/17 06:04 125 MCG Lisinopril (Zestril Tab) 5 mg DAILY PO 09/14/17 09:00 10/14/17 08:59 Loperamide HCl (Imodium Cap) 2 mg Q4H PRN PO 09/13/17 16:30 10/13/17 16:29 Oxycodone HCl (Roxicodone Immediate Rel Tab) 5 mg Q4 PRN PO 09/13/17 16:30 09/27/17 16:29 Potassium Chloride (Klor-Con M10) 10 meq DAILY PO 09/14/17 09:00 10/14/17 08:59 Senna/Docusate Sodium (Senokot S Tab) 1 tab HS PRN PO 09/13/17 16:30 10/13/17 16:29 Trazodone HCl (Desyrel Tab) 25 mg DAILY PO 09/14/17 09:00 10/14/17 08:59 09/14/17 08:51 25 MG Miscellaneous Information (Order Awaiting Action) 1 ea Q12H PRN PO 09/14/17 00:00 10/14/17 00:00 Heparin Sodium (Porcine) (Heparin Sq 5000 Unit/0.5ml) 5,000 unit Q8 SQ 09/13/17 22:00 10/13/17 21:59 09/14/17 12:22 5,000 UNIT Sodium Chloride 1,000 ml @ 50 mls/hr Q20H IV 09/13/17 18:00 10/13/17 17:59 09/14/17 12:20 50 MLS/HR Methylprednisolone Sodium Succinate 40 mg/Syringe 0.64 ml @ 1.5 mls/min TID IV 09/13/17 21:00 10/13/17 20:59 09/14/17 12:21 1.5 MLS/MIN Miscellaneous Information (Order Awaiting Action) 1 ea QS N/A 09/14/17 00:00 10/14/17 00:00 Albuterol/ Ipratropium (Duoneb) 3 ml Q4R INH 09/13/17 20:00 10/13/17 19:59 09/14/17 14:40 3 ML Piperacillin Sod/ Tazobactam Sod 3.375 gm/Dextrose 115 ml @ 28.75 mls/ hr Q8H IV 09/14/17 04:00 09/20/17 03:59 09/14/17 12:19 28.75 MLS/HR Piperacillin Sod/ Tazobactam Sod (Consult) 1 ea UD PRN N/A 09/14/17 09:15 10/14/17 09:14 Levofloxacin 750 mg/Prmx 150 ml @ 100 mls/hr Q48H IV 09/16/17 08:00 09/23/17 07:59 Levofloxacin (Consult) 1 ea UD PRN N/A 09/14/17 14:15 10/14/17 14:14 I & O: 24-Hour Column 09/15/17 08:00 Intake Total 1050 ml Output Total 300 ml Balance 750 ml Vital Signs: Date Time Temp Pulse Resp B/P (MAP) Pulse Ox O2 Delivery O2 Flow Rate FiO2 09/14/17 16:00 Nasal Cannula 4.0 09/14/17 16:00 92 20 89/40 (56) 92 Nasal Cannula 4.0 09/14/17 14:40 87 28 93 Nasal Cannula 4.0 09/14/17 14:10 37.5 90 26 91/39 (56) 94 Nasal Cannula 4.0 09/14/17 12:00 Nasal Cannula 6.0 09/14/17 11:06 80 31 96 Nasal Cannula 6.0 09/14/17 08:00 BiPAP 50 09/14/17 07:26 75 99 50 09/14/17 05:49 74 40 97 BiPAP/CPAP 50 09/14/17 04:19 97 BiPAP 50 09/14/17 00:42 97 BiPAP 50 09/14/17 00:00 75 96 50 09/13/17 23:59 75 40 96 BiPAP/CPAP 50 09/13/17 20:30 66 97 50 09/13/17 20:30 66 40 95 BiPAP/CPAP 50 09/13/17 20:03 97 BiPAP 50 09/13/17 16:40 87 95 100 09/13/17 16:36 36.6 78 29 135/49 95 BiPAP 40 Laboratory Results: Last 24 Hours Test 09/13/17 20:28 09/13/17 23:53 09/14/17 00:12 09/14/17 00:16 Blood Gas Sample Site L Radial L Radial Bedside Blood Gas pH (LAB) 7.22 7.28 Bedside Blood Gas pCO2 (LAB) 73 mmHg 61 mmHg Bedside Blood Gas pO2 (LAB) 90 mmHg 88 mmHg Bedside Blood Gas HCO3 (LAB) 30 meq/L 29 meq/L Bedside Blood Gas Total CO2 32 mEq/l 31 mEq/l Bedside Blood Gas Base Excess (LAB) 2.0 meq/L 2.0 meq/L Bedside Blood Gas O2 Saturation 95.0 % 95.0 % Yuri Test Pass Pass Oxygen Delivery Device BIPAP BIPAP Bedside FiO2 50 % 50 % Blood Gas IPAP 12 16 Bedside Oxygen Rate (breaths/min) 41 Troponin I 0.023 ng/ml Bedside Glucose 154 mg/dl Test 09/14/17 09:04 09/14/17 09:07 09/14/17 12:14 White Blood Count 15.47 K/uL Red Blood Count 3.02 M/uL Hemoglobin 9.6 g/dL Hematocrit 31.3 % Mean Corpuscular Volume 103.6 fL Mean Corpuscular Hemoglobin 31.8 pg Mean Corpuscular Hemoglobin Concent 30.7 g/dl Platelet Count 333 K/uL Mean Platelet Volume 9.1 fL Neutrophils (%) (Auto) 93.5 % Lymphocytes (%) (Auto) 3.2 % Monocytes (%) (Auto) 2.7 % Eosinophils (%) (Auto) 0.0 % Basophils (%) (Auto) 0.1 % Neutrophils # (Auto) 14.48 K/uL Lymphocytes # (Auto) 0.50 K/uL Monocytes # (Auto) 0.41 K/uL Eosinophils # (Auto) 0.00 K/uL Basophils # (Auto) 0.01 K/uL RDW Standard Deviation 55.4 fL RDW Coefficient of Variation 14.7 % Immature Granulocyte % (Auto) 0.5 % Immature Granulocyte # (Auto) 0.07 K/uL Sodium Level 136 mmol/L Potassium Level 5.1 mmol/L Chloride Level 101 mmol/L Carbon Dioxide Level 30 mmol/L Anion Gap 5.0 mmol/L Blood Urea Nitrogen 33 mg/dl Creatinine 1.64 mg/dl Est Creatinine Clear Calc Drug Dose 20.9 ml/min Estimated GFR () 33.4 Estimated GFR (Non- 28.8 BUN/Creatinine Ratio 19.9 Random Glucose 132 mg/dl Calcium Level 8.1 mg/dl Phosphorus Level 3.2 mg/dl Magnesium Level 2.3 mg/dl Total Bilirubin 0.3 mg/dl Direct Bilirubin 0.1 mg/dl Aspartate Amino Transf (AST/SGOT) 16 U/L Alanine Aminotransferase (ALT/SGPT) 15 U/L Alkaline Phosphatase 54 U/L Troponin I < 0.015 ng/ml Total Protein 5.9 gm/dl Albumin 2.5 gm/dl Blood Gas Sample Site R Radial Bedside Blood Gas pH (LAB) 7.27 Bedside Blood Gas pCO2 (LAB) 61 mmHg Bedside Blood Gas pO2 (LAB) 87 mmHg Bedside Blood Gas HCO3 (LAB) 28 meq/L Bedside Blood Gas Total CO2 30 mEq/l Bedside Blood Gas Base Excess (LAB) 1.0 meq/L Bedside Blood Gas O2 Saturation 95.0 % Yuri Test Pass Oxygen Delivery Device Cannula Bedside Glucose 122 mg/dl
--- NOTE | 2017-09-14 19:38 | Progress Note ---
Subjective Date of Service: Sep 14, 2017. Subjective Pt evaluation today including: conversation w/ patient, physical exam, chart review, lab review, review of inpatient medication list feeling better weaned off bipap will go tback on at bedtime but doing better some sob w exertion but down to 6L at rest, feels like she is making progress nursing notes no new problems as well Problem List Medical Problems: (1) COPD exacerbation Status: Acute (2) Respiratory failure Status: Acute Review of Systems all other ROS otherwise negative except for as above Objective Vital Signs Date Time Temp Pulse Resp B/P (MAP) Pulse Ox O2 Delivery O2 Flow Rate FiO2 09/14/17 19:01 91 24 92/43 (59) 97 Nasal Cannula 6.0 09/14/17 16:00 Nasal Cannula 4.0 09/14/17 16:00 92 20 89/40 (56) 92 Nasal Cannula 4.0 09/14/17 14:40 87 28 93 Nasal Cannula 4.0 09/14/17 14:10 37.5 90 26 91/39 (56) 94 Nasal Cannula 4.0 09/14/17 12:00 Nasal Cannula 6.0 09/14/17 11:06 80 31 96 Nasal Cannula 6.0 09/14/17 08:00 BiPAP 50 09/14/17 07:26 75 99 50 09/14/17 05:49 74 40 97 BiPAP/CPAP 50 09/14/17 04:19 97 BiPAP 50 09/14/17 00:42 97 BiPAP 50 09/14/17 00:00 75 96 50 09/13/17 23:59 75 40 96 BiPAP/CPAP 50 09/13/17 20:30 66 97 50 09/13/17 20:30 66 40 95 BiPAP/CPAP 50 09/13/17 20:03 97 BiPAP 50 Physical Exam General Appearance: no apparent distress (fatigued) Eyes: EOMI Neck: trachea midline Respiratory/Chest: no respiratory distress, no accessory muscle use, + decreased breath sounds (no r/r/w but diminished air entry) Cardiovascular: regular rate, rhythm 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, alert Laboratory Results Last 24 Hours Test 09/13/17 20:28 09/13/17 23:53 09/14/17 00:12 09/14/17 00:16 Blood Gas Sample Site L Radial L Radial Bedside Blood Gas pH (LAB) 7.22 7.28 Bedside Blood Gas pCO2 (LAB) 73 mmHg 61 mmHg Bedside Blood Gas pO2 (LAB) 90 mmHg 88 mmHg Bedside Blood Gas HCO3 (LAB) 30 meq/L 29 meq/L Bedside Blood Gas Total CO2 32 mEq/l 31 mEq/l Bedside Blood Gas Base Excess (LAB) 2.0 meq/L 2.0 meq/L Bedside Blood Gas O2 Saturation 95.0 % 95.0 % Yuri Test Pass Pass Oxygen Delivery Device BIPAP BIPAP Bedside FiO2 50 % 50 % Blood Gas IPAP 12 16 Bedside Oxygen Rate (breaths/min) 41 Troponin I 0.023 ng/ml Bedside Glucose 154 mg/dl Test 09/14/17 09:04 09/14/17 09:07 09/14/17 12:14 White Blood Count 15.47 K/uL Red Blood Count 3.02 M/uL Hemoglobin 9.6 g/dL Hematocrit 31.3 % Mean Corpuscular Volume 103.6 fL Mean Corpuscular Hemoglobin 31.8 pg Mean Corpuscular Hemoglobin Concent 30.7 g/dl Platelet Count 333 K/uL Mean Platelet Volume 9.1 fL Neutrophils (%) (Auto) 93.5 % Lymphocytes (%) (Auto) 3.2 % Monocytes (%) (Auto) 2.7 % Eosinophils (%) (Auto) 0.0 % Basophils (%) (Auto) 0.1 % Neutrophils # (Auto) 14.48 K/uL Lymphocytes # (Auto) 0.50 K/uL Monocytes # (Auto) 0.41 K/uL Eosinophils # (Auto) 0.00 K/uL Basophils # (Auto) 0.01 K/uL RDW Standard Deviation 55.4 fL RDW Coefficient of Variation 14.7 % Immature Granulocyte % (Auto) 0.5 % Immature Granulocyte # (Auto) 0.07 K/uL Sodium Level 136 mmol/L Potassium Level 5.1 mmol/L Chloride Level 101 mmol/L Carbon Dioxide Level 30 mmol/L Anion Gap 5.0 mmol/L Blood Urea Nitrogen 33 mg/dl Creatinine 1.64 mg/dl Est Creatinine Clear Calc Drug Dose 20.9 ml/min Estimated GFR () 33.4 Estimated GFR (Non- 28.8 BUN/Creatinine Ratio 19.9 Random Glucose 132 mg/dl Calcium Level 8.1 mg/dl Phosphorus Level 3.2 mg/dl Magnesium Level 2.3 mg/dl Total Bilirubin 0.3 mg/dl Direct Bilirubin 0.1 mg/dl Aspartate Amino Transf (AST/SGOT) 16 U/L Alanine Aminotransferase (ALT/SGPT) 15 U/L Alkaline Phosphatase 54 U/L Troponin I < 0.015 ng/ml Total Protein 5.9 gm/dl Albumin 2.5 gm/dl Blood Gas Sample Site R Radial Bedside Blood Gas pH (LAB) 7.27 Bedside Blood Gas pCO2 (LAB) 61 mmHg Bedside Blood Gas pO2 (LAB) 87 mmHg Bedside Blood Gas HCO3 (LAB) 28 meq/L Bedside Blood Gas Total CO2 30 mEq/l Bedside Blood Gas Base Excess (LAB) 1.0 meq/L Bedside Blood Gas O2 Saturation 95.0 % Yuri Test Pass Oxygen Delivery Device Cannula Bedside Glucose 122 mg/dl Assessment and Plan COPD exacerbation with acute on chronic respiratory failure and hypoxia: i ongoing nebs, steroids ongoign antibiotic coverage O2, supportive care, Bipap prn and at HS chronic presumably diastolic CHF: no acute exacerbation continue home meds Monitor while on IVF ARF: cr was 1.15 last month Monitor on IVF Likely related to recent poor PO intake, not improvign w fluids but also not markedly worse - continue to follow hold ACEi HyperK: mild, monitor, hold K HTN: follow, hold lasix and lisinopril w Cr Spasmodic torticollis: baclofen, klonopin, 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
[2017-09-15] VITALS (36 sets, daily range): BP systolic 96–154; BP diastolic 43–68; PULSE 66–96; TEMP 36.5–37; O2SAT 88–99
[2017-09-15] MEDS: PIPERACILL/TAZOBAC IV 3.375 GM in DEXTROSE 5% 100ML IV SCH ×3 (04:00→19:26)
[2017-09-15] MEDS: ALBUT/IPRATROP 3MG/0.5MG NEB 3 ML VIAL INH SCH ×6 (04:00→20:12)
[2017-09-15 05:22] LABS: BASO % 0.1 %; BASO ABS # 0.01 K/uL (0-0.2); HEMATOCRIT 29.9 % (37-47); HEMOGLOBIN 9.5 g/dL (12.0-16.0); IG# 0.05 K/uL (0.00-0.02); LYMPH % 3.3 %; LYMPH ABS # 0.47 K/uL (1.2-3.4); MEAN CELL VOLUME 102.7 fL (80-100); MEAN CORPUSCULAR HEMOGLOBIN 32.6 pg (25-34); MEAN CORPUSCULAR HGB CONC 31.8 g/dl (32-36); MEAN PLATELET VOLUME 9.3 fL (7.4-10.4); MONO % 3.1 %; MONO ABS # 0.45 K/uL (0.11-0.59); NEUT % 93.2 %; NEUT ABS # 13.37 K/uL (1.4-6.5); PLATELET COUNT 332 K/uL (130-400); RED CELL DISTRIBUTION WIDTH SD 56.7 fL (36.4-46.3); WHITE BLOOD COUNT 14.35 K/uL (4.8-10.8)
[2017-09-15 05:55] LABS: ALBUMIN 2.3 gm/dl (3.4-5.0); ALT/SGPT 14 U/L (12-78); AST/SGOT 18 U/L (15-37); BLOOD UREA NITROGEN 30 mg/dl (7-18); CALCIUM 7.8 mg/dl (8.5-10.1); CARBON DIOXIDE 32 mmol/L (21-32); CREATININE 1.55 mg/dl (0.60-1.20); GLUCOSE 129 mg/dl (70-99); POTASSIUM 4.6 mmol/L (3.5-5.1); SODIUM 137 mmol/L (136-145)
[2017-09-15 05:58] LABS: ALKALINE PHOSPHATASE 47 U/L (45-117); PHOSPHORUS 2.9 mg/dl (2.5-4.9); TOTAL PROTEIN 5.4 gm/dl (6.4-8.2)
[2017-09-15] MEDS: LEVOTHYROXINE 125 MCG TAB PO SCH (06:29)
[2017-09-15] MEDS: HEPARIN SOD 5000 UNIT/0.5 ML CARP SQ SCH ×3 (06:29→21:03)
[2017-09-15] MEDS: BUDESONIDE 0.5 MG/2 ML VIAL (PULMICORT) INH SCH ×2 (07:05→20:12)
--- NOTE | 2017-09-15 07:14 | DIAGNOSTIC IMAGING REPORT ---
CHEST ONE VIEW PORTABLE CLINICAL HISTORY: ICU pt chest pain COMPARISON STUDY: 09/14/2017 FINDINGS: Unchanging consolidative change left lung base. Lungs otherwise appear clear. No evidence for significant cardiac enlargement. IMPRESSION: Unchanged parenchymal infiltrate/effusion left lung base. The above report was generated using voice recognition software. It may contain grammatical, syntax or spelling errors. Electronically signed by: Jamari Lentz M.D. 09/15/2017 7:12 AM Dictated Date/Time: 09/15/2017 7:10 AM
[2017-09-15] MEDS: CITALOPRAM 20 MG TAB PO SCH ×2 (08:36→21:01)
[2017-09-15] MEDS: FERROUS SULFATE 325 MG TAB PO SCH (08:36)
[2017-09-15] MEDS: DOCUSATE SODIUM 100 MG CAP PO SCH ×2 (08:36→21:01)
[2017-09-15] MEDS: DILTIAZEM HCL 180 MG CAPCR PO SCH (08:36)
[2017-09-15] MEDS: ATORVASTATIN 10 MG TAB PO SCH (08:37)
[2017-09-15] MEDS: ASPIRIN 81 MG ECTAB PO SCH (08:37)
[2017-09-15] MEDS: TRAZODONE HCL 50 MG TAB PO SCH (08:37)
[2017-09-15] MEDS: METHYLPREDNISOLONE IV 40 MG in SYRINGE 0 ML IV SCH ×3 (08:39→21:01)
[2017-09-15] MEDS: SODIUM CHLORIDE 0.9% 1000ML 1,000 ML IV SCH (08:47)
--- NOTE | 2017-09-15 10:02 | Progress Note ---
Subjective Date of Service: Sep 15, 2017. Subjective Pt evaluation today including: conversation w/ patient, physical exam, chart review, lab review, review of studies, conversation w/ actuarial consultant, review of inpatient medication list Per nursing report possible was at 69% with NC O2 4 L this morning, BiPAP was replaced, during the period respiratory rate was up to 25/m And I seeing her patient is off BiPAP for half hour, she is calm, smiling, pleasant, conversational, awake and alert and orientated, no acute distress, is on 4 L per min is of NC O2 now Problem List Medical Problems: (1) COPD exacerbation Status: Acute (2) Respiratory failure Status: Acute Review of Systems Constitutional: + weakness, + fatigue, No see HPI, No fever, No chills, No sweats, No weight loss, No problem reported Eyes: No see HPI, No worsening of vision, No eye pain, No redness, No discharge , No diplopia, No problem reported ENT: No see HPI, No hearing loss, No unusual epistaxis, No nasal symptoms, No sore throat, No tinnitus, No dental problems, No trouble swallowing, No problem reported Respiratory: + see HPI, + shortness of breath Cardiac: No see HPI, No chest pain, No orthopnea, No PND, No edema, No claudication, No palpitations, No problem reported Abdomen: No see HPI, No pain, No nausea, No vomiting, No diarrhea, No constipation, No GI bleeding, No problem reported Musculoskeletal: No see HPI, No joint pain, No muscle pain, No swelling, No calf pain, No problem reported Female : No see HPI, No dysuria, No urinary frequency, No hematuria, No incontinence, No abnormal vaginal bleeding, No vaginal discharge, No problem reported Neurologic: No see HPI, No memory loss, No paralysis, No weakness, No numbness/ tingling, No vertigo, No balance problems, No problem reported Psychiatric: No see HPI, No depression symptoms, No anhedonism, No anxiety, No insomnia, No substance abuse, No problem reported Heme: No see HPI, No abnormal bleeding/bruising, No clotting problems, No swollen lymph nodes, No night sweats, No problem reported Skin: No see HPI, No rash, No itch, No new/changing skin lesions, No color change, No bleeding, No problem reported Objective Vital Signs Date Time Temp Pulse Resp B/P (MAP) Pulse Ox O2 Delivery O2 Flow Rate FiO2 09/15/17 08:15 95 Nasal Cannula 4.0 09/15/17 08:01 36.5 90 25 106/52 (70) 98 BiPAP 50 09/15/17 08:00 81 24 98 09/15/17 07:05 91 22 94 Nasal Cannula 5.0 09/15/17 07:01 79 19 120/61 (80) 99 09/15/17 07:00 71 26 99 09/15/17 06:01 36.8 78 18 116/47 (70) 96 Nasal Cannula 5.0 09/15/17 05:00 72 20 110/68 (82) 97 Nasal Cannula 5.0 09/15/17 04:38 98 Nasal Cannula 5.0 09/15/17 04:00 36.8 76 23 100/49 (66) 95 Nasal Cannula 5.0 09/15/17 03:01 80 23 115/57 (76) 96 Nasal Cannula 5.0 09/15/17 02:01 36.8 83 18 108/53 (71) 97 Nasal Cannula 5.0 09/15/17 01:00 82 25 100/43 (62) 97 Nasal Cannula 5.0 09/15/17 00:30 90 Nasal Cannula 5.0 09/15/17 00:01 37.0 84 22 96/46 (63) 95 Nasal Cannula 5.0 09/14/17 23:07 89 22 111/56 (74) 95 Nasal Cannula 5.0 09/14/17 23:00 91 32 111/56 (74) 94 Nasal Cannula 5.0 09/14/17 22:00 80 32 108/49 (68) 95 Nasal Cannula 5.0 09/14/17 21:01 87 30 105/ (35) 93 Nasal Cannula 5.0 09/14/17 20:53 89 23 96 Nasal Cannula 6.0 09/14/17 20:03 90 Nasal Cannula 5.0 09/14/17 20:01 37.5 102 45 120/44 (69) 90 Nasal Cannula 5.0 09/14/17 19:01 91 24 92/43 (59) 97 Nasal Cannula 6.0 09/14/17 16:00 Nasal Cannula 4.0 09/14/17 16:00 92 20 89/40 (56) 92 Nasal Cannula 4.0 09/14/17 14:40 87 28 93 Nasal Cannula 4.0 09/14/17 14:10 37.5 90 26 91/39 (56) 94 Nasal Cannula 4.0 09/14/17 12:00 Nasal Cannula 6.0 09/14/17 11:06 80 31 96 Nasal Cannula 6.0 Physical Exam General Appearance: WD/WN, no apparent distress, + thin Eyes: normal inspection ENT: normal ENT inspection, hearing grossly normal Neck: supple, no adenopathy, thyroid normal Respiratory/Chest: chest non-tender, lungs clear, no respiratory distress, + decreased breath sounds, + pertinent finding (no wheezing) Cardiovascular: regular rate, rhythm, no edema, no gallop, no JVD, no murmur Abdomen: normal bowel sounds, non tender, soft, + pertinent finding (Flanagan catheter in place with clear yellow urine) Extremities: normal range of motion, non-tender, normal inspection, no pedal edema 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, no motor/sensory deficits, alert, normal mood/affect, + abnormal cerebellar tests Skin: normal color, warm/dry Laboratory Results Last 24 Hours Test 09/14/17 12:14 09/14/17 18:10 09/15/17 01:09 09/15/17 04:48 Bedside Glucose 122 mg/dl 195 mg/dl 86 mg/dl White Blood Count 14.35 K/uL Red Blood Count 2.91 M/uL Hemoglobin 9.5 g/dL Hematocrit 29.9 % Mean Corpuscular Volume 102.7 fL Mean Corpuscular Hemoglobin 32.6 pg Mean Corpuscular Hemoglobin Concent 31.8 g/dl Platelet Count 332 K/uL Mean Platelet Volume 9.3 fL Neutrophils (%) (Auto) 93.2 % Lymphocytes (%) (Auto) 3.3 % Monocytes (%) (Auto) 3.1 % Eosinophils (%) (Auto) 0.0 % Basophils (%) (Auto) 0.1 % Neutrophils # (Auto) 13.37 K/uL Lymphocytes # (Auto) 0.47 K/uL Monocytes # (Auto) 0.45 K/uL Eosinophils # (Auto) 0.00 K/uL Basophils # (Auto) 0.01 K/uL RDW Standard Deviation 56.7 fL RDW Coefficient of Variation 15.0 % Immature Granulocyte % (Auto) 0.3 % Immature Granulocyte # (Auto) 0.05 K/uL Sodium Level 137 mmol/L Potassium Level 4.6 mmol/L Chloride Level 102 mmol/L Carbon Dioxide Level 32 mmol/L Anion Gap 3.0 mmol/L Blood Urea Nitrogen 30 mg/dl Creatinine 1.55 mg/dl Est Creatinine Clear Calc Drug Dose 22.1 ml/min Estimated GFR () 35.8 Estimated GFR (Non- 30.9 BUN/Creatinine Ratio 19.2 Random Glucose 129 mg/dl Calcium Level 7.8 mg/dl Phosphorus Level 2.9 mg/dl Magnesium Level 2.3 mg/dl Total Bilirubin 0.2 mg/dl Direct Bilirubin < 0.1 mg/dl Aspartate Amino Transf (AST/SGOT) 18 U/L Alanine Aminotransferase (ALT/SGPT) 14 U/L Alkaline Phosphatase 47 U/L Total Protein 5.4 gm/dl Albumin 2.3 gm/dl Assessment and Plan 81-year-old admitted on 09/13/2017 because of COPD exacerbation with acute on chronic respiratory failure and hypoxia: Stable and improving ongoing nebs, steroids COPD exacerbation with acute on chronic respiratory failure and hypoxia: Stable and improving: However and this morning was having hypoxic episodes when of BiPAP machine, possible need BiPAP support alternatingly with nasal cannula oxygen until more stable Possible left basal pneumonia per x-ray support, ongoign antibiotic coverage with Levaquin and Zosyn, blood culture negative for now, nasal MRSA Swapp is negative, continue O2, supportive care, Bipap prn and at HS, continue IV Solu- Medrol, and nebulizer treatment chronic presumably diastolic CHF: no acute exacerbation, continue home meds, watch for the wart him ARF: Improving, cr was 1.15 last month, creatinine 1.5 from 1.6 yesterday, Monitor on IVF, continue hold ACEi, current blood pressure is acceptable History of hypertension, lisinopril is on hold for now, Spasmodic torticollis: baclofen, klonopin, 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 was ambulating with cane, wears 3-4L O2 continuous. Pt hopes to return to [facility] on discharge. PT OT evaluation and treatment is ordered, bilingual social worker is on the case, I heard a palliative care is talking to patient's family for possible personal care facility hospice care Continued [facility] stay due to: multiple IV medications needed Discharge planning: uncertain
--- NOTE | 2017-09-15 10:52 | Palliative Care Consultation ---
Consultation Date of Consultation: Sep 15, 2017. Requesting Physician: Dr. Smith Attending Physician: Dr. Monroe Reason for Consultation: Goals of care History of Present Illness This 81 year old female patient with PMH COPD, CHF, and others listed below, presented to the hospital with respiratory distress 2/2 COPD exacerbation and possible LLL pneumonia. She was requiring Bipap when she came in. She is now on nasal cannula and doing a little better. Goal of care and code status are unclear. Palliative care is consulted to help establish goals. I met with the patient in room 109. She is pleasant and denies any complaints of pain or SOB at this time. She is feeling much better. We discussed code status and goals of care. Patient states she wants to get back to [facility] if at all possible. She does not want to keep coming back to hospital when this happens. However, she is not prepared to make decisions on her own. She gave me permission to talk with her son Ayaan or her [id number] Cassie. I called Cassie, as Ayaan is working, and discussed the above. She and Ayaan would like to talk with patient when they are able to make it in and we will determine goals of care. See plan below. Past Medical/Surgical History Medical History: COPD Chronic neck pain Torticollis Htn CHF Hypothyroidism Iron deficiency Social History Smoking Status: Former Smoker (quit 10 years ago) History of Alcohol Use: No Drug Use: none Marital Status: Occupation Status: retired Review of Systems Constitutional: No fever, No chills ENT: No trouble swallowing Respiratory: + dyspnea on exertion, No cough, No sputum, No dyspnea at rest Cardiac: No chest pain, No edema Abdomen: No pain, No nausea, No vomiting Female : No problem reported Psychiatric: No anxiety Allergies Coded Allergies: Iodinated Diagnostic Agents (Verified Allergy, Unknown, RASH, 09/13/17) Medications Current Inpatient Medications Medications (Trade) Dose Ordered Sig/Nishant Route Start Time Stop Time Status Last Admin Dose Admin Acetaminophen (Tylenol Tab) 650 mg Q4H PRN PO 09/13/17 16:30 10/13/17 16:29 Magnesium Hydroxide (Milk Of Magnesia Susp) 30 ml Q12H PRN PO 09/13/17 16:30 10/13/17 16:29 Ondansetron HCl (Zofran Inj) 4 mg Q6H PRN IV 09/13/17 16:30 10/13/17 16:29 Miscellaneous Information (Icu Protocol For Hyperglycemia) 1 ea PRN PRN N/A 09/13/17 16:30 09/15/17 16:29 Aspirin (Ecotrin Tab) 81 mg DAILY PO 09/14/17 09:00 10/14/17 08:59 09/15/17 08:37 81 MG Atorvastatin Calcium (Lipitor Tab) 10 mg DAILY PO 09/14/17 09:00 10/14/17 08:59 09/15/17 08:37 10 MG Bisacodyl (Dulcolax Supp) 10 mg UD MO 09/13/17 16:30 10/13/17 16:29 Budesonide (Pulmicort Respules 0.5MG/ 2ML Neb Soln) 0.5 mg BIDR INH 09/13/17 20:00 10/13/17 19:59 09/15/17 07:05 0.5 MG Citalopram Hydrobromide (celeXA TAB) 20 mg BID PO 09/13/17 21:00 10/13/17 20:59 09/15/17 08:36 20 MG Clonazepam (Klonopin Tab) 1 mg BID PRN PO 09/13/17 16:30 10/13/17 16:29 Diltiazem HCl (Cardizem Cd Cap) 180 mg DAILY PO 09/14/17 09:00 10/14/17 08:59 09/15/17 08:36 180 MG Docusate Sodium (coLACE CAP) 100 mg BID PO 09/13/17 21:00 10/13/17 20:59 09/15/17 08:36 100 MG Ferrous Sulfate (Feosol Tab) 325 mg DAILY PO 09/14/17 09:00 10/14/17 08:59 09/15/17 08:36 325 MG Levothyroxine Sodium (Synthroid Tab) 125 mcg DAILYBB PO 09/14/17 06:00 10/14/17 05:59 09/15/17 06:29 125 MCG Loperamide HCl (Imodium Cap) 2 mg Q4H PRN PO 09/13/17 16:30 10/13/17 16:29 Oxycodone HCl (Roxicodone Immediate Rel Tab) 5 mg Q4 PRN PO 09/13/17 16:30 1/27/18 16:29 Senna/Docusate Sodium (Senokot S Tab) 1 tab HS PRN PO 09/13/17 16:30 10/13/17 16:29 Trazodone HCl (Desyrel Tab) 25 mg DAILY PO 09/14/17 09:00 10/14/17 08:59 09/15/17 08:37 25 MG Miscellaneous Information (Order Awaiting Action) 1 ea Q12H PRN PO 09/14/17 00:00 10/14/17 00:00 Heparin Sodium (Porcine) (Heparin Sq 5000 Unit/0.5ml) 5,000 unit Q8 SQ 09/13/17 22:00 10/13/17 21:59 09/15/17 06:29 5,000 UNIT Sodium Chloride 1,000 ml @ 50 mls/hr Q20H IV 09/13/17 18:00 10/13/17 17:59 09/15/17 08:47 50 MLS/HR Methylprednisolone Sodium Succinate 40 mg/Syringe 0.64 ml @ 1.5 mls/min TID IV 09/13/17 21:00 10/13/17 20:59 09/15/17 08:39 1.5 MLS/MIN Miscellaneous Information (Order Awaiting Action) 1 ea QS N/A 09/14/17 00:00 10/14/17 00:00 Albuterol/ Ipratropium (Duoneb) 3 ml Q4R INH 09/13/17 20:00 10/13/17 19:59 09/15/17 07:05 3 ML Piperacillin Sod/ Tazobactam Sod 3.375 gm/Dextrose 115 ml @ 28.75 mls/ hr Q8H IV 09/14/17 04:00 09/20/17 03:59 09/15/17 04:00 28.75 MLS/HR Piperacillin Sod/ Tazobactam Sod (Consult) 1 ea UD PRN N/A 09/14/17 09:15 10/14/17 09:14 Levofloxacin 750 mg/Prmx 150 ml @ 100 mls/hr Q48H IV 09/16/17 08:00 09/23/17 07:59 Levofloxacin (Consult) 1 ea UD PRN N/A 09/14/17 14:15 10/14/17 14:14 Physical Exam Date Time Temp Pulse Resp B/P (MAP) Pulse Ox O2 Delivery O2 Flow Rate FiO2 09/15/17 08:15 95 Nasal Cannula 4.0 09/15/17 08:01 36.5 90 25 106/52 (70) 98 BiPAP 50 09/15/17 08:00 81 24 98 09/15/17 07:05 91 22 94 Nasal Cannula 5.0 09/15/17 07:01 79 19 120/61 (80) 99 09/15/17 07:00 71 26 99 09/15/17 06:01 36.8 78 18 116/47 (70) 96 Nasal Cannula 5.0 09/15/17 05:00 72 20 110/68 (82) 97 Nasal Cannula 5.0 09/15/17 04:38 98 Nasal Cannula 5.0 09/15/17 04:00 36.8 76 23 100/49 (66) 95 Nasal Cannula 5.0 09/15/17 03:01 80 23 115/57 (76) 96 Nasal Cannula 5.0 09/15/17 02:01 36.8 83 18 108/53 (71) 97 Nasal Cannula 5.0 09/15/17 01:00 82 25 100/43 (62) 97 Nasal Cannula 5.0 09/15/17 00:30 90 Nasal Cannula 5.0 09/15/17 00:01 37.0 84 22 96/46 (63) 95 Nasal Cannula 5.0 09/14/17 23:07 89 22 111/56 (74) 95 Nasal Cannula 5.0 09/14/17 23:00 91 32 111/56 (74) 94 Nasal Cannula 5.0 09/14/17 22:00 80 32 108/49 (68) 95 Nasal Cannula 5.0 09/14/17 21:01 87 30 105/ (35) 93 Nasal Cannula 5.0 09/14/17 20:53 89 23 96 Nasal Cannula 6.0 09/14/17 20:03 90 Nasal Cannula 5.0 09/14/17 20:01 37.5 102 45 120/44 (69) 90 Nasal Cannula 5.0 09/14/17 19:01 91 24 92/43 (59) 97 Nasal Cannula 6.0 09/14/17 16:00 Nasal Cannula 4.0 09/14/17 16:00 92 20 89/40 (56) 92 Nasal Cannula 4.0 09/14/17 14:40 87 28 93 Nasal Cannula 4.0 09/14/17 14:10 37.5 90 26 91/39 (56) 94 Nasal Cannula 4.0 09/14/17 12:00 Nasal Cannula 6.0 09/14/17 11:06 80 31 96 Nasal Cannula 6.0 General Appearance: no apparent distress, + thin, + pertinent finding (frail) ENT: hearing grossly normal Neck: supple, no JVD Respiratory: no respiratory distress, no accessory muscle use, + decreased breath sounds (bilateral bases diminished), + pertinent finding (nasal cannula, was on bipap over night) Cardiovascular: regular rate, rhythm, no edema, + normal peripheral pulses Abdomen: normal bowel sounds, non tender, soft Neurologic/Psychiatric: alert, normal mood/affect, oriented x 3 Skin: normal color Laboratory Results Last 24 Hours Test 09/14/17 12:14 09/14/17 18:10 09/15/17 01:09 09/15/17 04:48 Bedside Glucose 122 mg/dl 195 mg/dl 86 mg/dl White Blood Count 14.35 K/uL Red Blood Count 2.91 M/uL Hemoglobin 9.5 g/dL Hematocrit 29.9 % Mean Corpuscular Volume 102.7 fL Mean Corpuscular Hemoglobin 32.6 pg Mean Corpuscular Hemoglobin Concent 31.8 g/dl Platelet Count 332 K/uL Mean Platelet Volume 9.3 fL Neutrophils (%) (Auto) 93.2 % Lymphocytes (%) (Auto) 3.3 % Monocytes (%) (Auto) 3.1 % Eosinophils (%) (Auto) 0.0 % Basophils (%) (Auto) 0.1 % Neutrophils # (Auto) 13.37 K/uL Lymphocytes # (Auto) 0.47 K/uL Monocytes # (Auto) 0.45 K/uL Eosinophils # (Auto) 0.00 K/uL Basophils # (Auto) 0.01 K/uL RDW Standard Deviation 56.7 fL RDW Coefficient of Variation 15.0 % Immature Granulocyte % (Auto) 0.3 % Immature Granulocyte # (Auto) 0.05 K/uL Sodium Level 137 mmol/L Potassium Level 4.6 mmol/L Chloride Level 102 mmol/L Carbon Dioxide Level 32 mmol/L Anion Gap 3.0 mmol/L Blood Urea Nitrogen 30 mg/dl Creatinine 1.55 mg/dl Est Creatinine Clear Calc Drug Dose 22.1 ml/min Estimated GFR () 35.8 Estimated GFR (Non- 30.9 BUN/Creatinine Ratio 19.2 Random Glucose 129 mg/dl Calcium Level 7.8 mg/dl Phosphorus Level 2.9 mg/dl Magnesium Level 2.3 mg/dl Total Bilirubin 0.2 mg/dl Direct Bilirubin < 0.1 mg/dl Aspartate Amino Transf (AST/SGOT) 18 U/L Alanine Aminotransferase (ALT/SGPT) 14 U/L Alkaline Phosphatase 47 U/L Total Protein 5.4 gm/dl Albumin 2.3 gm/dl Assessment & Plan Palliative Performance Scale: 40 % Problem list: SOB/HANEY COPD exacerbation Possible left basilar pneumonia on X-ray ARF- improving Hypoalbuminemia Goals of care (Z51.5) Palliative care recs: -Patient is currently a full code. However, in speaking with patient and her [id number] Cassie, patient may not actually want this to be done. Patient did not want to make this decision on her own, Cassie and patient's son Ayaan will discuss this further with patient when they are able to come in and talk with her. I will revisit this tomorrow. -Patient and family's goal would be for patient to get back to [facility]. [facility] would be accommodating to hospice if that is patient's wish. I discussed this with Cassie as well. Decision not made as of yet. -I'll see patient again tomorrow and further discuss goals of care. Thank you kindly for this consult. I will follow.
[2017-09-16] VITALS (18 sets, daily range): BP systolic 110–196; BP diastolic 56–80; PULSE 71–141; TEMP 36.4–37.1; O2SAT 74–98; Ht 157.5 cm; Wt 54.5 kg
[2017-09-16] MEDS: ALBUT/IPRATROP 3MG/0.5MG NEB 3 ML VIAL INH SCH ×7 (04:00→23:06)
[2017-09-16] MEDS: PIPERACILL/TAZOBAC IV 3.375 GM in DEXTROSE 5% 100ML IV SCH (04:03)
[2017-09-16 05:20] LABS: BASO % 0.1 %; BASO ABS # 0.01 K/uL (0-0.2); HEMOGLOBIN 9.8 g/dL (12.0-16.0); IG# 0.07 K/uL (0.00-0.02); LYMPH % 3.6 %; LYMPH ABS # 0.51 K/uL (1.2-3.4); MEAN CELL VOLUME 101.3 fL (80-100); MEAN CORPUSCULAR HGB CONC 31.6 g/dl (32-36); MEAN PLATELET VOLUME 9.5 fL (7.4-10.4); MONO % 2.7 %; MONO ABS # 0.39 K/uL (0.11-0.59); NEUT % 93.1 %; NEUT ABS # 13.23 K/uL (1.4-6.5); PLATELET COUNT 365 K/uL (130-400); RED CELL DISTRIBUTION WIDTH SD 55.2 fL (36.4-46.3); WHITE BLOOD COUNT 14.21 K/uL (4.8-10.8)
[2017-09-16 05:50] LABS: ALBUMIN 2.5 gm/dl (3.4-5.0); ALT/SGPT 20 U/L (12-78); AST/SGOT 18 U/L (15-37); BLOOD UREA NITROGEN 29 mg/dl (7-18); CALCIUM 7.9 mg/dl (8.5-10.1); CARBON DIOXIDE 31 mmol/L (21-32); CREATININE 1.36 mg/dl (0.60-1.20); GLUCOSE 135 mg/dl (70-99); POTASSIUM 4.4 mmol/L (3.5-5.1); SODIUM 137 mmol/L (136-145)
[2017-09-16 05:53] LABS: ALKALINE PHOSPHATASE 49 U/L (45-117); PHOSPHORUS 2.9 mg/dl (2.5-4.9); TOTAL PROTEIN 5.6 gm/dl (6.4-8.2)
[2017-09-16] MEDS: LEVOTHYROXINE 125 MCG TAB PO SCH (06:09)
[2017-09-16] MEDS: SODIUM CHLORIDE 0.9% 1000ML 1,000 ML IV SCH (06:09)
[2017-09-16] MEDS: HEPARIN SOD 5000 UNIT/0.5 ML CARP SQ SCH ×3 (06:10→21:13)
[2017-09-16] MEDS ORDERED: LEVOFLOXACIN 750MG / D5W IV SCH (08:00)
[2017-09-16] MEDS: BUDESONIDE 0.5 MG/2 ML VIAL (PULMICORT) INH SCH ×2 (08:00→19:06)
[2017-09-16] MEDS: ATORVASTATIN 10 MG TAB PO SCH (08:03)
[2017-09-16] MEDS: ASPIRIN 81 MG ECTAB PO SCH (08:03)
[2017-09-16] MEDS: CITALOPRAM 20 MG TAB PO SCH ×2 (08:03→21:12)
[2017-09-16] MEDS: DOCUSATE SODIUM 100 MG CAP PO SCH ×2 (08:03→21:12)
[2017-09-16] MEDS: FERROUS SULFATE 325 MG TAB PO SCH (08:03)
[2017-09-16] MEDS: TRAZODONE HCL 50 MG TAB PO SCH (08:04)
[2017-09-16] MEDS: METHYLPREDNISOLONE IV 40 MG in SYRINGE 0 ML IV SCH (08:04)
[2017-09-16] MEDS: DILTIAZEM HCL 180 MG CAPCR PO SCH (08:04)
--- NOTE | 2017-09-16 11:00 | Progress Note ---
Subjective Date of Service: Sep 16, 2017. Subjective Pt evaluation today including: conversation w/ patient, physical exam, chart review, lab review, review of studies Continue doing fairly okay, on nasal cannula oxygen, conversational, tolerate diet, has bowel movement, denied dysuria, no fever and chill Problem List Medical Problems: (1) COPD exacerbation Status: Acute (2) Respiratory failure Status: Acute Review of Systems Constitutional: No fever, No chills Eyes: No worsening of vision, No eye pain ENT: No unusual epistaxis Respiratory: + cough, + wheezing, + shortness of breath Cardiac: No chest pain, No orthopnea Abdomen: No pain, No nausea, No vomiting, No diarrhea, No constipation Musculoskeletal: No see HPI, No joint pain, No muscle pain, No swelling, No calf pain, No problem reported Female : No see HPI, No dysuria, No urinary frequency, No hematuria, No incontinence, No abnormal vaginal bleeding, No vaginal discharge, No problem reported Neurologic: No see HPI, No memory loss, No paralysis, No weakness, No numbness/ tingling, No vertigo, No balance problems, No problem reported Psychiatric: No see HPI, No depression symptoms, No anhedonism, No anxiety, No insomnia, No substance abuse, No problem reported Heme: No see HPI, No abnormal bleeding/bruising, No clotting problems, No swollen lymph nodes, No night sweats, No problem reported Endo: No see HPI, No fatigue, No excessive thirst, No excessive urination, No problem reported Skin: No see HPI, No rash, No itch, No new/changing skin lesions, No color change, No bleeding, No problem reported Objective Vital Signs Date Time Temp Pulse Resp B/P (MAP) Pulse Ox O2 Delivery O2 Flow Rate FiO2 09/16/17 08:36 78 22 97 Nasal Cannula 4.0 09/16/17 08:00 Nasal Cannula 4.0 09/16/17 08:00 36.9 91 24 148/70 (96) 93 Nasal Cannula 4.0 09/16/17 06:00 74 29 135/76 (95) 96 Nasal Cannula 4.0 09/16/17 04:00 96 Nasal Cannula 4.0 09/16/17 04:00 36.7 82 22 115/63 (80) 95 Nasal Cannula 4.0 09/16/17 02:00 78 24 112/56 (74) 94 Nasal Cannula 4.0 09/16/17 00:01 36.8 100 28 133/71 (91) 91 Nasal Cannula 4.0 09/15/17 23:59 91 Nasal Cannula 5.0 09/15/17 22:00 94 33 126/55 (78) 94 Nasal Cannula 4.0 09/15/17 20:12 84 22 97 Nasal Cannula 4.0 09/15/17 20:00 36.7 88 23 117/60 (79) 97 Nasal Cannula 4.0 09/15/17 20:00 97 Nasal Cannula 5.0 09/15/17 18:00 94 39 133/62 (85) 88 Nasal Cannula 5.0 09/15/17 17:00 96 40 154/63 (93) 90 Nasal Cannula 5.0 09/15/17 16:01 36.7 77 30 125/64 (84) 96 BiPAP 50 09/15/17 16:00 77 34 96 09/15/17 16:00 96 BiPAP 50 09/15/17 15:55 90 97 50 09/15/17 15:49 76 22 91 Nasal Cannula 4.0 09/15/17 15:00 85 40 135/58 (83) 92 09/15/17 14:01 66 28 113/49 (70) 94 09/15/17 14:00 81 30 94 09/15/17 13:01 83 27 126/50 (75) 92 09/15/17 13:00 73 39 93 09/15/17 12:00 74 28 119/63 (81) 93 18 11:20 96 Nasal Cannula 4.0 09/15/17 11:01 95 27 125/54 (77) 92 Nasal Cannula 4.0 09/15/17 11:00 87 30 93 Physical Exam General Appearance: WD/WN, no apparent distress, + thin, + pertinent finding ( frail) Eyes: normal inspection, PERRL ENT: normal ENT inspection, hearing grossly normal Neck: supple, no adenopathy Respiratory/Chest: chest non-tender, + decreased breath sounds, + wheezing ( sporetic) Cardiovascular: regular rate, rhythm, no edema, no gallop, no JVD, no murmur Abdomen: normal bowel sounds, non tender, soft, no organomegaly, no pulsatile mass Extremities: normal range of motion, non-tender, normal inspection, no pedal edema, no calf tenderness, normal capillary refill, pelvis stable Neurologic/Psychiatric: news librarian II-XII nml as tested, no motor/sensory deficits, alert, normal mood/affect, oriented x 3 Skin: normal color, warm/dry, no rash Laboratory Results Last 24 Hours Test 09/16/17 04:53 White Blood Count 14.21 K/uL Red Blood Count 3.06 M/uL Hemoglobin 9.8 g/dL Hematocrit 31.0 % Mean Corpuscular Volume 101.3 fL Mean Corpuscular Hemoglobin 32.0 pg Mean Corpuscular Hemoglobin Concent 31.6 g/dl Platelet Count 365 K/uL Mean Platelet Volume 9.5 fL Neutrophils (%) (Auto) 93.1 % Lymphocytes (%) (Auto) 3.6 % Monocytes (%) (Auto) 2.7 % Eosinophils (%) (Auto) 0.0 % Basophils (%) (Auto) 0.1 % Neutrophils # (Auto) 13.23 K/uL Lymphocytes # (Auto) 0.51 K/uL Monocytes # (Auto) 0.39 K/uL Eosinophils # (Auto) 0.00 K/uL Basophils # (Auto) 0.01 K/uL RDW Standard Deviation 55.2 fL RDW Coefficient of Variation 15.0 % Immature Granulocyte % (Auto) 0.5 % Immature Granulocyte # (Auto) 0.07 K/uL Sodium Level 137 mmol/L Potassium Level 4.4 mmol/L Chloride Level 103 mmol/L Carbon Dioxide Level 31 mmol/L Anion Gap 3.0 mmol/L Blood Urea Nitrogen 29 mg/dl Creatinine 1.36 mg/dl Est Creatinine Clear Calc Drug Dose 25.2 ml/min Estimated GFR () 41.9 Estimated GFR (Non- 36.1 BUN/Creatinine Ratio 21.5 Random Glucose 135 mg/dl Calcium Level 7.9 mg/dl Phosphorus Level 2.9 mg/dl Magnesium Level 2.4 mg/dl Total Bilirubin 0.2 mg/dl Direct Bilirubin < 0.1 mg/dl Aspartate Amino Transf (AST/SGOT) 18 U/L Alanine Aminotransferase (ALT/SGPT) 20 U/L Alkaline Phosphatase 49 U/L Total Protein 5.6 gm/dl Albumin 2.5 gm/dl Assessment and Plan 81-year-old admitted on 09/13/2017 because of COPD exacerbation with acute on chronic respiratory failure and hypoxia: Required BiPAP machine , has been Stable and improving ongoing nebs, steroids COPD exacerbation with acute on chronic respiratory failure and hypoxia: Stable and improving: Has been off BiPAP machine since 4 PM yesterday, Possible left basal pneumonia per x-ray support, Has been on antibiotic coverage with Levaquin and Zosyn, blood culture has no growth so far, will stop dosing, switch Levaquin to by mouth nasal MRSA Swapp is negative, continue O2, supportive care, Will switch IV Solu-Medrol to oral prednisone by mouth, and nebulizer treatment chronic diastolic CHF: no acute exacerbation, continue home meds, ARF: Improving, cr was 1.15 last month, creatinine 1.3 today from 1.5 yesterday , Monitor on IVF, continue hold ACEi, current blood pressure is acceptable History of hypertension, will resume lower dose of lisinopril Spasmodic torticollis: baclofen, klonopin, 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
--- NOTE | 2017-09-16 11:08 | Palliative Care Progress Note ---
Palliative Care Progress Note Date of Service Sep 16, 2017. Subjective Pt evaluation today including: conversation w/ patient, conversation w/ family ([id number] Cassie), physical exam, chart review Pain: none PO Intake: tolerating diet Voiding: georges catheter in place -Patient and family discussed with each other last evening about code status and goals of care. Patient decided she would like to be a DNR/DNI. -Hospice was discussed, patient and family agree that they would like to pursue hospice care when patient returns to [facility]. -Ms. Price is still feeling better today. Does still get SOB with any activity. I saw patient right after she had a bowel movement and was being repositioned back and forth in bed. She did appear mildly short of breath. -No pain or other complaints at this time. Review of Systems Constitutional: + weakness ENT: No trouble swallowing Respiratory: + cough, + dyspnea on exertion, + dyspnea at rest (mild) Cardiac: No chest pain, No edema Abdomen: + nausea (mild nausea after she was rolling in bed), No pain, No vomiting Female : No problem reported (has Georges catheter) Psychiatric: No depression symptoms, No anxiety Objective Vital Signs Date Time Temp Pulse Resp B/P (MAP) Pulse Ox O2 Delivery O2 Flow Rate FiO2 09/16/17 08:36 78 22 97 Nasal Cannula 4.0 09/16/17 08:00 Nasal Cannula 4.0 09/16/17 08:00 36.9 91 24 148/70 (96) 93 Nasal Cannula 4.0 09/16/17 06:00 74 29 135/76 (95) 96 Nasal Cannula 4.0 09/16/17 04:00 96 Nasal Cannula 4.0 09/16/17 04:00 36.7 82 22 115/63 (80) 95 Nasal Cannula 4.0 09/16/17 02:00 78 24 112/56 (74) 94 Nasal Cannula 4.0 09/16/17 00:01 36.8 100 28 133/71 (91) 91 Nasal Cannula 4.0 09/15/17 23:59 91 Nasal Cannula 5.0 09/15/17 22:00 94 33 126/55 (78) 94 Nasal Cannula 4.0 09/15/17 20:12 84 22 97 Nasal Cannula 4.0 09/15/17 20:00 36.7 88 23 117/60 (79) 97 Nasal Cannula 4.0 09/15/17 20:00 97 Nasal Cannula 5.0 09/15/17 18:00 94 39 133/62 (85) 88 Nasal Cannula 5.0 09/15/17 17:00 96 40 154/63 (93) 90 Nasal Cannula 5.0 09/15/17 16:01 36.7 77 30 125/64 (84) 96 BiPAP 50 09/15/17 16:00 77 34 96 09/15/17 16:00 96 BiPAP 50 09/15/17 15:55 90 97 50 09/15/17 15:49 76 22 91 Nasal Cannula 4.0 09/15/17 15:00 85 40 135/58 (83) 92 09/15/17 14:01 66 28 113/49 (70) 94 09/15/17 14:00 81 30 94 09/15/17 13:01 83 27 126/50 (75) 92 09/15/17 13:00 73 39 93 09/15/17 12:00 74 28 119/63 (81) 93 09/15/17 11:20 96 Nasal Cannula 4.0 09/15/17 11:01 95 27 125/54 (77) 92 Nasal Cannula 4.0 09/15/17 11:00 87 30 93 Physical Exam General Appearance: no apparent distress, + thin, + pertinent finding (elderly , frail) ENT: hearing grossly normal Neck: supple, no JVD Respiratory/Chest: no respiratory distress, + accessory muscle use (mild after repositioning in bed), + wheezing (faint expiratory wheezes in RLL), + pertinent finding (nasal cannula) Cardiovascular: regular rate, rhythm, no edema, + normal peripheral pulses Abdomen: normal bowel sounds, non tender, soft Neurologic/Psychiatric: alert, normal mood/affect, oriented x 3 Skin: normal color Assessment and Plan Problem list: SOB/HANEY COPD exacerbation Possible left basilar pneumonia on X-ray ARF- improving Hypoalbuminemia Goals of care (Z51.5) Palliative care recs: discussed with patient, 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 -Patient is now level 5 DNR. -Goal is for comfort and to remain out of hospital once patient leaves. -Patient and family okay with continuing current medical management while in hospital. -Will have hospice care once returning to [facility]. I believe patient qualifies for hospice due to advanced age, comorbidities including COPD and CHF , as well as recent hospitalization and general decline. I will continue to follow as needed. Palliative Performance Scale: 40 % Continued [facility] stay due to: other (acute care continues) Discharge planning: other (back to personal chcf with hospice)
[2017-09-16] MEDS ORDERED: LISINOPRIL 2.5 MG TAB PO ONE (11:15)
--- NOTE | 2017-09-16 11:57 | Critical Care Progress Note ---
Critical Care Progress Note Date of Service Sep 16, 2017. Attending Dr. Granados Subjective Doing some better today. She is hungry. No worsening dyspnea. No new target pain. I spoke with team and primary MD. Plan for conservative approach and transfer out to the medical floor today. Objective General: very frail HEENT: no new target CVS: rate and volume status ok Lungs, some large airway rhonchi noted. Abd: Soft, non-distended Ext:no edema CREATIVE DIRECTOR: No focal deficit Assessment & Plan Clinically some improvement. No longer requires ICU level of care. Plan for transfer. Emphasis on mobilization and nutritional support. Data Medications: Current Inpatient Medications Medications (Trade) Dose Ordered Sig/Nishant Route Start Time Stop Time Status Last Admin Dose Admin Acetaminophen (Tylenol Tab) 650 mg Q4H PRN PO 09/13/17 16:30 10/13/17 16:29 Magnesium Hydroxide (Milk Of Magnesia Susp) 30 ml Q12H PRN PO 09/13/17 16:30 10/13/17 16:29 Ondansetron HCl (Zofran Inj) 4 mg Q6H PRN IV 09/13/17 16:30 10/13/17 16:29 Aspirin (Ecotrin Tab) 81 mg DAILY PO 09/14/17 09:00 10/14/17 08:59 09/16/17 08:03 81 MG Atorvastatin Calcium (Lipitor Tab) 10 mg DAILY PO 09/14/17 09:00 10/14/17 08:59 09/16/17 08:03 10 MG Bisacodyl (Dulcolax Supp) 10 mg UD ND 09/13/17 16:30 10/13/17 16:29 Budesonide (Pulmicort Respules 0.5MG/ 2ML Neb Soln) 0.5 mg BIDR INH 09/13/17 20:00 10/13/17 19:59 09/16/17 08:00 0.5 MG Citalopram Hydrobromide (celeXA TAB) 20 mg BID PO 09/13/17 21:00 10/13/17 20:59 09/16/17 08:03 20 MG Clonazepam (Klonopin Tab) 1 mg BID PRN PO 09/13/17 16:30 10/13/17 16:29 Diltiazem HCl (Cardizem Cd Cap) 180 mg DAILY PO 09/14/17 09:00 10/14/17 08:59 09/16/17 08:04 180 MG Docusate Sodium (coLACE CAP) 100 mg BID PO 09/13/17 21:00 10/13/17 20:59 09/16/17 08:03 100 MG Ferrous Sulfate (Feosol Tab) 325 mg DAILY PO 09/14/17 09:00 10/14/17 08:59 09/16/17 08:03 325 MG Levothyroxine Sodium (Synthroid Tab) 125 mcg DAILYBB PO 09/14/17 06:00 10/14/17 05:59 09/16/17 06:09 125 MCG Loperamide HCl (Imodium Cap) 2 mg Q4H PRN PO 09/13/17 16:30 10/13/17 16:29 Oxycodone HCl (Roxicodone Immediate Rel Tab) 5 mg Q4 PRN PO 09/13/17 16:30 09/27/17 16:29 Senna/Docusate Sodium (Senokot S Tab) 1 tab HS PRN PO 09/13/17 16:30 10/13/17 16:29 Trazodone HCl (Desyrel Tab) 25 mg DAILY PO 09/14/17 09:00 10/14/17 08:59 09/16/17 08:04 25 MG Miscellaneous Information (Order Awaiting Action) 1 ea Q12H PRN PO 09/14/17 00:00 10/14/17 00:00 Heparin Sodium (Porcine) (Heparin Sq 5000 Unit/0.5ml) 5,000 unit Q8 SQ 09/13/17 22:00 10/13/17 21:59 09/16/17 06:10 5,000 UNIT Miscellaneous Information (Order Awaiting Action) 1 ea QS N/A 09/14/17 00:00 10/14/17 00:00 Albuterol/ Ipratropium (Duoneb) 3 ml Q4R INH 09/13/17 20:00 10/13/17 19:59 09/16/17 08:00 3 ML Levofloxacin (Consult) 1 ea UD PRN N/A 09/14/17 14:15 10/14/17 14:14 Enteral Nutritional Formula (Boost) 1 can BID PO 09/16/17 21:00 10/16/17 20:59 Prednisone (PredniSONE TAB) 40 mg DAILY PO 09/17/17 09:00 10/17/17 08:59 Levofloxacin (Levaquin Tab) 750 mg Q2D@11 PO 09/18/17 11:00 09/20/17 10:59 Lisinopril (Zestril Tab) 2.5 mg QAM PO 09/17/17 09:00 10/17/17 08:59 Vital Signs: Date Time Temp Pulse Resp B/P (MAP) Pulse Ox O2 Delivery O2 Flow Rate FiO2 09/16/17 10:00 83 28 135/70 (91) 90 Nasal Cannula 4.0 09/16/17 08:36 78 22 97 Nasal Cannula 4.0 09/16/17 08:00 Nasal Cannula 4.0 09/16/17 08:00 36.9 91 24 148/70 (96) 93 Nasal Cannula 4.0 09/16/17 06:00 74 29 135/76 (95) 96 Nasal Cannula 4.0 09/16/17 04:00 96 Nasal Cannula 4.0 09/16/17 04:00 36.7 82 22 115/63 (80) 95 Nasal Cannula 4.0 09/16/17 02:00 78 24 112/56 (74) 94 Nasal Cannula 4.0 09/16/17 00:01 36.8 100 28 133/71 (91) 91 Nasal Cannula 4.0 09/15/17 23:59 91 Nasal Cannula 5.0 09/15/17 22:00 94 33 126/55 (78) 94 Nasal Cannula 4.0 09/15/17 20:12 84 22 97 Nasal Cannula 4.0 09/15/17 20:00 36.7 88 23 117/60 (79) 97 Nasal Cannula 4.0 09/15/17 20:00 97 Nasal Cannula 5.0 09/15/17 18:00 94 39 133/62 (85) 88 Nasal Cannula 5.0 09/15/17 17:00 96 40 154/63 (93) 90 Nasal Cannula 5.0 09/15/17 16:01 36.7 77 30 125/64 (84) 96 BiPAP 50 09/15/17 16:00 77 34 96 09/15/17 16:00 96 BiPAP 50 09/15/17 15:55 90 97 50 09/15/17 15:49 76 22 91 Nasal Cannula 4.0 09/15/17 15:00 85 40 135/58 (83) 92 09/15/17 14:01 66 28 113/49 (70) 94 09/15/17 14:00 81 30 94 09/15/17 13:01 83 27 126/50 (75) 92 09/15/17 13:00 73 39 93 09/15/17 12:00 74 28 119/63 (81) 93 Laboratory Results: Last 24 Hours Test 09/16/17 04:53 White Blood Count 14.21 K/uL Red Blood Count 3.06 M/uL Hemoglobin 9.8 g/dL Hematocrit 31.0 % Mean Corpuscular Volume 101.3 fL Mean Corpuscular Hemoglobin 32.0 pg Mean Corpuscular Hemoglobin Concent 31.6 g/dl Platelet Count 365 K/uL Mean Platelet Volume 9.5 fL Neutrophils (%) (Auto) 93.1 % Lymphocytes (%) (Auto) 3.6 % Monocytes (%) (Auto) 2.7 % Eosinophils (%) (Auto) 0.0 % Basophils (%) (Auto) 0.1 % Neutrophils # (Auto) 13.23 K/uL Lymphocytes # (Auto) 0.51 K/uL Monocytes # (Auto) 0.39 K/uL Eosinophils # (Auto) 0.00 K/uL Basophils # (Auto) 0.01 K/uL RDW Standard Deviation 55.2 fL RDW Coefficient of Variation 15.0 % Immature Granulocyte % (Auto) 0.5 % Immature Granulocyte # (Auto) 0.07 K/uL Sodium Level 137 mmol/L Potassium Level 4.4 mmol/L Chloride Level 103 mmol/L Carbon Dioxide Level 31 mmol/L Anion Gap 3.0 mmol/L Blood Urea Nitrogen 29 mg/dl Creatinine 1.36 mg/dl Est Creatinine Clear Calc Drug Dose 25.2 ml/min Estimated GFR () 41.9 Estimated GFR (Non- 36.1 BUN/Creatinine Ratio 21.5 Random Glucose 135 mg/dl Calcium Level 7.9 mg/dl Phosphorus Level 2.9 mg/dl Magnesium Level 2.4 mg/dl Total Bilirubin 0.2 mg/dl Direct Bilirubin < 0.1 mg/dl Aspartate Amino Transf (AST/SGOT) 18 U/L Alanine Aminotransferase (ALT/SGPT) 20 U/L Alkaline Phosphatase 49 U/L Total Protein 5.6 gm/dl Albumin 2.5 gm/dl
[2017-09-16] MEDS: CLONAZEPAM 1 MG TAB PO PRN (19:54)
[2017-09-16] MEDS: BOOST VANILLA PO SCH ×2 (21:12)
[2017-09-17] VITALS (11 sets, daily range): BP systolic 110–131; BP diastolic 64–75; PULSE 69–98; TEMP 36.6; O2SAT 91–98
[2017-09-17] MEDS: ALBUT/IPRATROP 3MG/0.5MG NEB 3 ML VIAL INH SCH ×6 (03:13→23:40)
[2017-09-17] MEDS: HEPARIN SOD 5000 UNIT/0.5 ML CARP SQ SCH ×3 (05:39→21:54)
[2017-09-17] MEDS: LEVOTHYROXINE 125 MCG TAB PO SCH (05:39)
[2017-09-17] MEDS: BUDESONIDE 0.5 MG/2 ML VIAL (PULMICORT) INH SCH ×2 (06:58→20:00)
[2017-09-17 07:15] LABS: BASO % 0.2 %; BASO ABS # 0.03 K/uL (0-0.2); HEMATOCRIT 32.4 % (37-47); HEMOGLOBIN 10.1 g/dL (12.0-16.0); IG# 0.25 K/uL (0.00-0.02); LYMPH ABS # 1.12 K/uL (1.2-3.4); MEAN CELL VOLUME 102.2 fL (80-100); MEAN CORPUSCULAR HEMOGLOBIN 31.9 pg (25-34); MEAN CORPUSCULAR HGB CONC 31.2 g/dl (32-36); MEAN PLATELET VOLUME 9.3 fL (7.4-10.4); MONO % 9.4 %; NEUT % 81.8 %; PLATELET COUNT 335 K/uL (130-400); RED CELL DISTRIBUTION WIDTH CV 15.1 % (11.5-14.5); RED CELL DISTRIBUTION WIDTH SD 56.2 fL (36.4-46.3)
[2017-09-17 07:48] LABS: ALBUMIN 2.5 gm/dl (3.4-5.0); ALT/SGPT 18 U/L (12-78); BLOOD UREA NITROGEN 28 mg/dl (7-18); CALCIUM 8.5 mg/dl (8.5-10.1); CARBON DIOXIDE 32 mmol/L (21-32); CREATININE 1.01 mg/dl (0.60-1.20); GLUCOSE 84 mg/dl (70-99); POTASSIUM 4.8 mmol/L (3.5-5.1); SODIUM 139 mmol/L (136-145)
[2017-09-17 07:51] LABS: ALKALINE PHOSPHATASE 48 U/L (45-117); AST/SGOT 15 U/L (15-37); PHOSPHORUS 2.5 mg/dl (2.5-4.9); TOTAL PROTEIN 5.8 gm/dl (6.4-8.2)
[2017-09-17] MEDS: BOOST VANILLA PO SCH ×3 (08:07→21:08)
[2017-09-17] MEDS: ASPIRIN 81 MG ECTAB PO SCH (08:08)
[2017-09-17] MEDS: CITALOPRAM 20 MG TAB PO SCH ×2 (08:08→20:42)
[2017-09-17] MEDS: ATORVASTATIN 10 MG TAB PO SCH (08:08)
[2017-09-17] MEDS: DILTIAZEM HCL 180 MG CAPCR PO SCH (08:09)
[2017-09-17] MEDS: TRAZODONE HCL 50 MG TAB PO SCH (08:09)
[2017-09-17] MEDS: FERROUS SULFATE 325 MG TAB PO SCH (08:10)
[2017-09-17] MEDS: LISINOPRIL 2.5 MG TAB PO SCH (08:10)
[2017-09-17] MEDS: DOCUSATE SODIUM 100 MG CAP PO SCH ×2 (08:10→20:41)
[2017-09-17] MEDS: CLONAZEPAM 1 MG TAB PO PRN ×2 (11:54→21:55)
[2017-09-17] MEDS ORDERED: ALBUT/IPRATROP 3MG/0.5MG NEB 3 ML VIAL INH STA (12:26)
[2017-09-17] MEDS ORDERED: FUROSEMIDE INJ 20 MG in SYRINGE 0 ML IV STA (12:32)
[2017-09-17] MEDS ORDERED: PIPERACILL/TAZOBAC CONSULT ACTIVE PRN (12:45)
[2017-09-17] MEDS ORDERED: PIPERACILLIN/TAZOBACTAM 3.375 GM/100ML D5W IV STA (12:57)
--- NOTE | 2017-09-17 13:05 | DIAGNOSTIC IMAGING REPORT ---
CHEST ONE VIEW PORTABLE CLINICAL HISTORY: pna, worsening sob today dyspnea COMPARISON STUDY: 09/15/2017 FINDINGS: Developing right basilar parenchymal infiltrate. Pre-existing unchanged consolidative process left base. Mid and upper lungs remain clear. IMPRESSION: 1. Unchanged parenchymal infiltrate/effusion left lung base. 2. Interval development of a right basilar infiltrate. The above report was generated using voice recognition software. It may contain grammatical, syntax or spelling errors. Electronically signed by: Jamari Lentz M.D. 09/17/2017 1:04 PM Dictated Date/Time: 09/17/2017 1:03 PM
--- NOTE | 2017-09-17 14:03 | Hospitalist Progress Note ---
Hospitalist Progress Note Date of Service Sep 17, 2017. Subjective Pt evaluation today including: conversation w/ patient, physical exam, chart review, lab review, review of inpatient medication list Voiding: georges catheter in place Ms. Price is awake and oriented. She states she feels better today and denies any pain. ROS Constitutional: no chills, aches, sweats or fever Respiratory: no sob,cough, sputum, or wheezing Cardiac: no chest pain, palpitations, edema, orthopnea or lightheadedness GI: no abdominal pain, nausea, vomiting, diarrhea or constipation : no dysuria or hesitancy Extremities: no joint pain or weakness Skin: no rash All other systems reviewed and negative Medications Medications Administered Medications (Trade) Dose Ordered Sig/Nishant Route Start Time Stop Time Status Last Admin Dose Admin Albuterol/ Ipratropium (Duoneb) 12 ml ONE ONCE INH 09/13/17 13:45 09/13/17 13:46 DC 09/13/17 13:45 12 ML Vancomycin HCl (Vancomycin 1gm/ 270ml Nss) 1 gm ONE STAT IV 09/13/17 13:32 09/13/17 13:35 DC 09/13/17 14:31 1 GM Levofloxacin (Levaquin / D5W) 750 mg ONE STAT IV 09/13/17 13:32 09/13/17 13:35 DC 09/13/17 14:31 750 MG Cefepime HCl 2000 mg/Dextrose 122 ml @ 200 mls/hr NOW STAT IV 09/13/17 13:34 09/13/17 14:10 DC 09/13/17 14:13 200 MLS/HR Methylprednisolone Sodium Succinate (Solu-Medrol IV) 125 mg NOW STAT IV 09/13/17 13:39 09/13/17 13:41 DC 09/13/17 13:39 125 MG Magnesium Sulfate (Magnesium Sulfate) 1 gm NOW STAT IV 09/13/17 13:39 09/13/17 13:41 DC 09/13/17 13:51 1 GM Sodium Chloride 1,000 ml @ 999 mls/hr Q1H1M STAT IV 09/13/17 13:53 09/13/17 14:53 DC 09/13/17 13:53 999 MLS/HR Aspirin (Ecotrin Tab) 81 mg DAILY PO 09/14/17 09:00 10/14/17 08:59 09/17/17 08:08 81 MG Atorvastatin Calcium (Lipitor Tab) 10 mg DAILY PO 09/14/17 09:00 10/14/17 08:59 09/17/17 08:08 10 MG Budesonide (Pulmicort Respules 0.5MG/ 2ML Neb Soln) 0.5 mg BIDR INH 09/13/17 20:00 10/13/17 19:59 09/17/17 06:58 0.5 MG Citalopram Hydrobromide (celeXA TAB) 20 mg BID PO 09/13/17 21:00 10/13/17 20:59 09/17/17 08:08 20 MG Clonazepam (Klonopin Tab) 1 mg BID PRN PO 09/13/17 16:30 10/13/17 16:29 09/17/17 11:54 1 MG Diltiazem HCl (Cardizem Cd Cap) 180 mg DAILY PO 09/14/17 09:00 10/14/17 08:59 09/17/17 08:09 180 MG Docusate Sodium (coLACE CAP) 100 mg BID PO 09/13/17 21:00 10/13/17 20:59 09/17/17 08:10 100 MG Ferrous Sulfate (Feosol Tab) 325 mg DAILY PO 09/14/17 09:00 10/14/17 08:59 09/17/17 08:10 325 MG Levothyroxine Sodium (Synthroid Tab) 125 mcg DAILYBB PO 09/14/17 06:00 10/14/17 05:59 09/17/17 05:39 125 MCG Trazodone HCl (Desyrel Tab) 25 mg DAILY PO 09/14/17 09:00 10/14/17 08:59 09/17/17 08:09 25 MG Heparin Sodium (Porcine) (Heparin Sq 5000 Unit/0.5ml) 5,000 unit Q8 SQ 09/13/17 22:00 10/13/17 21:59 09/17/17 05:39 5,000 UNIT Sodium Chloride 1,000 ml @ 50 mls/hr Q20H IV 09/13/17 18:00 09/16/17 10:59 DC 09/16/17 06:09 50 MLS/HR Methylprednisolone Sodium Succinate 40 mg/Syringe 0.64 ml @ 1.5 mls/min TID IV 09/13/17 21:00 09/16/17 10:59 DC 09/16/17 08:04 1.5 MLS/MIN Levofloxacin 500 mg/Prmx 100 ml @ 100 mls/hr Q24H IV 09/14/17 10:00 09/14/17 14:08 DC 09/14/17 08:50 100 MLS/HR Albuterol/ Ipratropium (Duoneb) 3 ml Q4R INH 09/13/17 20:00 10/13/17 19:59 09/17/17 11:15 3 ML Piperacillin Sod/ Tazobactam Sod 3.375 gm/Dextrose 115 ml @ 230 mls/hr TODAY@2200 ONCE IV 09/13/17 22:00 09/13/17 22:29 DC 09/13/17 21:23 230 MLS/HR Piperacillin Sod/ Tazobactam Sod 3.375 gm/Dextrose 115 ml @ 28.75 mls/ hr Q8H IV 09/14/17 04:00 09/16/17 10:59 DC 09/16/17 04:03 28.75 MLS/HR Levofloxacin 750 mg/Prmx 150 ml @ 100 mls/hr Q48H IV 09/16/17 08:00 09/16/17 10:59 DC 09/16/17 08:03 100 MLS/HR Enteral Nutritional Formula (Boost) 1 can BID PO 09/16/17 21:00 09/17/17 13:07 DC 09/17/17 08:08 1 CAN Prednisone (PredniSONE TAB) 40 mg DAILY PO 09/17/17 09:00 10/17/17 08:59 09/17/17 08:09 40 MG Lisinopril (Zestril Tab) 2.5 mg QAM PO 09/17/17 09:00 10/17/17 08:59 09/17/17 08:10 2.5 MG Lisinopril (Zestril Tab) 2.5 mg NOW ONCE PO 09/16/17 11:15 09/16/17 11:21 DC 09/16/17 12:09 2.5 MG Enteral Nutritional Formula (Boost) 1 can BID PO 09/16/17 21:00 09/17/17 13:08 DC 09/17/17 08:07 1 CAN Furosemide 20 mg/ Syringe 2 ml @ 4 mls/min ONE STAT IV 09/17/17 12:32 09/17/17 12:33 DC 09/17/17 12:55 4 MLS/MIN Objective Vital Signs Date Time Temp Pulse Resp B/P (MAP) Pulse Ox O2 Delivery O2 Flow Rate FiO2 09/17/17 12:57 98 121/68 (85) 09/17/17 11:15 82 20 95 Nasal Cannula 3.0 09/17/17 08:06 97 131/75 (93) 09/17/17 08:01 36.6 75 20 120/69 (86) 98 Nasal Cannula 5.0 09/17/17 08:00 Nasal Cannula 5.0 09/17/17 06:58 76 20 98 Nasal Cannula 4.0 09/17/17 00:03 91 Oxymask 6.0 50 09/16/17 23:01 36.4 92 18 119/64 (82) 98 Oxymask 5.0 09/16/17 20:30 82 22 150/68 (95) 91 Oxymask 6.0 09/16/17 20:00 91 Oxymask 6.0 50 09/16/17 19:52 119 32 90 Oxymask 6.0 09/16/17 19:46 37.1 141 38 196/80 (118) 74 Nasal Cannula 6.0 09/16/17 19:10 93 87 173/70 (104) 98 Nasal Cannula 2.0 09/16/17 19:06 85 20 94 Nasal Cannula 3.0 09/16/17 17:25 Nasal Cannula 3.5 09/16/17 15:41 90 22 95 Nasal Cannula 3.5 09/16/17 14:51 37.0 71 22 110/65 (80) 94 Nasal Cannula 3.0 Physical Exam Notes: General: no distress Eyes: normal inspection, PERLL Respiratory: chest non tender, diminished bases bilaterally, no respiratory distress, no accessory muscle use Cardiac: regular rate and rhythm, no rub or gallop, no murmur, no edema, no jvd GI/: active bowel sounds, no abd pain or tenderness, soft, non distended Extremities: normal range of motion, normal strength, non tender Neuro/Psych: alert and oriented x 3, normal mood and affect Skin: normal color, dry Laboratory Results Last 24 Hours Test 09/16/17 16:11 09/16/17 20:11 09/17/17 07:04 09/17/17 07:25 Bedside Glucose 148 mg/dl 141 mg/dl 91 mg/dl White Blood Count 16.00 K/uL Red Blood Count 3.17 M/uL Hemoglobin 10.1 g/dL Hematocrit 32.4 % Mean Corpuscular Volume 102.2 fL Mean Corpuscular Hemoglobin 31.9 pg Mean Corpuscular Hemoglobin Concent 31.2 g/dl Platelet Count 335 K/uL Mean Platelet Volume 9.3 fL Neutrophils (%) (Auto) 81.8 % Lymphocytes (%) (Auto) 7.0 % Monocytes (%) (Auto) 9.4 % Eosinophils (%) (Auto) 0.0 % Basophils (%) (Auto) 0.2 % Neutrophils # (Auto) 13.10 K/uL Lymphocytes # (Auto) 1.12 K/uL Monocytes # (Auto) 1.50 K/uL Eosinophils # (Auto) 0.00 K/uL Basophils # (Auto) 0.03 K/uL RDW Standard Deviation 56.2 fL RDW Coefficient of Variation 15.1 % Immature Granulocyte % (Auto) 1.6 % Immature Granulocyte # (Auto) 0.25 K/uL Sodium Level 139 mmol/L Potassium Level 4.8 mmol/L Chloride Level 104 mmol/L Carbon Dioxide Level 32 mmol/L Anion Gap 4.0 mmol/L Blood Urea Nitrogen 28 mg/dl Creatinine 1.01 mg/dl Est Creatinine Clear Calc Drug Dose 34.0 ml/min Estimated GFR () 60.0 Estimated GFR (Non- 51.8 BUN/Creatinine Ratio 27.2 Random Glucose 84 mg/dl Calcium Level 8.5 mg/dl Phosphorus Level 2.5 mg/dl Magnesium Level 2.6 mg/dl Total Bilirubin 0.2 mg/dl Direct Bilirubin < 0.1 mg/dl Aspartate Amino Transf (AST/SGOT) 15 U/L Alanine Aminotransferase (ALT/SGPT) 18 U/L Alkaline Phosphatase 48 U/L Total Protein 5.8 gm/dl Albumin 2.5 gm/dl Test 09/17/17 11:06 Bedside Glucose 107 mg/dl Assessment and Plan Ms. Price is an 81-year-old woman here with COPD exacerbation with acute on chronic respiratory failure and hypoxia: COPD exacerbation/PNA/acute on chronic respiratory failure and hypoxia: - transferred from ICU yesterday - required bipap until 09/15 - now on 3L NC, 4L NC is her baseline - Repeat chest xray showed development of right basilar infiltrate in addition to consolidation previously seen on left base - zosyn restarted, continue levaquin - continue steroids, nebs - bc no growth chronic diastolic CHF - increased sob, new basilar infiltrate - iv lasix x 1 dose - continue home meds, ARF: - Creatinine peaked at 1.6 this admission and has trended down, today 1.0 - ANDREW restarted - IVF discontinued History of hypertension - ANDREW at reduced dose Spasmodic torticollis: baclofen, klonopin, trazodone as at home, Botox injection for this on 09/10/17 Hypothyroid: continue home meds Dispo: to [facility] with hospice when stabilized as much as possible.
[2017-09-17] MEDS: PIPERACILL/TAZOBAC IV 3.375 GM in DEXTROSE 5% 100ML 100 ML IV SCH (18:18)
[2017-09-18] VITALS (11 sets, daily range): BP systolic 104–149; BP diastolic 62–69; PULSE 72–93; TEMP 36.6; O2SAT 90–99
[2017-09-18] MEDS: PIPERACILL/TAZOBAC IV 3.375 GM in DEXTROSE 5% 100ML 100 ML IV SCH ×3 (02:45→17:39)
[2017-09-18] MEDS: ALBUT/IPRATROP 3MG/0.5MG NEB 3 ML VIAL INH SCH ×5 (03:37→18:24)
[2017-09-18] MEDS: HEPARIN SOD 5000 UNIT/0.5 ML CARP SQ SCH ×3 (05:52→20:11)
[2017-09-18] MEDS: LEVOTHYROXINE 125 MCG TAB PO SCH (05:53)
[2017-09-18 07:25] LABS: BASO % 0.1 %; BASO ABS # 0.01 K/uL (0-0.2); EOS % 0.1 %; EOS ABS # 0.01 K/uL (0-0.5); HEMATOCRIT 30.9 % (37-47); HEMOGLOBIN 9.8 g/dL (12.0-16.0); IG# 0.36 K/uL (0.00-0.02); LYMPH % 8.7 %; LYMPH ABS # 1.23 K/uL (1.2-3.4); MEAN CORPUSCULAR HEMOGLOBIN 32.3 pg (25-34); MEAN CORPUSCULAR HGB CONC 31.7 g/dl (32-36); MEAN PLATELET VOLUME 9.4 fL (7.4-10.4); MONO % 8.1 %; MONO ABS # 1.14 K/uL (0.11-0.59); NEUT % 80.4 %; NEUT ABS # 11.36 K/uL (1.4-6.5); PLATELET COUNT 339 K/uL (130-400); RED CELL DISTRIBUTION WIDTH SD 55.9 fL (36.4-46.3); WHITE BLOOD COUNT 14.11 K/uL (4.8-10.8)
[2017-09-18] MEDS: BUDESONIDE 0.5 MG/2 ML VIAL (PULMICORT) INH SCH ×2 (07:26→20:00)
[2017-09-18 07:53] LABS: ALBUMIN 2.2 gm/dl (3.4-5.0); ALT/SGPT 16 U/L (12-78); AST/SGOT 14 U/L (15-37); BLOOD UREA NITROGEN 26 mg/dl (7-18); CALCIUM 8.1 mg/dl (8.5-10.1); CARBON DIOXIDE 36 mmol/L (21-32); CREATININE 1.06 mg/dl (0.60-1.20); GLUCOSE 75 mg/dl (70-99); POTASSIUM 5.2 mmol/L (3.5-5.1); SODIUM 139 mmol/L (136-145)
[2017-09-18 07:56] LABS: ALKALINE PHOSPHATASE 43 U/L (45-117); PHOSPHORUS 2.4 mg/dl (2.5-4.9); TOTAL PROTEIN 5.3 gm/dl (6.4-8.2)
--- NOTE | 2017-09-18 08:44 | Hospitalist Progress Note ---
Hospitalist Progress Note Date of Service Sep 18, 2017. Subjective Pt evaluation today including: conversation w/ patient, physical exam, chart review, lab review, review of studies Pain: None PO Intake: Good Voiding: no voiding problems The patient was seen and examined this morning. Pt reports doing well, no acute complaints. She feels her breathing is much better today compared to yesterday. She has been working with PT/OT. Pt is hopeful to go home with hospice soon. Constitutional: No fever, No chills, No sweats, No fatigue ENT: No nasal symptoms, No sore throat Respiratory: No cough, No wheezing, No shortness of breath Cardiovascular: No chest pain, No edema, No palpitations Abdomen: No pain, No nausea, No vomiting, No diarrhea, No constipation Musculoskeletal: No joint pain, No swelling Objective Vital Signs Date Time Temp Pulse Resp B/P (MAP) Pulse Ox O2 Delivery O2 Flow Rate FiO2 09/18/17 07:26 72 20 98 Nasal Cannula 4.0 09/18/17 06:50 36.6 73 18 109/64 (79) 99 Nasal Cannula 4.0 09/18/17 00:00 92 Nasal Cannula 4.0 09/17/17 19:24 78 20 97 Nasal Cannula 4.0 09/17/17 16:00 95 Nasal Cannula 4.0 50 09/17/17 15:22 77 20 95 Nasal Cannula 4.0 09/17/17 14:46 36.6 69 22 110/64 (79) 94 Nasal Cannula 4.0 09/17/17 13:48 79 20 95 Nasal Cannula 4.0 09/17/17 12:57 98 121/68 (85) 09/17/17 11:15 82 20 95 Nasal Cannula 3.0 Physical Exam General Appearance: WD/WN, no apparent distress, + thin Eyes: PERRL, EOMI ENT: hearing grossly normal, pharynx normal Neck: supple, no JVD Respiratory/Chest: lungs clear, no respiratory distress, no accessory muscle use, + pertinent finding (on 3.5 L via NC, occasional exp wheeze) Cardiovascular: regular rate, rhythm, no JVD Abdomen: normal bowel sounds, non tender, soft Extremities: non-tender, no pedal edema, no calf tenderness Neurologic/Psychiatric: alert, normal mood/affect, oriented x 3 Skin: normal color, warm/dry Laboratory Results Last 24 Hours Test 09/17/17 11:06 09/17/17 16:38 09/17/17 20:04 09/18/17 06:45 Bedside Glucose 107 mg/dl 138 mg/dl 167 mg/dl White Blood Count 14.11 K/uL Red Blood Count 3.03 M/uL Hemoglobin 9.8 g/dL Hematocrit 30.9 % Mean Corpuscular Volume 102.0 fL Mean Corpuscular Hemoglobin 32.3 pg Mean Corpuscular Hemoglobin Concent 31.7 g/dl Platelet Count 339 K/uL Mean Platelet Volume 9.4 fL Neutrophils (%) (Auto) 80.4 % Lymphocytes (%) (Auto) 8.7 % Monocytes (%) (Auto) 8.1 % Eosinophils (%) (Auto) 0.1 % Basophils (%) (Auto) 0.1 % Neutrophils # (Auto) 11.36 K/uL Lymphocytes # (Auto) 1.23 K/uL Monocytes # (Auto) 1.14 K/uL Eosinophils # (Auto) 0.01 K/uL Basophils # (Auto) 0.01 K/uL RDW Standard Deviation 55.9 fL RDW Coefficient of Variation 15.0 % Immature Granulocyte % (Auto) 2.6 % Immature Granulocyte # (Auto) 0.36 K/uL Sodium Level 139 mmol/L Potassium Level 5.2 mmol/L Chloride Level 99 mmol/L Carbon Dioxide Level 36 mmol/L Anion Gap 4.0 mmol/L Blood Urea Nitrogen 26 mg/dl Creatinine 1.06 mg/dl Est Creatinine Clear Calc Drug Dose 32.4 ml/min Estimated GFR () 56.6 Estimated GFR (Non- 48.9 BUN/Creatinine Ratio 24.4 Random Glucose 75 mg/dl Calcium Level 8.1 mg/dl Phosphorus Level 2.4 mg/dl Magnesium Level 2.5 mg/dl Total Bilirubin 0.3 mg/dl Direct Bilirubin < 0.1 mg/dl Aspartate Amino Transf (AST/SGOT) 14 U/L Alanine Aminotransferase (ALT/SGPT) 16 U/L Alkaline Phosphatase 43 U/L Total Protein 5.3 gm/dl Albumin 2.2 gm/dl Test 09/18/17 07:41 Bedside Glucose 74 mg/dl Assessment and Plan Ms. Price is an 81-year-old woman here with COPD exacerbation with acute on chronic respiratory failure and hypoxia: COPD exacerbation/PNA/acute on chronic respiratory failure and hypoxia: - Out of ICU 09/16 - required bipap until 09/15 - now on 3L NC, 4L NC is her baseline - Repeat chest xray 09/17 showed development of right basilar infiltrate in addition to consolidation previously seen on left base - zosyn restarted, continue levaquin - with concerns for possible pneumonia likely will keep here at least another 2 days, possibly will be here through the weekend. - continue steroids- Pred 40 mg PO daily and taper, supportive care with nebs - BCx neg Chronic diastolic CHF - increased sob, new basilar infiltrate - iv lasix x 1 dose - continue diltiazem CD 180 mg daily, lisinopril 2.5 mg daily, asa 81 mg ARF: - Creatinine peaked at 1.6 this admission and has trended down, today 1.0 - ANDREW restarted - IVF discontinued History of hypertension - ANDREW at reduced dose Spasmodic torticollis: baclofen, klonopin, trazodone as at home, Botox injection for this on 09/10/17 Hypothyroid: continue home meds CODE STATUS: DNR Dispo: to [facility] with hospice when stabilized, likely within 1-2 days.
[2017-09-18] MEDS: CLONAZEPAM 1 MG TAB PO PRN ×2 (08:59→21:58)
[2017-09-18] MEDS: BOOST VANILLA PO SCH ×2 (08:59→20:12)
[2017-09-18] MEDS: DOCUSATE SODIUM 100 MG CAP PO SCH ×2 (09:00→20:10)
[2017-09-18] MEDS: TRAZODONE HCL 50 MG TAB PO SCH (09:00)
[2017-09-18] MEDS: DILTIAZEM HCL 180 MG CAPCR PO SCH (09:00)
[2017-09-18] MEDS: FERROUS SULFATE 325 MG TAB PO SCH (09:01)
[2017-09-18] MEDS: CITALOPRAM 20 MG TAB PO SCH ×2 (09:01→20:10)
[2017-09-18] MEDS: LISINOPRIL 2.5 MG TAB PO SCH (09:01)
[2017-09-18] MEDS: ATORVASTATIN 10 MG TAB PO SCH (09:01)
[2017-09-18] MEDS: ASPIRIN 81 MG ECTAB PO SCH (09:01)
[2017-09-18] MEDS: LEVOFLOXACIN 750 MG TAB PO SCH (10:30)
[2017-09-18] MEDS: LACTOBACILLUS ACIDOPHILUS (FLORANEX) TAB PO SCH ×2 (10:31→16:48)
--- NOTE | 2017-09-18 23:51 | Progress Note ---
Post ICU Progress Note Date & Time Sep 18, 2017 at 23:51 Vital Signs Vital Signs Past 12 Hours Date Time Temp Pulse Resp B/P (MAP) Pulse Ox O2 Delivery O2 Flow Rate FiO2 09/18/17 23:42 36.6 90 18 127/64 (85) 91 Nasal Cannula 4.0 09/18/17 20:00 95 Nasal Cannula 4.0 09/18/17 16:00 94 Nasal Cannula 4.0 09/18/17 15:22 36.6 93 22 149/69 (95) 90 Nasal Cannula 4.0 09/18/17 15:17 92 20 92 Nasal Cannula 6.0 09/18/17 11:54 77 20 96 Nasal Cannula 4.0 Notes Mental Status: see Notes (Pt was not evaluated, pt sleeping. Documentation completed via chart review. ) Airway Patency, RR, SpO2: stable & adequate (On home dose of 4L ) BP & HR: stable & adequate Chery Price is an 81 yr old female who presented with shortness of breath and found at [facility] to have a SaO2 of 62%. Pt arrived on BiPap and did not require intubation this admission. She was treated in ICU with abx for COPD exacerbation and BiPap until she was weaned back to her chronic 4L O2 for COPD. She did not undergo invasive monitor or central access. She transferred to telemetry on 09/16. Per nursing notes, physician documentation, and general chart review pt is A& O x4 and remains stable at this time. Pt is still receiving IV antibiotics and has not been cleared for discharge yet. Current plans are hopeful for tomorrow discharge to [address] Repeat imaging needed: As indicated Follow up cultures: NA Reviewed progress notes, labs, and inpatient medication list Continue current management Additional recommendations: none Pt is hemodynamically stable. Critical Care will sign off at this time. Thank you for including us in the care for this pt, please feel free to reconsult as needed.
[2017-09-19] VITALS (11 sets, daily range): BP systolic 101–135; BP diastolic 56–75; PULSE 71–101; TEMP 36.4–36.9; O2SAT 91–98
[2017-09-19] MEDS: PIPERACILL/TAZOBAC IV 3.375 GM in DEXTROSE 5% 100ML 100 ML IV SCH ×3 (01:46→18:12)
[2017-09-19] MEDS: ALBUT/IPRATROP 3MG/0.5MG NEB 3 ML VIAL INH SCH ×7 (04:00→23:08)
[2017-09-19] MEDS ORDERED: SODIUM CHLORIDE 0.65% NA SOLN 45 ML (OCEAN) ONE (05:27)
[2017-09-19] MEDS: HEPARIN SOD 5000 UNIT/0.5 ML CARP SQ SCH ×3 (05:29→21:29)
[2017-09-19] MEDS: LEVOTHYROXINE 125 MCG TAB PO SCH (05:31)
[2017-09-19] MEDS ORDERED: SODIUM CHLORIDE 0.65% NA SOLN 45 ML (OCEAN) PRN (05:45)
--- NOTE | 2017-09-19 06:22 | Progress Note ---
Progress Note Date of Service Sep 19, 2017. Progress Note acute hypoxic episode lasting approx 20 min, had to increase O2 req to 5.5 L on exam decreased air movement to bilat bases, no exp wheezes but coarse breath sounds appreciated suspicious for mucus plug CXR ordered, vibration vest
--- NOTE | 2017-09-19 07:09 | DIAGNOSTIC IMAGING REPORT ---
CHEST ONE VIEW PORTABLE CLINICAL HISTORY: dyspnea COMPARISON STUDY: 09/17/2017 FINDINGS: The cardiac and mediastinal contours remain stable. There is persistent left lower lobe atelectasis/consolidation with a small left pleural effusion. There is improving aeration of the right lower lobe. There is no failure. There are postsurgical changes of a right humeral arthroplasty[ lower left rib fractures are again evident. IMPRESSION: 1. Resolving right basilar airspace opacities 2. Persistent left lower lobe atelectasis/consolidation with a small left pleural effusion Electronically signed by: Ron Barba M.D. 09/19/2017 7:07 AM Dictated Date/Time: 09/19/2017 7:07 AM
[2017-09-19] MEDS: BUDESONIDE 0.5 MG/2 ML VIAL (PULMICORT) INH SCH ×2 (07:16→21:02)
[2017-09-19] MEDS: BOOST VANILLA PO SCH ×2 (08:40→21:00)
[2017-09-19] MEDS: CLONAZEPAM 1 MG TAB PO PRN ×2 (08:43→22:02)
[2017-09-19] MEDS: FERROUS SULFATE 325 MG TAB PO SCH (08:43)
[2017-09-19] MEDS: ASPIRIN 81 MG ECTAB PO SCH (08:43)
[2017-09-19] MEDS: ATORVASTATIN 10 MG TAB PO SCH (08:43)
[2017-09-19] MEDS: LACTOBACILLUS ACIDOPHILUS (FLORANEX) TAB PO SCH ×3 (08:43→18:12)
[2017-09-19] MEDS: DOCUSATE SODIUM 100 MG CAP PO SCH ×2 (08:44→21:00)
[2017-09-19] MEDS: DILTIAZEM HCL 180 MG CAPCR PO SCH (08:44)
[2017-09-19] MEDS: LISINOPRIL 2.5 MG TAB PO SCH (08:44)
[2017-09-19] MEDS: TRAZODONE HCL 50 MG TAB PO SCH (08:44)
[2017-09-19] MEDS: CITALOPRAM 20 MG TAB PO SCH ×2 (08:44→21:26)
[2017-09-19] MEDS ORDERED: FUROSEMIDE INJ 20 MG in SYRINGE 0 ML IV ONE (11:30)
--- NOTE | 2017-09-19 14:26 | Hospitalist Progress Note ---
Hospitalist Progress Note Date of Service Sep 19, 2017. Subjective Pt evaluation today including: conversation w/ patient, conversation w/ family , physical exam, chart review, lab review, review of inpatient medication list Voiding: georges catheter in place Ms. Price is without complaints though her oxygen needs have increased after hypoxic incident overnight. She was on 5L oxymask overnight and was able to come down to 4L NC this afternoon. I did have a conversation over the phone with her daughter in law about patient's status and also discussed with the patient as well. Patient seems to have hit a bit of a wall and is not improving and at this point I am reluctant to add more therapies if she would like to government program manager to focus on comfort rather than cure. Both family and patient verbalized understanding and the family will be in later this afternoon to discuss with patient what her preference is. She was uncertain what she wanted at the time of our discussion. ROS Constitutional: no chills, aches, sweats or fever Respiratory: no sob,cough, sputum, or wheezing Cardiac: no chest pain, palpitations, edema, orthopnea or lightheadedness GI: no abdominal pain, nausea, vomiting, diarrhea or constipation : no dysuria or hesitancy Extremities: no joint pain or weakness Skin: no rash All other systems reviewed and negative Medications Medications Administered Medications (Trade) Dose Ordered Sig/Nishant Route Start Time Stop Time Status Last Admin Dose Admin Albuterol/ Ipratropium (Duoneb) 12 ml ONE ONCE INH 09/13/17 13:45 09/13/17 13:46 DC 09/13/17 13:45 12 ML Vancomycin HCl (Vancomycin 1gm/ 270ml Nss) 1 gm ONE STAT IV 09/13/17 13:32 09/13/17 13:35 DC 09/13/17 14:31 1 GM Levofloxacin (Levaquin / D5W) 750 mg ONE STAT IV 09/13/17 13:32 09/13/17 13:35 DC 09/13/17 14:31 750 MG Cefepime HCl 2000 mg/Dextrose 122 ml @ 200 mls/hr NOW STAT IV 09/13/17 13:34 09/13/17 14:10 DC 09/13/17 14:13 200 MLS/HR Methylprednisolone Sodium Succinate (Solu-Medrol IV) 125 mg NOW STAT IV 1/13/18 13:39 09/13/17 13:41 DC 09/13/17 13:39 125 MG Magnesium Sulfate (Magnesium Sulfate) 1 gm NOW STAT IV 09/13/17 13:39 09/13/17 13:41 DC 09/13/17 13:51 1 GM Sodium Chloride 1,000 ml @ 999 mls/hr Q1H1M STAT IV 09/13/17 13:53 09/13/17 14:53 DC 09/13/17 13:53 999 MLS/HR Aspirin (Ecotrin Tab) 81 mg DAILY PO 09/14/17 09:00 10/14/17 08:59 09/19/17 08:43 81 MG Atorvastatin Calcium (Lipitor Tab) 10 mg DAILY PO 09/14/17 09:00 10/14/17 08:59 09/19/17 08:43 10 MG Budesonide (Pulmicort Respules 0.5MG/ 2ML Neb Soln) 0.5 mg BIDR INH 09/13/17 20:00 10/13/17 19:59 09/19/17 07:16 0.5 MG Citalopram Hydrobromide (celeXA TAB) 20 mg BID PO 09/13/17 21:00 10/13/17 20:59 09/19/17 08:44 20 MG Clonazepam (Klonopin Tab) 1 mg BID PRN PO 09/13/17 16:30 10/13/17 16:29 09/19/17 08:43 1 MG Diltiazem HCl (Cardizem Cd Cap) 180 mg DAILY PO 09/14/17 09:00 10/14/17 08:59 09/19/17 08:44 180 MG Docusate Sodium (coLACE CAP) 100 mg BID PO 09/13/17 21:00 10/13/17 20:59 09/18/17 20:10 100 MG Ferrous Sulfate (Feosol Tab) 325 mg DAILY PO 09/14/17 09:00 10/14/17 08:59 09/19/17 08:43 325 MG Levothyroxine Sodium (Synthroid Tab) 125 mcg DAILYBB PO 09/14/17 06:00 10/14/17 05:59 09/19/17 05:31 125 MCG Trazodone HCl (Desyrel Tab) 25 mg DAILY PO 09/14/17 09:00 10/14/17 08:59 09/19/17 08:44 25 MG Heparin Sodium (Porcine) (Heparin Sq 5000 Unit/0.5ml) 5,000 unit Q8 SQ 09/13/17 22:00 10/13/17 21:59 09/19/17 05:29 5,000 UNIT Sodium Chloride 1,000 ml @ 50 mls/hr Q20H IV 09/13/17 18:00 09/16/17 10:59 DC 09/16/17 06:09 50 MLS/HR Methylprednisolone Sodium Succinate 40 mg/Syringe 0.64 ml @ 1.5 mls/min TID IV 09/13/17 21:00 09/16/17 10:59 DC 09/16/17 08:04 1.5 MLS/MIN Levofloxacin 500 mg/Prmx 100 ml @ 100 mls/hr Q24H IV 09/14/17 10:00 09/14/17 14:08 DC 09/14/17 08:50 100 MLS/HR Albuterol/ Ipratropium (Duoneb) 3 ml Q4R INH 09/13/17 20:00 10/13/17 19:59 09/19/17 11:30 3 ML Piperacillin Sod/ Tazobactam Sod 3.375 gm/Dextrose 115 ml @ 230 mls/hr TODAY@2200 ONCE IV 09/13/17 22:00 09/13/17 22:29 DC 09/13/17 21:23 230 MLS/HR Piperacillin Sod/ Tazobactam Sod 3.375 gm/Dextrose 115 ml @ 28.75 mls/ hr Q8H IV 09/14/17 04:00 09/16/17 10:59 DC 09/16/17 04:03 28.75 MLS/HR Levofloxacin 750 mg/Prmx 150 ml @ 100 mls/hr Q48H IV 09/16/17 08:00 09/16/17 10:59 DC 09/16/17 08:03 100 MLS/HR Enteral Nutritional Formula (Boost) 1 can BID PO 09/16/17 21:00 09/17/17 13:07 DC 09/17/17 08:08 1 CAN Prednisone (PredniSONE TAB) 40 mg DAILY PO 09/17/17 09:00 10/17/17 08:59 09/19/17 08:43 40 MG Levofloxacin (Levaquin Tab) 750 mg Q2D@11 PO 09/18/17 11:00 09/21/17 10:59 09/18/17 10:30 750 MG Lisinopril (Zestril Tab) 2.5 mg QAM PO 09/17/17 09:00 10/17/17 08:59 09/19/17 08:44 2.5 MG Lisinopril (Zestril Tab) 2.5 mg NOW ONCE PO 09/16/17 11:15 09/16/17 11:21 DC 09/16/17 12:09 2.5 MG Enteral Nutritional Formula (Boost) 1 can BID PO 09/16/17 21:00 09/17/17 13:08 DC 09/17/17 08:07 1 CAN Albuterol/ Ipratropium (Duoneb) 3 ml NOW STAT INH 09/17/17 12:26 09/17/17 12:31 DC 09/17/17 13:47 3 ML Furosemide 20 mg/ Syringe 2 ml @ 4 mls/min ONE STAT IV 09/17/17 12:32 09/17/17 12:33 DC 09/17/17 12:55 4 MLS/MIN Piperacillin Sod/ Tazobactam Sod (Zosyn Iv) 3.375 gm NOW STAT IV 09/17/17 12:57 09/17/17 12:59 DC 09/17/17 14:08 3.375 GM Piperacillin Sod/ Tazobactam Sod 3.375 gm/Dextrose 115 ml @ 28.75 mls/ hr Q8H IV 09/17/17 18:00 09/24/17 17:59 09/19/17 09:49 28.75 MLS/HR Enteral Nutritional Formula (Boost) 1 can BID PO 09/17/17 21:00 10/17/17 20:59 09/19/17 08:40 1 CAN Lactobacillus Acidophilus (Floranex Tab) 4 tab TIDM PO 09/18/17 12:00 10/18/17 11:59 09/19/17 11:52 4 TAB Furosemide 20 mg/ Syringe 2 ml @ 4 mls/min TODAY@1130 ONCE IV 09/19/17 11:30 09/19/17 11:31 DC 09/19/17 11:52 4 MLS/MIN Objective Vital Signs Date Time Temp Pulse Resp B/P (MAP) Pulse Ox O2 Delivery O2 Flow Rate FiO2 09/19/17 11:51 86 119/56 (77) 93 Oxymask 5.0 09/19/17 11:30 86 20 93 Mask 4.0 09/19/17 08:42 101 130/66 (87) 09/19/17 08:00 93 Oxymask 5.0 09/19/17 07:21 36.9 71 18 135/75 (95) 94 4.0 09/19/17 07:16 91 20 91 Mask 4.0 09/19/17 00:00 95 Nasal Cannula 4.0 09/18/17 23:42 36.6 90 18 127/64 (85) 91 Nasal Cannula 4.0 09/18/17 20:00 95 Nasal Cannula 4.0 09/18/17 16:00 94 Nasal Cannula 4.0 09/18/17 15:22 36.6 93 22 149/69 (95) 90 Nasal Cannula 4.0 09/18/17 15:17 92 20 92 Nasal Cannula 6.0 Physical Exam Notes: General: no distress Eyes: normal inspection, PERLL Respiratory: chest non tender, clear to auscultation except left base faint crackles, normal breath sounds, no respiratory distress, no accessory muscle use Cardiac: regular rate and rhythm, no rub or gallop, no murmur, no edema, no jvd GI/: active bowel sounds, no abd pain or tenderness, soft, non distended Extremities: normal range of motion,generalized weakness, non tender Neuro/Psych: alert and oriented x 3, normal mood and affect Skin: normal color, dry Assessment and Plan Ms. Price is an 81-year-old woman here with COPD exacerbation with acute on chronic respiratory failure and hypoxia: COPD exacerbation/PNA/acute on chronic respiratory failure and hypoxia: - transferred from ICU 09/17/17 - required bipap until 09/15 - now on 3L NC, 4L NC is her baseline - Chest xray showed development of right basilar infiltrate in addition to consolidation previously seen on left base - zosyn restarted, continue levaquin - patient hypoxic overnight - chest x ray this morning showed improvement of right - steroids discontinued 09/16, continue nebs - bc no growth chronic diastolic CHF - increased sob, new basilar infiltrate - iv lasix x 1 dose - patient somewhat improved after - continue home meds, ARF: - Creatinine peaked at 1.6 this admission and has trended down to wnl - ANDREW restarted - IVF discontinued History of hypertension - ANDREW at reduced dose Spasmodic torticollis: baclofen, klonopin, trazodone as at home, Botox injection for this on 09/10/17 Hypothyroid: continue home meds Dispo: to [place] with hospice when stabilized as much as possible. Family to come in today for further discussion with patient
[2017-09-20] VITALS (10 sets, daily range): BP systolic 100–124; BP diastolic 64–68; PULSE 74–89; TEMP 36.5–36.7; O2SAT 87–98
[2017-09-20] MEDS: PIPERACILL/TAZOBAC IV 3.375 GM in DEXTROSE 5% 100ML 100 ML IV SCH ×3 (02:17→17:15)
[2017-09-20] MEDS: ALBUT/IPRATROP 3MG/0.5MG NEB 3 ML VIAL INH SCH ×6 (04:00→22:57)
[2017-09-20] MEDS: HEPARIN SOD 5000 UNIT/0.5 ML CARP SQ SCH ×3 (05:56→20:37)
[2017-09-20] MEDS: LEVOTHYROXINE 125 MCG TAB PO SCH (06:30)
[2017-09-20 07:44] LABS: HEMATOCRIT 34.1 % (37-47); HEMOGLOBIN 10.5 g/dL (12.0-16.0); MEAN CELL VOLUME 102.1 fL (80-100); MEAN CORPUSCULAR HEMOGLOBIN 31.4 pg (25-34); MEAN CORPUSCULAR HGB CONC 30.8 g/dl (32-36); MEAN PLATELET VOLUME 9.3 fL (7.4-10.4); PLATELET COUNT 429 K/uL (130-400); RED CELL DISTRIBUTION WIDTH CV 14.9 % (11.5-14.5); RED CELL DISTRIBUTION WIDTH SD 55.2 fL (36.4-46.3); WHITE BLOOD COUNT 23.03 K/uL (4.8-10.8)
[2017-09-20] MEDS: LACTOBACILLUS ACIDOPHILUS (FLORANEX) TAB PO SCH ×3 (07:55→17:13)
[2017-09-20] MEDS: DOCUSATE SODIUM 100 MG CAP PO SCH ×2 (07:55→20:39)
[2017-09-20] MEDS: DILTIAZEM HCL 180 MG CAPCR PO SCH (07:55)
[2017-09-20] MEDS: CITALOPRAM 20 MG TAB PO SCH ×2 (07:55→20:39)
[2017-09-20] MEDS: LISINOPRIL 2.5 MG TAB PO SCH (07:56)
[2017-09-20] MEDS: TRAZODONE HCL 50 MG TAB PO SCH (07:56)
[2017-09-20] MEDS: ATORVASTATIN 10 MG TAB PO SCH (07:57)
[2017-09-20] MEDS: FLUTICASONE PROPIONATE NA SPR 16 GM BTL SCH (07:57)
[2017-09-20] MEDS: BOOST VANILLA PO SCH ×2 (07:58→20:36)
[2017-09-20] MEDS: BUDESONIDE 0.5 MG/2 ML VIAL (PULMICORT) INH SCH ×2 (08:00→20:23)
[2017-09-20 08:17] LABS: CALCIUM 8.6 mg/dl (8.5-10.1); CREATININE 1.11 mg/dl (0.60-1.20); POTASSIUM 4.3 mmol/L (3.5-5.1)
[2017-09-20 08:22] LABS: BASO % 0.1 %; BASO ABS # 0.03 K/uL (0-0.2); EOS % 0.3 %; EOS ABS # 0.06 K/uL (0-0.5); IG# 0.88 K/uL (0.00-0.02); LYMPH % 6.2 %; LYMPH ABS # 1.43 K/uL (1.2-3.4); MONO % 6.7 %; MONO ABS # 1.55 K/uL (0.11-0.59); NEUT % 82.9 %; NEUT ABS # 19.08 K/uL (1.4-6.5)
[2017-09-20] MEDS: ASPIRIN 81 MG ECTAB PO SCH (09:33)
[2017-09-20] MEDS: FERROUS SULFATE 325 MG TAB PO SCH (09:34)
[2017-09-20] MEDS: LEVOFLOXACIN 750 MG TAB PO SCH (11:56)
--- NOTE | 2017-09-20 15:03 | Progress Note ---
Subjective Date of Service: Sep 20, 2017. Subjective Pt evaluation today including: conversation w/ patient, physical exam, chart review, lab review, review of studies, conversation w/ remediation bioanalytics consultant, review of inpatient medication list Generally looks the same, still need to high oxygen concentrations maintained possible more than 88%, patient afebrile, report was eating and drinking, was out of bed to chair Problem List Medical Problems: (1) COPD exacerbation Status: Acute (2) Respiratory failure Status: Acute Review of Systems Constitutional: No see HPI, No fever, No chills, No sweats, No weight loss, No weakness, No fatigue, No problem reported Eyes: No see HPI, No worsening of vision, No eye pain, No redness, No discharge , No diplopia, No problem reported ENT: + nasal symptoms (report nose congestion is better), No see HPI, No hearing loss, No unusual epistaxis, No sore throat, No tinnitus, No dental problems, No trouble swallowing, No problem reported Respiratory: + cough, + shortness of breath, + dyspnea on exertion Cardiac: + edema (trace), No see HPI, No chest pain, No orthopnea, No PND, No claudication, No palpitations, No problem reported Abdomen: No see HPI, No pain, No nausea, No vomiting, No diarrhea, No constipation, No GI bleeding, No problem reported Musculoskeletal: No see HPI, No joint pain, No muscle pain, No swelling, No calf pain, No problem reported Female : No see HPI, No dysuria, No urinary frequency, No hematuria, No incontinence, No abnormal vaginal bleeding, No vaginal discharge, No problem reported Psychiatric: No see HPI, No depression symptoms, No anhedonism, No anxiety, No insomnia, No substance abuse, No problem reported Heme: No see HPI, No abnormal bleeding/bruising, No clotting problems, No swollen lymph nodes, No night sweats, No problem reported Endo: No see HPI, No fatigue, No excessive thirst, No excessive urination, No problem reported Skin: No see HPI, No rash, No itch, No new/changing skin lesions, No color change, No bleeding, No problem reported Objective Vital Signs Date Time Temp Pulse Resp B/P (MAP) Pulse Ox O2 Delivery O2 Flow Rate FiO2 09/20/17 11:14 84 16 98 Mask 5.0 09/20/17 08:00 Oxymask 4.0 09/20/17 07:50 96 Oxymask 4.0 09/20/17 07:45 87 Nasal Cannula 4.0 09/20/17 07:26 36.7 74 22 124/68 (86) 96 Nasal Cannula 3.5 09/20/17 07:01 84 16 94 Mask 4.0 09/20/17 00:00 Nasal Cannula 4.0 97 09/19/17 23:18 36.5 86 20 106/65 (79) 96 Nasal Cannula 3.5 09/19/17 21:04 84 16 98 Mask 5.0 09/19/17 16:00 Oxymask 5.0 09/19/17 15:46 36.4 85 20 101/64 (76) 96 Oxymask 5.0 09/19/17 15:38 82 18 97 Mask 5.0 Physical Exam General Appearance: WD/WN, no apparent distress, + pertinent finding (frail, pleasant, looks the same as yesterday) Eyes: normal inspection, PERRL, EOMI, sclerae normal ENT: normal ENT inspection, hearing grossly normal, pharynx normal Neck: supple, no adenopathy, thyroid normal, no JVD, no carotid bruits, trachea midline Respiratory/Chest: chest non-tender, normal breath sounds, no respiratory distress, no accessory muscle use, + decreased breath sounds, + rales, + wheezing (occasional) Cardiovascular: regular rate, rhythm, no edema, no gallop, no JVD, no murmur Abdomen: normal bowel sounds, non tender, soft, no organomegaly, no pulsatile mass Extremities: normal range of motion, non-tender, normal inspection, no pedal edema, no calf tenderness, normal capillary refill, pelvis stable Neurologic/Psychiatric: 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 II-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 nml as tested, no motor/sensory deficits, alert, normal mood/affect, oriented x 3 Skin: normal color, warm/dry, no rash Lymphatic: no adenopathy Laboratory Results Last 24 Hours Test 09/20/17 07:05 09/20/17 07:21 White Blood Count 23.03 K/uL Red Blood Count 3.34 M/uL Hemoglobin 10.5 g/dL Hematocrit 34.1 % Mean Corpuscular Volume 102.1 fL Mean Corpuscular Hemoglobin 31.4 pg Mean Corpuscular Hemoglobin Concent 30.8 g/dl Platelet Count 429 K/uL Mean Platelet Volume 9.3 fL Neutrophils (%) (Auto) 82.9 % Lymphocytes (%) (Auto) 6.2 % Monocytes (%) (Auto) 6.7 % Eosinophils (%) (Auto) 0.3 % Basophils (%) (Auto) 0.1 % Neutrophils # (Auto) 19.08 K/uL Lymphocytes # (Auto) 1.43 K/uL Monocytes # (Auto) 1.55 K/uL Eosinophils # (Auto) 0.06 K/uL Basophils # (Auto) 0.03 K/uL RDW Standard Deviation 55.2 fL RDW Coefficient of Variation 14.9 % Immature Granulocyte % (Auto) 3.8 % Immature Granulocyte # (Auto) 0.88 K/uL Toxic Vacuolation 1+ Sodium Level 137 mmol/L Potassium Level 4.3 mmol/L Chloride Level 94 mmol/L Carbon Dioxide Level 38 mmol/L Anion Gap 5.0 mmol/L Blood Urea Nitrogen 23 mg/dl Creatinine 1.11 mg/dl Est Creatinine Clear Calc Drug Dose 30.9 ml/min Estimated GFR () 53.6 Estimated GFR (Non- 46.2 BUN/Creatinine Ratio 20.8 Random Glucose 78 mg/dl Calcium Level 8.6 mg/dl Magnesium Level 2.4 mg/dl Bedside Glucose 82 mg/dl Assessment and Plan 81-year-old woman with COPD exacerbation, pneumonia with acute on chronic respiratory failure and hypoxia: COPD exacerbation/PNA/acute on chronic respiratory failure and hypoxia: Admitted on 09/13/2017 Out of ICU 09/16, only need BiPAP, never been intubated Still need to be on 5L NC and , 4L NC is her baseline Possible from nose congestion,? Ordered Flonase, continue Flonase Repeat chest xray 09/17 showed development of right basilar infiltrate in addition to consolidation previously seen on left base - zosyn restarted, continue zosyn and levaquin with concerns for possible pneumonia likely will keep here at least another 2-3 days more , possibly will be here through the weekend, so that patient can get zosyn iv, today is # 7 days of zosyn , possible has completed full course of treatment Will continue for 3 days more because on leukocytosis today Urine culture and blood culture was reviewed , has no growth is on steroids- taper Pred 40 mg to 30 mg PO daily Possible acute on Chronic diastolic CHF with increased sob, new basilar infiltrate iv lasix x 1 dose on 09/17/2017, tried another dose yesterday, renal function stable continue diltiazem CD 180 mg daily, lisinopril 2.5 mg daily, asa 81 mg ARF upon admission: Stable and improving, Creatinine peaked at 1.6 this admission and has trended down, follow-up renal function Spasmodic torticollis: baclofen, klonopin, trazodone as at home, Botox injection for this on 09/10/17 Hypothyroid: continue home meds CODE STATUS: DNR Dispo: to [facility] with hospice when stabilized, patient is end-stage respirator disease, associated with pneumonia and COPD exacerbation, ages, very likely poor prognosis, my PA Esther talked to family about the next steps such as comfort methods only or continue IV antibiotics, family request continue antibiotic for acute Today has worsening leukocytosis, likely from the response of prednisone, patient looks good and no fever and chill, blood culture sent and will follow-up Continued [facility] stay due to: multiple IV medications needed Discharge planning: long term facility
--- NOTE | 2017-09-20 21:43 | Medical Consult ---
Consultation Date of Consultation: Sep 20, 2017. Attending Physician: Shubham Monroe MD, PhD Reason for Consultation: Leukocytosis, multiple pneumonia History of Present Illness 81-year-old female with longstanding severe COPD, oxygen dependent, who apparently several days ago noted progressively worsening cough and shortness of breath. She was started empirically on Augmentin, but symptoms worsened, and she was found to be severely hypoxic and was referred to the emergency room for admission to the hospital. Chest x-ray on arrival, read by me, shows possible bilateral lower lobe infiltrates. She has been started empirically on levofloxacin and Zosyn. MRSA screen is negative, blood cultures have been no growth to date. Patient feeling somewhat better since admission. Tolerating her antibiotic without apparent difficulty. Past Medical/Surgical History Medical Problems: (1) COPD exacerbation Status: Acute (2) Respiratory failure Status: Acute Medical Problems: (1) Acute renal failure (2) COPD (chronic obstructive pulmonary disease) (3) Hypoxia (4) Neck pain, chronic (5) SOB (shortness of breath) (6) Torticollis Surgical Problems: (1) S/P Botox injection Family History No pertinent family history Social History Smoking Status: Former Smoker (quit 10 years ago) Smokeless Tobacco Use: No Alcohol Use: none Drug Use: none Marital Status: Housing Status: assisted living Occupation Status: retired Allergies Coded Allergies: Iodinated Diagnostic Agents (Verified Allergy, Unknown, RASH, 09/13/17) Current Inpatient Medications Current Inpatient Medications Medications (Trade) Dose Ordered Sig/Nishant Route Start Time Stop Time Status Last Admin Dose Admin Acetaminophen (Tylenol Tab) 650 mg Q4H PRN PO 09/13/17 16:30 10/13/17 16:29 Magnesium Hydroxide (Milk Of Magnesia Susp) 30 ml Q12H PRN PO 09/13/17 16:30 10/13/17 16:29 Ondansetron HCl (Zofran Inj) 4 mg Q6H PRN IV 09/13/17 16:30 10/13/17 16:29 Aspirin (Ecotrin Tab) 81 mg DAILY PO 09/14/17 09:00 10/14/17 08:59 09/20/17 09:33 81 MG Atorvastatin Calcium (Lipitor Tab) 10 mg DAILY PO 09/14/17 09:00 10/14/17 08:59 09/20/17 07:57 10 MG Bisacodyl (Dulcolax Supp) 10 mg UD SD 09/13/17 16:30 10/13/17 16:29 Budesonide (Pulmicort Respules 0.5MG/ 2ML Neb Soln) 0.5 mg BIDR INH 09/13/17 20:00 10/13/17 19:59 09/20/17 20:23 0.5 MG Citalopram Hydrobromide (celeXA TAB) 20 mg BID PO 09/13/17 21:00 10/13/17 20:59 09/20/17 20:39 20 MG Clonazepam (Klonopin Tab) 1 mg BID PRN PO 09/13/17 16:30 10/13/17 16:29 09/19/17 22:02 1 MG Diltiazem HCl (Cardizem Cd Cap) 180 mg DAILY PO 09/14/17 09:00 10/14/17 08:59 09/20/17 07:55 180 MG Docusate Sodium (coLACE CAP) 100 mg BID PO 09/13/17 21:00 10/13/17 20:59 09/20/17 20:39 100 MG Ferrous Sulfate (Feosol Tab) 325 mg DAILY PO 09/14/17 09:00 10/14/17 08:59 09/20/17 09:34 325 MG Levothyroxine Sodium (Synthroid Tab) 125 mcg DAILYBB PO 09/14/17 06:00 10/14/17 05:59 09/20/17 06:30 125 MCG Loperamide HCl (Imodium Cap) 2 mg Q4H PRN PO 09/13/17 16:30 10/13/17 16:29 Oxycodone HCl (Roxicodone Immediate Rel Tab) 5 mg Q4 PRN PO 09/13/17 16:30 09/27/17 16:29 Senna/Docusate Sodium (Senokot S Tab) 1 tab HS PRN PO 09/13/17 16:30 10/13/17 16:29 Trazodone HCl (Desyrel Tab) 25 mg DAILY PO 09/14/17 09:00 10/14/17 08:59 09/20/17 07:56 25 MG Miscellaneous Information (Order Awaiting Action) 1 ea Q12H PRN PO 09/14/17 00:00 10/14/17 00:00 Heparin Sodium (Porcine) (Heparin Sq 5000 Unit/0.5ml) 5,000 unit Q8 SQ 09/13/17 22:00 10/13/17 21:59 09/20/17 20:37 5,000 UNIT Miscellaneous Information (Order Awaiting Action) 1 ea QS N/A 09/14/17 00:00 10/14/17 00:00 Albuterol/ Ipratropium (Duoneb) 3 ml Q4R INH 09/13/17 20:00 10/13/17 19:59 09/20/17 20:23 3 ML Levofloxacin (Consult) 1 ea UD PRN N/A 09/14/17 14:15 10/14/17 14:14 Levofloxacin (Levaquin Tab) 750 mg Q2D@11 PO 09/18/17 11:00 09/21/17 10:59 09/20/17 11:56 750 MG Lisinopril (Zestril Tab) 2.5 mg QAM PO 09/17/17 09:00 10/17/17 08:59 09/20/17 07:56 2.5 MG Piperacillin Sod/ Tazobactam Sod 3.375 gm/Dextrose 115 ml @ 28.75 mls/ hr Q8H IV 09/17/17 18:00 09/24/17 17:59 09/20/17 17:15 28.75 MLS/HR Miscellaneous Information (Consult) 1 ea UD PRN N/A 09/17/17 12:45 10/17/17 12:44 Enteral Nutritional Formula (Boost) 1 can BID PO 09/17/17 21:00 10/17/17 20:59 09/20/17 20:36 1 CAN Lactobacillus Acidophilus (Floranex Tab) 4 tab TIDM PO 09/18/17 12:00 10/18/17 11:59 09/20/17 17:13 4 TAB Sodium Chloride ([place] Nasal [place]) 1 sprays PRN PRN NA 09/19/17 05:45 10/19/17 05:44 Fluticasone Propionate (Flonase Nasal [place]) 2 sprays DAILY NA 09/20/17 09:00 10/20/17 08:59 09/20/17 07:57 2 SPRAYS Prednisone (PredniSONE TAB) 30 mg DAILY PO 09/21/17 09:00 10/17/17 08:59 Review of Systems All systems were reviewed and are negative except as per HPI Physical Exam Date Time Temp Pulse Resp B/P (MAP) Pulse Ox O2 Delivery O2 Flow Rate FiO2 09/20/17 20:24 89 16 96 Mask 4.0 09/20/17 16:01 80 16 93 Mask 4.0 09/20/17 16:00 Oxymask 4.0 09/20/17 15:15 36.5 80 20 100/64 (76) 92 Nasal Cannula 4.0 09/20/17 11:14 84 16 98 Mask 5.0 09/20/17 08:00 Oxymask 4.0 09/20/17 07:50 96 Oxymask 4.0 09/20/17 07:45 87 Nasal Cannula 4.0 09/20/17 07:26 36.7 74 22 124/68 (86) 96 Nasal Cannula 3.5 09/20/17 07:01 84 16 94 Mask 4.0 09/20/17 00:00 Nasal Cannula 4.0 97 09/19/17 23:18 36.5 86 20 106/65 (79) 96 Nasal Cannula 3.5 General Appearance: WD/WN, no apparent distress Head: normocephalic, atraumatic Eyes: normal inspection, EOMI, sclerae normal ENT: normal ENT inspection, pharynx normal Neck: supple, no adenopathy, thyroid normal, trachea midline Respiratory/Chest: chest non-tender, no respiratory distress, no accessory muscle use, + rhonchi, + wheezing Cardiovascular: regular rate, rhythm, no gallop, no murmur Abdomen/GI: normal bowel sounds, non tender, soft, no organomegaly Back: normal inspection, no CVA tenderness Extremities/Musculoskelatal: no calf tenderness, non-tender Neurologic/Psych: alert, oriented x 3 Skin: normal color, warm/dry, no rash Lymphatic: no adenopathy Laboratory Results RUN DATE: 09/19/17 [facility] LAB PAGE 1 RUN TIME: 656 Specimen Inquiry PATIENT: GENEVIEVE CALIX LOC: [facility] U # : [id number] AGE/SX: 81/F ROOM: [facility] REG : 09/13/[address]: Shubham Monroe MD, PhD : 1935 BED: 1 DIS : STATUS: ADM IN TLOC: SPEC #: [id number] MARCK: 09/13/17 STATUS: COMP REQ #: [id number] RECD: 09/13/[address]: Riley Blum MD SOURCE: BLOOD ENTR: 09/13/[address] [facility] [address] BLOOD CULTURE Procedure Result Verified Site BLD CULT Final 09/19/17-0657 NO GROWTH Last 24 Hours Test 09/20/17 07:05 09/20/17 07:21 09/20/17 16:06 White Blood Count 23.03 K/uL Red Blood Count 3.34 M/uL Hemoglobin 10.5 g/dL Hematocrit 34.1 % Mean Corpuscular Volume 102.1 fL Mean Corpuscular Hemoglobin 31.4 pg Mean Corpuscular Hemoglobin Concent 30.8 g/dl Platelet Count 429 K/uL Mean Platelet Volume 9.3 fL Neutrophils (%) (Auto) 82.9 % Lymphocytes (%) (Auto) 6.2 % Monocytes (%) (Auto) 6.7 % Eosinophils (%) (Auto) 0.3 % Basophils (%) (Auto) 0.1 % Neutrophils # (Auto) 19.08 K/uL Lymphocytes # (Auto) 1.43 K/uL Monocytes # (Auto) 1.55 K/uL Eosinophils # (Auto) 0.06 K/uL Basophils # (Auto) 0.03 K/uL RDW Standard Deviation 55.2 fL RDW Coefficient of Variation 14.9 % Immature Granulocyte % (Auto) 3.8 % Immature Granulocyte # (Auto) 0.88 K/uL Toxic Vacuolation 1+ Sodium Level 137 mmol/L Potassium Level 4.3 mmol/L Chloride Level 94 mmol/L Carbon Dioxide Level 38 mmol/L Anion Gap 5.0 mmol/L Blood Urea Nitrogen 23 mg/dl Creatinine 1.11 mg/dl Est Creatinine Clear Calc Drug Dose 30.9 ml/min Estimated GFR () 53.6 Estimated GFR (Non- 46.2 BUN/Creatinine Ratio 20.8 Random Glucose 78 mg/dl Calcium Level 8.6 mg/dl Magnesium Level 2.4 mg/dl Bedside Glucose 82 mg/dl Procalcitonin 0.05 ng/ml Patient Name: GENEVIEVE CALIX Unit Number: [id number] Dictated: 09/19/17706 Transcribed: 09/19/17706 ARG Printed Date/Time: [~ rep prt dt]/[~ rep prt tm] [~ rep ct labl] - [~ rep ct ivnm] [facility] Radiology Department [place] [id number] Dictated: 09/19/17706 Transcribed: 09/19/17706 ARG Printed Date/Time: [~ rep prt dt]/[~ rep prt tm] [~ rep ct labl] - [~ rep ct ivnm] CHEST ONE VIEW PORTABLE CLINICAL HISTORY: dyspnea COMPARISON STUDY: 09/17/2017 FINDINGS: The cardiac and mediastinal contours remain stable. There is persistent left lower lobe atelectasis/consolidation with a small left pleural effusion. There is improving aeration of the right lower lobe. There is no failure. There are postsurgical changes of a right humeral arthroplasty[ lower left rib fractures are again evident. IMPRESSION: 1. Resolving right basilar airspace opacities 2. Persistent left lower lobe atelectasis/consolidation with a small left pleural effusion Electronically signed by: Ron Barba M.D. 09/19/2017 7:07 AM Dictated Date/Time: 09/19/2017 7:07 AM The status of this report is Signed. Draft = Not yet reviewed or approved by Radiologist. Signed = Reviewed and approved by Radiologist. <AttendingPhy>Shubham Monroe MD, PhD</AttendingPhy> <FamilyPhy>Diallo Benitez D.O.</FamilyPhy> <PrimaryPhy>[facility]</PrimaryPhy> <UnitNumber>[id number]</UnitNumber> <VisitNumber>[id number]</VisitNumber> < PatientName>GENEVIEVE CALXI</PatientName> <DateOfBirth>1935</DateOfBirth> < Location>[facility]</Location> <ServiceDate>09/13/17</ServiceDate> <MNE>ESINDI</MNE > <OrderingPhy>Romano, Shira MD</OrderingPhy> <OrderingPhyMNE>f rep ord dr awan </OrderingPhyMNE> <DictatingPhyMNE>f rep dict dr awan</DictatingPhyMNE> < CCListMNE>f rep ct mne</CCListMNE> <AdmittingPhyMNE>f pt admit dr awan</ AdmittingPhyMNE> <AttendingPhyMNE>f pt attend dr awan</AttendingPhyMNE> <ConsultingPhyMNE>f pt consult dr awan</ConsultingPhyMNE> <FamilyPhyMNE>f pt fam dr awan</FamilyPhyMNE> <OtherPhyMNE>f pt other dr awan</OtherPhyMNE> < PrimaryPhyMNE>f pt prim care dr awan</PrimaryPhyMNE> <ReferringPhyMNE>f pt referring dr awan</ReferringPhyMNE> Assessment & Plan 81-year-old female with what appears to be bilateral pneumonia suspect this may be following influenza type illness. Current treatment with Zosyn and levofloxacin appropriate, have ordered a procalcitonin level to help guide therapy. Will follow.
[2017-09-20] MEDS: CLONAZEPAM 1 MG TAB PO PRN (22:16)
[2017-09-21] VITALS (9 sets, daily range): BP systolic 104–125; BP diastolic 62–72; PULSE 76–89; TEMP 36.4–36.9; O2SAT 93–99
[2017-09-21] MEDS: PIPERACILL/TAZOBAC IV 3.375 GM in DEXTROSE 5% 100ML 100 ML IV SCH ×2 (02:10→10:05)
[2017-09-21] MEDS: ALBUT/IPRATROP 3MG/0.5MG NEB 3 ML VIAL INH SCH ×6 (03:25→23:15)
[2017-09-21] MEDS: LEVOTHYROXINE 125 MCG TAB PO SCH (06:00)
[2017-09-21] MEDS: HEPARIN SOD 5000 UNIT/0.5 ML CARP SQ SCH ×3 (06:01→21:33)
[2017-09-21] MEDS: BUDESONIDE 0.5 MG/2 ML VIAL (PULMICORT) INH SCH ×2 (06:53→19:31)
[2017-09-21 07:20] LABS: HEMATOCRIT 32.1 % (37-47); HEMOGLOBIN 10.1 g/dL (12.0-16.0); MEAN CELL VOLUME 102.2 fL (80-100); MEAN CORPUSCULAR HEMOGLOBIN 32.2 pg (25-34); MEAN CORPUSCULAR HGB CONC 31.5 g/dl (32-36); MEAN PLATELET VOLUME 9.2 fL (7.4-10.4); PLATELET COUNT 428 K/uL (130-400); RED CELL DISTRIBUTION WIDTH SD 55.5 fL (36.4-46.3); WHITE BLOOD COUNT 24.82 K/uL (4.8-10.8)
[2017-09-21 07:48] LABS: BASO % 0.1 %; BASO ABS # 0.02 K/uL (0-0.2); EOS ABS # 0.01 K/uL (0-0.5); IG# 0.78 K/uL (0.00-0.02); MONO % 3.7 %; MONO ABS # 0.91 K/uL (0.11-0.59); NEUT % 89.1 %
[2017-09-21 07:53] LABS: CALCIUM 8.4 mg/dl (8.5-10.1); CREATININE 1.01 mg/dl (0.60-1.20); POTASSIUM 4.7 mmol/L (3.5-5.1)
[2017-09-21] MEDS: FLUTICASONE PROPIONATE NA SPR 16 GM BTL SCH (08:29)
[2017-09-21] MEDS: BOOST VANILLA PO SCH ×2 (08:30→20:04)
[2017-09-21] MEDS: LACTOBACILLUS ACIDOPHILUS (FLORANEX) TAB PO SCH ×3 (08:31→16:43)
[2017-09-21] MEDS: LISINOPRIL 2.5 MG TAB PO SCH (08:31)
[2017-09-21] MEDS: TRAZODONE HCL 50 MG TAB PO SCH (08:31)
[2017-09-21] MEDS: ATORVASTATIN 10 MG TAB PO SCH (08:32)
[2017-09-21] MEDS: DILTIAZEM HCL 180 MG CAPCR PO SCH (08:32)
[2017-09-21] MEDS: ASPIRIN 81 MG ECTAB PO SCH (08:33)
[2017-09-21] MEDS: FERROUS SULFATE 325 MG TAB PO SCH (08:33)
[2017-09-21] MEDS: CITALOPRAM 20 MG TAB PO SCH ×2 (08:33→20:03)
[2017-09-21] MEDS: DOCUSATE SODIUM 100 MG CAP PO SCH ×2 (08:33→20:04)
--- NOTE | 2017-09-21 15:52 | Progress Note ---
Subjective Date of Service: Sep 21, 2017. Subjective Pt evaluation today including: conversation w/ patient, conversation w/ family , physical exam, chart review, lab review, review of studies, review of inpatient medication list Feeling tired, was out of bed to the chair yesterday, but not yet today, Eating okay, denied dysuria urgency and frequencies, still on Flanagan catheter No nose congestion but still need oxy mask with 4 L/m, pulse ox was around 94- 98% Problem List Medical Problems: (1) COPD exacerbation Status: Acute (2) Respiratory failure Status: Acute Review of Systems Constitutional: + weakness, + fatigue Respiratory: + cough, + wheezing, + shortness of breath, + dyspnea on exertion Cardiac: No chest pain, No orthopnea Abdomen: No pain, No nausea Musculoskeletal: No joint pain Female : No dysuria, No urinary frequency Psychiatric: No depression symptoms, No anhedonism Heme: No see HPI, No abnormal bleeding/bruising Endo: + fatigue Skin: No rash, No itch Objective Vital Signs Date Time Temp Pulse Resp B/P (MAP) Pulse Ox O2 Delivery O2 Flow Rate FiO2 09/21/17 14:42 36.6 85 20 112/72 (85) 95 Nasal Cannula 4.0 09/21/17 11:18 82 17 97 Mask 4.0 09/21/17 08:00 Oxymask 4.0 09/21/17 07:23 36.4 77 22 119/68 (85) 98 Mask 4.0 09/21/17 06:55 79 15 99 Mask 4.0 09/21/17 00:14 36.4 76 18 125/64 (84) 93 4.0 09/21/17 00:00 99 Oxymask 4.0 09/20/17 22:57 81 16 98 Mask 4.0 09/20/17 20:24 89 16 96 Mask 4.0 09/20/17 20:00 93 Oxymask 4.0 97 09/20/17 16:01 80 16 93 Mask 4.0 09/20/17 16:00 Oxymask 4.0 Physical Exam General Appearance: WD/WN, no apparent distress, + cachetic, + thin, + pertinent finding (watery frail, looks a little bit tired yesterday) Eyes: normal inspection, PERRL, EOMI, sclerae normal ENT: normal ENT inspection, hearing grossly normal, pharynx normal Neck: supple, no adenopathy, thyroid normal, no JVD, no carotid bruits, trachea midline Respiratory/Chest: chest non-tender, normal breath sounds, no respiratory distress, no accessory muscle use, + decreased breath sounds, + rales Cardiovascular: regular rate, rhythm, no edema, no gallop, no JVD, no murmur Abdomen: normal bowel sounds, non tender, soft, no organomegaly, no pulsatile mass Extremities: normal range of motion, non-tender, normal inspection, no pedal edema, no calf tenderness, normal capillary refill, pelvis stable Neurologic/Psychiatric: [employer] consultant II-XII nml as tested, no motor/sensory deficits, alert, normal mood/affect, oriented x 3 Skin: normal color, warm/dry, no rash Lymphatic: no adenopathy Laboratory Results Last 24 Hours Test 09/20/17 16:06 09/21/17 06:38 Procalcitonin 0.05 ng/ml White Blood Count 24.82 K/uL Red Blood Count 3.14 M/uL Hemoglobin 10.1 g/dL Hematocrit 32.1 % Mean Corpuscular Volume 102.2 fL Mean Corpuscular Hemoglobin 32.2 pg Mean Corpuscular Hemoglobin Concent 31.5 g/dl Platelet Count 428 K/uL Mean Platelet Volume 9.2 fL Neutrophils (%) (Auto) 89.1 % Lymphocytes (%) (Auto) 4.0 % Monocytes (%) (Auto) 3.7 % Eosinophils (%) (Auto) 0.0 % Basophils (%) (Auto) 0.1 % Neutrophils # (Auto) 22.10 K/uL Lymphocytes # (Auto) 1.00 K/uL Monocytes # (Auto) 0.91 K/uL Eosinophils # (Auto) 0.01 K/uL Basophils # (Auto) 0.02 K/uL RDW Standard Deviation 55.5 fL RDW Coefficient of Variation 15.0 % Immature Granulocyte % (Auto) 3.1 % Immature Granulocyte # (Auto) 0.78 K/uL Sodium Level 139 mmol/L Potassium Level 4.7 mmol/L Chloride Level 95 mmol/L Carbon Dioxide Level 38 mmol/L Anion Gap 5.0 mmol/L Blood Urea Nitrogen 21 mg/dl Creatinine 1.01 mg/dl Est Creatinine Clear Calc Drug Dose 34.0 ml/min Estimated GFR () 60.0 Estimated GFR (Non- 51.8 BUN/Creatinine Ratio 20.7 Random Glucose 90 mg/dl Calcium Level 8.4 mg/dl Magnesium Level 2.3 mg/dl Assessment and Plan 81-year-old woman with COPD exacerbation, pneumonia with acute on chronic respiratory failure and hypoxia: COPD exacerbation/PNA/acute on chronic respiratory failure and hypoxia: Admitted on 09/13/2017 Out of ICU 09/16, only need BiPAP, never been intubated has need to be on 4- 5L NC and , 4L NC is her baseline , need oxtymask which seems better fore her Possible from nose congestion,? Ordered Flonase, continue Flonase Repeat chest xray 09/17 showed development of right basilar infiltrate in addition to consolidation previously seen on left base - zosyn restarted, Was thinking to prolonged zosyn to 10 days total however checked procalcitonin was negative, feel patient has good coverage already by antibiotic, will stop Zosyn and Levaquin Discuss with patient and family about risks and benefits of prolonged antibiotics, both believe harm is more then benefit Recent worsening leukocytosis possible from steroid using Urine culture and blood culture was reviewed , has no growth is on steroids- taper Pred 40 mg to 30 mg PO daily,. 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
[2017-09-21] MEDS ORDERED: FUROSEMIDE 20 MG TAB PO ONE (16:15)
[2017-09-21] MEDS: CLONAZEPAM 1 MG TAB PO PRN (21:28)
[2017-09-22] VITALS (7 sets, daily range): BP systolic 116–120; BP diastolic 61–69; PULSE 66–81; TEMP 36.5; O2SAT 95–100
[2017-09-22] MEDS: ALBUT/IPRATROP 3MG/0.5MG NEB 3 ML VIAL INH SCH ×4 (03:50→15:09)
[2017-09-22] MEDS: LEVOTHYROXINE 125 MCG TAB PO SCH (05:16)
[2017-09-22] MEDS: HEPARIN SOD 5000 UNIT/0.5 ML CARP SQ SCH ×2 (05:19→13:52)
[2017-09-22] MEDS: BUDESONIDE 0.5 MG/2 ML VIAL (PULMICORT) INH SCH (07:30)
[2017-09-22] MEDS: CLONAZEPAM 1 MG TAB PO PRN (08:13)
[2017-09-22] MEDS: FLUTICASONE PROPIONATE NA SPR 16 GM BTL SCH (08:14)
[2017-09-22] MEDS: BOOST VANILLA PO SCH (08:14)
[2017-09-22] MEDS: ATORVASTATIN 10 MG TAB PO SCH (08:15)
[2017-09-22] MEDS: TRAZODONE HCL 50 MG TAB PO SCH (08:15)
[2017-09-22] MEDS: DILTIAZEM HCL 180 MG CAPCR PO SCH (08:16)
[2017-09-22] MEDS: CITALOPRAM 20 MG TAB PO SCH (08:16)
[2017-09-22] MEDS: LACTOBACILLUS ACIDOPHILUS (FLORANEX) TAB PO SCH ×2 (08:17→12:27)
[2017-09-22] MEDS: ASPIRIN 81 MG ECTAB PO SCH (08:19)
[2017-09-22] MEDS: DOCUSATE SODIUM 100 MG CAP PO SCH (08:19)
[2017-09-22] MEDS: LISINOPRIL 2.5 MG TAB PO SCH (08:19)
[2017-09-22 08:20] LABS: HEMATOCRIT 32.9 % (37-47); HEMOGLOBIN 10.3 g/dL (12.0-16.0); MEAN CELL VOLUME 102.8 fL (80-100); MEAN CORPUSCULAR HEMOGLOBIN 32.2 pg (25-34); MEAN CORPUSCULAR HGB CONC 31.3 g/dl (32-36); MEAN PLATELET VOLUME 9.2 fL (7.4-10.4); PLATELET COUNT 457 K/uL (130-400); RED CELL DISTRIBUTION WIDTH CV 14.9 % (11.5-14.5); RED CELL DISTRIBUTION WIDTH SD 55.7 fL (36.4-46.3); WHITE BLOOD COUNT 23.23 K/uL (4.8-10.8)
[2017-09-22 08:45] LABS: CALCIUM 8.7 mg/dl (8.5-10.1); CREATININE 0.95 mg/dl (0.60-1.20); POTASSIUM 4.6 mmol/L (3.5-5.1)
[2017-09-22 08:47] LABS: BASO % 0.1 %; BASO ABS # 0.03 K/uL (0-0.2); EOS % 0.2 %; EOS ABS # 0.05 K/uL (0-0.5); IG# 1.07 K/uL (0.00-0.02); LYMPH % 6.6 %; LYMPH ABS # 1.53 K/uL (1.2-3.4); MONO % 5.4 %; MONO ABS # 1.26 K/uL (0.11-0.59); NEUT % 83.1 %; NEUT ABS # 19.29 K/uL (1.4-6.5)
[2017-09-22] MEDS ORDERED: FUROSEMIDE 20 MG TAB PO SCH (09:00)
[2017-09-22] MEDS: FERROUS SULFATE 325 MG TAB PO SCH (09:26)
--- NOTE | 2017-09-22 13:45 | DIAGNOSTIC IMAGING REPORT ---
CHEST ONE VIEW PORTABLE HISTORY: 81 years-old Female pneumonia acute pneumonia with shortness of breath COMPARISON: Chest radiograph 09/19/2017, 09/17/2017, 09/15/2017 and 09/14/2017 TECHNIQUE: Portable AP view of the chest FINDINGS: Cardiac silhouette is again mildly enlarged. Atherosclerosis of the aorta. Right lung apex is partially obscured by the patient's chin. Small left and trace right pleural effusions. No overt pulmonary edema or pneumothorax. Unchanged hazy bibasilar consolidative opacities. Remote left-sided rib fractures. Reverse right shoulder total joint arthroplasty. Level degenerative changes of the spine. IMPRESSION: 1. Stable exam with persistent bibasilar consolidative opacities suggesting atelectasis or pneumonia. 2. Small left and trace right pleural effusions. 3. Cardiomegaly without overt pulmonary edema. The above report was generated using voice recognition software. It may contain grammatical, syntax or spelling errors. Electronically signed by: Stu Chang M.D. 09/22/2017 1:44 PM Dictated Date/Time: 09/22/2017 1:41 PM
[2017-09-22] MEDS ORDERED: CLON1TAB3 PO (14:20)
[2017-09-22] MEDS ORDERED: PRED10TA PO ×2 (14:20→14:22)
[2017-09-22] MEDS ORDERED: OXYC-609 PO (14:20)
[2017-09-22] MEDS ORDERED: LSN25 PO (14:20)
--- NOTE | 2017-09-22 14:27 | Discharge Instructions ---
Discharge Instructions Date of Service Sep 22, 2017. Admission Reason for Admission: SOB Discharge Discharge Diagnosis / Problem: Pneumonia, COPD, CHF Discharge Goals Goal(s): Decrease discomfort, Improve disease control Activity Recommendations Activity Level: Assistance Required Therapies: Physical Therapy, Occupational Therapy Lifting Limitations: none . Additional Information Patient informed of condition: Yes Advance Directives: Yes DNR: Yes Level of Care: Skilled Communicable Disease: No Prognosis: Deteriorating (hospice) Oxygen at (LPM): 4L NC baseline Flanagan Catheter: Yes (patient request) Current Hospital Diet Patient's current hospital diet: Regular Diet Discharge Diet Recommended Diet: Regular Diet Pending Studies Studies pending at discharge: no Physician Orders On Transfer POLST Discussion: with POLST completion Laboratory Results Last 24 Hours Test 09/22/17 07:35 White Blood Count 23.23 K/uL Red Blood Count 3.20 M/uL Hemoglobin 10.3 g/dL Hematocrit 32.9 % Mean Corpuscular Volume 102.8 fL Mean Corpuscular Hemoglobin 32.2 pg Mean Corpuscular Hemoglobin Concent 31.3 g/dl Platelet Count 457 K/uL Mean Platelet Volume 9.2 fL Neutrophils (%) (Auto) 83.1 % Lymphocytes (%) (Auto) 6.6 % Monocytes (%) (Auto) 5.4 % Eosinophils (%) (Auto) 0.2 % Basophils (%) (Auto) 0.1 % Neutrophils # (Auto) 19.29 K/uL Lymphocytes # (Auto) 1.53 K/uL Monocytes # (Auto) 1.26 K/uL Eosinophils # (Auto) 0.05 K/uL Basophils # (Auto) 0.03 K/uL RDW Standard Deviation 55.7 fL RDW Coefficient of Variation 14.9 % Immature Granulocyte % (Auto) 4.6 % Immature Granulocyte # (Auto) 1.07 K/uL Toxic Vacuolation 2+ Sodium Level 136 mmol/L Potassium Level 4.6 mmol/L Chloride Level 93 mmol/L Carbon Dioxide Level 39 mmol/L Anion Gap 3.0 mmol/L Blood Urea Nitrogen 24 mg/dl Creatinine 0.95 mg/dl Est Creatinine Clear Calc Drug Dose 36.1 ml/min Estimated GFR () 64.6 Estimated GFR (Non- 55.8 BUN/Creatinine Ratio 25.5 Random Glucose 69 mg/dl Calcium Level 8.7 mg/dl Magnesium Level 2.4 mg/dl Medical Emergencies . Who to Call and When: Medical Emergencies: If at any time you feel your situation is an emergency, please call 911 immediately. . Non-Emergent Contact Non-Emergency issues call your: Primary Care Provider Call Non-Emergent contact if: you have any medication questions . . "Provider Documentation" section prepared by Zaria Simms. . Core Measure Problem Core Measures: None
--- NOTE | 2017-09-22 15:02 | Discharge Summary ---
Discharge Summary Date of Service Sep 22, 2017. Discharge Summary Admission Date: Sep 13, 2017 at 14:07 Discharge Date: Sep 22, 2017 Discharge Disposition: Personal care Principal Diagnosis: COPD/PNA/CHF Problems/Secondary Diagnoses: ARF, History of hypertension, Spasmodic torticollis, Hypothyroid Procedures: CHEST ONE VIEW PORTABLE HISTORY: 81 years-old Female pneumonia acute pneumonia with shortness of breath COMPARISON: Chest radiograph 09/19/2017, 09/17/2017, 09/15/2017 and 09/14/2017 TECHNIQUE: Portable AP view of the chest FINDINGS: Cardiac silhouette is again mildly enlarged. Atherosclerosis of the aorta. Right lung apex is partially obscured by the patient's chin. Small left and trace right pleural effusions. No overt pulmonary edema or pneumothorax. Unchanged hazy bibasilar consolidative opacities. Remote left-sided rib fractures. Reverse right shoulder total joint arthroplasty. Level degenerative changes of the spine. IMPRESSION: 1. Stable exam with persistent bibasilar consolidative opacities suggesting atelectasis or pneumonia. 2. Small left and trace right pleural effusions. 3. Cardiomegaly without overt pulmonary edema. CHEST ONE VIEW PORTABLE CLINICAL HISTORY: dyspnea COMPARISON STUDY: 09/17/2017 FINDINGS: The cardiac and mediastinal contours remain stable. There is persistent left lower lobe atelectasis/consolidation with a small left pleural effusion. There is improving aeration of the right lower lobe. There is no failure. There are postsurgical changes of a right humeral arthroplasty[ lower left rib fractures are again evident. IMPRESSION: 1. Resolving right basilar airspace opacities 2. Persistent left lower lobe atelectasis/consolidation with a small left pleural effusion CHEST ONE VIEW PORTABLE CLINICAL HISTORY: pna, worsening sob today dyspnea COMPARISON STUDY: 09/15/2017 FINDINGS: Developing right basilar parenchymal infiltrate. Pre-existing unchanged consolidative process left base. Mid and upper lungs remain clear. IMPRESSION: 1. Unchanged parenchymal infiltrate/effusion left lung base. 2. Interval development of a right basilar infiltrate. CHEST ONE VIEW PORTABLE CLINICAL HISTORY: ICU pt chest pain COMPARISON STUDY: 09/14/2017 FINDINGS: Unchanging consolidative change left lung base. Lungs otherwise appear clear. No evidence for significant cardiac enlargement. IMPRESSION: Unchanged parenchymal infiltrate/effusion left lung base. [~ rep ct add3]] CHEST ONE VIEW PORTABLE HISTORY: Respiratory failure, bronchitis COMPARISON: Chest 09/13/2017. FINDINGS: No pneumothorax. Small left pleural effusion and left basilar densities are again noted. The heart is normal in size. No evidence for pulmonary edema. Right shoulder prosthesis. A few linear density at the right lung base. IMPRESSION: No change in the small left pleural effusion and left basilar airspace opacities. CHEST ONE VIEW PORTABLE CLINICAL HISTORY: Sepsis dyspnea COMPARISON STUDY: 05/02/2017 FINDINGS: Improved aeration left base compared to the prior study. Minimal residual left retrocardiac atelectasis. Lungs otherwise are clear. Total right shoulder arthroplasty is noted. IMPRESSION: Minimal residual left retrocardiac atelectasis. Otherwise no acute process. Consultations: VERO Alba from Palliative Care Medication Reconciliation New Medications: Prednisone (Prednisone) 10 Mg Tab 10 MG PO DAILY for 7 Days, #12 TAB 30 mg x 1 day 20 mg x 3 days 10 mg x 3 days Lisinopril (Lisinopril) 2.5 Mg Tab 2.5 MG PO QAM for 30 Days, #30 TAB Continued Medications: Acetaminophen Tab (Tylenol) 325 Mg Tab 650 MG PO Q4H PRN for Pain, TAB Aspirin (Aspirin Ec) 81 Mg Tab 81 MG PO DAILY Atorvastatin (Lipitor) 10 Mg Tab 10 MG PO DAILY, TAB Bisacodyl (Bisac-Evac) 10 Mg Sup 10 SUPP DE UD GIVE IN THE MORNING OF DAY 4 IF NO B.M Budesonide (Inhalation) (Pulmicort Respules 0.5MG/2ML) 0.5 Mg/2 Ml Maria Isabel 0.5 MG INH BID, #60 UNITS Citalopram Hydrobromide (Celexa) 20 Mg Tab 20 MG PO BID, TAB Clonazepam (Klonopin) 1 Mg Tab 1 MG PO BID PRN for Anxiety for 5 Days, #10 TAB (This prescription has been renewed) Dextromethorphan-Guaifenesin (Mucinex Dm) 1 Tab Tab 1 TAB PO Q12 PRN for CONGESTION for 10 Days, #20 TAB MUCINEX DM ER 600-30MG Diltiazem Hcl Coated Beads (Diltiazem Hcl Er) 180 Mg Cap 1 CAP PO DAILY for 90 Days, #90 CAP 3 Refills Docusate Sodium (Docusate Sodium) 100 Mg Cap 100 MG PO BID Ferrous Sulfate (Ferrous Sulfate) 325 Mg Tab 1 TAB PO DAILY Fluticasone Furoate-Vilanterol (Breo Ellipta) 1 Inh Inh 1 PUFF INH DAILY Furosemide (Lasix) 20 Mg Tab 1 TAB PO DAILY for 90 Days, #90 TAB 1 Refill Levothyroxine Sodium (Levothyroxine Sodium) 125 Mcg Tab 1 TAB PO DAILY for 90 Days, #90 TAB 3 Refills Loperamide Hcl (Imodium) 2 Mg Cap 2 MG PO Q4H PRN for Diarrhea, CAP Magnesium Hydroxide (Milk Of Magnesia) 30 Ml Susp 30 ML PO UD, ML GIVE PM EVENING OF DAY 3 WITH NO B.M Oxycodone HCl (Oxycodone HCl) 5 Mg Tab 5 MG PO Q4 PRN for Pain for 5 Days, #30 TABS (This prescription has been renewed ) Potassium Chloride (Micro-K Ext Rel) 10 Meq Capcr 10 MEQ PO DAILY, CAP Senna/Docusate Sod (Senokot S) 1 Tab Tab 1 TAB PO HS PRN for Constipation, TAB Trazodone Hcl (Trazodone) 50 Mg Tab 25 MG PO DAILY, TAB Discontinued Medications: Lisinopril (Prinivil) 5 Mg Tab 5 MG PO DAILY, TAB Prednisone (Prednisone) 10 Mg Tab 10 MG PO DAILY, TAB [Amox,[id number]] () 1 TAB PO TID EQUIVALENT TO AUGMENTIN 250 TAB Discharge Exam ROS Constitutional: no chills, aches, sweats or fever Respiratory: no sob,cough, sputum, or wheezing Cardiac: no chest pain, palpitations, edema, orthopnea or lightheadedness GI: no abdominal pain, nausea, vomiting, diarrhea or constipation : no dysuria or hesitancy Extremities: no joint pain or weakness Skin: no rash All other systems reviewed and negative PE General: no distress Eyes: normal inspection, PERLL Respiratory: chest non tender, clear to auscultation, normal breath sounds, no respiratory distress, no accessory muscle use Cardiac: regular rate and rhythm, no rub or gallop, no murmur, no edema, no jvd GI/: active bowel sounds, no abd pain or tenderness, soft, non distended Extremities: normal range of motion, generalized weakness, non tender Neuro/Psych: alert and oriented x 3, normal mood and affect Skin: normal color, dry Hospital Course Ms. Price is an 81 y/o F who presented for SOB. EMT was called to [facility] for SOB. She was found to have an O2 sat of 62% on NC. She was brought to the ED on CPAP and switched to BIPAP on arrival. She was in ICU on bipap from 09/13-09/16. She and her family met with palliative care and it was decided that patient would be maximized with therapies here as much as possible but then would return to [facility] on hospice. COPD exacerbation/PNA/acute on chronic respiratory failure and hypoxia: - transferred from ICU 09/17/17 - required bipap until 09/15 - now on 4-6L NC, 4L NC is her baseline - Multiple CXRs throughout her stay - Today Stable exam with persistent bibasilar consolidative opacities suggesting atelectasis or pneumonia - given that patient has been treated with cefelpime, vancomycin, levaquin and zosyn at different points in her stay starting 09/13, and procalcitonin was wnl on 09/20 and patient has been afebrile with VSS - would assume at this point that it is atelectasis rather than pneumonia at this point. - nebulizers given, continue to taper po steroids outpatient - bc no growth Chronic diastolic CHF - patient intermittently given IV lasix with limited improvements in sob, respiratory status - discharged with home po lasix today - CXR today did not show any obvious pulm congestion, patient does not appear overloaded on exam - continue home meds, ARF: - Creatinine peaked at 1.6 this admission and has trended down to wnl - ANDREW restarted - IVF discontinued History of hypertension - ANDREW at reduced dose Spasmodic torticollis: baclofen, klonopin, trazodone as at home, Botox injection for this on 09/10/17 Hypothyroid: continue home meds Total Time Spent: Greater than 30 minutes This includes examination of the patient, discharge planning, medication reconciliation, and communication with other providers. Discharge Instructions Please refer to the electronic Patient Visit Report (Discharge Instructions) for additional information. Additional Copies To [facility]
--- NOTE | 2017-09-24 10:54 | EDITING REQUIRED CODING QUERY ---
PRESENT ON ADMISSION QUERY To promote full compliance with coding requirements relating to pateint care, physician participation is requested in all cases of baggagemaster uncertainty. Please assist us with the question(s) below: Please place an X within the parenthesis (x). The following diagnosis(es) listed in this patient's medical record require physician assistance to determine if they were present on admission (POA) or not. Please advise for each diagnosis whether it was present on admission, not present on admission, or if it was clinically undetermined. 1. Pneumonia (documentation begins on Progress Note 09/15/17) (x ) Present On Admission ( ) Not Present On Admission ( ) Clinically Undetermined Thank you Silke Pearson *Definition of the present on admission (POA)-Present on admission is defined as present at the time the order for inpatient admission occurs. Conditions that develop during an outpatient encounter prior to a written order for inpatient admission (including emergency department, observation, or outpatient surgery) are considered present on admission.
== END 2017-09-22 15:30 | disposition hospice, inpatient (51) | DRG 193 ==
LOC: EDBD 13:29 → C.EDB 13:30 → C.MSICU 14:07 → ENRESERV 15:57 → C.MS2W 09-16 12:46
PROVIDERS: ADMIT Family Medicine; ATTEND Internal Medicine
DX: J18.9 Pneumonia, unspecified organism (principal); J96.21 Acute and chronic respiratory failure with hypoxia; I50.33 Acute on chronic diastolic (congestive) heart failure; J44.0 Chronic obstructive pulmonary disease with (acute) lower respiratory infection; J44.1 Chronic obstructive pulmonary disease with (acute) exacerbation; N17.9 Acute kidney failure, unspecified; E87.5 Hyperkalemia; E88.09 Other disorders of plasma-protein metabolism, not elsewhere classified; R54 Age-related physical debility; G24.3 Spasmodic torticollis; I11.0 Hypertensive heart disease with heart failure; E03.9 Hypothyroidism, unspecified; E61.1 Iron deficiency; Z51.81 Encounter for therapeutic drug level monitoring; Z79.899 Other long term (current) drug therapy; Z79.82 Long term (current) use of aspirin; Z79.52 Long term (current) use of systemic steroids; Z66 Do not resuscitate; Z87.891 Personal history of nicotine dependence